=== PATIENT | male | born 1945 | race Caucasian/White ===

== ENCOUNTER → 2017-11-14 12:45 | Outpatient (CLI) | payer MEDICARE, OTHER, SELFPAY ==
--- NOTE | 2017-11-14 13:00 | ECHOCS_ITS ---
Reason For Study: ABNL EKG Procedure This was a 2D Doppler, Color Flow transthoracic echocardiogram. Contrast injection was performed. Exam performed in department. Left Ventricle Normal LV size. Left ventricular systolic function is normal. The estimated ejection fraction is 55 %. Transmitral and pulmonary venous doppler flow suggestive of impaired relaxation of left ventricle. No regional wall motion abnormalities noted. Right Ventricle Normal RV size. Normal systolic function. Atria The left atrium is mildly enlarged. Normal right atrium. Mitral Valve Normal mitral valve. Tricuspid Valve Normal tricuspid valve. Mild (1+) tricuspid valve insufficiency. Pulmonary artery systolic pressure is 27 mmHg. Aortic Valve Trisinus/trileaflet aortic valve. Normal aortic valve. Pulmonic Valve Normal pulmonic valve. Great Vessels Normal aortic root. The pulmonary artery is normal size. Normal inferior vena cava. Pericardium/Pleural No pericardial effusion. Medication 22 gauge I.V. with prn adaptor inserted into right arm. Definity0.2ml given slow IV push to enhance endocardial definition. MMode/2D Measurements & Calculations LVIDd: 4.1 cm IVSd: 1.2 cm Ao root diam: 3.1 cm LVIDs: 2.6 cm LVPWd: 1.2 cm LA dimension: 4.0 cm RVDd: 3.2 cm FS: 35.3 % LAV(MOD-bp): 77.3 ml LAV(MOD-bp) Indexed: 37.0 ml/m2 LA A4 area: 23.2 cm2 RA A4 area: 19.6 cm2 LAV(MOD-sp2): 65.7 ml LAV(MOD-sp4): 68.7 ml Doppler Measurements & Calculations MV E max ramin: 63.2 cm/sec Lat Peak E' Ramin: 9.8 cm/sec Med Peak E' Ramin: 7.1 cm/sec MV A max ramin: 75.9 cm/sec E/E' lat: 6.5 E/E' med: 8.9 MV E/A: 0.83 Ao V2 max: 137.6 cm/sec LV V1 max: 125.2 cm/sec PA V2 max: 175.5 cm/sec Ao max P.6 mmHg LV V1 max P.3 mmHg PA V2 mean: 105.9 cm/sec PA V2 VTI: 33.1 cm TR max ramin: 237.7 cm/sec TR max P.7 mmHg Interpretation Summary Normal LV size. Left ventricular systolic function is normal. The estimated ejection fraction is 55 %. Mild (1+) tricuspid valve insufficiency. Contrast injection was performed. Ordering Physician: Tacho Moreira Referring Physician: Jose Guillaume Performed By: Naomy Peter, MARTÍN, RVT
== END ==
PROVIDERS: Family Provider Family Medicine; PCP Family Medicine; Visit Provider Internal Medicine Cardiovascular Disease
DX: R94.31 Abnormal electrocardiogram [ECG] [EKG] (principal); I07.1 Rheumatic tricuspid insufficiency
CPT/HCPCS: 93306; Q9957; A4216; C8929

== ENCOUNTER → 2017-12-29 14:17 | Outpatient (CLI) | payer MEDICARE, OTHER, SELFPAY ==
[2017-12-29 17:19] LABS: Absolute Neutrophil Count 5.4 X10^3/uL (2.0-7.7); Basophil# 0.01 X10^3/uL; Basophil% 0.1 % (0-1); Eosinophil# 0.05 X10^3/uL; Eosinophils% 0.7 % (0-5); Hematocrit 44.5 % (40-54); Hemoglobin 15.5 g/dl (13.0-16.5); Lymphocyte % 12.9 % (19-41); Mean Corp Hgb Conc 34.8 g/gl (32-36); Mean Corpuscular Hgb 29.5 pg (27.0-32.0); Mean Corpuscular Volume 84.6 fL (80-94); Mean Platelet Vol. 11.4 fl (6.2-12.0); Monocyte% 8.6 % (0-10); Neutrophil # 5.37 X10^3/uL (2.7-7.7); Neutrophil % 77.4 % (47-70); Platelet Count 286 K/mm3 (150-450); RBC Distribution Width CV 12.4 % (11.6-14.6); RBC Distribution Width SD 38.3 fl (35.1-43.9); Red Blood Count 5.26 M/mm3 (4.6-6.2)
[2017-12-29 17:34] LABS: POSITIVE COUNT NO; POSITIVE DIFFERENTIAL NO; POSITIVE MORPHOLOGY NO
[2017-12-29 18:01] LABS: CRP < 2.90 mg/L (0.0-3.0)
[2017-12-29 18:38] LABS: Erythrocyte Sedimentation Rate 3 mm/hr (0-20)
== END ==
PROVIDERS: Family Provider Family Medicine; PCP Family Medicine; Visit Provider Physician Assistant
DX: Z96.652 Presence of left artificial knee joint (principal)
CPT/HCPCS: 36415; 85025; 85652; 86140

== ENCOUNTER → 2018-01-13 10:32 | Outpatient (CLI) | payer MEDICARE, OTHER, SELFPAY ==
--- NOTE | 2018-01-13 10:51 | EKG12_ITS ---
Test Reason : PREOP Blood Pressure : / mmHG Vent. Rate : 059 BPM Atrial Rate : 059 BPM P-R Int : 166 ms QRS Dur : 106 ms QT Int : 416 ms P-R-T Axes : 031 043 044 degrees QTc Int : 411 ms Sinus bradycardia Incomplete right bundle branch block Borderline ECG Confirmed by PARRISH THAKKAR, PRETTY ([id number]), editorial writer PORSHA RAMOS ([id number]) on 01/16/2018 1:49:14 PM Referred By: [place] Confirmed By:PRETTY SENIOR MD
[2018-01-13 11:16] LABS: Hematocrit 42.4 % (40-54); Hemoglobin 14.5 g/dl (13.0-16.5); Mean Corp Hgb Conc 34.2 g/gl (32-36); Mean Corpuscular Hgb 29.7 pg (27.0-32.0); Mean Corpuscular Volume 86.9 fL (80-94); Mean Platelet Vol. 10.8 fl (6.2-12.0); Platelet Count 231 K/mm3 (150-450); RBC Distribution Width CV 12.9 % (11.6-14.6); RBC Distribution Width SD 40.3 fl (35.1-43.9); Red Blood Count 4.88 M/mm3 (4.6-6.2); Scan Indicated on CBC? Y/N NO; White Blood Count 4.6 K/mm3 (4.4-11.0)
[2018-01-13 11:42] LABS: Anion Gap 5 (5-15); BUN 17 mg/dL (7-18); BUN/Creat Ratio 23.3 RATIO (10-20); Calcium,Total 8.3 mg/dL (8.5-10.1); Chloride 100 mmol/L (98-107); Creatinine, Serum 0.73 mg/dL (0.70-1.30); EST Glomerular Filtration Rate 112 mL/min (>60); Est Glom Filt Rate - Afr Amer 135 mL/min (>60); Glucose 90 mg/dL (74-106); Potassium 4.3 mmol/L (3.5-5.1); Sodium Level 135 mmol/L (136-145)
== END ==
PROVIDERS: Family Provider Family Medicine; PCP Family Medicine; Visit Provider Orthopaedic Surgery
DX: Z01.810 Encounter for preprocedural cardiovascular examination (principal); Z01.818 Encounter for other preprocedural examination; I10 Essential (primary) hypertension
CPT/HCPCS: 36415; 80048; 85027; 93005

== ENCOUNTER → 2018-10-23 07:36 | Outpatient (CLI) | payer MEDICARE, OTHER, SELFPAY ==
[2018-10-23 10:54] LABS: Cholesterol 215 mg/dL (200); High Density Lipoprotein 69 mg/dL; PSA,Total - Annual Screen 0.61 ng/mL (0.00-4.00); Triglycerides 119 mg/dL; Very Low Density Lipoprotein 24 mg/dL (5-40)
== END ==
PROVIDERS: Family Provider Family Medicine; PCP Family Medicine; Referring Provider Family Medicine; Visit Provider Family Medicine
DX: E78.00 Pure hypercholesterolemia, unspecified (principal); Z12.5 Encounter for screening for malignant neoplasm of prostate
CPT/HCPCS: 36415; 80061; 84153; G0103

== ENCOUNTER 2019-01-13 09:16 | Emergency (ER) | payer MEDICARE, OTHER, SELFPAY ==
[2018-10-24 10:25] VITALS: BMI 29.7
[2019-01-13 09:17] VITALS: BP 162/100; PULSE 80; RESP 16; TEMP 36.7; O2SAT 96; BMI 29.2
[2019-01-13 10:08] LABS: Absolute Lymphocyte Count 0.59 X10^3/ul (0.83-4.51); Absolute Neutrophil Count 4.6 X10^3/uL (2.0-7.7); Basophil# 0.02 X10^3/uL; Basophil% 0.3 % (0-1); Eosinophil# 0.21 X10^3/uL; Eosinophils% 3.6 % (0-5); Hematocrit 46.4 % (40-54); Hemoglobin 13.1 g/dl (13.0-16.5); Lymphocyte # 0.59 X10^3/ul (4.0); Mean Corp Hgb Conc 28.2 g/gl (32-36); Mean Corpuscular Hgb 23.7 pg (27.0-32.0); Mean Corpuscular Volume 84.1 fL (80-94); Mean Platelet Vol. 10.5 fl (6.2-12.0); Monocyte# 0.48 X10^3/uL; Monocyte% 8.2 % (0-10); Neutrophil # 4.57 X10^3/uL (2.7-7.7); Neutrophil % 77.7 % (47-70); Platelet Count 229 K/mm3 (150-450); RBC Distribution Width CV 12.8 % (11.6-14.6); RBC Distribution Width SD 39.3 fl (35.1-43.9); Red Blood Count 5.52 M/mm3 (4.6-6.2); White Blood Count 5.9 K/mm3 (4.4-11.0)
[2019-01-13 10:09] LABS: Differential Indicated SCAN CRITERIA MET; POSITIVE COUNT NO; POSITIVE DIFFERENTIAL YES; POSITIVE MORPHOLOGY NO
--- NOTE | 2019-01-13 10:18 | RAD_ITS ---
STUDY: X-RAY - LEFT KNEE REASON FOR EXAM: Male, 73 years old. Left knee replacement, pain and swelling since yesterday TECHNIQUE: 4 view(s) of the knee. COMPARISON: None. FINDINGS: Normal visualized distal femur. Normal visualized proximal tibia and fibula. Normal proximal tibiofibular articulation. Knee replacement is in radiographic alignment. No periimplant lucency demonstrated. No destructive bony process. No joint effusion. The soft tissue structures are unremarkable. RAD/Knee 4 or More Views IMPRESSION: Left knee replacement in radiographic alignment. No bony destructive process. Electronically Signed: Jagdish Alfaro MD at 10:39 EDT , Service support ,
[2019-01-13 10:23] LABS: Erythrocyte Sedimentation Rate 4 mm/hr (0-20)
[2019-01-13 10:37] LABS: Anion Gap 3 (5-15); BUN 11 mg/dL (7-18); BUN/Creat Ratio 14.7 RATIO (10-20); CRP < 2.90 mg/L (0.0-3.0); Calcium,Total 8.5 mg/dL (8.5-10.1); Chloride 99 mmol/L (98-107); Creatinine, Serum 0.75 mg/dL (0.70-1.30); EST Glomerular Filtration Rate 108 mL/min (>60); Est Glom Filt Rate - Afr Amer 131 mL/min (>60); Estimated Creatinine Clearance 64.81 ml/min; Glucose 103 mg/dL (74-106); Potassium 4.6 mmol/L (3.5-5.1); Sodium Level 132 mmol/L (136-145)
[2019-01-13 11:31] VITALS: BP 140/85; PULSE 67; RESP 16; O2SAT 97
[2019-01-13] MEDS: Ondansetron 4 MG/2 ML Vial IV (11:59)
[2019-01-13] MEDS: Morphine 4 MG/ML Syringe IV ×2 (11:59→14:00)
[2019-01-13] MEDS: Ketorolac 30 MG/ML Syringe IV (11:59)
[2019-01-13 15:08] VITALS: BP 158/102; PULSE 83; RESP 18; O2SAT 100
--- NOTE | 2019-01-13 15:19 | ED.DCSUM_ITS ---
History of Present Illness Chief Complaint: Lower Extremity Injury Informant: Patient Occurred: Days - Onset Mechanism/Context: - - No history of trauma Onset: - - Onset Context: Sudden Onset Timing: Continuous Quality of Pain: Dull, Aching Location: Left knee Current Severity: Mild Maximum Severity: Severe Worsened by: Flexion, extension weightbearing Relieved by: Nothing Associated Symptoms: Loss of Funtion. Negative for: Parasthesia, Weakness Narrative: Patient is an elderly male with history of left total knee arthroplasty by Dr. Ed Vernon 4 years ago. He presents with abrupt atraumatic left knee pain and swelling started . He was concerned because it was warm. States he presented to the emergency department yesterday but left because of crowding. He denies fever, chills night sweats. He denies cardiac respiratory symptoms. He denies swelling of his leg or thigh. 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 He denies any other symptoms. There is no history of gout or pseudogout. He is not on a thiazide diuretic. - Past Medical History (1) Benign prostate hyperplasia Status: Chronic (2) Carotid artery disease Status: Chronic (3) Hyperlipidemia Status: Chronic (4) Hypertension Status: Chronic (5) Peripheral neuropathy Status: Chronic (6) Ventricular tachycardia Status: Chronic Past Medical History - Allergies and Home Meds Allergies/Adverse Reactions: Allergies No Known Allergies Allergy (Verified 01/13/19 09:17) Primary Care Physician: Jose Guillaume MD [Primary Care Provider] - Prior records reviewed: Yes Surgical History: total knee arthroplasty, TURP, - - elbow and shoulder surgery, cystoscopy Lives: Spouse/ Significant Other Smoking Status: Former smoker Alcohol: Rare - Family History Maternal Family History: Reports: No pertinent history Paternal Family History: Reports: Cancer - colon in his father Sibling Family History: Reports: - - he has a brother with lung cancer, another with bladder cancer and a third with Leukemia Review of Systems General: Denies: Chills, Fever, Malaise, Subjective, Sweats, Weight loss, - Cardiovascular: Denies: Chest pain, Palpitations, Heart racing, -, - Respiratory: Denies: Dyspnea, Cough, Dyspnea on exertion Gastrointestinal: Denies: Abdominal pain, Nausea, Vomiting, Diarrhea Genitourinary: Denies: Dysuria, Hematuria, Frequency, -, - Musculoskeletal: Reports: Extremity Pain - Pain, swelling and warmth left knee. Denies: Myalgias, Arthralgias, Neck pain, Back pain Skin: Denies: Rash, Wounds Neurological: Denies: Weakness, Parasthesia, Numbness Hematologic: Denies: Easy bruising, Easy bleeding Physical Exam Vital Signs/Narrative: Vital Signs Pulse Resp BP Pulse Ox 01/13/19 15:08 83 18 158/102 H 100 01/13/19 11:31 67 16 140/85 H 97 - Extremity Exam Left Pelvis: Negative for: Abrasion, Contusion, Deformity, Edema, Hematoma, Limited ROM, - Left Hip: Negative for: Abrasion, Contusion, Deformity, Edema, Hematoma, Limited ROM, - Left Femur: Negative for: Abrasion, Contusion, Deformity, Edema, Hematoma, Limited ROM, - Left Knee: Limited ROM, - - There is swelling with effusion and warmth of left knee. Flexion extension causes him discomfort. Is able to extend 170 degrees and flex to 100 degrees before experiencing discomfort. There is no laxity with varus valgus stress testing. Left Tib Fib: Negative for: Abrasion, Contusion, Deformity, Edema, Hematoma, Limited ROM, - Left Ankle: Negative for: Abrasion, Contusion, Deformity, Edema, Hematoma, Limited ROM, - Left Foot: Negative for: Abrasion, Contusion, Deformity, Edema, Hematoma, Limited ROM, - General: Well nourished, Well developed Head: Normocephalic, Atraumatic Eyes: Perrl, EOMI. Negative for: Pale conjunctiva Cardiovascular: Regular rate, Regular rhythm Respiratory: No distress Skin: Normal color, No rash Neurological: Alert, Oriented x3, Cranial nerves II-XII grossly intact, Normal Strength, Normal Sensation Psychological: Normal affect Diagnostic/Tx/Re-eval 4 view x-ray of the right knee was interpreted me as negative. There is no evidence of problem with hardware, effusion, foreign body, fracture or dislocation. Impressions Knee X-Ray 01/13/19 10:18 IMPRESSION: Left knee replacement in radiographic alignment. No bony destructive process. Electronically Signed: Jagdish Alfaro MD at 10:39 EDT , Service support , 01/13/19 10:18 Knee 4 or More Views [RAD] Stat 01/13/19 14:30 Fluid - Synovial (joint) Gram Stain - Preliminary Laboratory Results 01/13/19 01/13/19 10:00 10:00 WBC 5.9 RBC 5.52 Hgb 13.1 Hct 46.4 MCV 84.1 MCH 23.7 L MCHC 28.2 L RDW 12.8 RDW Differential 39.3 Plt Count 229 MPV 10.5 Immature Gran % (Auto) 0.200 Neut % (Auto) 77.7 H Lymph % (Auto) 10.0 L [place] % (Auto) 8.2 Eos % (Auto) 3.6 Baso % (Auto) 0.3 Absolute Neuts (auto) 4.6 Absolute Lymphs (auto) 0.59 L Total Counted Not Reportable ESR 4 Sodium 132 L Potassium 4.6 Chloride 99 Carbon Dioxide 30.0 Anion Gap 3 L BUN 11 Creatinine 0.75 Estim Creat Clear Calc 64.81 Est GFR (MDRD) Af Amer 131 Est GFR (MDRD) Non-Af 108 BUN/Creatinine Ratio 14.7 Glucose 103 Calcium 8.5 C-React Prot Ext Range < 2.90 - Medical Decision Making With atraumatic left knee pain associated with effusion, warmth and pain with range of motion need to rule out crystal induced monoarticular arthritis versus septic/pyogenic arthritis. Appropriate blood work was obtained. X-ray was obtained to evaluate for fracture, or any other mL he would explain his knee pain and swelling. He gave verbal consent for arthrocentesis. Explained risk benefits. Given up to ask questions and none were asked. Procedures Procedure(s): Arthrocentesis left knee. 1. Verbal consent. 2. The knee was prepped draped sterile manner. Medial approach. Half cc of bloody fluid was obtained. Fluid was sent for culture. 3. Dr. Nichols was made aware of patient's history, physical and need for follow-up. ED Disposition - Plan for ED Patient: Disposition: Home or Assisted Living Diagnosis: Effusion of left knee joint, Pain, joint, knee, left Instructions: ED Acute Pain [facility] Prescriptions: Hydrocodone Bitart/Apap 5-325 [[place] 5MG-325MG] 1 tablet PO Q6H PRN PRN 3 Days #10 tablet PRN Reason: Pain Referrals: Jose Guillaume MD [Primary Care Provider] - Ed Vernon DO [STAFF PHYSICIAN] - 3-5 Days
[2019-01-13 15:47] VITALS: BP 162/98; PULSE 69; RESP 12; O2SAT 98
== END 2019-01-13 15:52 | disposition home or self-care (01) ==
PROVIDERS: Emergency Provider Emergency Medicine; Family Provider Family Medicine; PCP Family Medicine
DX: M25.462 Effusion, left knee (principal); M25.562 Pain in left knee; G62.9 Polyneuropathy, unspecified; I10 Essential (primary) hypertension; E78.5 Hyperlipidemia, unspecified; I47.2 Ventricular tachycardia; N40.0 Benign prostatic hyperplasia without lower urinary tract symptoms; Z79.82 Long term (current) use of aspirin; Z79.899 Other long term (current) drug therapy; Z86.718 Personal history of other venous thrombosis and embolism; Z96.652 Presence of left artificial knee joint; Z87.891 Personal history of nicotine dependence
CPT/HCPCS: 20610; 73564; 80048; 85025; 85652; 86140; 87070; 87075; 87205; 96374; 96375; 96376; 99283; A4216; J2405

== ENCOUNTER 2019-05-29 10:30 | Outpatient (RCR) | payer MEDICARE, OTHER, SELFPAY ==
--- NOTE | 2019-04-17 16:34 | HP.PTEVAL_ITS ---
Patient's Visit Information MILY BOLANOS is a 73 year old M referred to Physical Therapy by DEEPIKA Arndt with a diagnosis of PD. Date of Evaluation: 04/17/19 Physical Therapist: RAO Thrasher - Visit Plan Frequency: 2x /Week Duration: 4 Weeks Plan: L knee and hip strengtheing. Gear towards health and wellness membership. 2X/ week for 4 weeks for increasing HR, high level balance, dual task exercises, L LE strength, gait training with HEP - Subjective Findings: Pt reports that he was diagnosed 2 mo ago with PD. He has had R handed tremors for about a year. He met a bunch of the criteria. He is on meds (carpa-Levo). He was told by his Dr that the only thing to slow it down would be exercise. He wants to join here as a member as long as physical therapy. He feels that he has trouble with veering with gait. He reports that with turning he feels dizzy. He has almost fallen 2-3 times. It is not like he used to be. He lives in one floor home but he goes to basement to watch sports and uses a handrailing. He is not sleeping great. He wakes up and 3:00 and 4:00 etc. - Objective Gait: walks with increase stiffness and decreased stance time on the L LE. no veering. FGA: . Stairs: up and down recip with 2 handrails with decrease L knee flexion. Tightness in R gastroc and R HS. LE MMT: B hip flex 4+/5, L knee ext 4//5 and R 4+/5, L knee flex 4-/5 and R knee flex 4+/5, B hip abd 4+/5. Sit to stand: able without using UE's - Balance Scores Functional Gait Assessment Score: 16 % Disability: 46.6700 - Goals Goal 1:: I HEP Goal Time Frame: 4-6 Weeks Goal 2:: Be able to go up and down stairs recip with no signs of weakness in the L LE Goal Time Frame: 4-6 Weeks Goal 3:: Increase FGA score by 5 points to decrease fall risk. Goal Time Frame: 4-6 Weeks Goal 4:: be able to complet dual task ladder drills with out LOB or difficulty Goal Time Frame: 4-6 Weeks - Rehabilitation Potential Rehabilitation Potential: Good - Anticipated Interventions Thank you for the opportunity to evaluate your patient. For Medicare and Medicare HMO plans, please review the plan of care and approve it. It will need to be FAXED BACK to us at [phone] for Medicare purposes. For Medicare only, by signing this I certify the plan of care. Please let me know if there are questions or concerns regarding this plan of care. Physician Signature: Date:
--- NOTE | 2019-05-29 12:10 | HP.PTDCSUM_ITS ---
HP - PT D/C Summary It has been my pleasure to treat MILY BOLANOS under orders from Elizabeth Pelaez NP-C, for the diagnosis of PD for a total of 8 visit(s). Discharge Date: 05/29/19 Please see the following information for a summary of their discharge status. - Subjective Subjective: Pt had appointment with Elizabeth APARICIO yesterday and she said ok to backing off meds and to come back in 3 months and ordered a sleep study. - Overall Improvement % Improvement: 50 - Objective Objective/Function: FGA 23 (improved from 16). Gait: slight decreased coordination on L LE ( decrease calf girth on the L). Stairs: up and down reci p with no rail ( at times decreased eccentri c control on the L but much improved). - Goals Goal 1:: I HEP Goal Progress: Goal Met Goal 2:: Be able to go up and down stairs recip with no signs of weakness in the L LE Goal Progress: Progressing Goal 3:: Increase FGA score by 5 points to decrease fall risk. Goal Progress: Goal Met Goal 4:: be able to complet dual task ladder drills with out LOB or difficulty Goal Progress: Goal Met - Plan Plan: DC PT to I exercises - D/C Information Discharge Comments: DC PT to HEP If there are questions or concerns regarding this patient's physical therapy, please feel free to call me at [phone]. Thank you for the referral of this patient. Sincerely, Deb Osborn, RAO
== END 2019-05-29 19:00 | disposition home or self-care (01) ==
LOC: PT 10:30
PROVIDERS: Family Provider Family Medicine; PCP Family Medicine; Visit Provider Nurse Practitioner Family
DX: G20 Parkinson's disease (principal)
CPT/HCPCS: 97110; 97161; 97530

== ENCOUNTER → 2019-07-10 20:00 | Outpatient (CLI) | payer MEDICARE, OTHER, SELFPAY | PROVIDERS: Family Provider Family Medicine; PCP Family Medicine; Visit Provider Nurse Practitioner Family | DX: G47.33 Obstructive sleep apnea (adult) (pediatric) (principal) | CPT/HCPCS: 95810 ==

== ENCOUNTER → 2019-08-14 | Outpatient (CLI) | payer MEDICARE, OTHER, SELFPAY | END | disposition home or self-care (01) | LOC: SL 20:13 | PROVIDERS: Family Provider Family Medicine; PCP Family Medicine; Referring Provider Nurse Practitioner Family; Visit Provider Nurse Practitioner Family | DX: G47.33 Obstructive sleep apnea (adult) (pediatric) (principal) | CPT/HCPCS: 95811 ==

== ENCOUNTER → 2019-10-23 09:57 | Outpatient (CLI) | payer MEDICARE, SELFPAY ==
[2019-10-23 07:33] VITALS: BMI 29.0
[2019-10-23 11:23] LABS: AST(SGOT) 30 U/L (15-37); Alanine Aminotransfer ALT/SGPT 16 U/L (16-61); Albumin, Serum 3.5 g/dL (3.2-5.0); Alkaline Phosphatase 130 U/L (45-117); Anion Gap 4 (5-15); BUN 17 mg/dL (7-18); BUN/Creat Ratio 20.7 RATIO (10-20); Bilirubin, Direct 0.15 mg/dL (0.00-0.30); Calcium,Total 8.7 mg/dL (8.5-10.1); Chloride 106 mmol/L (98-107); Creatinine, Serum 0.82 mg/dL (0.70-1.30); EST Glomerular Filtration Rate 97 mL/min (>60); Est Glom Filt Rate - Afr Amer 117 mL/min (>60); Glucose 109 mg/dL (74-106); PSA,Total - Annual Screen 0.38 ng/mL (0.00-4.00); Potassium 4.2 mmol/L (3.5-5.1); Protein, Total 6.5 g/dL (6.4-8.2); Sodium Level 136 mmol/L (136-145); Thyroid Stim Hormone (TSH) 0.95 uIU/mL (0.358-3.74)
== END ==
PROVIDERS: Family Medicine; Family Provider Family Medicine; PCP Family Medicine; Referring Provider Internal Medicine Cardiovascular Disease; Visit Provider Internal Medicine Cardiovascular Disease
DX: E78.00 Pure hypercholesterolemia, unspecified (principal); I10 Essential (primary) hypertension; Z12.5 Encounter for screening for malignant neoplasm of prostate
CPT/HCPCS: 36415; 80048; 80076; 84153; 84443; G0103

== ENCOUNTER → 2019-10-24 08:06 | Outpatient (CLI) | payer MEDICARE, SELFPAY ==
[2019-10-23 07:33] VITALS: BMI 29.0
[2019-10-24 10:54] LABS: Cholesterol 211 mg/dL (200); High Density Lipoprotein 89 mg/dL; Triglycerides 86 mg/dL; Very Low Density Lipoprotein 17 mg/dL (5-40)
== END ==
PROVIDERS: Family Provider Family Medicine; PCP Family Medicine; Referring Provider Internal Medicine Cardiovascular Disease; Visit Provider Internal Medicine Cardiovascular Disease
DX: E78.00 Pure hypercholesterolemia, unspecified (principal)
CPT/HCPCS: 80061

== ENCOUNTER → 2019-11-07 12:44 | Outpatient (CLI) | payer MEDICARE, SELFPAY ==
[2019-10-23 07:33] VITALS: BMI 29.0
--- NOTE | 2019-11-07 12:47 | RAD_ITS ---
STUDY: SWALLOWING STUDY REASON FOR EXAM: Male, 74 years old. DYSPHAGIA. 1537 IMAGES TECHNIQUE: The examination was performed with Speech Pathology in attendance. Under fluoroscopic observation, the patient ingested thin barium, thick barium, barium pudding, and barium coated cracker. FLUOROSCOPY TIME: 1:43 minutes/seconds. 1537 fluoroscopic images were obtained. RADIOLOGIST INVOLVEMENT: Radiologist was present and providing direct supervision. COMPARISON: None. FINDINGS: The following was observed during swallowing of the various mixtures of barium: Thin Barium: Transient penetration and ejection with ingestion of thin liquids. Barium Pudding: There was no evidence of aspiration or laryngeal penetration. Barium Coated Cracker: There was no evidence of aspiration or laryngeal penetration. RAD/Swallowing Function w/Video IMPRESSION: Transient penetration with ejection with ingestion of thin liquids. The swallow study findings were discussed with the patient by the speech pathologist at the conclusion of the examination. Please see speech pathology report for more information and recommendations. Electronically Signed: Camden Felix, at 14:07 EST , Service support ,
--- NOTE | 2019-11-07 13:00 | SP.MBSS_ITS ---
PRIMARY / SECONDARY DIAGNOSIS: dysphagia (R13.10) REFERRING PHYSICIAN: Dr. Vitaly Belcher MD CURRENT DIET: regular textures, thin liquids DENTITION: WFL MENTAL STATUS: WNL RESPIRATORY STATUS: O2 via room air REASON FOR REFERRAL: The Patient is a 74 year old male referred for a modified barium swallow (MBS) study to objectively assess the Patients oropharyngeal swallow function under fluoroscopy secondary to concerns for diet texture tolerance (particularly mixed textures), with a recent diagnosis of Parkinson?s disease. MEDICAL HISTORY: Parkinson disease, carotid artery disease, ventricular tachycardia, ventricular tachyarrhythmia, history of left heart catheterization, essential primary hypertension, hyperlipidemia, benign prostatic hyperplasia, glaucoma, osteoarthritis, peripheral neuropathy, history of total knee replacement. PREVIOUS MODIFIED BARIUM SWALLOW STUDY: None ASSESSMENT PARAMETERS: The Patient participated in a Modified Barium Swallow (MBS) study on 11/07/2019. Dr. Felix was the radiologist present for this evaluation. This study was recorded in the lateral view and images were sent to PACs for storage. Scoring was completed through each trial using the 8-point Penetration-Aspiration Scale (PAS) and summarized via the Modified Barium Swallow Impairment Profile (MBSImP) and the Bolus Residue Scale (BRS), with severity scoring through the Dysphagia Severity Rating Scale (DSRS) and the Swallowing Performance Scale (SPS), and recommended diet textures through the International Dysphagia Diet Standardisation Initiative (IDDSI). RESULTS OF THE EVALUATION: The Patient presents with mild oropharyngeal dysphagia (DSRS: 1; SPS: 3) with transient penetration during sequential ingestion of thin liquids secondary to the diagnosis of Parkinson?s disease. OBJECTIVE ASSESSMENT OF SWALLOW FUNCTION (QUANTITATIVE ? PER TRIAL): PENETRATION / ASPIRATION SCALE (ALCARAZ): 1 = does not enter airway 2 = enters airway/above vocal folds/ejected 3 = enters airway/above vocal folds/not ejected 4 = enters airway/contacts vocal folds/ejected 5 = enters airway/contacts vocal folds/not ejected 6 = enters airway/below vocal folds/ejected 7 = enters airway/below vocal folds/not ejected despite effort 8 = enters airway/below vocal folds/no effort PENETRATION / ASPIRATION SCALE (SCORE): Thin liquid - 5 mL tsp.: 2 Thin liquids via cup (single sip): 1 Thin liquids via cup (single sip): 1 Thin liquids via cup (single sip): 1 Thin liquids via cup (sequential swallows): 2 Thin liquids via straw (single sip): 1 Thin liquids via straw (sequential swallows): 2 Pudding via spoon: AAA Regular textured cookie: 1 Mixed textures: 1 Mixed textures: 1 Thin liquids via straw (chin tuck): 1 Thin liquids via straw (chin tuck): 1 Thin liquids via straw (chin tuck): 1 OBJECTIVE ASSESSMENT OF SWALLOW FUNCTION (QUANTITATIVE ? AGGREGATE): MODIFIED BARIUM SWALLOW IMPAIRMENT PROFILE (MBSImP) LABIAL SEAL: 0 (of 4) no labial escape TONGUE CONTROL: 2 (of 3) posterior escape < 50% BOLUS PREPARATION / MASTICATION: 0 (of 3) timely and efficient BOLUS TRANSPORT / LINGUAL MOTION: 0 (of 4) brisk tongue motion ORAL RESIDUE: 1 (of 4) trace residue lining oral structures INITIATION OF PHARYNGEAL SWALLOW: 1 (of 4) valleculae SOFT PALATE ELEVATION: 0 (of 4) no bolus between soft palate & pharyngeal wall LARYNGEAL ELEVATION: 1 (of 3) partial superior movement / approximation ANTERIOR HYOID EXCURSION: 1 (of 2) partial movement EPIGLOTTIC MOVEMENT: 0 (of 2) complete inversion LARYNGEAL VESTIBULE CLOSURE: 0 (of 2) complete closure PHARYNGEAL STRIPPING WAVE: 0 (of 2) present / complete PE SEGMENT OPENIN (of 3) complete distension / duration; no obstruction TONGUE BASE RETRACTION: 1 (of 4) trace column of contrast PHARYNGEAL RESIDUE: 1 (of 4) trace residue ESOPHAGEAL BOLUS CLEARANCE: could not view BOLUS RESIDUE SCALE (BRS): 1 (of 6) no residue OBJECTIVE ASSESSMENT OF SWALLOW FUNCTION (SEVERITY GRADING): DYSPHAGIA SEVERITY RATING SCALE (DSRS): 1 (within functional limits SWALLOWING PERFORMANCE SCALE (SPS): 3 (mild) OBJECTIVE ASSESSMENT OF SWALLOW FUNCTION (QUALITATIVE): ORAL PREPARATORY PHASE: sufficient mastication rate and quality; sufficient anterior oral containment during oral manipulation; preserved management of breathing / bolus formation ORAL TRANSITIONAL PHASE: no presence of transitional incompetence; no bolus consolidation impairments; no presence of premature posterior bolus loss with the exception of mixed textures, which correlates with his reported intermittent coughing with mixed viscosities. PHARYNGEAL PHASE: no clinically significant signs of pharyngeal dyssynchrony; appropriate hyolaryngeal excursion with sufficient / consistent laryngeal vestibule pressure generated to expel penetrated material; no signs of pharyngeal dysmotility; no signs of velopharyngeal impairments. ESOPHAGEAL PHASE: no obvious esophageal phase abnormalities observed. DYSPHAGIA ASSOCIATED MEDICAL CONSIDERATIONS / INTERVENTION CONSIDERATIONS: I would consider annual repeat objective assessment of the oropharyngeal swallow function to identify changes in the oropharyngeal swallow function associated with Parkinson?s disease due to the progressive nature of the disease and higher proclivity for silent aspiration. INTERVENTION RECOMMENDATIONS AND CONSIDERATIONS: The Patient would benefit from follow up skilled speech-language intervention targeting diet texture management and training / implementation of recommended compensatory strategies; and Patient / caregiver education regarding dysphagia associated with Parkinson?s disease. I would consider prophylactic training and implementation of oropharyngeal strengthening exercises to facilitate maintained oropharyngeal strength and coordination. The Patient would benefit from early implementation of intervention targeting hypokinetic dysarthria via training and implementation of the Keron Celena Voice Therapy (LSVT) method, as research indicates improved functional outcomes during disease progression with early intervention. POST ASSESSMENT EDUCATION: Results and recommendations were discussed with the Patient and Patients family immediately following MBS completion, with the Patient and Patients family verbalizing understanding and agreement with all recommendations and education provided. DIET TEXTURE RECOMMENDATIONS: Will recommend a regular textured (IDDSI: 7), thin liquid diet (IDDSI: 0) diet RECOMMENDED COMPENSATORY STRATEGIES: Consider cutting tougher textures into bite sized pieces, considerations for the chin tuck posture, reduced bolus volume / rate of ingestion, seated upright at 90 degrees during PO intake, remain upright for 30-60 minutes post meal (GERD precaution), medications one at a time with a liquid chaser. IMAGE COUNT: [id number] Benton Andrews M.A., CCC-WRESTLING COACH, CBIS MBSImP Certified, LSVT Certified [facility] Speech-Language Pathology Department [email or web address]
== END ==
PROVIDERS: Family Provider Family Medicine; PCP Family Medicine; Referring Provider Otolaryngology; Visit Provider Otolaryngology
DX: R13.12 Dysphagia, oropharyngeal phase (principal)
CPT/HCPCS: 74230; 92611

== ENCOUNTER → 2019-11-15 09:22 | Outpatient (CLI) | payer MEDICARE, SELFPAY ==
[2019-10-23 07:33] VITALS: BMI 29.0
[2019-11-15 09:28] LABS: Bacteria 0 SEEN /hpf (None Seen); Mucous, Urine 0 SEEN /hpf (<or=2+); Red Blood Cells-Urine 0 SEEN /hpf (0-5); White Blood Cells 0 SEEN /hpf (0-5)
[2019-11-15 12:20] LABS: Absolute Lymphocyte Count 0.75 X10^3/uL (0.83-4.51); Absolute Neutrophil Count 3.6 X10^3/uL (2.0-7.7); Basophil# 0.03 X10^3/uL; Basophil% 0.6 % (0-1); Hematocrit 47.1 % (40-54); Hemoglobin 15.8 g/dL (13.0-16.5); Lymphocyte # 0.75 X10^3/ul (4.0); Lymphocyte % 15.4 % (19-41); Mean Corp Hgb Conc 33.5 g/dL (32-36); Mean Corpuscular Hgb 29.2 pg (27.0-32.0); Mean Corpuscular Volume 87.1 fL (80-94); Mean Platelet Vol. 11.3 fl (6.2-12.0); Monocyte# 0.36 X10^3/uL; Monocyte% 7.4 % (0-10); NRBC Flagged by Analyzer 0 % (0-5); Neutrophil # 3.61 X10^3/uL (2.7-7.7); Platelet Count 219 K/mm3 (150-450); RBC Distribution Width CV 12.8 % (11.6-14.6); RBC Distribution Width SD 40.4 fl (35.1-43.9); Red Blood Count 5.41 M/mm3 (4.6-6.2); White Blood Count 4.9 K/mm3 (4.4-11.0)
[2019-11-15 12:27] LABS: Color, Urine Yellow (Yellow); Glucose, Dipstick Normal (Normal); Ketone-Dipstick Negative (Negative); Leukocyte Esterase-Dipstick Negative /ul (Negative); Nitrite-Dipstick Negative (Negative); Occult Blood-Urine Negative /ul (Negative); Protein-Dipstick Negative (Negative); Urine Bilirubin Dipstick Negative (Negative); Urine Clarity Sl. Cloudy (Clear); Urine Urobilinogen Normal (Normal)
[2019-11-15 12:48] LABS: Vitamin B12 1156 pg/mL (211-911); Vitamin D,25 Hydroxy 26.3 ng/mL (29.95-100.01)
[2019-11-15 12:52] LABS: Squamous Epithelial Cells - UA 0-5 SEEN /hpf (0-5)
[2019-11-15 13:09] LABS: Hemoglobin A1c 5.7 % (4.2-6.3)
[2019-11-21 14:01] LABS: Vitamin B1, Thiamine 73.8 nmol/L (66.5-200.0)
== END ==
PROVIDERS: PCP Family Medicine; Referring Provider Family Medicine; Visit Provider Family Medicine
DX: I10 Essential (primary) hypertension (principal); E55.9 Vitamin D deficiency, unspecified; G62.9 Polyneuropathy, unspecified; R73.09 Other abnormal glucose
CPT/HCPCS: 36415; 81001; 82306; 82607; 83036; 84425; 85025

== ENCOUNTER 2019-11-30 08:00 | Outpatient (RCR) | payer MEDICARE, SELFPAY ==
[2019-10-23 07:33] VITALS: BMI 29.0
--- NOTE | 2019-11-15 10:00 | SOAP_ITS ---
REASON FOR REFERRAL: The Patient is a 74 year old male referred for a clinical assessment of the swallow function and cognitive communication abilities at [facility] on 11/15/2019 secondary to the diagnosis of Parkinson?s disease, reporting he was diagnosed approximately 1 year prior (under the care of Dr. Cruz). The Patient reports intermittent coughing / throat clearing during ingestion of mixed textures particularly with rapid ingestion (he reports this has been a long standing tendency) that has occurred over the past year in particular; he denies sensations of bolus stasis or nasopharyngeal reflux. He denies any significant / unintentional weight loss, changes in appetite, or issues with early satiety. he denies issue with diurnal sialorrhea (drooling during the daytime), though does report intermittent nocturnal sialorrhea; he reports mild xerostomia (dry mouth); he denies dysgeusia / hypogeusia / ageusia / cacogeusia or hyposmia. he denies any issues with reflux / heartburn, globus sensation, substernal discomfort, or feelings of bolus stasis. he denies any current or previous issues with aspiration related pulmonary complications, to include pneumonia, bronchitis, or unexplained asthma symptoms. He appears cognitively intact; affect appears appropriate. The Patient denies any current vocal changes, though is concerned for vocal deterioration and changes in his cognitive communication patterns given his diagnosis of Parkinson?s and would like to undergo at minimum introductory level interventions and obtain baseline measurements. The Patient is fully ambulatory, no difficulties with posture maintenance, and appears well nourished. 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 MEDICAL HISTORY: Parkinson disease, carotid artery disease, ventricular tachycardia, ventricular tachyarrhythmia, history of left heart catheterization, essential primary hypertension, hyperlipidemia, benign prostatic hyperplasia, glaucoma, osteoarthritis, peripheral neuropathy, history of total knee replacement. PREVIOUS MODIFIED BARIUM SWALLOW STUDY: 11/07/2019 MBS revealed mild oropharyngeal dysphagia (DSRS: 1; SPS: 3) with transient penetration during sequential ingestion of thin liquids. FUNCTIONAL STATUS ASSESSMENT RESULTS: Brown Index of [place] in Activities of Daily Livin/6 Bathin Dressin Toiletin Transferrin Continence: 1 Feedin [place] ? [place] Instrumental Activities of Daily Living Scale (IADL): 8/8 Ability to Use Telephone: 1 Shoppin Food Preparation: 1 Housekeepin Laundry: 1 Mode of Transportation: 1 Responsibility for Own Medications: 1 Ability to Handle Finances: 1 Functional Ambulation Category (FAC): 5 (ambulator- independent) ORAL MOTOR / MODIFIED CRANIAL NERVE ASSESSMENT: CNV, VII, IX, X, and XII appear grossly intact; natural upper / lower dentition in good repair; moist pinkish appearance to the oral mucosa without xerostomia; no presence of diurnal sialorrhea (drooling during daytime); appropriate volitional cough intensity; no reported or identified signs or symptoms of trismus. SUPPLEMENTARY DYSPHAGIA ASSESSMENT RESULTS: Reflux Symptom Index (RSI): 14 (>13 may indicate significant reflux) [facility] Xerostomia Questionnaire: Sialorrhea Scoring Scale (SSS): 1/9 (dry, never drools) Eating Assessment Tool ? 10 (EAT-10): 7 (3+ may represent dysphagia) CLINICAL ASSESSMENT OF SWALLOW FUNCTION (QUANTITATIVE): Repetitive Saliva Swallowing Test (RSST): Pass; > 2 dry swallows within 30 seconds. 1oz Water Swallowing Test (1oz WST): Normal ? 1 (of 5); single swallow without coughing 3oz Water Swallow Test (3oz WST): Abnormal; stopping and starting Culp 6 Factors: 0 (normal to mild) Dysphonia: negative Dysarthria: negative Abnormal gag response: negative Abnormal volitional cough: negative Cough after swallowing: negative Post prandial coughing: negative Voice changes after swallow: negative Post prandial voice changes: negative Clinical Assessment of Dysphagia in Neurodegeneration (CADN): Part 1 Anamnesis: 2 (moderate) Part 2 Intake: 0 (none) TOTAL SCORE: 2 (moderate signs of dysphagia / aspiration risk) Muñoz Assessment of Swallowing Ability (MASA): 197 (unremarkable) MASA Aspiration Severity Score: 197 (unremarkable) MASA Dysphagia Risk Rating: Possible; lowered probability of disorder Swallowing Performance Scale (SPS): 3 (mild) CLINICAL ASSESSMENT OF SWALLOW FUNCTION (QUALITATIVE): ORAL PREPARATORY PHASE: competent bolus manipulation without fragmented swallowing (piecemeal deglutition); sufficient anterior oral containment during manipulation; preserved management of breathing / bolus formation without disrupted E ? S ? E pattern ORAL TRANSITIONAL PHASE: no signs of transitional incompetence; no signs of bolus consolidation impairments; no signs or symptoms of premature posterior bolus loss; PHARYNGEAL PHASE: appropriate hyolaryngeal excursion upon digital palpation; no obvious findings suggestive of pharyngeal phase delay / dyssynchrony; no subjective signs of pharyngeal dysmotility; no subjective signs of velopharyngeal impairments; no signs or symptoms of penetration / aspiration throughout trials. ESOPHAGEAL PHASE: esophageal phase appears unremarkable COGNITIVE COMMUNICATION ASSESSMENT RESULTS (QUANTITATIVE): Parkinson's Disease - Cognitive Rating Scale (PD-CRS): Immediate Free Recall: Confrontation Namin/20 Sustained Attention: 05/26 Working Memory: 05/26 Unprompted Drawing of a Clock: 07/26 Copy Drawing of a Clock: 07/26 Delayed Free Recall: 07/28 Alternating Verbal Fluency: Action Verbal Fluency: FRONTAL-SUBCORTICAL SCORE: 75/104 POSTERIOR-CORTICAL SCORE: TOTAL SCORE: 105/134 Voice Handicap Index ? 10 (VHI-10): 1 (slight alteration) [facility] Voice Treatment (LSVT): Maximum Duration of Sustained Production: 82.3 dBSPL at 15.34 seconds Reading of a Passage: 73.9 dBSPL Conversation Monologue: 70.9 dBSPL Generate Words: 70.2 dBSPL Describe a Motor Task with Dual Motor Activity: 67.8 dBSPL RESULTS OF THE EVALUATION: The Patient presents with mild oropharyngeal dysphagia (DSRS: 1; SPS: 3) secondary to the diagnosis of Parkinson?s disease INTERVENTION CONSIDERATIONS AND RECOMMENDATIONS: The Patient would benefit from continued skilled speech-language intervention targeting continued diet texture management and training / implementation of recommended compensatory strategies; Patient education regarding Parkinson?s disease and associated dysphagia, dysarthria, and cognitive based effects; and initial Patient education regarding expressive communication strategies to promote improved speech intelligibility. POST ASSESSMENT EDUCATION: The results and recommendations were discussed with the Patient immediately following assessment completion, with the Patient verbalizing understanding and agreement with all recommendations and education provided. DIET TEXTURE RECOMMENDATIONS: Will recommend a regular textured (IDDSI: 7), thin liquid diet (IDDSI: 0) diet RECOMMENDED COMPENSATORY STRATEGIES: Consider cutting tougher textures into bite sized pieces, considerations for the chin tuck posture, reduced bolus volume / rate of ingestion, seated upright at 90 degrees during PO intake, remain upright for 30-60 minutes post meal (GERD precaution), medications one at a time with a liquid chaser. FUNCTIONAL OUTCOMES: OUTCOME 1: the Patient will tolerate the least restrictive means of nutrition to facilitate adequate hydration / nutrition with optimum safety and efficiency of swallowing function during P.O. intake without overt signs and symptoms of aspiration across 2 out of 3 sessions. OUTCOME 2: the Patient will independently demonstrate and utilize recommended compensatory articulation techniques (increased vocal intensity, reduced rate of speech) to facilitate increased expressive communication abilities in the home and social environments. OUTCOME 3: the Patient will participate in continual Patient / Patient caregiver education regarding dysphagia secondary to Parkinson?s disease to facilitate improved awareness and insight into the Patients current dysphagia related complications and potential impact on the Patients overall medical stability. OUTCOME 4: Goal adjustment as needed. Benton Andrews M.A., CCC-WATER TRUCK DRIVER, CBIS MBSImP Certified, LSVT Certified [facility] Speech-Language Pathology Department [email or web address]
--- NOTE | 2019-11-30 19:08 | HP.SP.DC_ITS ---
ST Discharge Summary - Discharged: Discharge: The Patient is an 74 year old male who attended 3 skilled speech- language intervention sessions spanning from 11/15/2019 to 11/30/2019 targeting cognitive communication and swallowing abilities secondary to the diagnosis of Parkinson?s disease. The Patient participated in intervention sessions consisting of diet texture management and training / implementation of recommended compensatory strategies; Patient education regarding Parkinson?s disease and associated dysphagia, dysarthria, and cognitive based effects; and initial Patient education regarding expressive communication strategies to promote improved speech intelligibility. The Patient underwent a modified barium swallow study on 11/07/2019 with the results revealing mild oropharyngeal dysphagia (DSRS: 1; SPS: 3) with transient penetration during sequential ingestion of thin liquids. At this time all intervention goals have been achieved; we will discharge from the skilled speech-language pathology caseload, though would gladly re-initiate intervention as needed moving forward.
== END 2019-11-30 19:00 | disposition home or self-care (01) ==
LOC: SP 08:00
PROVIDERS: Family Provider Family Medicine; PCP Family Medicine; Referring Provider Otolaryngology; Visit Provider Otolaryngology
DX: R13.12 Dysphagia, oropharyngeal phase (principal)
CPT/HCPCS: 92507; 92610

== ENCOUNTER → 2020-03-26 13:47 | Outpatient (CLI) | payer MEDICARE, SELFPAY ==
[2019-10-23 07:33] VITALS: BMI 29.0
[2020-03-26 14:54] LABS: Absolute Lymphocyte Count 0.81 X10^3/uL (0.83-4.51); Absolute Neutrophil Count 3.8 X10^3/uL (2.0-7.7); Basophil# 0.03 X10^3/uL; Basophil% 0.6 % (0-1); Eosinophil# 0.28 X10^3/uL; Eosinophils% 5.3 % (0-5); Hematocrit 47.7 % (40-54); Hemoglobin 15.6 g/dL (13.0-16.5); Lymphocyte # 0.81 X10^3/ul (4.0); Lymphocyte % 15.4 % (19-41); Mean Corp Hgb Conc 32.7 g/dL (32-36); Mean Corpuscular Hgb 29.4 pg (27.0-32.0); Mean Platelet Vol. 11.2 fl (6.2-12.0); Monocyte# 0.36 X10^3/uL; Monocyte% 6.8 % (0-10); NRBC Flagged by Analyzer 0 % (0-5); Neutrophil # 3.76 X10^3/uL (2.7-7.7); Neutrophil % 71.5 % (47-70); Platelet Count 251 K/mm3 (150-450); RBC Distribution Width CV 12.7 % (11.6-14.6); RBC Distribution Width SD 41.4 fl (35.1-43.9); White Blood Count 5.3 K/mm3 (4.4-11.0)
[2020-03-26 15:06] LABS: Hemoglobin A1c 5.5 % (3.8-5.6)
[2020-03-26 15:43] LABS: Vitamin D,25 Hydroxy 32.5 ng/mL
[2020-03-26 15:47] LABS: ALB/GLOB Ratio 1.1 RATIO (0.9-2.4); AST(SGOT) 27 U/L (15-37); Alanine Aminotransfer ALT/SGPT 16 U/L (16-61); Albumin, Serum 3.5 g/dL (3.2-5.0); Alkaline Phosphatase 137 U/L (45-117); Anion Gap 7 (5-15); BUN 17 mg/dL (7-18); BUN/Creat Ratio 19.7 RATIO (10-20); Calcium,Total 8.6 mg/dL (8.5-10.1); Chloride 104 mmol/L (98-107); Creatinine, Serum 0.86 mg/dL (0.70-1.30); EST Glomerular Filtration Rate 92 mL/min (>60); Est Glom Filt Rate - Afr Amer 111 mL/min (>60); Globulin 3.1 g/dL (2.2-4.2); Glucose 110 mg/dL (74-106); Protein, Total 6.6 g/dL (6.4-8.2); Sodium Level 141 mmol/L (136-145)
[2020-03-27 07:24] LABS: SARS-COV-2 TOTAL ABS Nonreactive (Nonreactive)
== END ==
PROVIDERS: PCP Family Medicine; Referring Provider Internal Medicine Pulmonary Disease; Visit Provider Internal Medicine Pulmonary Disease
DX: R05 Cough (principal); I10 Essential (primary) hypertension; E55.9 Vitamin D deficiency, unspecified; R73.02 Impaired glucose tolerance (oral)
CPT/HCPCS: 36415; 80053; 82306; 83036; 85025; 86769; G2023

== ENCOUNTER → 2020-04-07 08:40 | Outpatient (CLI) | payer MEDICARE, SELFPAY ==
[2019-10-23 07:33] VITALS: BMI 29.0
[2020-04-07 10:13] LABS: Cholesterol 201 mg/dL (200); High Density Lipoprotein 74 mg/dL; Triglycerides 89 mg/dL; Very Low Density Lipoprotein 18 mg/dL (5-40)
== END ==
PROVIDERS: PCP Family Medicine; Visit Provider Family Medicine
DX: E78.00 Pure hypercholesterolemia, unspecified (principal)
CPT/HCPCS: 36415; 80061

== ENCOUNTER → 2020-07-04 11:36 | Outpatient (CLI) | payer MEDICARE, SELFPAY ==
[2019-10-23 07:33] VITALS: BMI 29.0
--- NOTE | 2020-07-04 11:42 | RAD_ITS ---
STUDY: X-RAY - PELVIS AND BILATERAL HIPS REASON FOR EXAM: Male, 75 years old. Hx of Parkinson''s disease -- pt fell yesterday onto left side, left hip pain now TECHNIQUE: AP view of the pelvis.? 2 views of the right hip, and 2 views of the left hip were obtained. COMPARISON: None. FINDINGS: There is a non-specific bowel gas pattern. There are multiple calcified phleboliths. Normal bilateral iliac wings, sacroiliac joints and visualized sacrum. Normal bilateral superior and inferior pubic rami. Normal pubic symphysis. Normal bilateral ischial tuberosities. Normal visualized right femoral head. Normal right acetabulum. There is moderate articular joint space narrowing of the right hip. Normal visualized left femoral head. Normal left acetabulum. There is moderate articular joint space narrowing of the left hip. Disc space narrowing and spondylosis in the visualized lumbar spine. RAD/Hips B/L min 2 views w/ Pelvis IMPRESSION: Osteoarthritis of both hip joints. Disc space narrowing and spondylosis of the lower lumbar spine. Electronically Signed: Camden Felix, at 12:15 EDT , Service support ,
--- NOTE | 2020-07-04 11:42 | RAD_ITS ---
STUDY: X-RAY - LUMBAR SPINE REASON FOR EXAM: Male, 75 years old. Hx of Parkinson''s disease -- pt fell yesterday onto left side, left hip pain now TECHNIQUE: 3 view(s) of the lumbar spine were obtained. COMPARISON: None FINDINGS: There is straightening of the normal lumbar lordosis. There is no substantial scoliosis. There is a normal alignment of the vertebrae. There is multilevel endplate spondylosis of the lumbar vertebrae. There is multi-level degenerative disc disease with multi-level disc space narrowing. Facet joint osteoarthritis. There is atherosclerotic calcification of the abdominal aorta without a demonstrated aneurysm. RAD/Lumbar Spine 2 or 3 Views IMPRESSION: Degenerative changes of the spine, as detailed above. Loss of the normal lumbar lordosis. Electronically Signed: Camden Felix, at 12:15 EDT , Service support ,
== END ==
PROVIDERS: PCP Family Medicine; Referring Provider Family Medicine; Visit Provider Family Medicine
DX: M16.0 Bilateral primary osteoarthritis of hip (principal); M47.816 Spondylosis without myelopathy or radiculopathy, lumbar region; M51.36 Other intervertebral disc degeneration, lumbar region; M48.061 Spinal stenosis, lumbar region without neurogenic claudication
CPT/HCPCS: 72100; 73521

== ENCOUNTER 2020-09-23 08:30 | Outpatient (RCR) | payer MEDICARE, SELFPAY ==
[2019-10-23 07:33] VITALS: BMI 29.0
--- NOTE | 2020-06-30 18:22 | HP.PTEVAL_ITS ---
Patient's Visit Information MILY BOLANOS is a 75 year old M referred to Physical Therapy by DEEPIKA Arndt with a diagnosis of gait instability, PD. Date of Evaluation: 06/30/20 Physical Therapist: RAO Thrasher - Visit Plan Frequency: 2x /Week Duration: 4 Weeks Plan: 2X/ week for 4 weeks for vestibular inputs, walking with head turns, normal gait mechanics, stretching of B gastrocs, stregthening DF of B feet, dual tasking, increasing endurance with HEP - Subjective Pt had his PD Dr kendall a few weeks ago and he told them that he feels that he has regressed. He tries to do somethings at home and gets some exercise in the yard and does do somethings in the basement. He was working out here and was going to 2 DTD classes. He feels that his balance is off, he used to enjoy walking in his neighborhood but now walking around the block he feels that his legs are tired and stiff... feels like he just ran 5 miles. He feels that his L leg is getting more weak and feels that he is getting more clumsy. Today he was out in the yard and almost fell over. 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 They increased his PD med because his tremors were getting a little worse. He has a treadmill and he does not walk on it very much. He fell once working in the garden and he was trying to walk over a few obstacles and tripped and was not hurt. He is not sleeping well. He saw Dr Coleen leon for mild sleep apnea and was put on a mild anti-depressant.... he has a retina issue on the L side with injections and loss of vision in the L eye. - Objective Gait: walks with decreased heel to toe pattern and increased veering with audible foot slap. FGA: 18. CAtsib 105. LE MMT: B hip flex 4/5, B knee flex 4+/5, B knee ext 4+/5, B hip abd 4+/5, B hip ext 4-/5. Pt struggles with toe raises and he can heel raise about 1/2 normal ROM with some LOB. Sit to stand: able without UE support. Tight B HS and gastrocs - Balance Scores Functional Gait Assessment Score: 18 % Disability: 40.0000 CATSIB Score (Max score 120 seconds): 105 - Goals Goal 1:: I HEP Goal Time Frame: 4-6 Weeks Goal 2:: Increase FGA by 5 points to decrease fall risk (at time of eval score was 18) Goal Time Frame: 4-6 Weeks Goal 3:: Increase CATSIB by 10 points to decrease fall risk (at time of eval 105). Goal Time Frame: 4-6 Weeks Goal 4:: Pt to feel 50% improved balance and walking ability Goal Time Frame: 4-6 Weeks - Rehabilitation Potential Rehabilitation Potential: Good - Anticipated Interventions Patient/Client Instruction: Educate patient on: Condition, Plan of Care For the Purpose of:: To increase ROM, To improve nutrient delivery to tissue, To improve muscle performance and motor function, To improve ability to perform ADL's, To increase tolerance to activity/condition/position, To improve ability of physical actions for home/community/work/leisure, To improve gait and locomotor functions, To improve health of tissue, To increase flexibility/ROM, To improve endurance, To improve balance, To improve safety with gait Therapeutic Exercise to Include: Strength training, Endurance training, Balance training, Flexibilty training, Gait and locomotor training, Active ROM For the Purpose of:: To increase ROM, To improve muscle performance and motor function, To improve ability to perform ADL's, To increase tolerance to activity/condition/position, To improve ability of physical actions for home/community/work/leisure, To improve gait and locomotor functions, To improve health of tissue, To increase flexibility/ROM, To improve balance, To improve safety with gait Functional Training to Include: Gait training For the Purpose of:: To improve gait and locomotor functions, To improve safety with gait Manual Therapy Techniques to Include: Passive ROM, Soft tissue mobilization For the Purpose of:: To increase ROM, To increase flexibility/ROM, To improve balance, To improve safety with gait Thank you for the opportunity to evaluate your patient. For Medicare and Medicare HMO plans, please review the plan of care and approve it. It will need to be FAXED BACK to us at [phone] for Medicare purposes. For Medicare only, by signing this I certify the plan of care. Please let me know if there are questions or concerns regarding this plan of care. Physician Signature: Date:
--- NOTE | 2020-08-04 11:17 | HP.PTREVAL_ITS ---
Elizabeth Pelaez NP-C, It has been my pleasure to treat MILY BOLANOS over the last 8 visits for gait instability, PD. Please see the progress note below for an update on the physical therapy plan of care! Subjective: Pt tried his friends walking sticks and he felt he could walk a little better. He wants to come down here and walk regularly. Pt still s truggling with balance and where he has to use his brain. Objective/Function: FGA 18. Gait: no push off with toes... increase slapping of feet. CATSIB 115/120 Plan Plan: Continue 2X/ week for 3 weeks for vestibular inputs, walking with head turns, normal gait mechanics, stretching of B gastrocs, stregthening DF of B feet, dual tasking, increasing endurance with HEP Pt will start H&W up again Goals Goal 1:: I HEP Goal Time Frame: 4-6 Weeks Goal Progress: Progressing Goal 2:: Increase FGA by 5 points to decrease fall risk (at time of eval score was 18) Goal Time Frame: 4-6 Weeks Goal 3:: Increase CATSIB by 10 points to decrease fall risk (at time of eval 105). Goal Time Frame: 4-6 Weeks Goal 4:: Pt to feel 50% improved balance and walking ability Goal Time Frame: 4-6 Weeks Goal Progress: Progressing Anticipated Interventions Patient/Client Instruction: Educate patient on: Condition, Plan of Care For the Purpose of:: To increase ROM, To improve nutrient delivery to tissue, To improve muscle performance and motor function, To improve ability to perform ADL's, To increase tolerance to activity/condition/position, To improve ability of physical actions for home/community/work/leisure, To improve gait and locomotor functions, To improve health of tissue, To increase flexibility/ROM, To improve endurance, To improve balance, To improve safety with gait Therapeutic Exercise to Include: Strength training, Endurance training, Balance training, Flexibilty training, Gait and locomotor training, Active ROM For the Purpose of:: To increase ROM, To improve muscle performance and motor function, To improve ability to perform ADL's, To increase tolerance to activity/condition/position, To improve ability of physical actions for home/community/work/leisure, To improve gait and locomotor functions, To improve health of tissue, To increase flexibility/ROM, To improve balance, To improve safety with gait Functional Training to Include: Gait training For the Purpose of:: To improve gait and locomotor functions, To improve safety with gait Manual Therapy Techniques to Include: Passive ROM, Soft tissue mobilization For the Purpose of:: To increase ROM, To increase flexibility/ROM, To improve balance, To improve safety with gait Please do not hesitate to contact me at [phone] by phone or if you have questions or concerns regarding this new plan of care! Sincerely, Deb Osborn MPT
--- NOTE | 2020-09-01 11:23 | HP.PTREVAL ---
Elizabeth Pelaez NP-C, It has been my pleasure to treat MILY BOLANOS over the last 15 visits for gait instability, PD. Please see the progress note below for an update on the physical therapy plan of care! Subjective: Pt feels 20% improvement in balance. He still struggles with turning quickly and looking up and he will lose his balance. He feels that some of the things that he was struggling with are getting a little easier. He was hoping to start coming here on a regular basis. Objective/Function: CATSIB 114. FGA 21. pt struggled with staggered stance and looking up to the ceiling... increase LOB. Pt likes to lean more to the L when standing on foam with eyes closed but maintains upright Plan Plan: Continue 1X/ week for 3 weeks for looking up balance activities, turning activities, higher level balance activities with HEP Goals Goal 1:: I HEP Goal Time Frame: 4-6 Weeks Goal Progress: Goal Met Goal 2:: Increase FGA by 5 points to decrease fall risk (at time of eval score was 18) Goal Time Frame: 4-6 Weeks Goal Progress: Progressing Goal 3:: Increase CATSIB by 10 points to decrease fall risk (at time of eval 105). Goal Time Frame: 4-6 Weeks Goal Progress: Progressing Goal 4:: Pt to feel 50% improved balance and walking ability Goal Time Frame: 4-6 Weeks Goal Progress: Progressing Anticipated Interventions Patient/Client Instruction: Educate patient on: Condition, Plan of Care For the Purpose of:: To increase ROM, To improve nutrient delivery to tissue, To improve muscle performance and motor function, To improve ability to perform ADL's, To increase tolerance to activity/condition/position, To improve ability of physical actions for home/community/work/leisure, To improve gait and locomotor functions, To improve health of tissue, To increase flexibility/ROM, To improve endurance, To improve balance, To improve safety with gait Therapeutic Exercise to Include: Strength training, Endurance training, Balance training, Flexibilty training, Gait and locomotor training, Active ROM For the Purpose of:: To increase ROM, To improve muscle performance and motor function, To improve ability to perform ADL's, To increase tolerance to activity/condition/position, To improve ability of physical actions for home/community/work/leisure, To improve gait and locomotor functions, To improve health of tissue, To increase flexibility/ROM, To improve balance, To improve safety with gait Functional Training to Include: Gait training For the Purpose of:: To improve gait and locomotor functions, To improve safety with gait Manual Therapy Techniques to Include: Passive ROM, Soft tissue mobilization For the Purpose of:: To increase ROM, To increase flexibility/ROM, To improve balance, To improve safety with gait Please do not hesitate to contact me at [phone] by phone or if you have questions or concerns regarding this new plan of care! Sincerely, Deb Osborn, MPT
--- NOTE | 2020-09-23 09:20 | HP.PTDCSUM ---
It has been my pleasure to treat MILY BOLANOS referred by CHRISTOPHER ArndtC, with the diagnosis of gait instability, PD for a total of 18 visit(s). Discharge Date: 09/23/20 Please see the following information for a summary of their discharge status. Subjective: Pt report that his back started acting up couple days ago and not sure what he did. It is on the L side above his belt line. He took some Advil last night. It hurts worse with movement. He has had bouts of back pain before and it usually goes away in a week or so. Pt feels that he has noticed a difference with his balance and he can do things better with his balance. He knows what to do and will have to just do it. He will do things in is basement and will come her twice a week and workout too. No falls. Pt saw Elizabeth Franks a week ago and she said she would approve more PT if he felt that he was regressing. L hip Pain Intensity (Out of 10): 1 feet Pain Intensity (Out of 10): 1 back Pain Intensity (Out of 10): 6 % Improvement: 40 Objective/Function: CATSIB 119/120. FGA: 20. Gait: occ veering.. decreased arm swing. Recip arm and leg... /20 in a row he got correct and LOB X 2. Stepping back and lateral with hip ER with arm overhead LOB 1/5 times. Goal 1:: I HEP Goal Progress: Goal Met Goal 2:: Increase FGA by 5 points to decrease fall risk (at time of eval score was 18) Goal Progress: Progressing Goal 3:: Increase CATSIB by 10 points to decrease fall risk (at time of eval 105). Goal Progress: Goal Met Goal 4:: Pt to feel 50% improved balance and walking ability Goal Progress: Progressing Plan: DC PT to HEP and H&W program Discharge Comments: DC PT to HEP/H&W If there are questions or concerns regarding this patient's physical therapy, please feel free to call me at [phone]. Thank you for the referral of this patient. Sincerely, Deb Osborn, MPT
== END 2020-09-23 19:00 | disposition home or self-care (01) ==
LOC: PT 08:30
PROVIDERS: PCP Family Medicine; Referring Provider Nurse Practitioner Family; Visit Provider Nurse Practitioner Family
DX: G20 Parkinson's disease (principal)
CPT/HCPCS: 97110; 97161; 97530

== ENCOUNTER → 2020-10-06 13:43 | Outpatient (CLI) | payer MEDICARE, SELFPAY ==
[2019-10-23 07:33] VITALS: BMI 29.0
[2020-10-06 15:56] LABS: Absolute Lymphocyte Count 1.13 X10^3/uL (0.83-4.51); Absolute Neutrophil Count 4.4 X10^3/uL (2.0-7.7); Basophil# 0.04 X10^3/uL; Basophil% 0.6 % (0-1); Eosinophil# 0.16 X10^3/uL; Eosinophils% 2.6 % (0-5); Hematocrit 41.7 % (40-54); Hemoglobin 15.4 g/dL (13.0-16.5); Lymphocyte # 1.13 X10^3/ul (4.0); Lymphocyte % 18.2 % (19-41); Mean Corp Hgb Conc 36.9 g/dL (32-36); Mean Corpuscular Hgb 32.5 pg (27.0-32.0); Mean Platelet Vol. 11.1 fl (6.2-12.0); Monocyte# 0.51 X10^3/uL; Monocyte% 8.2 % (0-10); NRBC Flagged by Analyzer 0 % (0-5); Neutrophil # 4.35 X10^3/uL (2.7-7.7); Neutrophil % 70.1 % (47-70); Platelet Count 216 K/mm3 (150-450); RBC Distribution Width SD 39.6 fl (35.1-43.9); Red Blood Count 4.74 M/mm3 (4.6-6.2); White Blood Count 6.2 K/mm3 (4.4-11.0)
[2020-10-06 16:27] LABS: Vitamin D,25 Hydroxy 33.6 ng/mL
[2020-10-06 16:29] LABS: Hemoglobin A1c 5.7 % (3.8-5.6)
[2020-10-06 16:35] LABS: ALB/GLOB Ratio 1.1 RATIO (0.9-2.4); AST(SGOT) 27 U/L (15-37); Alanine Aminotransfer ALT/SGPT 13 U/L (16-61); Albumin, Serum 3.3 g/dL (3.2-5.0); Alkaline Phosphatase 153 U/L (45-117); Anion Gap 4 (5-15); BUN 13 mg/dL (7-18); BUN/Creat Ratio 21.7 RATIO (10-20); Calcium,Total 8.1 mg/dL (8.5-10.1); Chloride 98 mmol/L (98-107); Cholesterol 163 mg/dL (200); EST Glomerular Filtration Rate 139 mL/min (>60); Est Glom Filt Rate - Afr Amer 168 mL/min (>60); Globulin 3.1 g/dL (2.2-4.2); Glucose 81 mg/dL (74-106); High Density Lipoprotein 66 mg/dL; Potassium 4.1 mmol/L (3.5-5.1); Protein, Total 6.4 g/dL (6.4-8.2); Sodium Level 130 mmol/L (136-145); Triglycerides 144 mg/dL; Very Low Density Lipoprotein 29 mg/dL (5-40)
== END ==
PROVIDERS: PCP Family Medicine; Referring Provider Family Medicine; Visit Provider Family Medicine
DX: I10 Essential (primary) hypertension (principal); E78.00 Pure hypercholesterolemia, unspecified; E55.9 Vitamin D deficiency, unspecified; R73.02 Impaired glucose tolerance (oral)
CPT/HCPCS: 36415; 80053; 80061; 82306; 83036; 85025

== ENCOUNTER → 2020-12-30 10:35 | Outpatient (CLI) | payer MEDICARE, SELFPAY ==
[2020-10-21 08:44] VITALS: BMI 29.0
[2020-12-30 11:23] LABS: PSA,Total - Annual Screen 0.58 ng/mL (0.00-4.00)
== END ==
PROVIDERS: PCP Family Medicine; Referring Provider Urology; Visit Provider Urology
DX: Z12.5 Encounter for screening for malignant neoplasm of prostate (principal)
CPT/HCPCS: 36415; 84153; G0103

== ENCOUNTER → 2021-01-12 09:26 | Outpatient (CLI) | payer MEDICARE, SELFPAY ==
[2020-10-21 08:44] VITALS: BMI 29.0
[2021-01-12 12:06] LABS: Absolute Lymphocyte Count 0.83 X10^3/uL (0.83-4.51); Absolute Neutrophil Count 2.6 X10^3/uL (2.0-7.7); Basophil# 0.04 X10^3/uL; Eosinophil# 0.22 X10^3/uL; Eosinophils% 5.3 % (0-5); Hematocrit 48.7 % (40-54); Hemoglobin 16.5 g/dL (13.0-16.5); Lymphocyte # 0.83 X10^3/ul (4.0); Mean Corp Hgb Conc 33.9 g/dL (32-36); Mean Corpuscular Hgb 29.8 pg (27.0-32.0); Mean Corpuscular Volume 87.9 fL (80-94); Mean Platelet Vol. 11.7 fl (6.2-12.0); Monocyte# 0.42 X10^3/uL; Monocyte% 10.1 % (0-10); NRBC Flagged by Analyzer 0 % (0-5); Neutrophil # 2.62 X10^3/uL (2.7-7.7); Neutrophil % 62.9 % (47-70); Platelet Count 225 K/mm3 (150-450); RBC Distribution Width CV 12.2 % (11.6-14.6); RBC Distribution Width SD 39.4 fl (35.1-43.9); Red Blood Count 5.54 M/mm3 (4.6-6.2); White Blood Count 4.2 K/mm3 (4.4-11.0)
[2021-01-12 12:32] LABS: Hemoglobin A1c 5.4 % (3.8-5.6)
[2021-01-12 12:53] LABS: ALB/GLOB Ratio 1.2 RATIO (0.9-2.4); AST(SGOT) 29 U/L (15-37); Alanine Aminotransfer ALT/SGPT 45 U/L (16-61); Albumin, Serum 3.7 g/dL (3.2-5.0); Alkaline Phosphatase 126 U/L (45-117); Anion Gap 7 (5-15); BUN 14 mg/dL (7-18); Calcium,Total 8.5 mg/dL (8.5-10.1); Chloride 98 mmol/L (98-107); Cholesterol 199 mg/dL (200); Creatinine, Serum 0.74 mg/dL (0.70-1.30); EST Glomerular Filtration Rate 109 mL/min (>60); Est Glom Filt Rate - Afr Amer 132 mL/min (>60); Glucose 102 mg/dL (74-106); High Density Lipoprotein 81 mg/dL; Protein, Total 6.7 g/dL (6.4-8.2); Sodium Level 133 mmol/L (136-145); Triglycerides 97 mg/dL; Very Low Density Lipoprotein 19 mg/dL (5-40)
[2021-01-12 12:56] LABS: Vitamin D,25 Hydroxy 45.7 ng/mL
== END ==
PROVIDERS: PCP Family Medicine; Referring Provider Family Medicine; Visit Provider Family Medicine
DX: I10 Essential (primary) hypertension (principal); E55.9 Vitamin D deficiency, unspecified; R73.02 Impaired glucose tolerance (oral)
CPT/HCPCS: 36415; 80053; 80061; 82306; 83036; 85025

== ENCOUNTER → 2021-01-26 10:48 | Outpatient (CLI) | payer MEDICARE, SELFPAY ==
[2020-10-21 08:44] VITALS: BMI 29.0
--- NOTE | 2021-01-26 10:53 | CDU_ITS ---
Reason For Study: STENOSIS Rt. Velocities/BP Lt. Velocities/BP Prox CCA 132/26 cm/sec. Prox CCA 114/30 cm/sec. Mid CCA 101/24 cm/sec. Mid CCA 89/25 cm/sec. Dist CCA 79/21 cm/sec. Dist CCA 96/29 cm/sec. Prox ICA 47/15 cm/sec. Prox ICA 82/23 cm/sec. Mid ICA 76/28 cm/sec. Mid ICA 71/24 cm/sec. Dist ICA 80/28 cm/sec. Dist ICA 72/28 cm/sec. Rt. ICA/CCA = .8. Lt. ICA/CCA = .9. Prox ECA 79/13 cm/sec. Prox ECA 105/25 cm/sec. Rt. Vert. 30/10 cm/sec. Lt. Vert. 48/17 cm/sec. Right Extracranial There is homogeneous, smooth atherosclerotic plaque noted in the right common carotid artery. There is intimal thickening but no significant atherosclerotic plaque noted in the right internal carotid artery. There is homogeneous, smooth atherosclerotic plaque noted in the right external carotid artery. Antegrade flow is noted in the right vertebral artery. There is heterogeneous, irregular atherosclerotic plaque noted in the right bulb. Left Extracranial There is homogeneous, smooth atherosclerotic plaque noted in the left common carotid artery. There is intimal thickening but no significant atherosclerotic plaque noted in the left internal carotid artery. There is no significant atherosclerotic plaque noted in the left external carotid artery. Antegrade flow is noted in the left vertebral artery. There is heterogeneous, irregular atherosclerotic plaque noted in the left bulb. Procedure Carotid Duplex [id number]. Exam performed in department. VL/Carotid Duplex Ultrasound Interpretation Summary Intimal thickening at the proximal right internal carotid artery with less than 50% stenosis. Small area of calcific plaque noted. Less than 50% stenosis right external carotid artery Similar small area of calcific plaque at the proximal left internal carotid art joon with less than 50% stenosis Less than 50% stenosis left external carotid artery Patent and antegrade vertebrals bilaterally The bilateral proximal internal carotid artery areas of calcific plaque are sma ll and not hemodynamically significant Ordering Physician: Jose Nogueira Referring Physician: Jose Nogueira Performed By: Sinai Garrett, MARTÍN, RVT
== END ==
PROVIDERS: PCP Family Medicine; Referring Provider Family Medicine; Visit Provider Family Medicine
DX: I65.23 Occlusion and stenosis of bilateral carotid arteries (principal)
CPT/HCPCS: 93880

== ENCOUNTER → 2021-04-02 09:19 | Outpatient (CLI) | payer MEDICARE, SELFPAY ==
[2020-10-21 08:44] VITALS: BMI 29.0
[2021-04-02 10:24] LABS: Absolute Lymphocyte Count 0.81 X10^3/uL (0.83-4.51); Absolute Neutrophil Count 3.6 X10^3/uL (2.0-7.7); Basophil# 0.03 X10^3/uL; Basophil% 0.6 % (0-1); Eosinophil# 0.14 X10^3/uL; Eosinophils% 2.8 % (0-5); Hematocrit 45.8 % (40-54); Hemoglobin 15.3 g/dL (13.0-16.5); Lymphocyte # 0.81 X10^3/ul (0.83-4.51); Lymphocyte % 16.5 % (19-41); Mean Corp Hgb Conc 33.4 g/dL (32-36); Mean Corpuscular Hgb 29.4 pg (27.0-32.0); Mean Corpuscular Volume 87.9 fL (80-94); Mean Platelet Vol. 11.2 fl (6.2-12.0); Monocyte# 0.34 X10^3/uL; Monocyte% 6.9 % (0-10); NRBC Flagged by Analyzer 0 % (0-5); Neutrophil # 3.57 X10^3/uL (2.7-7.7); Neutrophil % 72.6 % (47-70); Platelet Count 235 K/mm3 (150-450); RBC Distribution Width CV 12.4 % (11.6-14.6); RBC Distribution Width SD 40.1 fl (35.1-43.9); Red Blood Count 5.21 M/mm3 (4.6-6.2); White Blood Count 4.9 K/mm3 (4.4-11.0)
[2021-04-02 10:52] LABS: Vitamin D,25 Hydroxy 43.9 ng/mL
[2021-04-02 11:07] LABS: Hemoglobin A1c 5.5 % (3.8-5.6)
[2021-04-02 11:15] LABS: ALB/GLOB Ratio 1.1 RATIO (0.9-2.4); AST(SGOT) 26 U/L (15-37); Alanine Aminotransfer ALT/SGPT 12 U/L (16-61); Albumin, Serum 3.3 g/dL (3.2-5.0); Alkaline Phosphatase 142 U/L (45-117); Anion Gap 6 (5-15); BUN 14 mg/dL (7-18); BUN/Creat Ratio 21.4 RATIO (10-20); Calcium,Total 8.2 mg/dL (8.5-10.1); Chloride 100 mmol/L (98-107); Cholesterol 164 mg/dL (200); Creatinine, Serum 0.65 mg/dL (0.70-1.30); EST Glomerular Filtration Rate 126 mL/min (>60); Est Glom Filt Rate - Afr Amer 152 mL/min (>60); Globulin 2.9 g/dL (2.2-4.2); Glucose 96 mg/dL (74-106); High Density Lipoprotein 73 mg/dL; Potassium 4.1 mmol/L (3.5-5.1); Protein, Total 6.2 g/dL (6.4-8.2); Sodium Level 134 mmol/L (136-145); Triglycerides 68 mg/dL; Very Low Density Lipoprotein 14 mg/dL (5-40)
== END ==
PROVIDERS: PCP Family Medicine; Referring Provider Family Medicine; Visit Provider Family Medicine
DX: E55.9 Vitamin D deficiency, unspecified (principal); I10 Essential (primary) hypertension; R73.02 Impaired glucose tolerance (oral); E78.00 Pure hypercholesterolemia, unspecified
CPT/HCPCS: 36415; 80053; 80061; 82306; 83036; 85025

== ENCOUNTER 2021-08-24 12:12 | Observation (INO) | payer MEDICARE, SELFPAY ==
[2021-08-24] VITALS (10 sets, daily range): BP systolic 164–198; BP diastolic 88–110; PULSE 60–76; RESP 16–18; TEMP 36.4–36.9; O2SAT 95–99; BMI 28.5
--- NOTE | 2021-08-24 13:53 | CT_ITS ---
STUDY: CT HEAD STROKE PROTOCOL W/O CONTRAST INJECTION REASON FOR EXAM: Male, 76 years old. Neuro deficit, acute, stroke suspected RADIATION DOSAGE (If Supplied By Facility): CTDIvol = ( 44.99 ) mGy, DLP = ( a 46.73 ) mGycm TECHNIQUE: Transaxial CT imaging of the brain was performed without administration of intravenous contrast material. Individualized dose optimization techniques were used for this CT. COMPARISON: Comparison is made with prior study dated 11/28/2014. FINDINGS: Normal soft tissue structures. Normal calvarium. There is mild cerebral atrophy with widening of the extra-axial spaces and ventricular dilatation. There are areas of decreased attenuation within the white matter tracts of the supratentorial brain, consistent with microvascular disease changes. Normal basal ganglia and thalami. Normal brainstem. Normal cerebellum. There is no intracranial hemorrhage. There are no findings of an acute ischemic infarction. Atherosclerotic plaque formation of the cavernous portions of the internal carotid arteries bilaterally. Normal visualized paranasal sinuses. CT/STROKE Brain/Head without Cont IMPRESSION: Chronic involutional changes of the brain. N.B. : The above Results were Read Back by Camden Felix MD to Esteban Oliva and understanding confirmed on 08/24/2021 14:49:47 (ET). Electronically Signed: Camden Felix MD at 14:50 EST , Service support ,
--- NOTE | 2021-08-24 13:53 | EKG12_ITS ---
Test Reason : Blood Pressure : / mmHG Vent. Rate : 062 BPM Atrial Rate : 062 BPM P-R Int : 190 ms QRS Dur : 106 ms QT Int : 424 ms P-R-T Axes : 068 022 035 degrees QTc Int : 430 ms Normal sinus rhythm Normal ECG Confirmed by MAVIS THAKKAR, MADAN ([id number]), manuscript editor MARY ELLEN GO ([id number]) on 08/26/2021 9:16:01 AM Referred By: ELIZABETH Confirmed By:MADAN GAMBLE MD
--- NOTE | 2021-08-24 13:53 | RAD_ITS ---
STUDY: X-RAY CHEST REASON FOR EXAM: Male, 76 years old. Neuro deficit, acute, stroke suspected TECHNIQUE: Single AP portable view of the chest. COMPARISON: Comparison is made with prior study dated 10/27/2017. FINDINGS: EKG electrodes are seen. There is hyperinflation of the lungs consistent with chronic obstructive lung disease (COPD). There is no demonstrated pleural abnormality. Normal size heart. Normal mediastinum and jayme. Normal visualized pulmonary arteries. There is atherosclerotic calcification of the aortic arch with tortuosity. There are diffuse degenerative changes of the visualized thoracic spine. Normal visualized ribs, clavicles, and shoulders. There is no demonstrated abnormality of the visualized soft tissue structures of the upper abdomen. RAD/Chest 1 View IMPRESSION: Hyperinflation. Electronically Signed: Camden Felix MD at 14:51 EST , Service support ,
[2021-08-24 14:11] LABS: Absolute Lymphocyte Count 1.02 X10^3/uL (0.83-4.51); Absolute Neutrophil Count 3.5 X10^3/uL (2.0-7.7); Basophil# 0.03 X10^3/uL; Basophil% 0.6 % (0-1); Eosinophils% 3.8 % (0-5); Hematocrit 45.2 % (40-54); Hemoglobin 15.2 g/dL (13.0-16.5); Lymphocyte # 1.02 X10^3/ul (0.83-4.51); Lymphocyte % 19.6 % (19-41); Mean Corp Hgb Conc 33.6 g/dL (32-36); Mean Corpuscular Hgb 28.8 pg (27.0-32.0); Mean Corpuscular Volume 85.6 fL (80-94); Mean Platelet Vol. 10.8 fl (6.2-12.0); Monocyte# 0.43 X10^3/uL; Monocyte% 8.3 % (0-10); NRBC Flagged by Analyzer 0 % (0-5); Neutrophil % 67.3 % (47-70); Platelet Count 205 K/mm3 (150-450); RBC Distribution Width CV 12.5 % (11.6-14.6); RBC Distribution Width SD 38.6 fl (35.1-43.9); Red Blood Count 5.28 M/mm3 (4.6-6.2); White Blood Count 5.2 K/mm3 (4.4-11.0)
[2021-08-24 14:21] LABS: Partial Thromboplast Time 27.4 Seconds (24.1-36.2); Prothrombin Time (Protime)PT. 12.8 SECONDS (11.7-14.9)
[2021-08-24 14:30] LABS: Anion Gap 2 (5-15); BUN 13 mg/dL (7-18); BUN/Creat Ratio 17.6 RATIO (10-20); Calcium,Total 8.5 mg/dL (8.5-10.1); Chloride 102 mmol/L (98-107); Creatinine, Serum 0.74 mg/dL (0.70-1.30); EST Glomerular Filtration Rate 109 mL/min (>60); Est Glom Filt Rate - Afr Amer 132 mL/min (>60); Estimated Creatinine Clearance 61.86 ml/min; Glucose 91 mg/dL (74-106); Potassium 3.9 mmol/L (3.5-5.1); Sodium Level 134 mmol/L (136-145); Troponin-I HS 7 pg/mL (3.0-78.0)
--- NOTE | 2021-08-24 14:58 | EDS_ITS ---
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 He states he has past medical history of Parkinson's disease, and left eye central venous retinal occlusion. 1.5 years ago, he had problems with his vision because of this, and he states he gets injections to help alleviate this. On Tuesday, 2 days ago, he had 4 hours of visual problems. He states the lower half of his left eye was as if he were looking through frosted glass, and the upper portion was more blurry. After 4 hours, the symptoms resolved. He was seen by his gluer machine setup operator today who did an e xamination on him, and stated that there was no swelling of his retina. He states he had pictures taken at the office. He states that he presents to the emergency department with a prescription for stroke work-up for amaurosis, although his symptoms have completely resolved. He denies any headache. No paresthesias. No speech deficit. [facility] Medical History Benign prostate hyperplasia BPH (benign prostatic hyperplasia) Carotid artery disease Essential (primary) hypertension Glaucoma Hyperlipidemia Obstructive sleep apnea Osteoarthritis Parkinson disease Peripheral neuropathy Ventricular tachyarrhythmia Ventricular tachycardia Home Medications atorvastatin 10 mg PO QHS 11/27/14 [History Last Taken 12/11/14] aspirin 81 mg tablet,delayed release 81 mg PO QDAY 10/20/17 [History Last Taken Unknown] carbidopa 25 mg-levodopa 100 mg tablet 3 tab PO LUNCH tab 10/23/19 [History Last Taken Unknown] cholecalciferol (vitamin D3) 50 mcg (2,000 unit) capsule 2,000 unit PO DAILY cap 10/21/20 [History Last Taken Unknown] dorzolamide 22.3 mg-timolol 6.8 mg/mL eye drops 1 drp OPHTHALMIC BID ml 10/21/20 [History Last Taken Unknown] oxcarbazepine 300 mg tablet 300 mg PO TID tab 10/21/20 [History Last Taken Unknown] lisinopril 40 mg tablet 40 mg PO QDAY #90 tab 03/02/21 [Rx Last Taken Unknown] metoprolol succinate 50 mg tablet,extended release 24 hr 50 mg PO QDAY #90 tab 03/21/21 [Rx Last Taken Unknown] carbidopa-levodopa 1 tab PO DAILY 11/08/21 [History Last Taken Unknown] carbidopa-levodopa 2 tab PO BID 08/24/21 [History Last Taken Unknown] hydrochlorothiazide 25 mg PO DAILY 08/24/21 [History Last Taken Unknown] mirtazapine 7.5 mg PO QHS 08/24/21 [History Last Taken Unknown] Allergy/AdvReac Type Severity Reaction Status Date / Time No Known Allergies Allergy Verified 08/24/21 12:15 Surgical History History of left heart catheterization (02/15/13) History of total knee replacement Social History Smoking Status: Former smoker alcohol intake: current ROS ROS ED ROS Narrative Constitutional: No fever, no chills. HEENT: No sore throat. No neck pain. Visual change of left eyelid bilateral lower quadrant-resolved. No rhinorrhea. Cardiovascular: No chest pain. No palpitations. No pedal edema. Respiratory: No cough, no shortness of breath. Abdominal: No abdominal pain. No nausea. No vomiting. Genitourinary: No dysuria. No hematuria. Musculoskeletal: No myalgias. No arthralgias. Neurologic: No headaches. No dizziness. No lightheadedness. Skin: No rash. No change in color. Psychiatric: No depression. No anxiety. EXAM Physical Exam Narrative Exam Narrative: Afebrile. Vital signs noted. HEENT: Normocephalic. Atraumatic. PERRL, EOMI. Neck soft and supple. No point tenderness or step off. Left pupil dilated and mildly reactive, but patient is coming directly from gluer machine setup operator office where he had his left pupil dilated. Cardiovascular: Regular rate and rhythm. No murmurs, rubs, or gallops appreciated. Respiratory: No tachypnea. Lungs clear to auscultation bilaterally. Gastrointestinal: Abdomen soft, nontender, with normoactive bowel sounds. No rebound or guarding. Neurological: Awake. Alert. Nonfocal, nonlateralizing. NIH stroke scale equals 0. Stroke VAN scale negative. Skin: No rash. Normal color. No pallor. Musculoskeletal: No pedal edema. Full range of motion extremities. Const Vital Signs: 08/24/21 12:13 08/24/21 13:53 Temperature 98 F Temperature Source Temporal Pulse Rate 72 62 Respiratory Rate 16 18 Blood Pressure 183/103 H 164/88 H Blood Pressure Mean 129 113 Pulse Ox 97 99 Oxygen Delivery Method Room Air Room Air STROKE Vital Signs/Narrative: Vital Signs Temp Pulse Resp BP Pulse Ox 08/24/21 13:53 62 18 164/88 H 99 08/24/21 12:13 98 F 72 16 183/103 H 97 MDM MDM MDM Narrative Medical decision making narrative: Stroke work-up was pursued. His initial laboratory work is grossly unremarkable, coags are negative. Sodium slightly low 134. His blood pressure was elevated at 183/103, and is currently 164/88. CT of the brain shows chronic involutional changes, but no acute stroke. I will discussed patient with neurology, but I do not feel that he has any stroke symptoms, as his stroke scale is negative and his visual changes have completely resolved. His EKG demonstrates normal sinus rhythm at 62 bpm without ectopy or acute ST changes. I will discuss the patient with the hospitalist for least observation for his reported amaurosis fugax concern by the gluer machine setup operator. I discussed patient with Dr. Pressley. He will be placed on the PCU for observation in stable condition. Lab Data Attestation: I reviewed the patient's lab results. Labs: Laboratory Results - last 24 hr 08/24/21 08/24/21 08/24/21 14:05 14:05 14:05 WBC 5.2 RBC 5.28 Hgb 15.2 Hct 45.2 MCV 85.6 MCH 28.8 MCHC 33.6 RDW Std Deviation 38.6 RDW Coeff of Christiano 12.5 Plt Count 205 MPV 10.8 Immature Gran % (Auto) 0.400 Neut % (Auto) 67.3 Lymph % (Auto) 19.6 [place] % (Auto) 8.3 Eos % (Auto) 3.8 Baso % (Auto) 0.6 Absolute Neuts (auto) 3.5 Absolute Lymphs (auto) 1.02 Nucleated RBC % 0 PT 12.8 INR 1.0 APTT 27.4 Sodium 134 L Potassium 3.9 Chloride 102 Carbon Dioxide 30.0 Anion Gap 2 L BUN 13 Creatinine 0.74 Estim Creat Clear Calc 61.86 Est GFR (MDRD) Af Amer 132 Est GFR (MDRD) Non-Af 109 BUN/Creatinine Ratio 17.6 Glucose 91 Calcium 8.5 Troponin I High Sens 7 Radiography Diagnostic Testing: Clinical Impression(s) from Imaging Studies Brain CT 08/24/21 13:53 IMPRESSION: Chronic involutional changes of the brain. N.B. : The above Results were Read Back by Camden Felix MD to Esteban Oliva and understanding confirmed on 08/24/2021 14:49:47 (ET). Electronically Signed: Camden Felix MD at 14:50 EST , Service support , ADDENDUM: 08/24/21 1457 IMPRESSION: Chronic involutional changes of the brain. N.B. : The above Results were Read Back by Camden Felix MD to Esteban Oliva and understanding confirmed on 08/24/2021 14:49:47 (ET). Electronically Signed: Camden Felix MD at 14:50 EST , Service support , Chest X-Ray 08/24/21 13:53 IMPRESSION: Hyperinflation. Electronically Signed: Camden Felix MD at 14:51 EST , Service support , Discharge Plan Triage Chief Complaint: Vision Prob ED Provider: Esteban Oliva Dx/Rx/DC Orders Prescriptions: No Action aspirin [Adult Low Dose Aspirin] 81 mg tablet,delayed release (DR/EC) 81 mg PO QDAY RF: 0 cholecalciferol (vitamin D3) 50 mcg (2,000 unit) capsule 2,000 unit PO DAILY RF: 0 carbidopa-levodopa 25-100 mg tablet 3 tab PO LUNCH RF: 0 oxcarbazepine 300 mg tablet 300 mg PO TID RF: 0 dorzolamide-timolol 22.3-6.8 mg/mL drops 1 drp OPHTHALMIC BID RF: 0 atorvastatin 10 MG tablet 10 mg PO QHS RF: 0 carbidopa-levodopa 50-200 mg tablet extended release 1 tab PO DAILY RF: 0 carbidopa-levodopa 25-100 mg tablet 2 tab PO BID RF: 0 mirtazapine 7.5 mg tablet 7.5 mg PO QHS RF: 0 hydrochlorothiazide 25 mg tablet 25 mg PO DAILY RF: 0 lisinopril 40 mg tablet 40 mg PO QDAY Qty: 90 RF: 5 metoprolol succinate [Toprol XL] 50 mg tablet extended release 24 hr 50 mg PO QDAY Qty: 90 RF: 4 Primary Care Provider: Jose Nogueira
--- NOTE | 2021-08-24 15:46 | NURSING ---
111 DR PIERCE TIA
--- NOTE | 2021-08-24 15:51 | MRI_ITS ---
EXAM: MR ANGIOGRAPHY NECK WITHOUT AND WITH INTRAVENOUS CONTRAST CLINICAL INDICATION: vision changes TECHNIQUE: Routine carotid MR angiogram protocol was performed without and with intravenous contrast. 3D reconstructions were reviewed. Nascet criteria using the distal ICAs for comparison were used for evaluation of stenoses. This report was created using [employer] report [employer] technology. CONTRAST: DOTAREM 17ML IV COMPARISON: None. FINDINGS: RIGHT COMMON CAROTID ARTERY: Unremarkable. No occlusion or significant stenosis. No dissection. RIGHT INTERNAL CAROTID ARTERY: Unremarkable. Extracranial segment is patent with no occlusion or significant stenosis. No dissection. RIGHT EXTERNAL CAROTID ARTERY: Unremarkable. No occlusion. RIGHT VERTEBRAL ARTERY: Unremarkable. No occlusion or significant stenosis. No dissection. LEFT COMMON CAROTID ARTERY: Unremarkable. No occlusion or significant stenosis. No dissection. LEFT INTERNAL CAROTID ARTERY: There is mild atherosclerotic plaque formation of the origin of the right and left internal carotid artery with less than 50% cross sectional diameter stenosis. ALL ABOVE CRITERIA BY NASCET. No dissection. LEFT EXTERNAL CAROTID ARTERY: Unremarkable. No occlusion. LEFT VERTEBRAL ARTERY: Unremarkable. No occlusion or significant stenosis. No dissection. GREAT VESSELS OF AORTIC ARCH: Unremarkable. No significant stenosis. CAROTID STENOSIS REFERENCE USING NASCET CRITERIA: % ICA stenosis = (1 - narrowest ICA diameter/diameter of distal cervical ICA) x 100. Mild - <50% stenosis. Moderate - 50-69% stenosis. Severe - 70-94% stenosis. Near occlusion - 95-99% stenosis. Occluded - 100% stenosis. MRI/MRA Neck WITH and W/O Contrast IMPRESSION: There is mild atherosclerotic plaque formation of the origin of the right and left internal carotid artery with less than 50% cross sectional diameter stenosis. ALL ABOVE CRITERIA BY NASCET. Electronically Signed: Rui North MD at 20:42 EST , Service support ,
--- NOTE | 2021-08-24 15:51 | MRI_ITS ---
EXAM: MR ANGIOGRAPHY HEAD WITHOUT INTRAVENOUS CONTRAST CLINICAL INDICATION: vision change TECHNIQUE: Routine [place]/brain 3D time of flight MR angiogram protocol was performed without intravenous contrast. This report was created using [employer] report [employer] technology. COMPARISON: None. FINDINGS: RIGHT INTERNAL CAROTID ARTERY: No acute findings. No significant stenosis at the intracranial/visualized segments. No aneurysm. RIGHT ANTERIOR CEREBRAL ARTERY: Unremarkable. No significant stenosis at the visualized segments. Anterior communicating artery is present. No aneurysm. RIGHT MIDDLE CEREBRAL ARTERY: Unremarkable. No significant stenosis at the visualized segments. No aneurysm. RIGHT POSTERIOR CEREBRAL ARTERY: Unremarkable. No significant stenosis at the visualized segments. No aneurysm. RIGHT VERTEBRAL ARTERY: Unremarkable as visualized. No significant stenosis at the intradural/visualized segments. No aneurysm. LEFT INTERNAL CAROTID ARTERY: No acute findings. No significant stenosis at the intracranial/visualized segments. No aneurysm. LEFT ANTERIOR CEREBRAL ARTERY: Unremarkable. No significant stenosis at the visualized segments. Anterior communicating artery is present. No aneurysm. LEFT MIDDLE CEREBRAL ARTERY: Unremarkable. No significant stenosis at the visualized segments. No aneurysm. LEFT POSTERIOR CEREBRAL ARTERY: Unremarkable. No significant stenosis at the visualized segments. No aneurysm. LEFT VERTEBRAL ARTERY: Unremarkable as visualized. No significant stenosis at the intradural/visualized segments. No aneurysm. BASILAR ARTERY: Unremarkable. No significant stenosis. No aneurysm. OTHER VASCULATURE: No vascular malformation. MRI/MRA Head ONLY without Contrast IMPRESSION: Unremarkable MRA head. ALL ABOVE CRITERIA BY NASCET. Electronically Signed: Rui North MD at 20:41 EST , Service support ,
--- NOTE | 2021-08-24 15:51 | MRI_ITS ---
EXAM: MR HEAD WITHOUT INTRAVENOUS CONTRAST CLINICAL INDICATION: vision changes TECHNIQUE: Multiplanar and multisequence MR images of the brain were obtained without intravenous contrast. This report was created using [employer] report generation technology. COMPARISON: ct head of the same day. FINDINGS: BRAIN AND EXTRA-AXIAL SPACES: Unremarkable. No intra- or extra-axial hemorrhage. No evidence of acute infarct. No intracranial mass or mass effect. There is preservation of the dennis/white matter interface. Posterior fossa structures are unremarkable. Ventricles are appropriate for age. No hydrocephalus. Basal cisterns are patent. SELLA: Unremarkable. Normal sella turcica, pituitary gland, infundibular stalk, optic chiasm and hypothalamus. AUDITORY SYSTEM: Unremarkable. The internal auditory canals are patent. BONES/JOINTS: Unremarkable. No discrete lytic or blastic abnormalities. SINUSES: Unremarkable as visualized. Clear. MASTOID AIR CELLS: Unremarkable as visualized. Clear. ORBITS: Unremarkable as visualized. Both globes, extraocular muscles, optic nerves and retrobulbar fat appear unremarkable. VASCULATURE: Unremarkable as visualized. Normal flow voids in the major intracranial circulation. MRI/Brain without Contrast IMPRESSION: Negative MRI brain without intravenous contrast. Electronically Signed: Rui North MD at 20:40 EST , Service support ,
--- NOTE | 2021-08-24 15:55 | HP.PCM_ITS ---
Documented by User: [email or web address] Hein 08/24/21 16:05 HPI - General General Date of Admission: 08/24/21 Date of Service: 08/24/21 Chief Complaint: Vision changes HPI Narrative MILY BOLANOS, is a 76 M who presents from cloth cutting machine operator office for work-up for amaurosis fugax. Patient has a past medical history of Parkinson's disease and left eye central venous retinal occlusion. Approximately 1/2 years ago patient had vision changes and was diagnosed with a central venous retinal occlusion and has gotten injections to help alleviate this sense. On Tuesday patient had approximately 4 hours where he states that he had frosted glass vision in the lower half of his visual field in his left eye for approximately 4 hours. Patient has had no subsequent episodes. Patient went to his cloth cutting machine operator [place] for further work-up and there was no swelling of his retina upon examination. [facility] Medical History Benign prostate hyperplasia BPH (benign prostatic hyperplasia) Carotid artery disease Essential (primary) hypertension Glaucoma Hyperlipidemia Obstructive sleep apnea Osteoarthritis Parkinson disease Peripheral neuropathy Ventricular tachyarrhythmia Ventricular tachycardia Home Medications aspirin 81 mg tablet,delayed release 81 mg PO DAILY 10/20/17 [History Last Taken 08/23/21] carbidopa 25 mg-levodopa 100 mg tablet 3 tab PO LUNCH tab 10/23/19 [History Last Taken 08/23/21] cholecalciferol (vitamin D3) 50 mcg (2,000 unit) capsule 2,000 unit PO DAILY cap 10/21/20 [History Last Taken 08/24/21] dorzolamide 22.3 mg-timolol 6.8 mg/mL eye drops 1 drp OPHTHALMIC BID ml 10/21/20 [History Last Taken 08/24/21] oxcarbazepine 300 mg tablet 450 mg PO BID tab 10/21/20 [History Last Taken 08/24/21] atorvastatin 20 mg PO DAILY 08/24/21 [History Last Taken 08/23/21] carbidopa-levodopa 1 tab PO DAILY 08/24/21 [History Last Taken 08/24/21] carbidopa-levodopa 2 tab PO BID 08/24/21 [History Last Taken 08/24/21] hydrochlorothiazide 25 mg PO DAILY 08/24/21 [History Last Taken 08/24/21] lisinopril 40 mg PO DAILY 08/24/21 [History Last Taken 08/23/21] metoprolol succinate [Toprol XL] 50 mg PO DAILY 08/24/21 [History Last Taken 08/24/21] mirtazapine 7.5 mg PO QHS 08/24/21 [History Last Taken 08/23/21] Allergy/AdvReac Type Severity Reaction Status Date / Time No Known Allergies Allergy Verified 08/24/21 12:15 Surgical History History of left heart catheterization (02/15/13) History of total knee replacement Social History Smoking Status: Former smoker alcohol intake: current ROS Constitutional Constitutional: Denies anorexia, chills, fatigue, malaise or weakness Eyes Eyes: Reports blurry vision left Cardiovascular Cardiovascular: Denies chest pain, edema, palpitations or syncope Respiratory/Chest Respiratory/Chest: Denies cough, shortness of breath at rest, shortness of breath with exertion or wheezing Gastrointestinal Gastrointestinal: Denies abdominal pain, constipation, diarrhea, nausea or vomiting Genitourinary Genitourinary: Denies dysuria Musculoskeletal Musculoskeletal: Denies back pain, extremity pain, joint pain or joint stiffness Integumentary Integumentary: Denies dry skin Neurologic Neurologic: Denies abnormal gait, abnormal speech, confusion, dizziness, focal weakness or headache(s) Psychiatric Psychiatric: Denies anxiety or depression Endocrine Endocrinology: Denies change in body appearance Hematologic/Lymphatic Hematologic/Lymphatic: Denies anemia Vital Signs Vital Signs Vital Signs: 08/24/21 12:13 08/24/21 13:53 Temperature 98 F Temperature Source Temporal Pulse Rate 72 62 Respiratory Rate 16 18 Blood Pressure 183/103 H 164/88 H Blood Pressure Mean 129 113 Pulse Ox 97 99 Oxygen Delivery Method Room Air Room Air Weight Weight: 193 lb Body Mass Index (BMI) 28.5 Physical Exam Const alert, oriented x3 and no apparent distress General Appearance: cooperative HEENT normocephalic and head/scalp atraumatic Eyes conjunctivae normal and no scleral icterus General Eye: normal appearance of both eyes Neck full ROM and supple General: trachea midline Lymph Lymphatic: no lymphadenopathy noted Resp normal respiratory effort, normal air movement and clear to auscultation bilaterally Cardio regular rate, regular rhythm, S1 normal heart sound, S2 normal heart sound and peripheral pulses 2+ throughout GI normal to inspection, nondistended, normoactive bowel sounds, soft to palpation and non-tender Extremity normal capillary refill and no clubbing, cyanosis or edema General Extremity: no tenderness to palpation of joints or extremities Skin General Skin Exam: no breakdown and turgor normal Lesions: no lesions Rashes: no rashes Neuro oriented x3, moves all extremities, no focal motor deficits, no sensory deficits noted and gait normal Psych thought process normal, cooperative and affect normal Appearance: appropriate Results Lab / Micro Data Result Diagrams: 08/24/21 14:05 08/24/21 14:05 Labs: Laboratory Results - last 24 hr 08/24/21 14:05: WBC 5.2, RBC 5.28, Hgb 15.2, Hct 45.2, MCV 85.6, MCH 28.8, MCHC 33.6, RDW Std Deviation 38.6, RDW Coeff of Christiano 12.5, Plt Count 205, MPV 10.8, Immature Gran % (Auto) 0.400, Neut % (Auto) 67.3, Lymph % (Auto) 19.6, [place] % (Auto) 8.3, Eos % (Auto) 3.8, Baso % (Auto) 0.6, Absolute Neuts (auto) 3.5, Absolute Lymphs (auto) 1.02, Nucleated RBC % 0 08/24/21 14:05: PT 12.8, INR 1.0, APTT 27.4 08/24/21 14:05: Sodium 134 L, Potassium 3.9, Chloride 102, Carbon Dioxide 30.0, Anion Gap 2 L, BUN 13, Creatinine 0.74, Estim Creat Clear Calc 61.86, Est GFR (MDRD) Af Amer 132, Est GFR (MDRD) Non-Af 109, BUN/Creatinine Ratio 17.6, Glucose 91, Calcium 8.5, Troponin I High Sens [address] 08/24/21 13:53 IMPRESSION: Chronic involutional changes of the brain. N.B. : The above Results were Read Back by Camden Felix MD to Esteban Oliva and understanding confirmed on 08/24/2021 14:49:47 (ET). Electronically Signed: Camden Felix MD at 14:50 EST , Service support , ADDENDUM: 08/24/21 1457 IMPRESSION: Chronic involutional changes of the brain. N.B. : The above Results were Read Back by Camden Felix MD to Esteban Oliva and understanding confirmed on 08/24/2021 14:49:47 (ET). Electronically Signed: Camden Felix MD at 14:50 EST , Service support , Chest X-Ray 08/24/21 13:53 IMPRESSION: Hyperinflation. Electronically Signed: Camden Felix MD at 14:51 EST , Service support , Assessment & Plan Assessment/Plan (1) Amaurosis fugax of left eye: PLAN: 1. Amaurosis fugax of the left eye -Admit to PCU -MRI brain, MRA head and neck ordered for a.m. -Monitor patient for vision changes -Discussed case with patient's cloth cutting machine operator he was seen by earlier today, per recommendations will start patient on Plavix 75 mg daily -Recommend for follow-up upon discharge with cloth cutting machine operator -Continue aspirin 2. Hypertension -Patient currently on lisinopril 40 mg and hydrochlorothiazide 25 mg p.o. daily, however patient currently hypertensive -Due to presenting symptoms we will not start patient on any additional hypertensives at this time but will consider after 24 hours of presentation -Vital signs per protocol, trend BP 3. Hyperlipidemia -Continue atorvastatin 4. Parkinson's disease -Continue current regiment that includes carbidopa levodopa, mirtazapine, oxcarbazepine -Patient states that he is currently stable and well managed on this regimen DVT prophylaxis-not indicated due to observation status This patient was seen by Lisette Kowalski NP-Cammie under the supervision of Dr. Pressley. Documented by User: Dr. Shay Pressley DO 08/24/21 16:16 HPI - General General Date of Admission: 08/24/21 [facility] Medical History Benign prostate hyperplasia BPH (benign prostatic hyperplasia) Carotid artery disease Essential (primary) hypertension Glaucoma Hyperlipidemia Obstructive sleep apnea Osteoarthritis Parkinson disease Peripheral neuropathy Ventricular tachyarrhythmia Ventricular tachycardia Home Medications aspirin 81 mg tablet,delayed release 81 mg PO DAILY 10/20/17 [History Last Taken 08/23/21] carbidopa 25 mg-levodopa 100 mg tablet 3 tab PO LUNCH tab 10/23/19 [History Last Taken 08/23/21] cholecalciferol (vitamin D3) 50 mcg (2,000 unit) capsule 2,000 unit PO DAILY cap 10/21/20 [History Last Taken 08/24/21] dorzolamide 22.3 mg-timolol 6.8 mg/mL eye drops 1 drp OPHTHALMIC BID ml 10/21/20 [History Last Taken 08/24/21] oxcarbazepine 300 mg tablet 450 mg PO BID tab 10/21/20 [History Last Taken 08/24/21] atorvastatin 20 mg PO DAILY 08/24/21 [History Last Taken 08/23/21] carbidopa-levodopa 1 tab PO DAILY 08/24/21 [History Last Taken 08/24/21] carbidopa-levodopa 2 tab PO BID 08/24/21 [History Last Taken 08/24/21] hydrochlorothiazide 25 mg PO DAILY 08/24/21 [History Last Taken 08/24/21] lisinopril 40 mg PO DAILY 08/24/21 [History Last Taken 08/23/21] metoprolol succinate [Toprol XL] 50 mg PO DAILY 08/24/21 [History Last Taken 08/24/21] mirtazapine 7.5 mg PO QHS 08/24/21 [History Last Taken 08/23/21] Allergy/AdvReac Type Severity Reaction Status Date / Time No Known Allergies Allergy Verified 08/24/21 12:15 Surgical History History of left heart catheterization (02/15/13) History of total knee replacement Social History Smoking Status: Former smoker alcohol intake: current Results Lab / Micro Data Result Diagrams: 08/24/21 14:05 08/24/21 14:05 Charges/Coding Addendum Addendum: Patient was seen and examined today independently of Michelle Kowalski, he was sent into the emergency room today at [facility] by a retinal cloth cutting machine operator (Tito Lagunas M.D.) who was in practice in [place]. He went there for evaluation of a transient vision loss on Tuesday which lasted several hours, he states it was not an entire visual field loss but more like looking through a frosted glass aspect of his left eye. Patient has had a previous history year and a half ago of a retinal artery occlusion and was maida salvador for this and had good vision after recovery. Patient was seen today and examined in this cloth cutting machine operator office, no abnormalities were seen on examination of the eye. On examination he appeared in good health and spirits. Vital signs as documented. Skin warm and dry and without overt rashes. Neck without JVD, neck was supple, trachea midline, thyroid was normal. Lungs clear bilaterally, normal air movement was noted. Heart exam notable for regular rhythm, normal sounds and absence of murmurs, rubs or gallops. Abdomen unremarkable and without evidence of organomegaly, masses, or abdominal aortic enlargement. Bowel sounds are present, abdomen is not distended. Extremities nonedematous, no cyanosis was noted, no clubbing was noted. Neuro: Cranial nerves II through XII are grossly intact, no focal motor deficits were noted, sensation to light touch and pinprick intact, motor exam 5/5 throughout. Psych: Patient is alert and oriented x3, he does not appear anxious or depressed, he does not appear agitated. I talked briefly with the retinal cloth cutting machine operator today on the phone, I asked his opinion on how to treat the patient if we did not find anything on work-up in the hospital- he stated that he would recommend dual antiplatelet therapy for 21 days and he would recommend the patient would follow-up with his cloth cutting machine operator here in [place] for follow-up. Patient's blood pressure has been elevated in the emergency room, I will see if the patient's blood pressure decreases once he is admitted to the hospital here, he will be placed in observation status on PCU and will have an MRI of the brain as well as an MRA of the head and neck. Patient will be placed on Plavix, he is already on a baby aspirin daily at home. His home medications will be continued. I do not marisol tamika the patient needs NIH scores. I have reviewed Michelle Kowalski's history and physical including her medical assessment and plan of care and endorse it. Visit Charges OBSV E&M: [id number] Initial observation care L3
--- NOTE | 2021-08-24 17:54 | PCS.PANDOC ---
PANDEMIC DOCUMENTATION INITIATED: Date: 06/01/2021 Time: 189908/24/21 170
[2021-08-24] MEDS: Carbidopa/Levodopa 25/100 Tablet PO (21:14)
[2021-08-24] MEDS: Mirtazapine 15 MG Tablet 7.5 MG PO (21:14)
[2021-08-24] MEDS: Dorzolamide HCL/Timolol 10 ml Bottle 1 DRP OPHTHALMIC (21:25)
[2021-08-24] MEDS: amLODIPine 5 MG Tablet PO (21:25)
[2021-08-24] MEDS: OXcarbazepine 150 MG Tablet 450 MG PO (21:26)
[2021-08-24] MEDS: Clopidogrel Bisulfate 75 MG Tablet PO (21:41)
[2021-08-24] MEDS: Aspirin E.C. 81 MG Tablet PO (21:41)
[2021-08-25] VITALS (7 sets, daily range): BP systolic 134–160; BP diastolic 74–98; PULSE 57–75; RESP 16; TEMP 36–36.4; O2SAT 96–99
[2021-08-25 07:10] LABS: Absolute Lymphocyte Count 0.83 X10^3/uL (0.83-4.51); Absolute Neutrophil Count 2.5 X10^3/uL (2.0-7.7); Basophil# 0.04 X10^3/uL; Eosinophil# 0.29 X10^3/uL; Hematocrit 44.6 % (40-54); Lymphocyte # 0.83 X10^3/ul (0.83-4.51); Mean Corp Hgb Conc 33.6 g/dL (32-36); Mean Corpuscular Hgb 29.1 pg (27.0-32.0); Mean Corpuscular Volume 86.4 fL (80-94); Mean Platelet Vol. 11.3 fl (6.2-12.0); Monocyte# 0.42 X10^3/uL; Monocyte% 10.1 % (0-10); NRBC Flagged by Analyzer 0 % (0-5); Neutrophil # 2.54 X10^3/uL (2.7-7.7); Neutrophil % 61.2 % (47-70); Platelet Count 190 K/mm3 (150-450); RBC Distribution Width CV 12.7 % (11.6-14.6); RBC Distribution Width SD 39.8 fl (35.1-43.9); Red Blood Count 5.16 M/mm3 (4.6-6.2); White Blood Count 4.2 K/mm3 (4.4-11.0)
[2021-08-25 07:55] LABS: Anion Gap 6 (5-15); BUN 13 mg/dL (7-18); BUN/Creat Ratio 19.6 RATIO (10-20); Calcium,Total 8.6 mg/dL (8.5-10.1); Chloride 102 mmol/L (98-107); Creatinine, Serum 0.66 mg/dL (0.70-1.30); EST Glomerular Filtration Rate 124 mL/min (>60); Est Glom Filt Rate - Afr Amer 150 mL/min (>60); Estimated Creatinine Clearance 61.86 ml/min; Glucose 94 mg/dL (74-106); Potassium 3.7 mmol/L (3.5-5.1); Sodium Level 136 mmol/L (136-145)
[2021-08-25] MEDS: Aspirin E.C. 81 MG Tablet PO (08:40)
[2021-08-25] MEDS: Dorzolamide HCL/Timolol 10 ml Bottle 1 DRP OPHTHALMIC (08:40)
[2021-08-25] MEDS: Atorvastatin Calcium 20 MG Tablet PO (08:41)
[2021-08-25] MEDS: hydroCHLOROthiazide 25 MG Tablet PO (08:41)
[2021-08-25] MEDS: Lisinopril 40 MG Tablet PO (08:41)
[2021-08-25] MEDS: Cholecalciferol (VIT D3) 25 MCG TABLET (1,000 UNITS) 50 MCG PO (08:41)
[2021-08-25] MEDS: Metoprolol(XL)Succ 50 MG Tablet PO (08:41)
[2021-08-25] MEDS: Carbidopa/Levodopa 25/100 Tablet PO (08:42)
[2021-08-25] MEDS: CARBIDOPA/LEVODOPA CR 50/200 Tablet PO (08:42)
[2021-08-25] MEDS: OXcarbazepine 150 MG Tablet 450 MG PO (08:44)
[2021-08-25] MEDS: Clopidogrel Bisulfate 75 MG Tablet PO (08:46)
[2021-08-25] MEDS: amLODIPine 5 MG Tablet PO (08:46)
--- NOTE | 2021-08-25 11:14 | PCM.DC ---
Discharge Instructions Diet Discharge Diet: Low fat / Low cholesterol Activity Discharge Activity: Return to Normal Activity Follow Up Care Please Follow Up With: Darwin Landrum MD When: 1 week Test Results: Test results from this visit will be discussed in further detail at your follow-up appointment, if applicable. Discharge Plan Admission Admit Date/Time: 08/24/21 16:04 Primary Reason for Your Visit: Amaruosis fugax Attending Provider: Elizabeth Cabrales Primary Care Provider: Jose Nogueira Discharge Orders/Prescriptions Prescriptions: New clopidogrel 75 mg Tablet 75 mg PO DAILY 21 Days Qty: 21 RF: 0 amlodipine 5 mg Tablet 5 mg PO DAILY 30 Days Qty: 30 RF: 0 Continued aspirin [Adult Low Dose Aspirin] 81 mg tablet,delayed release (DR/EC) 81 mg PO DAILY RF: 0 cholecalciferol (vitamin D3) 50 mcg (2,000 unit) capsule 2,000 unit PO DAILY RF: 0 carbidopa-levodopa 25-100 mg tablet 3 tab PO LUNCH RF: 0 oxcarbazepine 300 mg tablet 450 mg PO BID RF: 0 dorzolamide-timolol 22.3-6.8 mg/mL drops 1 drp OPHTHALMIC BID RF: 0 carbidopa-levodopa 50-200 mg tablet extended release 1 tab PO DAILY RF: 0 carbidopa-levodopa 25-100 mg tablet 2 tab PO BID RF: 0 mirtazapine 7.5 mg tablet 7.5 mg PO QHS RF: 0 hydrochlorothiazide 25 mg tablet 25 mg PO DAILY RF: 0 atorvastatin 20 mg tablet 20 mg PO DAILY RF: 0 metoprolol succinate [Toprol XL] 50 mg tablet extended release 24 hr 50 mg PO DAILY RF: 0 lisinopril 40 mg tablet 40 mg PO DAILY RF: 0 Referrals / Follow Up: Jose Nogueira MD [Primary Care Provider] -
--- NOTE | 2021-08-25 11:17 | DS.PCM_ITS ---
Documented by User: [email or web address] Hein 08/25/21 11:20 Providers Date of Admission: 08/24/21 Primary Care Physician: Dr. Jose Nogueira MD Reason For Visit: AMARUOSIS FUGAX Diagnosis Discharge Diagnosis (1) Amaurosis fugax of left eye: Status: Acute Code(s): G45.3 - Amaurosis fugax Medications at Discharge Home Medications aspirin 81 mg tablet,delayed release 81 mg PO DAILY 10/20/17 carbidopa 25 mg-levodopa 100 mg tablet 3 tab PO LUNCH tab 10/23/19 cholecalciferol (vitamin D3) 50 mcg (2,000 unit) capsule 2,000 unit PO DAILY cap 10/21/20 dorzolamide 22.3 mg-timolol 6.8 mg/mL eye drops 1 drp OPHTHALMIC BID ml 10/21/20 oxcarbazepine 300 mg tablet 450 mg PO BID tab 10/21/20 atorvastatin 20 mg PO DAILY 08/24/21 carbidopa-levodopa 1 tab PO DAILY 08/24/21 carbidopa-levodopa 2 tab PO BID 08/24/21 hydrochlorothiazide 25 mg PO DAILY 08/24/21 lisinopril 40 mg PO DAILY 08/24/21 metoprolol succinate [Toprol XL] 50 mg PO DAILY 08/24/21 mirtazapine 7.5 mg PO QHS 08/24/21 amlodipine 5 mg PO DAILY 30 Days #30 tab 08/25/21 clopidogrel 75 mg PO DAILY 30 Days #30 tab 08/25/21 Hospital Course Operations None Procedures None Summary of Care Provided Minutes Spent on Discharge: 20 Hospital Course: Patient is a 76-year-old male who presented with visual changes. 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 Patient underwent MRI and MRA which were unremarkable. Patient will be discharged home with instructions to follow-up with Dr. Landrum his regular truck driver supervisor as well as Dr. Cruz his neurologist. Physical Exam Const alert, oriented x3 and no apparent distress General Appearance: cooperative HEENT normocephalic and head/scalp atraumatic Eyes conjunctivae normal and no scleral icterus General Eye: normal appearance of both eyes Neck full ROM and supple General: trachea midline Lymph Lymphatic: no lymphadenopathy noted Resp normal respiratory effort, normal air movement and clear to auscultation bilaterally Cardio regular rate, regular rhythm, S1 normal heart sound, S2 normal heart sound and peripheral pulses 2+ throughout GI normal to inspection, nondistended, normoactive bowel sounds, soft to palpation and non-tender Extremity normal capillary refill and no clubbing, cyanosis or edema General Extremity: no tenderness to palpation of joints or extremities Skin General Skin Exam: no breakdown and turgor normal Lesions: no lesions Rashes: no rashes Neuro oriented x3, moves all extremities, no focal motor deficits, no sensory deficits noted and gait normal Psych thought process normal, cooperative and affect normal Appearance: appropriate Weight / BMI Weight Weight: 193 lb 5.526 oz Body Mass Index (BMI) 28.5 ABG / Lab / Microbiology Data Result Diagrams: 08/25/21 06:15 08/25/21 06:15 Laboratory: Laboratory Results - last 24 hr 08/24/21 14:05: WBC 5.2, RBC 5.28, Hgb 15.2, Hct 45.2, MCV 85.6, MCH 28.8, MCHC 33.6, RDW Std Deviation 38.6, RDW Coeff of Christiano 12.5, Plt Count 205, MPV 10.8, Immature Gran % (Auto) 0.400, Neut % (Auto) 67.3, Lymph % (Auto) 19.6, Baldwin % (Auto) 8.3, Eos % (Auto) 3.8, Baso % (Auto) 0.6, Absolute Neuts (auto) 3.5, Absolute Lymphs (auto) 1.02, Nucleated RBC % 0 08/24/21 14:05: PT 12.8, INR 1.0, APTT 27.4 08/24/21 14:05: Sodium 134 L, Potassium 3.9, Chloride 102, Carbon Dioxide 30.0, Anion Gap 2 L, BUN 13, Creatinine 0.74, Estim Creat Clear Calc 61.86, Est GFR (MDRD) Af Amer 132, Est GFR (MDRD) Non-Af 109, BUN/Creatinine Ratio 17.6, Glucose 91, Calcium 8.5, Troponin I High Sens 7 08/25/21 06:15: WBC 4.2 L, RBC 5.16, Hgb 15.0, Hct 44.6, MCV 86.4, MCH 29.1, MCHC 33.6, RDW Std Deviation 39.8, RDW Coeff of Christiano 12.7, Plt Count 190, MPV 11.3, Immature Gran % (Auto) 0.700, Neut % (Auto) 61.2, Lymph % (Auto) 20.0, Baldwin % (Auto) 10.1 H, Eos % (Auto) 7.0 H, Baso % (Auto) 1.0, Absolute Neuts (auto) 2.5, Absolute Lymphs (auto) 0.83, Nucleated RBC % 0 08/25/21 06:15: Sodium 136, Potassium 3.7, Chloride 102, Carbon Dioxide 28.0, Anion Gap 6, BUN 13, Creatinine 0.66 L, Estim Creat Clear Calc 61.86, Est GFR (MDRD) Af Amer 150, Est GFR (MDRD) Non-Af 124, BUN/Creatinine Ratio 19.6, Glucose 94, Calcium 8.6 Microbiology: Microbiology 08/24/21 18:10 Nasal Secretion SARS-CoV-2 Antigen (Rapid) - Final Radiography Diagnostic Testing: Radiology Impression Brain CT 08/24/21 13:53 IMPRESSION: Chronic involutional changes of the brain. N.B. : The above Results were Read Back by Camden Felix MD to Esteban Oliva and understanding confirmed on 08/24/2021 14:49:47 (ET). Electronically Signed: Camden Felix MD at 14:50 EST , Service support , ADDENDUM: 08/24/21 1457 IMPRESSION: Chronic involutional changes of the brain. N.B. : The above Results were Read Back by Camden Felix MD to Esteban Oliva and understanding confirmed on 08/24/2021 14:49:47 (ET). Electronically Signed: Camden Felix MD at 14:50 EST , Service support , Chest X-Ray 08/24/21 13:53 IMPRESSION: Hyperinflation. Electronically Signed: Camden Felix MD at 14:51 EST , Service support , Brain MRI 08/24/21 15:51 IMPRESSION: Negative MRI brain without intravenous contrast. Electronically Signed: Rui North MD at 20:40 EST , Service support , Head MRA 08/24/21 15:51 IMPRESSION: Unremarkable MRA head. ALL ABOVE CRITERIA BY NASCET. Electronically Signed: Rui North MD at 20:41 EST , Service support , Neck MRA 08/24/21 15:51 IMPRESSION: There is mild atherosclerotic plaque formation of the origin of the right and left internal carotid artery with less than 50% cross sectional diameter stenosis. ALL ABOVE CRITERIA BY NASCET. Electronically Signed: Rui North MD at 20:42 EST , Service support , D/C Instructions Discharge Diet: Low fat / Low cholesterol Please Follow Up With: Darwin Landrum MD When: 1 week Meaningful Use Info Meaningful Use Diagnoses (Choose all that apply): None applicable Discharge Plan Admission Admit Date/Time: 08/24/21 16:04 Primary Reason for Your Visit: Amaruosis fugax Attending Provider: Elizabeth Cabrales Primary Care Provider: Jose Nogueira Discharge Orders/Prescriptions Prescriptions: New clopidogrel 75 mg Tablet 75 mg PO DAILY 30 Days Qty: 30 RF: 0 amlodipine 5 mg Tablet 5 mg PO DAILY 30 Days Qty: 30 RF: 0 Continued aspirin [Adult Low Dose Aspirin] 81 mg tablet,delayed release (DR/EC) 81 mg PO DAILY RF: 0 cholecalciferol (vitamin D3) 50 mcg (2,000 unit) capsule 2,000 unit PO DAILY RF: 0 carbidopa-levodopa 25-100 mg tablet 3 tab PO LUNCH RF: 0 oxcarbazepine 300 mg tablet 450 mg PO BID RF: 0 dorzolamide-timolol 22.3-6.8 mg/mL drops 1 drp OPHTHALMIC BID RF: 0 carbidopa-levodopa 50-200 mg tablet extended release 1 tab PO DAILY RF: 0 carbidopa-levodopa 25-100 mg tablet 2 tab PO BID RF: 0 mirtazapine 7.5 mg tablet 7.5 mg PO QHS RF: 0 hydrochlorothiazide 25 mg tablet 25 mg PO DAILY RF: 0 atorvastatin 20 mg tablet 20 mg PO DAILY RF: 0 metoprolol succinate [Toprol XL] 50 mg tablet extended release 24 hr 50 mg PO DAILY RF: 0 lisinopril 40 mg tablet 40 mg PO DAILY RF: 0 Referrals / Follow Up: Jose Nogueira MD [Primary Care Provider] - Within 2 Weeks Leighton Cruz MD [NON-STAFF] - Within 2 Weeks Darwin Landrum MD [STAFF PHYSICIAN] - In 1 Week Disposition Disposition (needs filled in before D/C Order can be placed): Home, Self Care Documented by User: Dr. Elizabeth Cabrales DO 08/25/21 16:43 Providers Date of Admission: 08/24/21 Reason For Visit: AMARUOSIS FUGAX Medications at Discharge Home Medications aspirin 81 mg tablet,delayed release 81 mg PO DAILY 10/20/17 carbidopa 25 mg-levodopa 100 mg tablet 3 tab PO LUNCH tab 10/23/19 cholecalciferol (vitamin D3) 50 mcg (2,000 unit) capsule 2,000 unit PO DAILY cap 10/21/20 dorzolamide 22.3 mg-timolol 6.8 mg/mL eye drops 1 drp OPHTHALMIC BID ml 10/21/20 oxcarbazepine 300 mg tablet 450 mg PO BID tab 10/21/20 atorvastatin 20 mg PO DAILY 08/24/21 carbidopa-levodopa 1 tab PO DAILY 08/24/21 carbidopa-levodopa 2 tab PO BID 08/24/21 hydrochlorothiazide 25 mg PO DAILY 08/24/21 lisinopril 40 mg PO DAILY 08/24/21 metoprolol succinate [Toprol XL] 50 mg PO DAILY 08/24/21 mirtazapine 7.5 mg PO QHS 08/24/21 amlodipine 5 mg PO DAILY 30 Days #30 tab 08/25/21 clopidogrel 75 mg PO DAILY 30 Days #30 tab 08/25/21 Hospital Course Operations None Procedures None Summary of Care Provided Minutes Spent on Discharge: 35 Hospital Course: This patient was seen in conjunction with Lisette Kowalski NP. The following is a representation my independent history and physical examination. Please see below for addendum the above. Mr. Vickers is a 76-year-old white male who presented to the emergency department at [facility] on 08/24/2021 at the instruction of his retinal ophthalmologists for concern of amaurosis fugax. 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 Approximately 6 months ago he had vision changes and was diagnosed with the CRV O and was getting injections to help alleviate this issue. On Tuesday prior to the presentation he approximately had 4 hours where he reported that he had frosted glass vision in the lower half of his visual field of the left eye. He followed up with his truck driver supervisor in [place] who referred him to a retinal specialist in [place] who then referred him to the emergency department for further work-up. The case was discussed with the referring truck driver supervisor upon admission and they requested an MRI of his brain and MRA of his head and neck be performed to rule out further stroke. The MRI was performed and was negative for any acute str max. The MRI of his head was negative for any acute blockages. The MRA of his neck showed less than 50% stenosis in the internal carotid artery at the origin. His blood pressure was noted to be elevated despite being on lisinopril 40 mg daily metoprolol 50 mg daily and HCTZ 25 mg daily and he was therefore initiated on Norvasc 5 mg daily which improved his blood pressure control. Per the read documentation of the ophthalmologists he was continued on aspirin and Plavix was initiated and was recommended for 21 days after discharge with then discontinuation of his Plavix and continuation of his aspirin. He is to follow- up with his local truck driver supervisor and he has neurology follow-up already for his Parkinson's disease. He was discharged on 08/25/2021 in stable condition. Discharge diagnoses: Amaurosis fugax of the left eye Hypertension Hyperlipidemia Parkinson's disease Depression/anxiety Physical Exam Const alert, oriented x3, no apparent distress and well nourished Constitutional Narrative: Very pleasant older white male sitting up in bed, appears younger than stated age, nontoxic, at bedside General Appearance: cooperative and well developed HEENT normocephalic, head/scalp atraumatic and moist oral mucous membranes Eyes PERRL and EOMs intact bilaterally Neck supple, no JVD and thyroid normal General: trachea midline Resp normal respiratory effort, normal air movement and clear to auscultation bilaterally Auscultation: Negative for rales, rhonchi or wheezes Cardio regular rate, regular rhythm, S1 normal heart sound, S2 normal heart sound, no murmurs, no rub, no gallops and peripheral pulses 2+ throughout GI normal to inspection, nondistended, normoactive bowel sounds, soft to palpation, non-tender and non-distended Extremity normal capillary refill and no clubbing, cyanosis or edema General Extremity: no tenderness to palpation of joints or extremities Skin skin turgor normal General Skin Exam: no breakdown Lesions: no lesions Neuro CN's II-XII intact bilaterally, no focal motor deficits and no sensory deficits noted Speech: speech normal Motor Exam: strength 5/5 throughout Psych affect normal Psych Narrative: Very pleasant ABG / Lab / Microbiology Data Result Diagrams: 08/25/21 06:15 08/25/21 06:15 Discharge Plan Admission Admit Date/Time: 08/24/21 16:04 Primary Reason for Your Visit: Amaruosis fugax Attending Provider: Elizabeth Cabrales Primary Care Provider: Jose Nogueira Discharge Orders/Prescriptions Prescriptions: New clopidogrel 75 mg Tablet 75 mg PO DAILY 30 Days Qty: 30 RF: 0 amlodipine 5 mg Tablet 5 mg PO DAILY 30 Days Qty: 30 RF: 0 Continued aspirin [Adult Low Dose Aspirin] 81 mg tablet,delayed release (DR/EC) 81 mg PO DAILY RF: 0 cholecalciferol (vitamin D3) 50 mcg (2,000 unit) capsule 2,000 unit PO DAILY RF: 0 carbidopa-levodopa 25-100 mg tablet 3 tab PO LUNCH RF: 0 oxcarbazepine 300 mg tablet 450 mg PO BID RF: 0 dorzolamide-timolol 22.3-6.8 mg/mL drops 1 drp OPHTHALMIC BID RF: 0 carbidopa-levodopa 50-200 mg tablet extended release 1 tab PO DAILY RF: 0 carbidopa-levodopa 25-100 mg tablet 2 tab PO BID RF: 0 mirtazapine 7.5 mg tablet 7.5 mg PO QHS RF: 0 hydrochlorothiazide 25 mg tablet 25 mg PO DAILY RF: 0 atorvastatin 20 mg tablet 20 mg PO DAILY RF: 0 metoprolol succinate [Toprol XL] 50 mg tablet extended release 24 hr 50 mg PO DAILY RF: 0 lisinopril 40 mg tablet 40 mg PO DAILY RF: 0 Referrals / Follow Up: Jose Nogueira MD [Primary Care Provider] - Within 2 Weeks Leighton Cruz MD [NON-STAFF] - Within 2 Weeks Darwin Landrum MD [STAFF PHYSICIAN] - In 1 Week Disposition Disposition (needs filled in before D/C Order can be placed): Home, Self Care Charges/Coding Visit Charges Inpatient E&M: 62023 Disch Hosp
--- NOTE | 2021-08-25 15:12 | PHA.DC.MR ---
Pharmacy Service has performed discharge medication reconciliation for this patient. The patient's discharge medication list was reviewed for discrepancies and discrepancies were resolved. Medication education papers prepared. Unable to psychologist counseling before patient discharged. Home Medications aspirin 81 mg tablet,delayed release 81 mg PO DAILY 10/20/17 carbidopa 25 mg-levodopa 100 mg tablet 3 tab PO LUNCH tab 10/23/19 cholecalciferol (vitamin D3) 50 mcg (2,000 unit) capsule 2,000 unit PO DAILY cap 10/21/20 dorzolamide 22.3 mg-timolol 6.8 mg/mL eye drops 1 drp OPHTHALMIC BID ml 10/21/20 oxcarbazepine 300 mg tablet 450 mg PO BID tab 10/21/20 atorvastatin 20 mg PO DAILY 08/24/21 carbidopa-levodopa 1 tab PO DAILY 08/24/21 carbidopa-levodopa 2 tab PO BID 08/24/21 hydrochlorothiazide 25 mg PO DAILY 08/24/21 lisinopril 40 mg PO DAILY 08/24/21 metoprolol succinate [Toprol XL] 50 mg PO DAILY 08/24/21 mirtazapine 7.5 mg PO QHS 08/24/21 amlodipine 5 mg PO DAILY 30 Days #30 tab 08/25/21 clopidogrel 75 mg PO DAILY 30 Days #30 tab 08/25/21
== END 2021-08-25 11:20 | disposition home or self-care (01) ==
LOC: ED 15:37 → PCU 15:46
PROVIDERS: Nurse Practitioner Family; Admitting Provider Internal Medicine; Emergency Provider Emergency Medicine; PCP Family Medicine; Visit Provider Internal Medicine
DX: G45.3 Amaurosis fugax (principal); G20 Parkinson's disease; I10 Essential (primary) hypertension; N40.0 Benign prostatic hyperplasia without lower urinary tract symptoms; E78.5 Hyperlipidemia, unspecified; G47.33 Obstructive sleep apnea (adult) (pediatric); M19.90 Unspecified osteoarthritis, unspecified site; G62.9 Polyneuropathy, unspecified; R29.700 NIHSS score 0; Z79.899 Other long term (current) drug therapy; Z79.82 Long term (current) use of aspirin; Z87.891 Personal history of nicotine dependence
CPT/HCPCS: 36415; 70450; 70544; 70549; 70551; 71045; 80048; 84484; 85025; 85610; 85730; 87426; 93005; 99218; 99285; A9575; G0378

== ENCOUNTER → 2021-08-31 14:44 | Outpatient (CLI) | payer MEDICARE, SELFPAY ==
[2021-09-09 14:10] LABS: Dilute Russell Viper Venom 42.8 sec (0.0-47.0); Homocyst(e)ine 12.9 umol/L (0.0-19.2); Protein C, Functional 119 % (73-180); Protein S, Free 126 % (61-136)
[2021-09-09 20:49] LABS: Activated Protein C Resistance 2.8 ratio (2.2-3.5); Anti-Cardiolipin Ab, IgG, Qn < 9 GPL U/mL (0-14); Anti-Cardiolipin Ab, IgM, Qn 21 MPL U/mL (0-12); Antithrombin 3 Function 95 % (75-135); Beta-2-Glycoprotein I IgG <9 (0-20); Beta-2-Glycoprotein I IgM <9 (0-32); Interpretation Comment: (.)
== END ==
PROVIDERS: PCP Family Medicine; Referring Provider Psychiatry & Neurology Neurology; Visit Provider Psychiatry & Neurology Neurology
DX: G20 Parkinson's disease (principal)
CPT/HCPCS: 36415; 81240; 81241; 83090; 85300; 85303; 85307; 85420; 85613; 85705; 85732

== ENCOUNTER → 2021-09-02 08:14 | Outpatient (CLI) | payer MEDICARE, SELFPAY ==
[2021-09-02 08:20] LABS: Bacteria 0 SEEN /hpf (None Seen); Mucous, Urine 0 SEEN /hpf (<or=2+); Red Blood Cells-Urine 0 SEEN /hpf (0-5); White Blood Cells 0 SEEN /hpf (0-5)
[2021-09-02 09:55] LABS: Absolute Lymphocyte Count 1.04 X10^3/uL (0.83-4.51); Absolute Neutrophil Count 2.2 X10^3/uL (2.0-7.7); Basophil# 0.05 X10^3/uL; Basophil% 1.2 % (0-1); Eosinophil# 0.22 X10^3/uL; Eosinophils% 5.4 % (0-5); Hemoglobin 15.1 g/dL (13.0-16.5); Lymphocyte # 1.04 X10^3/ul (0.83-4.51); Lymphocyte % 25.7 % (19-41); Mean Corp Hgb Conc 32.8 g/dL (32-36); Mean Corpuscular Hgb 28.3 pg (27.0-32.0); Mean Corpuscular Volume 86.3 fL (80-94); Mean Platelet Vol. 11.5 fl (6.2-12.0); Monocyte# 0.48 X10^3/uL; Monocyte% 11.9 % (0-10); NRBC Flagged by Analyzer 0 % (0-5); Neutrophil # 2.23 X10^3/uL (2.7-7.7); Neutrophil % 55.1 % (47-70); Platelet Count 249 K/mm3 (150-450); RBC Distribution Width CV 12.4 % (11.6-14.6); RBC Distribution Width SD 38.6 fl (35.1-43.9); Red Blood Count 5.33 M/mm3 (4.6-6.2); White Blood Count 4.1 K/mm3 (4.4-11.0)
[2021-09-02 10:00] LABS: Color, Urine Yellow (Yellow); Glucose, Dipstick Normal (Normal); Ketone-Dipstick 5 mg/dl (Negative); Leukocyte Esterase-Dipstick Negative /ul (Negative); Nitrite-Dipstick Negative (Negative); Occult Blood-Urine Negative /ul (Negative); Protein-Dipstick Negative (Negative); Specific Gravity, Urine 1.015 (1.002-1.030); Urine Bilirubin Dipstick Negative (Negative); Urine Clarity Clear (Clear); Urine Urobilinogen Normal (Normal); Urine pH 6.5 (5.0 - 8.0)
[2021-09-02 10:17] LABS: Hemoglobin A1c 5.3 % (3.8-5.6)
[2021-09-02 10:37] LABS: Vitamin D,25 Hydroxy 50.4 ng/mL
[2021-09-02 10:39] LABS: Squamous Epithelial Cells - UA 0-5 SEEN /hpf (0-5)
[2021-09-02 10:40] LABS: ALB/GLOB Ratio 1.1 RATIO (0.9-2.4); AST(SGOT) 32 U/L (15-37); Alanine Aminotransfer ALT/SGPT 15 U/L (16-61); Albumin, Serum 3.5 g/dL (3.2-5.0); Alkaline Phosphatase 129 U/L (45-117); Anion Gap 4 (5-15); BUN 20 mg/dL (7-18); Calcium,Total 9.1 mg/dL (8.5-10.1); Chloride 98 mmol/L (98-107); Cholesterol 175 mg/dL (200); Creatinine, Serum 0.77 mg/dL (0.70-1.30); EST Glomerular Filtration Rate 104 mL/min (>60); Est Glom Filt Rate - Afr Amer 126 mL/min (>60); Globulin 3.3 g/dL (2.2-4.2); Glucose 101 mg/dL (74-106); High Density Lipoprotein 71 mg/dL; Potassium 4.1 mmol/L (3.5-5.1); Protein, Total 6.8 g/dL (6.4-8.2); Sodium Level 134 mmol/L (136-145); Triglycerides 77 mg/dL; Very Low Density Lipoprotein 15 mg/dL (5-40)
== END ==
PROVIDERS: PCP Family Medicine; Referring Provider Family Medicine; Visit Provider Family Medicine
DX: I10 Essential (primary) hypertension (principal); E78.00 Pure hypercholesterolemia, unspecified; E55.9 Vitamin D deficiency, unspecified; R73.02 Impaired glucose tolerance (oral)
CPT/HCPCS: 36415; 80053; 80061; 81001; 82306; 83036; 85025

== ENCOUNTER → 2021-09-14 10:47 | Outpatient (CLI) | payer MEDICARE, SELFPAY ==
--- NOTE | 2021-09-14 10:50 | ECHOD_ITS ---
Reason For Study: TIA/CVA Procedure This was a 2D Doppler, Color Flow transthoracic echocardiogram. Bubble study performed. Exam performed in department. Left Ventricle Normal LV size. Left ventricular systolic function is normal. The estimated ejection fraction is 65 %. Stage 1 diastolic dysfunction. No regional wall motion abnormalities noted. Right Ventricle Normal RV size. Normal systolic function. Atria Normal left atrium. Normal right atrium. Bubble contrast study negative for right to left interatrial shunt. Mitral Valve Normal mitral valve. Tricuspid Valve Normal tricuspid valve. Mild tricuspid valve insufficiency. Pulmonary artery systolic pressure is 35 mmHg. Aortic Valve Normal aortic valve. Trisinus/trileaflet aortic valve. Pulmonic Valve Normal pulmonic valve. Great Vessels Normal aortic root. The pulmonary artery is normal size. Normal inferior vena cava. Pericardium/Pleural No pericardial effusion. Medication 22 gauge I.V. with prn adaptor inserted into right arm. Performed a rapid injection of agitated mix of 9 cc saline and 1cc air to assess for atrial septal defect. MMode/2D Measurements & Calculations LVIDd: 4.4 cm IVSd: 0.96 cm LA dimension: 3.3 cm LVIDs: 2.3 cm LVPWd: 0.93 cm FS: 48.0 % LAV(MOD-bp): 46.5 ml LA A4 area: 19.2 cm2 RA A4 area: 17.7 cm2 LAV(MOD-bp) Indexed: 22.9 ml/m2 LAV(MOD-sp2): 38.0 ml LAV(MOD-sp4): 52.4 ml Time Measurements MV dec time: 0.20 sec Doppler Measurements & Calculations MV E max ramin: 94.9 cm/sec Lat Peak E' Ramin: 7.9 cm/sec Med Peak E' Ramin: 7.7 cm/sec MV A max ramin: 107.3 cm/sec E/E' lat: 12.1 E/E' med: 12.4 MV E/A: 0.88 MV V2 max: 105.5 cm/sec MV P1/2t max ramin: 99.7 cm/sec Ao V2 max: 127.5 cm/sec MV max P.4 mmHg MV P1/2t: 76.2 msec Ao max P.5 mmHg MV V2 mean: 65.8 cm/sec MV dec slope: 382.8 cm/sec2 MV mean P.0 mmHg MV V2 VTI: 29.7 cm MVA(P1/2t): 2.9 cm2 LV V1 max: 110.8 cm/sec PA V2 max: 167.6 cm/sec TR max ramin: 274.0 cm/sec LV V1 max P.9 mmHg TR max P.0 mmHg ECHO/Echo Complete Interpretation Summary Normal LV size. Left ventricular systolic function is normal. The estimated ejection fraction is 65 %. Stage 1 diastolic dysfunction. Bubble contrast study negative for right to left interatrial shunt. Ordering Physician: Imelda Presley Referring Physician: Jose Nogueira Performed By: Adelfo Washington RCS
== END ==
PROVIDERS: PCP Family Medicine; Referring Provider Physician Assistant Medical; Visit Provider Physician Assistant Medical
DX: G45.3 Amaurosis fugax (principal)
CPT/HCPCS: 93306; A4216

== ENCOUNTER 2021-09-16 06:34 | Day surgery (SDC) | payer MEDICARE, SELFPAY ==
[2021-09-15 09:47] VITALS: BMI 28.5
--- NOTE | 2021-09-21 09:45 | CL.IE_ITS ---
Patient: MILY BOLANOS Study Date: 09/16/2021 Performing: Tacho Moreira MD : 1945 Age: 76 Gender: male PROCEDURES PERFORMED [id number] OF LOOP RECORDER INDICATIONS Cryptogenic stroke PROCEDURE DETAILS The patient was brought to the Catheterization Lab in the postabsorptive nonsedated state. Infor med consent was obtained prior to the procedure. Local anesthetic was given subcutaneously to the le ft upper chest area with Lidocaine 2%. Incision was made to the left upper chest. ICM Loop Recorder w as inserted. Steri-strips applied to Lt chest area. The patient tolerated the procedure well. Estimated Blood Loss: 3 ml's IMPLANTED / EX-PLANTED DEVICES IMPLANTED DEVICE(S): ICM Loop Recorder - [employer]: [facility] [employer], Model # LUX-Dx M301 , Serial # [id number] DEVICE PARAMETERS CONCLUSIONS / RECOMMENDATIONS Device Conclusions: Successful implantation of a patient activated loop recorder. Device Recommendations: Follow up with Primary Care Physician PROCEDURE MEDICATIONS Versed 1 mg IV Oxygen: 2 L/min via nasal cannula Antibiotic given in appropriate timeframe. Ancef 2 Gm IV @ 09/16/2021 07:11:16 Signed By Tacho Moreira MD On 09/21/2021 09:44:19 Signed By Tacho Moreira MD On 09/16/2021 07:38:07 Tacho Moreira MD
== END 2021-09-16 08:45 | disposition home or self-care (01) ==
PROVIDERS: PCP Family Medicine; Referring Provider Internal Medicine Cardiovascular Disease; Visit Provider Internal Medicine Cardiovascular Disease
DX: I63.9 Cerebral infarction, unspecified (principal); I49.9 Cardiac arrhythmia, unspecified; G45.3 Amaurosis fugax; I10 Essential (primary) hypertension; G20 Parkinson's disease; N40.0 Benign prostatic hyperplasia without lower urinary tract symptoms; E78.5 Hyperlipidemia, unspecified; G47.33 Obstructive sleep apnea (adult) (pediatric); G62.9 Polyneuropathy, unspecified; Z79.899 Other long term (current) drug therapy; Z79.82 Long term (current) use of aspirin; Z79.02 Long term (current) use of antithrombotics/antiplatelets; Z87.891 Personal history of nicotine dependence
CPT/HCPCS: 33285; 99152; 99153; J7040

== ENCOUNTER → 2021-09-25 11:51 | Outpatient (CLI) | payer MEDICARE, SELFPAY | PROVIDERS: PCP Family Medicine; Referring Provider Family Medicine; Visit Provider Family Medicine | DX: B34.9 Viral infection, unspecified (principal) | CPT/HCPCS: 87635; U0005; U0003 ==

== ENCOUNTER 2022-01-05 09:36 | Outpatient (CLI) | payer MEDICARE, SELFPAY ==
[2022-01-05 11:16] LABS: PSA,Total - Annual Screen 0.41 ng/mL (0.00-4.00)
== END 2022-01-05 23:59 | disposition home or self-care (01) ==
LOC: LAB 09:38
PROVIDERS: PCP Family Medicine; Referring Provider Registered Nurse; Visit Provider Registered Nurse
DX: Z12.5 Encounter for screening for malignant neoplasm of prostate (principal)
CPT/HCPCS: 36415; 84153; G0103

== ENCOUNTER → 2022-03-23 | Outpatient (CLI) | payer MEDICARE, SELFPAY ==
[2022-03-23 10:08] LABS: Absolute Lymphocyte Count 0.82 X10^3/uL (0.83-4.51); Absolute Neutrophil Count 3.3 X10^3/uL (2.0-7.7); Basophil# 0.04 X10^3/uL; Basophil% 0.8 % (0-1); Eosinophil# 0.16 X10^3/uL; Eosinophils% 3.3 % (0-5); Hematocrit 44.5 % (40-54); Hemoglobin 14.9 g/dL (13.0-16.5); Lymphocyte # 0.82 X10^3/ul (0.83-4.51); Mean Corp Hgb Conc 33.5 g/dL (32-36); Mean Corpuscular Hgb 28.8 pg (27.0-32.0); Mean Corpuscular Volume 86.1 fL (80-94); Mean Platelet Vol. 11.6 fl (6.2-12.0); Monocyte# 0.45 X10^3/uL; Monocyte% 9.3 % (0-10); NRBC Flagged by Analyzer 0 % (0-5); Neutrophil # 3.32 X10^3/uL (2.7-7.7); Platelet Count 236 K/mm3 (150-450); RBC Distribution Width CV 12.5 % (11.6-14.6); RBC Distribution Width SD 39.3 fl (35.1-43.9); Red Blood Count 5.17 M/mm3 (4.6-6.2); White Blood Count 4.8 K/mm3 (4.4-11.0)
[2022-03-23 10:58] LABS: Hemoglobin A1c 5.6 % (3.8-5.6); Vitamin D,25 Hydroxy 52.6 ng/mL
[2022-03-23 11:09] LABS: ALB/GLOB Ratio 1.2 RATIO (0.9-2.4); AST(SGOT) 26 U/L (15-37); Alanine Aminotransfer ALT/SGPT 14 U/L (16-61); Albumin, Serum 3.5 g/dL (3.2-5.0); Alkaline Phosphatase 150 U/L (45-117); Anion Gap 9 (5-15); BUN 15 mg/dL (7-18); BUN/Creat Ratio 26.3 RATIO (10-20); Calcium,Total 8.7 mg/dL (8.5-10.1); Chloride 101 mmol/L (98-107); Cholesterol 175 mg/dL (200); Creatinine, Serum 0.57 mg/dL (0.70-1.30); EST Glomerular Filtration Rate 147 mL/min (>60); Est Glom Filt Rate - Afr Amer 178 mL/min (>60); Globulin 2.8 g/dL (2.2-4.2); Glucose 107 mg/dL (74-106); High Density Lipoprotein 86 mg/dL; Protein, Total 6.3 g/dL (6.4-8.2); Sodium Level 133 mmol/L (136-145); Triglycerides 60 mg/dL; Very Low Density Lipoprotein 12 mg/dL (5-40)
== END | disposition home or self-care (01) ==
LOC: MTLAB 09:01
PROVIDERS: PCP Family Medicine; Referring Provider Family Medicine; Visit Provider Family Medicine
DX: I10 Essential (primary) hypertension (principal); E55.9 Vitamin D deficiency, unspecified; E78.00 Pure hypercholesterolemia, unspecified; R73.02 Impaired glucose tolerance (oral)
CPT/HCPCS: 36415; 80053; 80061; 82306; 83036; 85025

== ENCOUNTER → 2022-04-13 | Outpatient (CLI) | payer MEDICARE, SELFPAY ==
--- NOTE | 2022-04-13 11:30 | MRI_ITS ---
STUDY: MRI LUMBAR SPINE WITHOUT CONTRAST REASON FOR EXAM: Male, 76 years old. IDD TECHNIQUE: Standardized fat and water weighted pulse sequences were obtained in the sagittal and axial planes. COMPARISON: 05/08/2013 FINDINGS: T12-L1: Interval development of a small right paracentral disc protrusion producing minimal spinal stenosis and no neural foraminal stenosis. There is straightening of the normal lumbar lordosis. There is no substantial scoliosis. Normal conus medullaris that terminates at the T12/L1. L1-2: Interval development of a moderate bilobed disc protrusion produces moderate spinal stenosis with moderate bilateral recess stenosis with abutment of the L2 nerve roots bilaterally, mild right neural foraminal stenosis and moderate left neural foraminal stenosis with abutment of the left L1 nerve root laterally. L2-3: Worsening bilobed disc protrusion which is now moderate in size produces moderate spinal stenosis with moderate bilateral lateral recess stenosis with abutment of the L3 nerve roots bilaterally and moderate bilateral neural foraminal stenosis. L3-4: Mild bilateral facet hypertrophy and ligament flavum hypertrophy. Worsening bilobed disc protrusion which is now moderate in size produces moderate spinal stenosis with moderate lateral recess stenosis with abutment of the L4 nerve roots bilaterally and moderate bilateral neural foraminal stenosis with abutment of the exiting L3 nerve roots bilaterally. L4-5: Moderate bilateral facet hypertrophy and ligament flavum hypertrophy. Worsening broad disc protrusion which is now large in size produces a severe spinal stenosis with severe bilateral lateral recess stenosis with effacement of the L5 nerve roots, moderate right neural foraminal stenosis and severe left neural foraminal stenosis with effacement of the left L4 nerve root laterally. L5-S1: Normal endplates. Normal disc height, hydration and morphology. Normal bilateral facet joints. Normal central canal and bilateral lateral recesses. Normal bilateral intervertebral neural foramina. Normal visualized sacral ala. Normal visualized paraspinous soft tissue structures. MRI/Spine Lumbar (Routine) IMPRESSION: Worsening degenerative disc disease as described above. Electronically Signed: Tito Ahumada MD at 16:43 EDT ,
== END | disposition home or self-care (01) ==
PROVIDERS: PCP Family Medicine; Visit Provider Anesthesiology Pain Medicine
DX: M51.37 Other intervertebral disc degeneration, lumbosacral region (principal)
CPT/HCPCS: 72148

== ENCOUNTER → 2022-06-16 | Outpatient (CLI) | payer MEDICARE, SELFPAY ==
--- NOTE | 2022-06-16 13:00 | CDU_ITS ---
Reason For Study: Stenosis Rt. Velocities/BP Lt. Velocities/BP Prox CCA 89/16 cm/sec. Prox CCA 100/24 cm/sec. Mid CCA 74/15 cm/sec. Mid CCA 69/13 cm/sec. Dist CCA 74/16 cm/sec. Dist CCA 66/19 cm/sec. Prox ICA 56/13 cm/sec. Prox ICA 87/18 cm/sec. Mid ICA 64/22 cm/sec. Mid ICA 65/19 cm/sec. Dist ICA 52/19 cm/sec. Dist ICA 64/25 cm/sec. Rt. ICA/CCA = 0.9. Lt. ICA/CCA = 1.3. Prox ECA 91/12 cm/sec. Prox ECA 114/25 cm/sec. Rt. Vert. 40/12 cm/sec. Lt. Vert. 35/10 cm/sec. Right Extracranial There is intimal thickening but no significant atherosclerotic plaque noted in the right common carotid artery. There is heterogeneous, smooth atherosclerotic plaque noted in the right internal carotid artery. There is no significant atherosclerotic plaque noted in the right external carotid artery. Antegrade flow is noted in the right vertebral artery. Left Extracranial There is heterogeneous, smooth atherosclerotic plaque noted in the left common carotid artery. There is heterogeneous, smooth atherosclerotic plaque noted in the left internal carotid artery. There is intimal thickening but no significant atherosclerotic plaque noted in the left external carotid artery. Antegrade flow is noted in the left vertebral artery. Procedure Carotid Duplex [id number]. This is a Carotid Duplex examination using B-mode, color flow and specral Doppler. Exam performed in department. VL/Carotid Duplex Ultrasound Interpretation Summary Smooth calcific plaque in the proximal right internal carotid artery with less than 50% stenosis Less than 50% stenosis right external carotid artery Smooth plaque at the proximal left internal carotid with less than 50% stenosis Less than 50% stenosis left external carotid artery Patent and antegrade vertebral arteries bilaterally No change from January 26, 2021 Ordering Physician: Jose Nogueira Referring Physician: Jose Nogueira Performed By: Katie Navarrete RDCS, RVT
== END | disposition home or self-care (01) ==
PROVIDERS: PCP Family Medicine; Referring Provider Family Medicine; Visit Provider Family Medicine
DX: I65.23 Occlusion and stenosis of bilateral carotid arteries (principal)
CPT/HCPCS: 93880

== ENCOUNTER → 2022-08-17 | Outpatient (CLI) | payer MEDICARE, SELFPAY ==
[2022-08-17 15:33] LABS: Urine Chloride 87 mmol/L (Not Establ.); Urine Sodium 74 mmol/L (Not Establ.)
[2022-08-17 15:39] LABS: Vitamin D,25 Hydroxy 64.5 ng/mL
[2022-08-17 16:52] LABS: Hemoglobin A1c 5.6 % (3.8-5.6)
[2022-08-17 17:06] LABS: Osmolality, Urine 490 mOsm/KG
[2022-08-17 18:09] LABS: ALB/GLOB Ratio 1.1 RATIO (0.9-2.4); AST(SGOT) 27 U/L (15-37); Alanine Aminotransfer ALT/SGPT 22 U/L (16-61); Albumin, Serum 3.4 g/dL (3.2-5.0); Alkaline Phosphatase 126 U/L (45-117); Anion Gap 10 (5-15); BUN 12 mg/dL (7-18); BUN/Creat Ratio 19.4 RATIO (10-20); Calcium,Total 8.5 mg/dL (8.5-10.1); Chloride 92 mmol/L (98-107); Creatinine, Serum 0.62 mg/dL (0.70-1.30); EST Glomerular Filtration Rate 134 mL/min (>60); Est Glom Filt Rate - Afr Amer 162 mL/min (>60); Glucose 99 mg/dL (74-106); Potassium 3.8 mmol/L (3.5-5.1); Protein, Total 6.4 g/dL (6.4-8.2); Sodium Level 126 mmol/L (136-145); Urine Sodium 74 mmol/L (Not Establ.)
== END | disposition home or self-care (01) ==
LOC: MFPLAB 12:20
PROVIDERS: PCP Family Medicine; Referring Provider Family Medicine; Visit Provider Family Medicine
DX: I10 Essential (primary) hypertension (principal); E55.9 Vitamin D deficiency, unspecified; E87.1 Hypo-osmolality and hyponatremia; R73.02 Impaired glucose tolerance (oral)
CPT/HCPCS: 80053; 82306; 82436; 82565; 82570; 83036; 83935; 84133; 84295; 84300

== ENCOUNTER → 2022-08-25 | Outpatient (CLI) | payer MEDICARE, SELFPAY ==
[2022-08-25 10:58] LABS: Anion Gap 6 (5-15); BUN 11 mg/dL (7-18); BUN/Creat Ratio 15.6 RATIO (10-20); Calcium,Total 8.6 mg/dL (8.5-10.1); Chloride 100 mmol/L (98-107); EST Glomerular Filtration Rate 115 mL/min (>60); Est Glom Filt Rate - Afr Amer 139 mL/min (>60); Glucose 114 mg/dL (74-106); Potassium 4.1 mmol/L (3.5-5.1); Sodium Level 133 mmol/L (136-145)
== END | disposition home or self-care (01) ==
LOC: MFPLAB 08:32
PROVIDERS: PCP Family Medicine; Referring Provider Family Medicine; Visit Provider Family Medicine
DX: R73.02 Impaired glucose tolerance (oral) (principal)
CPT/HCPCS: 36415; 80048

== ENCOUNTER 2022-09-25 09:14 | Emergency (ER) | payer MEDICARE, SELFPAY ==
[2022-09-25 09:15] VITALS: BP 144/84; PULSE 75; RESP 16; TEMP 36.3; O2SAT 97; BMI 27.7
--- NOTE | 2022-09-25 09:46 | EDS_ITS ---
HPI History of Present Illness Chief Complaint: Lower Extremity Injury Informant: patient and spouse/S.O. Narrative Narrative: Patient comes in with concern for blood clot in the left leg. He had a DVT many years ago when he had a total knee done on the left. He is not on blood thinners now. He just had surgery on his back on Tuesday for spinal stenosis. He was discharged yesterday. He has been doing a lot of physical therapy. He has been walking with a walker which is the first time he has done that in 8 years. He notices today that when he moves his legs up it feels tight around his knee and a little bit of the back of the proximal calf. He does not have swelling. He has not had fevers or chills. If his leg is straight is not painful. No recent feelings of infection. Wound in the back is doing well and no drainage. He never had leg pain with his back. He had surgery for spinal stenosis but it sounds like he did not have radicular symptoms. No bowel or bladder dysfunction. No other areas of pain. [facility] Medical History Benign prostate hyperplasia BPH (benign prostatic hyperplasia) Carotid artery disease Essential (primary) hypertension Glaucoma Hyperlipidemia Obstructive sleep apnea Osteoarthritis Parkinson disease Peripheral neuropathy Ventricular tachyarrhythmia Ventricular tachycardia Home Medications aspirin 81 mg tablet,delayed release (Adult Low Dose Aspirin) 81 mg PO DAILY 10/20/17 [History Last Taken 08/23/21] cholecalciferol (vitamin D3) 50 mcg (2,000 unit) capsule 2,000 unit PO DAILY 10/21/20 [History Last Taken 08/24/21] dorzolamide 22.3 mg-timolol 6.8 mg/mL eye drops 1 drp ophthalmic (eye) BID 10/21/20 [History Last Taken 08/24/21] oxcarbazepine 300 mg tablet 450 mg PO BID 10/21/20 [History Last Taken 08/24/21] atorvastatin 20 mg tablet 10 mg PO DAILY cholesterol 09/07/21 [History Last Taken Unknown] carbidopa 25 mg-levodopa 100 mg tablet See Rx Instructions PO .COMPLEX 02/25/22 [History Last Taken Unknown] carbidopa ER 50 mg-levodopa 200 mg tablet,extended release 1 tab PO QAM 02/25/22 [History Last Taken Unknown] hydrochlorothiazide 25 mg tablet 25 mg PO DAILY #90 tabs 02/25/22 [Rx Last Taken Unknown] mirtazapine 15 mg tablet 15 mg PO QHS 02/25/22 [History Last Taken Unknown] lisinopril 40 mg tablet See Rx Instructions .Route .COMPLEX #90 TABLETS 05/26/22 [Rx Last Taken Unknown] metoprolol succinate 50 mg tablet,extended release 24 hr (Toprol XL) 50 mg PO DAILY #90 tabs 06/14/22 [Rx Last Taken Unknown] amlodipine 5 mg tablet 5 mg PO DAILY #90 tabs 07/07/22 [Rx Last Taken Unknown] Allergy/AdvReac Type Severity Reaction Status Date / Time No Known Allergies Allergy Verified 09/25/22 09:17 Surgical History History of left heart catheterization (02/15/13) History of loop recorder (09/16/21) History of total knee replacement Social History Smoking Status: Former smoker how long ago did patient quit smokin years ago alcohol intake: current alcohol intake frequency: 0-2 drinks per day Alcohol type: beer substance use type: does not use caffeine: Yes Type: coffee Number of servings: 1 ROS ROS ED Constitutional Constitutional ED: Denies chills or fever(s) ENT ENT ED: Denies sore throat Cardiovascular Cardiovascular: Denies chest pain, palpitations or racing heartbeat Respiratory/Chest Respiratory/Chest: Denies cough or dyspnea Gastrointestinal Gastrointestinal: Denies nausea or vomiting Genitourinary Genitourinary ED: Denies hematuria Musculoskeletal Musculoskeletal: Reports arthralgias; Denies back pain Integumentary Denies rash Neurologic Neurologic: Denies paresthesias or weakness Hematologic/Lymphatic Hematologic/Lymphatic: Denies easy bleeding or easy bruising Allergic/Immunologic Allergic/Immunologic ED: Denies urticaria EXAM Physical Exam Const Vital Signs: 09/25/22 09:15 Temperature 97.3 F L Temperature Source Temporal Pulse Rate 75 Respiratory Rate 16 Blood Pressure 144/84 H Blood Pressure Mean 104 Pulse Ox 97 Oxygen Delivery Method Room Air Positive well nourished and well developed General Appearance ED: well developed HEENT Reports moist mucous membranes Resp normal respiratory effort Cardio regular rate and regular rhythm GI non-tender Back/Spine no CVA tenderness Back/Spine Narrative: Dressing is clean dry and intact. Extremity Extremity Narrative: Leg does not look swollen. The knee might have a trace of an effusion but is not red or warm. He has pretty good range of motion. No notable pain with range of motion. There is a little bit of tenderness in the posterior aspect of the proximal calf but I do not feel a cord. There is no tenderness more proximally. There is no distended veins. Pulses are normal. There is no indication on exam of infection in the knee. Neuro Sensorium / Orientation: alert Psych mental status grossly normal Skin Lesions: no lesions Rashes: no rashes [facility] Narrative Medical decision making narrative: Patient's ultrasound does show an acute DVT noted in the left mid posterior tibial vein. No more proximal vein is noted. There is no clinical swelling. I discussed the case with physician on-call for Dr. Darwin Guillaume. He agreed that with a below the knee only DVT in 1 area and being very soon postoperative, they would prefer to repeat the study in 72 hours. At that point, if this is growing he may need treatment. But at this point it would be high risk to give him anticoagulation and that clot does not fully justify that. There are risks and benefits potential either way. I explained these to the patient and his . I will attempt to write for the outpatient ultrasound. Patient will follow up with his primary physician. I also recommended he contact Dr. Darwin Guillaume to discuss timing of anticoagulation in case that will be needed. Physician on-call stated that that timing can be very specific based on what was seen and done at surgery. Radiography Diagnostic Testing: See [facility] Discharge Plan Triage Chief Complaint: Lower Extremity Injury ED Provider: Moises Bird Dx/Rx/DC Orders Clinical Impression: Left leg DVT Instructions: ED Deep Vein Thrombosis (DVT) Prescriptions: No Action aspirin [Adult Low Dose Aspirin] 81 mg tablet,delayed release (DR/EC) 81 mg PO DAILY cholecalciferol (vitamin D3) 50 mcg (2,000 unit) capsule 2,000 unit PO DAILY carbidopa-levodopa 25-100 mg tablet See Rx Instructions PO .COMPLEX Rx Instructions: Take 2 tabs at breakfast and dinner, 3 tabs at lunch. oxcarbazepine 300 mg tablet 450 mg PO BID dorzolamide-timolol 22.3-6.8 mg/mL drops 1 drp OPHTHALMIC BID Label Comments: instill 1 drop into both eyes twice a day mirtazapine 15 mg tablet 15 mg PO QHS Label Comments: take 1 tablet by mouth at bedtime atorvastatin 20 mg tablet 10 mg PO DAILY carbidopa-levodopa 50-200 mg tablet extended release 1 tab PO QAM Label Comments: take 1 tablet by mouth every morning upon rising. hydrochlorothiazide 25 mg tablet 25 mg PO DAILY Qty: 90 3RF Rx Instructions: TAKE 1 TABLET DAILY lisinopril 40 mg tablet See Rx Instructions .ROUTE .COMPLEX Qty: 90 3RF Dose Instruction: TAKE 1 TABLET DAILY Rx Instructions: TAKE 1 TABLET DAILY metoprolol succinate [Toprol XL] 50 mg tablet extended release 24 hr 50 mg PO DAILY Qty: 90 3RF amlodipine 5 mg tablet 5 mg PO DAILY Qty: 90 3RF Other Ambulatory Orders: Venous Duplex US, Unilateral (Stat) Timeframe: 3 Days Facility: [facility] - Location: [facility] Ordered By: Dr. Moises Bird Primary Care Provider: Jose Nogueira Referrals: Jose Nogueira MD [Primary Care Provider] - 2 Days Disposition Disposition: Home, Self Care
--- NOTE | 2022-09-25 09:46 | VDLE_ITS ---
Reason For Study: Pain RIGHT LEFT CFV is compressible, spontaneous, phasic, GSV is normal. competent and demonstrates normal CFV is compressible, spontaneous, phasic, augmentation. competent, and demonstrates normal Procedure augmentation. This is a venous duplex using B-mode, color FV is compressible, spontaneous, phasic, flow and spectral Doppler. competent and demonstrates normal Exam performed portable in ED. augmentation. A preliminary report was called and/or faxed POP V is compressible, spontaneous, phasic, to Alyssa CANO. competent and demonstrates normal augmentation. T/P Trunk is compressible. LT PerV is compressible. Acute deep vein thrombosis is noted in the left mid PTV. VL/Venous Duplex US, Unilateral Interpretation Summary Acute deep venous thrombosis left posterior tibial vein Patent, compressible left great saphenous harry Normal flow patterns right common femoral vein Ordering Physician: Moises Bird Referring Physician: Jose Nogueira Performed By: Sumi Hoffman RVT
[2022-09-25 13:08] VITALS: BP 142/89; PULSE 71; RESP 15; O2SAT 98
== END 2022-09-25 13:12 | disposition home or self-care (01) ==
PROVIDERS: Emergency Provider Emergency Medicine; PCP Family Medicine; Visit Provider Emergency Medicine
DX: I82.442 Acute embolism and thrombosis of left tibial vein (principal); G20 Parkinson's disease; I10 Essential (primary) hypertension; E78.5 Hyperlipidemia, unspecified; N40.0 Benign prostatic hyperplasia without lower urinary tract symptoms; G47.33 Obstructive sleep apnea (adult) (pediatric); Z79.82 Long term (current) use of aspirin; Z79.899 Other long term (current) drug therapy; Z87.891 Personal history of nicotine dependence; Z86.718 Personal history of other venous thrombosis and embolism
CPT/HCPCS: 93971; 99282

== ENCOUNTER → 2022-09-28 | Outpatient (CLI) | payer MEDICARE, SELFPAY ==
--- NOTE | 2022-09-28 11:05 | VDLE_ITS ---
Reason For Study: FOLLOW UP DVT Procedure LEFT This is a venous duplex using B-mode, color GSV is normal. flow and spectral Doppler. CFV is compressible, spontaneous, phasic, Exam performed in department. competent, and demonstrates normal PT states his leg feels better and he was augmentation. doing leg exercises to get rid of it. FV is compressible, spontaneous, phasic, competent and demonstrates normal augmentation. POP V is compressible, spontaneous, phasic, competent and demonstrates normal augmentation. T/P Trunk is compressible. LT PerV is compressible. PTV appears compressible and flow was noted in augmentation and passively with repirations. VL/Venous Duplex US, Unilateral Interpretation Summary Improvement is noted within the left posterior tibial vein. It appears that the vein is currently compressible. There is no evidence for proximal progression. Patent and compressible left great saphenous vein. Ordering Physician: Moises Bird Referring Physician: MILY LARA Performed By: Naomy Peter, MARTÍN, RVT
== END | disposition home or self-care (01) ==
LOC: CVS 11:00
PROVIDERS: PCP Family Medicine; Referring Provider Emergency Medicine; Visit Provider Emergency Medicine
DX: I82.442 Acute embolism and thrombosis of left tibial vein (principal)
CPT/HCPCS: 93971

== ENCOUNTER 2022-10-01 05:09 | Emergency (ER) | payer MEDICARE, SELFPAY ==
[2022-10-01 05:10] VITALS: BP 163/99; PULSE 75; RESP 17; TEMP 36.5; O2SAT 99; BMI 27.8
--- NOTE | 2022-10-01 05:39 | VDLE_ITS ---
Reason For Study: LEG PAIN RIGHT LEFT GSV is normal. GSV is normal. CFV is compressible, spontaneous, phasic, CFV is compressible, spontaneous, continuous, competent and demonstrates normal competent, and demonstrates normal augmentation. augmentation. FV is compressible, spontaneous, phasic, FV is compressible, spontaneous, continuous, competent and demonstrates normal competent and demonstrates normal augmentation. augmentation. POP V is compressible, spontaneous, phasic, POP V is compressible, spontaneous, phasic, competent and demonstrates normal competent and demonstrates normal augmentation. augmentation. T/P Trunk is compressible. T/P Trunk is compressible. PTV is compressible. PTV is compressible. RT PerV is compressible. LT PerV is compressible. RT SSV - partially compressible with bright intraluminal echoes noted. Procedure This is a venous duplex using B-mode, color flow and spectral Doppler. Exam performed portable in ED. The exam was diagnostic. A preliminary report was called and/or faxed to ED Charge Nurse. VL/Venous Duplex US - Wade Extrem Interpretation Summary No evidence for acute deep venous thrombosis bilateral lower extremities with p atent and compressible bilateral great saphenous veins. 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
[2022-10-01] MEDS: Ondansetron 4 MG/2 ML Vial IV (05:53)
[2022-10-01] MEDS: Morphine 4 MG/ML Syringe IV ×2 (05:53→08:37)
[2022-10-01 07:16] VITALS: RESP 18
--- NOTE | 2022-10-01 07:24 | EDS_ITS ---
HPI History of Present Illness Chief Complaint: Lower Extremity Injury Narrative Narrative: Patient is a 77-year-old male with past medical history of Parkinson's disease and hypertension who underwent spinal surgery recently. He was then seen in the ER secondary to left leg pain and found to have a DVT. Based on the location of the DVT and the fact he had recent surgery was elected not to start him on anticoagulation. He had a repeat venous duplex 2 days later which showed the cl ot to be spontaneously resolving. Patient states that last night into this morning he has noticed pain in bilateral legs extending mainly from the mid thigh down into the calf/ankle region. He states that there was no recent trauma and he denies any fevers or chills but states he is concerned that with his recent history of DVT and now this pain it could be a repeat blood clot and therefore comes in for evaluation. [facility] Medical History Benign prostate hyperplasia BPH (benign prostatic hyperplasia) Carotid artery disease Essential (primary) hypertension Glaucoma Hyperlipidemia Obstructive sleep apnea Osteoarthritis Parkinson disease Peripheral neuropathy Ventricular tachyarrhythmia Ventricular tachycardia Home Medications aspirin 81 mg tablet,delayed release (Adult Low Dose Aspirin) 81 mg PO DAILY 0 10/20/17 [History Last Taken 08/23/21] cholecalciferol (vitamin D3) 50 mcg (2,000 unit) capsule 2,000 unit PO DAILY 10/21/20 [History Last Taken 08/24/21] dorzolamide 22.3 mg-timolol 6.8 mg/mL eye drops 1 drp ophthalmic (eye) BID 10/21/20 [History Last Taken 08/24/21] oxcarbazepine 300 mg tablet 450 mg PO BID 10/21/20 [History Last Taken 08/24/21] atorvastatin 20 mg tablet 10 mg PO DAILY cholesterol 09/07/21 [History Last Taken Unknown] carbidopa 25 mg-levodopa 100 mg tablet See Rx Instructions PO .COMPLEX 02/25/22 [History Last Taken Unknown] carbidopa ER 50 mg-levodopa 200 mg tablet,extended release 1 tab PO QAM 02/25/22 [History Last Taken Unknown] mirtazapine 15 mg tablet 15 mg PO QHS 02/25/22 [History Last Taken Unknown] lisinopril 40 mg tablet See Rx Instructions .Route .COMPLEX #90 TABLETS 05/26/22 [Rx Last Taken Unknown] metoprolol succinate 50 mg tablet,extended release 24 hr (Toprol XL) 50 mg PO DAILY #90 tabs 06/14/22 [Rx Last Taken Unknown] Allergy/AdvReac Type Severity Reaction Status Date / Time No Known Allergies Allergy Verified 09/25/22 09:17 Surgical History History of left heart catheterization (02/15/13) History of loop recorder (09/16/21) History of total knee replacement Social History Smoking Status: Former smoker how long ago did patient quit smokin years ago alcohol intake: current alcohol intake frequency: 0-2 drinks per day Alcohol type: beer substance use type: does not use caffeine: Yes Type: coffee Number of servings: 1 ROS ROS ED Constitutional Constitutional ED: Denies chills or fever(s) ENT ENT ED: Denies sore throat Cardiovascular Cardiovascular: Denies chest pain Respiratory/Chest Respiratory/Chest: Denies cough or dyspnea Gastrointestinal Gastrointestinal: Reports nausea; Denies abdominal pain, diarrhea or vomiting Genitourinary Genitourinary ED: Denies dysuria or hematuria Musculoskeletal Musculoskeletal: Reports back pain Integumentary Denies rash Neurologic Neurologic: Denies headache(s) Hematologic/Lymphatic Hematologic/Lymphatic: Denies easy bleeding or easy bruising EXAM Physical Exam Const Vital Signs: 10/01/22 05:10 10/01/22 07:16 Temperature 97.7 F L Temperature Source Oral Pulse Rate 75 Respiratory Rate 17 18 Blood Pressure 163/99 H Blood Pressure Mean 120 Pulse Ox 99 Oxygen Delivery Method Room Air Positive well nourished and well developed General Appearance ED: well developed Eyes PERRL and EOMs intact bilaterally Neck supple Resp normal respiratory effort and clear to auscultation bilaterally Cardio regular rate and regular rhythm Rate: other Other Details: Radial pulses are plus 2 out of 4 bilaterally are equal and symmetric GI normal to inspection, nondistended, normoactive bowel sounds, non-tender, non- distended and no masses GI Narrative: No voluntary guarding or rigidity no pulsatile mass Auscultation: normoactive bowel sounds Palpation: soft Back/Spine Back/Spine Narrative: Patient has postoperative incision present consistent with the recent back surgery. The wound is clean dry and intact. There is mild soft tissue swelling around the wound consistent with developing seroma but no warmth redness lymphangitic streaking or discharge present. No clonus no Babinski no saddle anesthesia. Straight leg raise does seem to be positive bilaterally around 45 degrees Extremity Extremity Narrative: Patient has mild asymmetry in leg size to the right calf compared to the left but negative Homans' sign bilaterally and no overlying erythema or warmth. Neuro oriented x3 and CN's II-XII intact bilaterally Sensorium / Orientation: alert Psych mental status grossly normal Skin no rashes or lesions noted Skin Narrative: Soft tissue changes to the back as documented above otherwise no secondary changes to suggest infection or trauma MDM MDM MDM Narrative Medical decision making narrative: Presented to the ER hypertensive but has a history of this and also is in pain so this is to be expected. His physical exam did not suggest DVT but this was also the case on his recent physical exam when the left leg was positive. Therefore this time he will stay in the hospital to have bilateral venous duplex obtained. As his wound shows changes most consistent with seroma but no obvious infectious process do not feel there is need for blood work or CT of the spine. I feel that as long as ultrasound shows that there is no new clot on the right and that the clot in the left is continuing to dissolve there will be no need to start anticoagulation and patient should be safe for discharge Will be signed out to Dr. Valverde pending the venous duplex. As he is afebrile and the wound is clean dry and intact on his back and his pain is in his legs I do not feel there is need to work-up the patient from an infectious standpoint but mainly rule out DVT Discharge Plan Triage Chief Complaint: Lower Extremity Injury ED Provider: Joseph Barker Dx/Rx/DC Orders Clinical Impression: Essential (primary) hypertension, Parkinson disease, Postoperative back pain Prescriptions: No Action aspirin [Adult Low Dose Aspirin] 81 mg tablet,delayed release (DR/EC) 81 mg PO DAILY cholecalciferol (vitamin D3) 50 mcg (2,000 unit) capsule 2,000 unit PO DAILY carbidopa-levodopa 25-100 mg tablet See Rx Instructions PO .COMPLEX Rx Instructions: Take 2 tabs at breakfast and dinner, 3 tabs at lunch. oxcarbazepine 300 mg tablet 450 mg PO BID dorzolamide-timolol 22.3-6.8 mg/mL drops 1 drp OPHTHALMIC BID Label Comments: instill 1 drop into both eyes twice a day mirtazapine 15 mg tablet 15 mg PO QHS Label Comments: take 1 tablet by mouth at bedtime atorvastatin 20 mg tablet 10 mg PO DAILY carbidopa-levodopa 50-200 mg tablet extended release 1 tab PO QAM Label Comments: take 1 tablet by mouth every morning upon rising. lisinopril 40 mg tablet See Rx Instructions .ROUTE .COMPLEX Qty: 90 3RF Dose Instruction: TAKE 1 TABLET DAILY Rx Instructions: TAKE 1 TABLET DAILY metoprolol succinate [Toprol XL] 50 mg tablet extended release 24 hr 50 mg PO DAILY Qty: 90 3RF Primary Care Provider: Jose Nogueira Referrals: Jose Nogueira MD [Primary Care Provider] -
[2022-10-01 09:19] VITALS: BP 134/90; RESP 18; O2SAT 97
--- NOTE | 2022-10-01 10:45 | EDS_ITS ---
HPI History of Present Illness Chief Complaint: Lower Extremity Injury [facility] Medical History Benign prostate hyperplasia BPH (benign prostatic hyperplasia) Carotid artery disease Essential (primary) hypertension Glaucoma Hyperlipidemia Obstructive sleep apnea Osteoarthritis Parkinson disease Peripheral neuropathy Ventricular tachyarrhythmia Ventricular tachycardia Home Medications aspirin 81 mg tablet,delayed release (Adult Low Dose Aspirin) 81 mg PO DAILY 10/20/17 [History Last Taken 08/23/21] cholecalciferol (vitamin D3) 50 mcg (2,000 unit) capsule 2,000 unit PO DAILY 10/21/20 [History Last Taken 08/24/21] dorzolamide 22.3 mg-timolol 6.8 mg/mL eye drops 1 drp ophthalmic (eye) BID 10/21/20 [History Last Taken 08/24/21] oxcarbazepine 300 mg tablet 450 mg PO BID 10/21/20 [History Last Taken 08/24/21] atorvastatin 20 mg tablet 10 mg PO DAILY cholesterol 09/07/21 [History Last Taken Unknown] carbidopa 25 mg-levodopa 100 mg tablet See Rx Instructions PO .COMPLEX 02/25/22 [History Last Taken Unknown] carbidopa ER 50 mg-levodopa 200 mg tablet,extended release 1 tab PO QAM 02/25/22 [History Last Taken Unknown] mirtazapine 15 mg tablet 15 mg PO QHS 02/25/22 [History Last Taken Unknown] lisinopril 40 mg tablet See Rx Instructions .Route .COMPLEX #90 TABLETS 05/26/22 [Rx Last Taken Unknown] metoprolol succinate 50 mg tablet,extended release 24 hr (Toprol XL) 50 mg PO DAILY #90 tabs 06/14/22 [Rx Last Taken Unknown] Allergy/AdvReac Type Severity Reaction Status Date / Time No Known Allergies Allergy Verified 09/25/22 09:17 Surgical History History of left heart catheterization (02/15/13) History of loop recorder (09/16/21) History of total knee replacement Social History Smoking Status: Former smoker how long ago did patient quit smokin years ago alcohol intake: current alcohol intake frequency: 0-2 drinks per day Alcohol type: beer substance use type: does not use caffeine: Yes Type: coffee Number of servings: 1 EXAM Physical Exam Const Vital Signs: 10/01/22 05:10 10/01/22 07:16 10/01/22 09:19 Temperature 97.7 F L Temperature Source Oral Pulse Rate 75 Respiratory Rate 17 18 18 Blood Pressure 163/99 H 134/90 H Blood Pressure Mean 120 104 Pulse Ox 99 97 Oxygen Delivery Method Room Air Room Air Discharge Plan Triage Chief Complaint: Lower Extremity Injury ED Provider: Joseph Barker Dx/Rx/DC Orders Clinical Impression: Essential (primary) hypertension, Parkinson disease, Postoperative back pain Prescriptions: No Action aspirin [Adult Low Dose Aspirin] 81 mg tablet,delayed release (DR/EC) 81 mg PO DAILY cholecalciferol (vitamin D3) 50 mcg (2,000 unit) capsule 2,000 unit PO DAILY carbidopa-levodopa 25-100 mg tablet See Rx Instructions PO .COMPLEX Rx Instructions: Take 2 tabs at breakfast and dinner, 3 tabs at lunch. oxcarbazepine 300 mg tablet 450 mg PO BID dorzolamide-timolol 22.3-6.8 mg/mL drops 1 drp OPHTHALMIC BID Label Comments: instill 1 drop into both eyes twice a day mirtazapine 15 mg tablet 15 mg PO QHS Label Comments: take 1 tablet by mouth at bedtime atorvastatin 20 mg tablet 10 mg PO DAILY carbidopa-levodopa 50-200 mg tablet extended release 1 tab PO QAM Label Comments: take 1 tablet by mouth every morning upon rising. lisinopril 40 mg tablet See Rx Instructions .ROUTE .COMPLEX Qty: 90 3RF Dose Instruction: TAKE 1 TABLET DAILY Rx Instructions: TAKE 1 TABLET DAILY metoprolol succinate [Toprol XL] 50 mg tablet extended release 24 hr 50 mg PO DAILY Qty: 90 3RF Primary Care Provider: Jose Nogueira Referrals: Jose Nogueira MD [Primary Care Provider] - Activity Restrictions/Additional Instructions: Keep your scheduled appointment with your surgeon. Disposition Disposition: Home, Self Care
[2022-10-01 11:05] VITALS: BP 158/78; PULSE 72; RESP 18; O2SAT 98
== END 2022-10-01 11:06 | disposition home or self-care (01) ==
PROVIDERS: Emergency Provider Emergency Medicine; PCP Family Medicine; Visit Provider Emergency Medicine
DX: M79.661 Pain in right lower leg (principal); G20 Parkinson's disease; M79.662 Pain in left lower leg; M54.9 Dorsalgia, unspecified; E78.5 Hyperlipidemia, unspecified; I10 Essential (primary) hypertension; M19.90 Unspecified osteoarthritis, unspecified site; G47.33 Obstructive sleep apnea (adult) (pediatric); N40.0 Benign prostatic hyperplasia without lower urinary tract symptoms; Z79.82 Long term (current) use of aspirin; Z79.899 Other long term (current) drug therapy; Z87.891 Personal history of nicotine dependence
CPT/HCPCS: 93970; 96374; 96375; 96376; 99283; A4216; J2405

== ENCOUNTER → 2022-10-28 | Outpatient (CLI) | payer MEDICARE, SELFPAY ==
[2022-10-28 10:02] LABS: Absolute Neutrophil Count 2.9 X10^3/uL (2.0-7.7); Basophil# 0.04 X10^3/uL; Basophil% 0.9 % (0-1); Eosinophil# 0.22 X10^3/uL; Eosinophils% 4.7 % (0-5); Hematocrit 46.1 % (40-54); Hemoglobin 15.5 g/dL (13.0-16.5); Lymphocyte % 21.5 % (19-41); Mean Corp Hgb Conc 33.6 g/dL (32-36); Mean Corpuscular Hgb 29.5 pg (27.0-32.0); Mean Corpuscular Volume 87.6 fL (80-94); Mean Platelet Vol. 11.2 fl (6.2-12.0); Monocyte# 0.44 X10^3/uL; Monocyte% 9.4 % (0-10); NRBC Flagged by Analyzer 0 % (0-5); Neutrophil # 2.94 X10^3/uL (2.7-7.7); Neutrophil % 63.1 % (47-70); Platelet Count 233 K/mm3 (150-450); RBC Distribution Width CV 12.7 % (11.6-14.6); RBC Distribution Width SD 40.9 fl (35.1-43.9); Red Blood Count 5.26 M/mm3 (4.6-6.2); White Blood Count 4.7 K/mm3 (4.4-11.0)
[2022-10-28 10:39] LABS: Cholesterol 184 mg/dL (200); High Density Lipoprotein 90 mg/dL; Triglycerides 80 mg/dL; Very Low Density Lipoprotein 16 mg/dL (5-40)
[2022-10-28 10:40] LABS: Vitamin D,25 Hydroxy 36.7 ng/mL
== END | disposition home or self-care (01) ==
LOC: MFPLAB 08:16
PROVIDERS: PCP Family Medicine; Visit Provider Family Medicine
DX: E78.5 Hyperlipidemia, unspecified (principal); E55.9 Vitamin D deficiency, unspecified
CPT/HCPCS: 36415; 80061; 82306; 85025

== ENCOUNTER → 2022-11-02 | Outpatient (CLI) | payer MEDICARE, SELFPAY ==
[2022-11-02 18:53] LABS: ALB/GLOB Ratio 1.3 RATIO (0.9-2.4); AST(SGOT) 25 U/L (15-37); Alanine Aminotransfer ALT/SGPT 13 U/L (16-61); Albumin, Serum 3.5 g/dL (3.2-5.0); Alkaline Phosphatase 144 U/L (45-117); Anion Gap 9 (5-15); BUN 15 mg/dL (7-18); BUN/Creat Ratio 15.1 RATIO (10-20); Calcium,Total 8.4 mg/dL (8.5-10.1); Chloride 99 mmol/L (98-107); Creatinine, Serum 0.99 mg/dL (0.70-1.30); EST Glomerular Filtration Rate 77 mL/min (>60); Est Glom Filt Rate - Afr Amer 94 mL/min (>60); Globulin 2.7 g/dL (2.2-4.2); Glucose 93 mg/dL (74-106); Protein, Total 6.2 g/dL (6.4-8.2); Sodium Level 135 mmol/L (136-145)
== END | disposition home or self-care (01) ==
LOC: MFPLAB 14:27
PROVIDERS: PCP Family Medicine; Visit Provider Family Medicine
DX: I10 Essential (primary) hypertension (principal)
CPT/HCPCS: 36415; 80053

== ENCOUNTER → 2022-11-10 | Outpatient (CLI) | payer MEDICARE, SELFPAY ==
--- NOTE | 2022-11-10 09:02 | VDLE_ITS ---
Reason For Study: Acute Emboli RIGHT LEFT CFV is compressible, spontaneous, phasic, GSV is normal. competent and demonstrates normal CFV is compressible, spontaneous, phasic, augmentation. competent, and demonstrates normal Procedure augmentation. This is a venous duplex using B-mode, color FV is compressible, spontaneous, phasic, flow and spectral Doppler. competent and demonstrates normal Exam performed in department. augmentation. The exam was diagnostic. POP V is compressible, spontaneous, phasic, A preliminary report was called and/or faxed competent and demonstrates normal to Dr. Nogueira. augmentation. T/P Trunk is compressible. PTV is compressible. LT PerV is compressible. Noted dilation within LT PTV in mid/distal portion of vessel but compressibility and flow in color doppler seen. VL/Venous Duplex US, Unilateral Interpretation Summary There is no evidence of left lower extremity deep vein thrombosis. Left great s aphenous vein appears patent and compressible segmentally. The patient had a previous deep vein throm bosis documented within the left posterior tibial vein on September 25, 2022. The current examina tion demonstrates dilatation of the left posterior tibial vein but it appears to be compressible and color flow was noted. Improvement suggested. Normal flow patterns right common femoral vein Ordering Physician: Jose Nogueira Referring Physician: Jose Nogueira Performed By: William Cali RVT
== END | disposition home or self-care (01) ==
LOC: CVS 08:58
PROVIDERS: PCP Family Medicine; Referring Provider Family Medicine; Visit Provider Family Medicine
DX: I82.442 Acute embolism and thrombosis of left tibial vein (principal)
CPT/HCPCS: 93971

== ENCOUNTER → 2022-11-12 | Outpatient (CLI) | payer MEDICARE, SELFPAY ==
--- NOTE | 2022-11-12 12:54 | US_ITS ---
STUDY: ULTRASOUND - URINARY BLADDER REASON FOR EXAM: Male, 77 years old. URINARY RETENTION TECHNIQUE: Ultrasound evaluation of the urinary bladder was performed with real-time and static dennis-scale imaging. COMPARISON: None. FINDINGS: There is no right UVJ calculus. There is a visualized right ureteral jet. There is no left UVJ calculus. There is a visualized left ureteral jet. The distended volume of the urinary bladder is 1053 ml. The empty volume of the urinary bladder is 753 ml. The bladder wall is within normal limits. The bladder wall measures 4 mm. There is no demonstrated bladder wall mass lesion. There are no demonstrated bladder calculi. US/Post Void Residual Bladder IMPRESSION: Moderate postvoid residual. Electronically Signed: Camden Felix MD at 15:33 EST ,
== END | disposition home or self-care (01) ==
PROVIDERS: PCP Family Medicine; Referring Provider Family Medicine; Visit Provider Family Medicine
DX: R33.9 Retention of urine, unspecified (principal)
CPT/HCPCS: 51798

== ENCOUNTER → 2022-11-19 | Outpatient (CLI) | payer MEDICARE, SELFPAY | END | disposition home or self-care (01) | LOC: LABSPEC 10:05 | PROVIDERS: PCP Family Medicine; Visit Provider Family Medicine | DX: R31.9 Hematuria, unspecified (principal) | CPT/HCPCS: 87077; 87086; 87088; 87186 ==

== ENCOUNTER → 2022-12-30 | Outpatient (CLI) | payer MEDICARE, SELFPAY | END | disposition home or self-care (01) | PROVIDERS: PCP Family Medicine; Visit Provider Urology | DX: N40.1 Benign prostatic hyperplasia with lower urinary tract symptoms (principal) | CPT/HCPCS: 87077; 87086; 87088; 87186 ==

== ENCOUNTER 2023-01-25 11:00 | Outpatient (RCR) | payer MEDICARE, SELFPAY ==
--- NOTE | 2022-10-15 08:29 | HP.PTEVAL_ITS ---
Patient's Visit Information MILY BOLANOS is a 77 year old M referred to Physical Therapy by Dr. Azael Guillaume DO with a diagnosis of S/P spinal stenosis surgery 09-22-22. Date of Evaluation: 10/15/22 Physical Therapist: RAO Thrasher - Visit Plan Frequency: 2x /Week Duration: 6 Weeks Plan: 2X/ week for 6 weeks for neutral spine core stability, LE strengthening, gait training, balance activities, stairs, with HEP - Subjective Pt had back surgery on 09-22-22 and he stayed 2 days in the hospital and then he was home for 2 days and got a blood clot in L leg and it seems to be gone now on US. 8 days after Surgery he got horrible nerve pain from knees down and put on gabapetin and nerve pain is 95% better cause he could not sleep. He has been trying to do a few things at home (walking circles around the house and marching in place). He still has pain in his back. What triggers his pain is leaning over the computer or over the sink to do the dishes. They cleaned hip out between L3/4 and L4/L5. The Dr told him that he could not do any bending, lifting, or twisting and no more than 10#. [facility] in 2 months. He feels that his PD has regressed since surgery. His balance has been off since surgery as well. Pt will call and see when his BLT restrictions will be eliminated. - Pain back pain Pain Intensity (Out of 10): 2 Pain Intensity Range: 7 Comment: with bending over - Objective Gait: walks with no heel to toe gait pattern, flexed trunk, bent knees, arms outstretched, steppage gait. Had the pt start using a cane in the R hand and he had less veering and more stability. LE MMT: R hip flex 12.6# and L 16.7#. R knee ext 12.7# and L 11.4#. R knee flex 8.7# and L knee flex 8.7#. R hip abd R 11.2# and L 12.7#. Trunk AROM: flex 50%, ext neutral, SB B 50%, Rot B 25% B. Patella DTR: 0/3. Standing heel and toe raises.. unable to toe raise B and very limited ROM with heel raises. FGA: 9. Stairs: up and down recip with 1 hand rail but uses the hand rail to pull self up - Balance/Special Test Scores Functional Gait Assessment Score: 9 % Disability: 70.0000 Oswestry Low Back Score: 22 - Goals Goal 1:: I HEP Goal Time Frame: 6-8 Weeks Goal 2:: Be able to go up and down steps recip with a hand rail but not having to pull himself up the step Goal Time Frame: 6-8 Weeks Goal 3:: Increase LE strength by 1/2 muscle grade (at time of the eval: R hip flex 12.6# and L 16.7#. R knee ext 12.7# and L 11.4#. R knee flex 8.7# and L knee flex 8.7#. R hip abd R 11.2# and L 12.7#) Goal Time Frame: 6-8 Weeks Goal 4:: Be able to sit at the computer or lean to do dishes without having pain in his spine Goal Time Frame: 6-8 Weeks Goal 5:: Increase his balance by 5 points to decrease fall risk (FGA 9 at time of eval) Goal Time Frame: 6-8 Weeks - Rehabilitation Potential Rehabilitation Potential: Good - Anticipated Interventions Patient/Client Instruction: Educate patient on: Condition, Plan of Care For the Purpose of:: To decrease pain, To decrease swelling/inflammation, To increase ROM, To improve nutrient delivery to tissue, To improve muscle performance and motor function, To improve ability to perform ADL's, To increase tolerance to activity/condition/position, To improve performance and independence with ADL's, To decrease level of supervision to perform tasks, To improve ability of physical actions for home/community/work/leisure, To improve gait and locomotor functions, To improve health of tissue, To decrease soft tissue restriction, To increase flexibility/ROM, To improve balance, To improve safety with gait Therapeutic Exercise to Include: Strength training, Endurance training, Balance training, Body mechanics, Postural training, Neuromotor development, Active ROM, Dynamic Lumbar Stabilization For the Purpose of:: To decrease pain, To decrease swelling/inflammation, To increase ROM, To improve nutrient delivery to tissue, To increase oxygenation perfusion, To improve muscle performance and motor function, To improve ability to perform ADL's, To increase tolerance to activity/condition/position, To improve performance and independence with ADL's, To decrease level of supervision to perform tasks, To improve ability of physical actions for home/community/work/leisure, To improve gait and locomotor functions, To improve health of tissue, To decrease soft tissue restriction, To increase flexibility/ROM, To improve balance Functional Training to Include: Gait training For the Purpose of:: To improve gait and locomotor functions, To improve safety with gait Thank you for the opportunity to evaluate your patient. For Medicare and Medicare HMO plans, please review the plan of care and approve it. It will need to be FAXED BACK to us at [phone] for Medicare purposes. For Medicare only, by signing this I certify the plan of care. Please let me know if there are questions or concerns regarding this plan of care. Physician Signature: Date:
--- NOTE | 2022-11-16 11:00 | HP.PTREVAL ---
Dr. Azael Guillaume, DO, It has been my pleasure to treat MILY BOLANOS over the last 10 visits for S/P spinal stenosis surgery 09-22-22. Please see the progress note below for an update on the physical therapy plan of care! Subjective: Pt reports that he had his MRI and they said that his back was fine. He did fall last week on the ice and he felt straight on his back. He did get an x-ray and nothing was broken. He reports that he is discouraged that everything he does cause back pain. He is concerned that he will not be able to do yard work this summer. He does feel that his legs are getting stronger. Objective/Function: LE MMT: R hip flex 12.6# and L 16.7#. R knee ext 12.7# and L 11.4#. R knee flex 8.7# and L knee flex 8.7#. R hip abd R 11.2# and L 12.7#). Stairs: up and down recip with 1 hand rail with verbal cues to drive through his ascending leg... visable weak descending the stairs and uses 2 hand rails. FGA: 11. Pt struggles with weakness with standing heel and toe raises... he is unable to do so unless he has B UE support and even then he stuggles to get any ROM. Pt is still very weak in B LE and core. Gait: walks with no push off, flexed trunk. Plan Plan: Pt to call and request additional visits. Start standing mid rows, Prone opp arm and leg, ball work. 2X/ week for 6 weeks for neutral spine core stability, LE strengthening, gait training, balance activities, stairs, with HEP Balance/Gait/Functional tests - Balance/Special Test Scores Functional Gait Assessment Score: 11 % Disability: 63.3400 Oswestry Low Back Score: 16 Goals Goal 1:: I HEP Goal Time Frame: 6-8 Weeks Goal Progress: Progressing Goal 2:: Be able to go up and down steps recip with a hand rail but not having to pull himself up the step Goal Time Frame: 6-8 Weeks Goal 3:: Increase LE strength by 1/2 muscle grade (at time of the eval: R hip flex 12.6# and L 16.7#. R knee ext 12.7# and L 11.4#. R knee flex 8.7# and L knee flex 8.7#. R hip abd R 11.2# and L 12.7#) Goal Time Frame: 6-8 Weeks Goal Progress: Progressing Goal 4:: Be able to sit at the computer or lean to do dishes without having pain in his spine Goal Time Frame: 6-8 Weeks Goal 5:: Increase his balance by 5 points to decrease fall risk (FGA 9 at time of eval) Goal Time Frame: 6-8 Weeks Goal Progress: Progressing Anticipated Interventions Patient/Client Instruction: Educate patient on: Condition, Plan of Care For the Purpose of:: To decrease pain, To decrease swelling/inflammation, To increase ROM, To improve nutrient delivery to tissue, To improve muscle performance and motor function, To improve ability to perform ADL's, To increase tolerance to activity/condition/position, To improve performance and independence with ADL's, To decrease level of supervision to perform tasks, To improve ability of physical actions for home/community/work/leisure, To improve gait and locomotor functions, To improve health of tissue, To decrease soft tissue restriction, To increase flexibility/ROM, To improve balance, To improve safety with gait Therapeutic Exercise to Include: Strength training, Endurance training, Balance training, Body mechanics, Postural training, Neuromotor development, Active ROM, Dynamic Lumbar Stabilization For the Purpose of:: To decrease pain, To decrease swelling/inflammation, To increase ROM, To improve nutrient delivery to tissue, To increase oxygenation perfusion, To improve muscle performance and motor function, To improve ability to perform ADL's, To increase tolerance to activity/condition/position, To improve performance and independence with ADL's, To decrease level of supervision to perform tasks, To improve ability of physical actions for home/community/work/leisure, To improve gait and locomotor functions, To improve health of tissue, To decrease soft tissue restriction, To increase flexibility/ROM, To improve balance Functional Training to Include: Gait training For the Purpose of:: To improve gait and locomotor functions, To improve safety with gait Please do not hesitate to contact me at [phone] by phone or if you have questions or concerns regarding this new plan of care! Sincerely, Deb Osborn, MPT
--- NOTE | 2023-01-03 10:29 | HP.PTREVAL_ITS ---
Dr. Azael Guillaume, DO, It has been my pleasure to treat MILY BOLANOS over the last 20 visits for S/P spinal stenosis surgery 09-22-22. Please see the progress note below for an update on the physical therapy plan of care! Subjective: Pt still frustrated with his balance. Objective/Function: Pt frustrated with his lack of balance. Improved walking balance. Improved balance with sit to stand. Pt struggles with standing balance the most and worse with arm movement but improved from initial eval. Plan Plan: 1. gym routine. 2. HEP for balance. Concentrate on the balance and strength goals per the Balance/Gait/Functional tests - Balance/Special Test Scores Functional Gait Assessment Score: 11 % Disability: 63.3400 Oswestry Low Back Score: 13 Goals Goal 1:: I HEP Goal Time Frame: 6-8 Weeks Goal Progress: Progressing Goal 2:: Be able to go up and down steps recip with a hand rail but not having to pull himself up the step Goal Time Frame: 6-8 Weeks Goal 3:: Increase LE strength by 1/2 muscle grade (at time of the eval: R hip flex 12.6# and L 16.7#. R knee ext 12.7# and L 11.4#. R knee flex 8.7# and L knee flex 8.7#. R hip abd R 11.2# and L 12.7#) Goal Time Frame: 6-8 Weeks Goal Progress: Progressing Goal 4:: Be able to sit at the computer or lean to do dishes without having pain in his spine Goal Time Frame: 6-8 Weeks Goal 5:: Increase his balance by 5 points to decrease fall risk (FGA 9 at time of eval) Goal Time Frame: 6-8 Weeks Goal Progress: Progressing Anticipated Interventions Patient/Client Instruction: Educate patient on: Condition, Plan of Care For the Purpose of:: To decrease pain, To decrease swelling/inflammation, To increase ROM, To improve nutrient delivery to tissue, To improve muscle performance and motor function, To improve ability to perform ADL's, To increase tolerance to activity/condition/position, To improve performance and independence with ADL's, To decrease level of supervision to perform tasks, To improve ability of physical actions for home/community/work/leisure, To improve gait and locomotor functions, To improve health of tissue, To decrease soft tissue restriction, To increase flexibility/ROM, To improve balance, To improve safety with gait Therapeutic Exercise to Include: Strength training, Endurance training, Balance training, Body mechanics, Postural training, Neuromotor development, Active ROM, Dynamic Lumbar Stabilization For the Purpose of:: To decrease pain, To decrease swelling/inflammation, To increase ROM, To improve nutrient delivery to tissue, To increase oxygenation perfusion, To improve muscle performance and motor function, To improve ability to perform ADL's, To increase tolerance to activity/condition/position, To i mprove performance and independence with ADL's, To decrease level of supervision to perform tasks, To improve ability of physical actions for home/community/work/leisure, To improve gait and locomotor functions, To improve health of tissue, To decrease soft tissue restriction, To increase flexibility/ROM, To improve balance Functional Training to Include: Gait training For the Purpose of:: To improve gait and locomotor functions, To improve safety with gait Please do not hesitate to contact me at [phone] by phone or if you have questions or concerns regarding this new plan of care! Sincerely, Deb Osborn, MPT
--- NOTE | 2023-01-25 11:43 | HP.PTDCSUM ---
It has been my pleasure to treat MILY BOLANOS referred by Dr. Azael Guillaume DO, with the diagnosis of S/P spinal stenosis surgery 09-22-22 for a total of 26 visit(s). Discharge Date: 01/25/23 Please see the following information for a summary of their discharge status. Subjective: Pt loaded dirt into his truck yesterday and now his back is sore today 11/26. He has a neurologist appt tomm and will find out the results of his c-spine MRI. He feels that he can do the machines on his own and will continue with the classes. He was able back pain Pain Intensity (Out of 10): 2 % Improvement: 80 Objective/Function: LE MMT: R hip flex 15.4# and L 18.6#. R knee ext 22# and L 24.2#. R knee flex 18# and L knee flex 16#. R hip abd R 16# and L 14#). Stairs: up and down stairs recip with 1 hand rail (slower and more cautious descending stairs). FGA: 15 Goal 1:: I HEP Goal Progress: Goal Met Goal 2:: Be able to go up and down steps recip with a hand rail but not having to pull himself up the step Goal 3:: Increase LE strength by 1/2 muscle grade (at time of the eval: R hip flex 12.6# and L 16.7#. R knee ext 12.7# and L 11.4#. R knee flex 8.7# and L knee flex 8.7#. R hip abd R 11.2# and L 12.7#) Goal Progress: Goal Met Goal 4:: Be able to sit at the computer or lean to do dishes without having pain in his spine Goal Progress: Progressing Goal 5:: Increase his balance by 5 points to decrease fall risk (FGA 9 at time of eval) Goal Progress: Goal Met Plan: DC PT to I gym routine and PD classes and home exercises Pt feels comfortable and knowledgeable about I gym set up Discharge Comments: DC PT to H&W routine If there are questions or concerns regarding this patient's physical therapy, please feel free to call me at [phone]. Thank you for the referral of this patient. Sincerely, Deb Stoner, MPT Balance/Gait/Functional tests - Balance/Special Test Scores Functional Gait Assessment Score: 15 % Disability: 50.0000 Oswestry Low Back Score: 12
== END 2023-01-25 15:14 | disposition home or self-care (01) ==
LOC: PT 11:00
PROVIDERS: PCP Family Medicine; Referring Provider Orthopaedic Surgery; Visit Provider Orthopaedic Surgery
DX: M48.061 Spinal stenosis, lumbar region without neurogenic claudication (principal)
CPT/HCPCS: 97110; 97112; 97161; 97530

== ENCOUNTER → 2023-02-16 | Outpatient (CLI) | payer MEDICARE, SELFPAY ==
--- NOTE | 2023-02-16 09:15 | MRI_ITS ---
INDICATION: LT ACHILLES TENDINITIS EXAMINATION: MRI - LEFT MR Ankle W/O Contrast TECHNIQUE: Multiplanar and multisequence MR images of the left ankle. IV Contrast Dosage and Agent: None. COMPARISON: None. FINDINGS: BONE: Talar dome intact. No fracture or marrow edema. No osteochondral lesion. JOINT: Articular cartilage intact. Small ankle mortise effusion. LIGAMENTS: The syndesmotic ligaments, lateral collateral ligaments, and medial collateral ligaments are intact. TENDONS: The peroneal tendons, flexor tendons, and extensor tendons are intact. Achilles tendon intact. Approximately 5 mm AP diameter of the Achilles tendon. Mild STIR hyperintensity in the midportion and insertional Achilles tendon. No significant abnormal Achilles tendon vascularization or insertional calcification. MUSCLES: Normal bulk and signal. MISCELLANEOUS: Plantar fascia intact. Normal fat in the sinus tarsi. OTHER SOFT TISSUES: Edema in the pre-Achilles fat pad. MRI/Lower Ext Joint Only (Routine) IMPRESSION: Edema in the pre-Achilles fat pad and a small ankle mortise effusion. Mild Achilles tendinitis. Electronically Signed: Tavon Reed MD at 21:18 EDT ,
== END | disposition home or self-care (01) ==
PROVIDERS: PCP Family Medicine; Referring Provider Podiatrist; Visit Provider Podiatrist
DX: M76.62 Achilles tendinitis, left leg (principal); M77.32 Calcaneal spur, left foot
CPT/HCPCS: 73721

== ENCOUNTER 2023-04-11 09:00 | Outpatient (RCR) | payer MEDICARE, SELFPAY ==
--- NOTE | 2023-03-04 08:42 | HP.PTEVAL ---
Patient's Visit Information MILY BOLANOS is a 77 year old M referred to Physical Therapy by Dr. Pacheco Meneses DPM with a diagnosis of L Achillies tendinitis. Date of Evaluation: 03/03/23 Physical Therapist: Jony Berumen DPT - Visit Plan Frequency: 2x /Week Duration: 6 Weeks Plan: Start with graston, manual techniques to L achillies. Add in DN. Progress calf stretching/rolling. Add in eccentrics once able. - Subjective Pt. is here today for his initial evaluation with diagnosis of L achillies tendinitis. Pt. reports having pain for ~8-10 months. He had tried EPAT and changing of his shoes. He reports no mech of injury. He has increased pain with initial walking and pressure to posterior calcaneus. Pt. reports pain in AMs, does loosen up as the morning goes on. He did have an injection which has helped. He is hopeful get back to walking wihtout pain. He has not tried any formal PT at this point in time. Pt. does have PD and did recently fall on his R shoulder which is being evaluated tomorrow. Pt. is hopeful to get back to all outside work without limitations or pain. - Pain L calcaneus Pain Intensity (Out of 10): 2 Pain Intensity Range: 5 - Objective POSTURE: pt. has normal foot position, slightly widen SOFI. PALPATION: Pt. tender throughout L achilles and L heel. NEURO: normal DTR, decreased sensation in B feet (idiopathic neuropathy). Pt. has difficulty rising on heels and toes. ROM: Pt is lacking good portion of L DF, 0deg. PF 32deg, INV 18deg, EVR 2deg. Pt. has normal knee ROM, but has tightness in B HS. MMT: Pt. has decent strength throughout, except marked weakness with both PF, limited active DF due to tightness. GAIT: Pt. has flexed posture with gait, very flat footed movement, associated with his PD. - Balance/Special Test Scores Lower Extremity Functional Score: 29 - Goals Goal 1:: LTG: Pt. to be I with HEP. Goal Time Frame: 4-6 Weeks Goal 2:: STG: Pt. to have increased DF to 10deg. Goal Time Frame: 2 Weeks Goal 3:: LTG: PT. to have improved L ankle DF to 15deg of motion. Goal Time Frame: 4-6 Weeks Goal 4:: LTG: Pt. to have full strength throughout R ankle. Goal Time Frame: 4-6 Weeks Goal 5:: LTG: Pt. to have no pain with all walking and outside work activities. Goal Time Frame: 4-6 Weeks - Rehabilitation Potential Physical Therapy Diagnosis: Pt. has signs and symptoms consistent with L achillies tendinitis. Pt. has marked limited DF and increased pain at the tendon incision. Pt. would benefit from stretching, pain control and then progressive loading of tendon to improve remodeling of tissue. Rehabilitation Potential: Excellent - Anticipated Interventions Patient/Client Instruction: Educate patient on: Condition, Plan of Care, Risk Factors, Benefits of Fitness Program For the Purpose of:: To improve health and function, To foster healthy habits, To improve decision making, To facilitate caregiver knowledge, To improve self management, To prevent re-injury, To improve ability to perform tasks related to life management Therapeutic Exercise to Include: Strength training, Power training, Flexibilty training, Gait and locomotor training, Passive ROM, Active ROM For the Purpose of:: To decrease pain, To decrease swelling/inflammation, To increase ROM, To improve nutrient delivery to tissue, To increase oxygenation perfusion, To improve muscle performance and motor function, To improve ability to perform ADL's Manual Therapy Techniques to Include: Mobilization, Functional dry needling, Soft tissue mobilization For the Purpose of:: To decrease pain, To increase ROM, To improve nutrient delivery to tissue, To increase oxygenation perfusion, To improve muscle performance and motor function Thank you for the opportunity to evaluate your patient. For Medicare and Medicare HMO plans, please review the plan of care and approve it. It will need to be FAXED BACK to us at [phone] for Medicare purposes. For Medicare only, by signing this I certify the plan of care. Please let me know if there are questions or concerns regarding this plan of care. Physician Signature: Date:
--- NOTE | 2023-03-04 09:22 | HP.PTEVAL2 ---
Patient's Visit Information MILY BOLANOS is a 77 year old M referred to Physical Therapy by Dr. Pacheco Meneses DPM with a diagnosis of . Date of Evaluation: Physical Therapist: Deb Osborn, RAO - Anticipated Interventions Thank you for the opportunity to evaluate your patient. For Medicare and Medicare HMO plans, please review the plan of care and approve it. It will need to be FAXED BACK to us at [phone] for Medicare purposes. For Medicare only, by signing this I certify the plan of care. Please let me know if there are questions or concerns regarding this plan of care. Physician Signature: Date:
--- NOTE | 2023-04-11 10:57 | HP.PTEVAL ---
Patient's Visit Information MILY BOLANOS is a 77 year old M referred to Physical Therapy by Dr. Pacheco Meneses DPM with a diagnosis of L Diego francoinitis. Date of Evaluation: 03/04/23 Physical Therapist: Jony Berumen DPT - Visit Plan Frequency: 2x /Week Duration: 6 Weeks Plan: pt. to be DC from PT at this point in time. - Subjective He fell a week ago Tuesday (about 10 days ago). He was walking and thinks that he was dragging his L foot and instinctivly put his L arm out and now it hurt. He has had 2 RC repairs and at first he felt like the pain was like those but it seems to be getting a little bit better but he can still bring on the pain with certain movements. He went to [facility] and say Day BOSS over there. He had an x-ray and things were not broken. He will go back in 6 weeks and if no better than he will get an MRI. He is R handed. He has no N&T and he has no neck pain. He can not lay on his L shoulder. - Pain L calcaneus Pain Intensity (Out of 10): 1 Pain Intensity Range: 5 L shoulder pain Pain Intensity (Out of 10): 2 Pain Intensity Range: 8 - Objective Pt is R handed: R 85 and l 60. R shoulder AROM flexion 150, ABD 140, ER 60, IR L1. L shoulder AROM: flex 75 ABD 105, ER 60, IR L1. UE MMT: R shoulder flexion 11.3, abd 12, ER 14.8, IR 9.9. L shoulder flexion 4.9, abd 5.9, ER 8.5, IR 11.7. PROM L shoulder: painful at all end ranges.. painful arch with elevation. +Empty can for pain and weakness. + HK for pain - Balance/Special Test Scores Lower Extremity Functional Score: 47 Quick DASH Score: 27.2725 - Goals Goal 1:: I HEP Goal Time Frame: 4-6 Weeks Goal 2:: Increase L shoulder AROM (at the time of the eval R shoulder AROM flexion 150, ABD 140, ER 60, IR L1. L shoulder AROM: flex 75 ABD 105, ER 60, IR L1) Goal Time Frame: 4-6 Weeks Goal 3:: Increase L shoulder strength (at the time of the eval: R shoulder flexion 11.3, abd 12, ER 14.8, IR 9.9. L shoulder flexion 4.9, abd 5.9, ER 8.5, IR 11.7). Goal Time Frame: 4-6 Weeks Goal 4:: LTG: Pt. to have full strength throughout R ankle. Goal Time Frame: 4-6 Weeks Goal 5:: LTG: Pt. to have no pain with all walking and outside work activities. Goal Time Frame: 4-6 Weeks - Rehabilitation Potential Physical Therapy Diagnosis: Pt. has signs and symptoms consistent with L achillies tendinitis. Pt. has marked limited DF and increased pain at the tendon incision. Pt. would benefit from stretching, pain control and then progressive loading of tendon to improve remodeling of tissue. Rehabilitation Potential: Good - Anticipated Interventions Patient/Client Instruction: Educate patient on: Condition, Plan of Care For the Purpose of:: To decrease pain, To decrease swelling/inflammation, To increase ROM, To improve nutrient delivery to tissue, To improve muscle performance and motor function, To improve ability to perform ADL's, To increase tolerance to activity/condition/position, To improve performance and independence with ADL's, To decrease level of supervision to perform tasks, To improve ability of physical actions for home/community/work/leisure, To improve health of tissue, To decrease soft tissue restriction, To increase flexibility/ROM Therapeutic Exercise to Include: Strength training For the Purpose of:: To decrease pain, To decrease swelling/inflammation, To increase ROM, To improve nutrient delivery to tissue, To increase oxygenation perfusion, To improve muscle performance and motor function, To improve ability to perform ADL's Manual Therapy Techniques to Include: Mobilization, Passive ROM For the Purpose of:: To decrease pain, To decrease swelling/inflammation, To increase ROM, To improve nutrient delivery to tissue Thank you for the opportunity to evaluate your patient. For Medicare and Medicare HMO plans, please review the plan of care and approve it. It will need to be FAXED BACK to us at [phone] for Medicare purposes. For Medicare only, by signing this I certify the plan of care. Please let me know if there are questions or concerns regarding this plan of care. Physician Signature: Date:
--- NOTE | 2023-04-12 08:57 | HP.PTDCSUM ---
It has been my pleasure to treat MILY BOLANOS referred by Dr. Pacheco Meneses, EOLISA, with the diagnosis of Jory dudley for a total of 9 visit(s). Discharge Date: 04/11/23 Please see the following information for a summary of their discharge status. Subjective: Pt. reports having some mild changes with his symptoms. He is walking with minimal pain and doing his exercises with minimal pain. He experiences most of his issues at night, with pressure on his heel. L calcaneus Pain Intensity (Out of 10): 1 L shoulder pain Pain Intensity (Out of 10): 2 % Improvement: 25 Objective/Function: Pt. still has limited L ankle DF and PF, DF 4-/5, PF 3/5 (unable to complete in standing). He has tenderness at distal aspect of Achilles and most posterior aspect of calcaneus. Pt. does have an increased callus in this area. Pt. ambulates with a shuffling pattern consistent with his parkinsons but does have adequate foor clearance. Difficulty with controlled DF during initial loading on each side. At this point in time I would like him to continue with his stretching and strengthening on his own. We trialed DN/US and stretching. He has some improved ROM. PROM DF to 4 deg, active to neutral. Pt. agrees to continue his exercises at home. I talked to him about persistent stretching at home. Pt. consents. He is also to work on banded eccentrics, hopefully pressing to standing versions. His left shoulder is also not progressing as much as expected. He is to have an MRI on this next week. Goal 1:: I HEP Goal Progress: Goal Met Goal 2:: Increase L shoulder AROM (at the time of the eval R shoulder AROM flexion 150, ABD 140, ER 60, IR L1. L shoulder AROM: flex 75 ABD 105, ER 60, IR L1) Goal Progress: Goal Met Goal 3:: Increase L shoulder strength (at the time of the eval: R shoulder flexion 11.3, abd 12, ER 14.8, IR 9.9. L shoulder flexion 4.9, abd 5.9, ER 8.5, IR 11.7). Goal Progress: Not Progressing Goal 4:: LTG: Pt. to have full strength throughout R ankle. Goal Progress: Not Progressing Goal 5:: LTG: Pt. to have no pain with all walking and outside work activities. Goal Progress: Progressing Plan: pt. to be DC from PT at this point in time. Discharge Comments: Pt. was treated with DN, stretching and eccentrics. He has has some mild relief, but not a ton. He plans to continue with his exercises at home at this point in time. If there are questions or concerns regarding this patient's physical therapy, please feel free to call me at [phone]. Thank you for the referral of this patient. Sincerely, Jony Berumen, JOSIANE Balance/Gait/Functional tests - Balance/Special Test Scores Lower Extremity Functional Score: 47 Quick DASH Score: 27.2724
== END 2023-04-11 19:00 | disposition home or self-care (01) ==
LOC: PT 09:00
PROVIDERS: PCP Family Medicine; Referring Provider Podiatrist; Visit Provider Podiatrist
DX: M76.62 Achilles tendinitis, left leg (principal); S46.912D Strain of unspecified muscle, fascia and tendon at shoulder and upper arm level, left arm, subsequent encounter; S40.012D Contusion of left shoulder, subsequent encounter
CPT/HCPCS: 97110; 97140; 97161; 97164

== ENCOUNTER → 2023-04-14 | Outpatient (CLI) | payer MEDICARE, SELFPAY ==
--- NOTE | 2023-04-14 12:31 | MRI_ITS ---
STUDY: MRI LEFT SHOULDER REASON FOR EXAM: Male, 77 years old. Rotator cuff strain. TECHNIQUE: Standardized fat and water weighted pulse sequences were obtained in all 3 orthogonal planes. COMPARISON: None. FINDINGS: Supraspinatus tendinosis with thickening and articular surface fraying. Partial articular surface tear of the mid fibers measuring 8 mm in diameter and occupying approximately 60% of the tendon thickness (coronal series 4 images 8-11). Marked infraspinatus tendinosis with articular surface fraying without a partial or full-thickness tear (coronal series 4 images 12-15). Subscapularis tendinosis with thickening and increased signal intensity. Longitudinal partial tear of the distal tendon near its insertion with medial subluxation of the long head of the biceps into the longitudinal partial tear (hidden lesion) (axial series 2 images 6-12). Normal teres minor tendon. Normal supraspinatus muscle. Normal infraspinatus muscle. Normal subscapularis muscle. Normal teres minor muscle. Moderate loss of articular cartilage of the glenohumeral joint with a small glenohumeral joint effusion (axial series 2 images 7-13). Normal humeral head and visualized proximal humerus. Medial subluxation of the long head of biceps as described above. Normal intracapsular long biceps tendon. Nondisplaced posterior labral tear at approximately the 9:00 position (axial series 2 images 8-11). Normal capsulo- ligamentous complex. Normal rotator interval. Mild hypertrophy of the AC joint without significant narrowing of the subacromial space (sagittal series 5 images 5-9, coronal series 6 images 9-12). There is a Type II morphology (curved), with a neutral orientation. Fluid in the subacromial-subdeltoid bursa (coronal series 4 image 11). Normal visualized coracohumeral and coracoacromial ligaments. Normal quadrilateral space. Normal axillary space. Normal deltoid muscle. Normal trapezius muscle. MRI/Upper Ext Joint Only(Routine) IMPRESSION: Supraspinatus tendinosis with a high-grade partial articular surface tear as described. Infraspinatus tendinosis without a full or partial thickness tear. Subscapularis tendinosis with an intrasubstance longitudinal partial tear of the distal fibers with medial subluxation of the long head of the biceps into the longitudinal partial tear (a hidden lesion). Moderate arthrosis of the glenohumeral joint. Nondisplaced posterior labral tear. Mild hypertrophy of the AC joint without significant narrowing of the subacromial space. Small glenohumeral joint effusion with fluid in the subacromial-subdeltoid bursa. Electronically Signed: Rosales Hector MD at 15:37 EDT ,
== END | disposition home or self-care (01) ==
LOC: MRI 12:24
PROVIDERS: PCP Family Medicine; Referring Provider Physician Assistant Surgical; Visit Provider Physician Assistant Surgical
DX: S45.012 Laceration of axillary artery, left side (principal); X58.XXXA Exposure to other specified factors, initial encounter
CPT/HCPCS: 73221

== ENCOUNTER → 2023-04-28 | Outpatient (CLI) | payer MEDICARE, SELFPAY ==
[2023-04-28 10:22] LABS: Absolute Lymphocyte Count 0.94 X10^3/uL (0.83-4.51); Absolute Neutrophil Count 2.7 X10^3/uL (2.0-7.7); Basophil# 0.05 X10^3/uL; Basophil% 1.2 % (0-1); Eosinophil# 0.24 X10^3/uL; Eosinophils% 5.6 % (0-5); Hemoglobin 15.4 g/dL (13.0-16.5); Lymphocyte # 0.94 X10^3/ul (0.83-4.51); Lymphocyte % 21.9 % (19-41); Mean Corp Hgb Conc 33.5 g/dL (32-36); Mean Corpuscular Hgb 29.3 pg (27.0-32.0); Mean Corpuscular Volume 87.5 fL (80-94); Mean Platelet Vol. 10.9 fl (6.2-12.0); Monocyte# 0.36 X10^3/uL; Monocyte% 8.4 % (0-10); NRBC Flagged by Analyzer 0 % (0-5); Neutrophil # 2.66 X10^3/uL (2.7-7.7); Platelet Count 234 K/mm3 (150-450); RBC Distribution Width CV 12.9 % (11.6-14.6); RBC Distribution Width SD 41.1 fl (35.1-43.9); Red Blood Count 5.26 M/mm3 (4.6-6.2); White Blood Count 4.3 K/mm3 (4.4-11.0)
[2023-04-28 10:40] LABS: Vitamin D,25 Hydroxy 60.7 ng/mL
[2023-04-28 11:55] LABS: AST(SGOT) 37 U/L (15-37); Alanine Aminotransfer ALT/SGPT 16 U/L (16-61); Albumin, Serum 3.2 g/dL (3.2-5.0); Alkaline Phosphatase 177 U/L (45-117); Anion Gap 8 (5-15); BUN 9 mg/dL (7-18); BUN/Creat Ratio 14.4 RATIO (10-20); Calcium,Total 8.5 mg/dL (8.5-10.1); Chloride 101 mmol/L (98-107); Cholesterol 165 mg/dL (200); Creatinine, Serum 0.62 mg/dL (0.70-1.30); EST Glomerular Filtration Rate 132 mL/min (>60); Est Glom Filt Rate - Afr Amer 160 mL/min (>60); Globulin 3.2 g/dL (2.2-4.2); Glucose 105 mg/dL (74-106); High Density Lipoprotein 88 mg/dL; Potassium 4.1 mmol/L (3.5-5.1); Protein, Total 6.4 g/dL (6.4-8.2); Sodium Level 134 mmol/L (136-145); Thyroid Stim Hormone (TSH) 1.27 uIU/mL (0.358-3.74); Triglycerides 47 mg/dL; Very Low Density Lipoprotein 9 mg/dL (5-40)
[2023-04-28 13:41] LABS: Hemoglobin A1c 5.5 % (3.8-5.6)
== END | disposition home or self-care (01) ==
LOC: MFPLAB 08:51
PROVIDERS: PCP Family Medicine; Visit Provider Family Medicine
DX: I10 Essential (primary) hypertension (principal); R73.02 Impaired glucose tolerance (oral); E55.9 Vitamin D deficiency, unspecified
CPT/HCPCS: 36415; 80053; 80061; 82306; 83036; 84443; 85025

== ENCOUNTER → 2023-05-05 | Outpatient (CLI) | payer MEDICARE, SELFPAY ==
--- NOTE | 2023-05-05 12:58 | CDU_ITS ---
Reason For Study: Stenosis Rt. Velocities/BP Lt. Velocities/BP Prox CCA 113.3/16.3 cm/sec. Prox CCA 113.3/20 cm/sec. Mid CCA 92.5/17.6 cm/sec. Mid CCA 107.2/20 cm/sec. Dist CCA 91.2/18.8 cm/sec. Dist CCA 86.3/17.6 cm/sec. Prox ICA 46.6/11.6 cm/sec. Prox ICA 72.8/18.8 cm/sec. Mid ICA 62.6/21.1 cm/sec. Mid ICA 65.4/21.2 cm/sec. Dist ICA 74/23 cm/sec. Dist ICA 66.7/20 cm/sec. Rt. ICA/CCA = 0.80. Lt. ICA/CCA = 0.68. Prox ECA 102.3/9 cm/sec. Prox ECA 106/10.2 cm/sec. Rt. Vert. 38.1/9.7 cm/sec. Lt. Vert. 72.1/13.9 cm/sec. Right Extracranial There is intimal thickening but no significant atherosclerotic plaque noted in the right common carotid artery. There is heterogeneous, smooth atherosclerotic plaque noted in the right internal carotid artery. There is intimal thickening but no significant atherosclerotic plaque noted in the right external carotid artery. Antegrade flow is noted in the right vertebral artery. Left Extracranial There is homogeneous, smooth atherosclerotic plaque noted in the left common carotid artery. There is heterogeneous, smooth atherosclerotic plaque noted in the left internal carotid artery. There is intimal thickening but no significant atherosclerotic plaque noted in the left external carotid artery. Antegrade flow is noted in the left vertebral artery. Procedure Carotid Duplex 23130. This is a Carotid Duplex examination using B-mode, color flow and specral Doppler. Exam performed in department. VL/Carotid Duplex Ultrasound Interpretation Summary Minimal smooth plaque at the proximal right internal carotid artery with less t camarena 50% stenosis Less than 50% stenosis right external carotid artery Heterogenous smooth plaque in the proximal left internal carotid artery with le ss than 50% stenosis Less than 50% stenosis left external carotid artery Patent and antegrade vertebral arteries bilaterally No change from the previous examination of June 16, 2022 Ordering Physician: Jose Nogueira Referring Physician: Jose Nogueira Performed By: Sumi Hoffman RVT
--- NOTE | 2023-05-05 12:58 | VDLE_ITS ---
Reason For Study: Acute embolism and thrombosis of left tibial vein RIGHT LEFT CFV is compressible, spontaneous, phasic, GSV is normal. competent and demonstrates normal CFV is compressible, spontaneous, phasic, augmentation. competent, and demonstrates normal Procedure augmentation. This is a venous duplex using B-mode, color FV is compressible, spontaneous, phasic, flow and spectral Doppler. competent and demonstrates normal Exam performed in department. augmentation. Compared to 11/10/22. POP V is compressible, spontaneous, phasic, A preliminary report was called and/or faxed competent and demonstrates normal to Dr. Nogueira. augmentation. T/P Trunk is compressible. PTV is compressible. LT PerV is compressible. VL/Venous Duplex US, Unilateral Interpretation Summary There is no evidence of left lower extremity deep vein thrombosis. Left great s aphenous vein appears patent and compressible segmentally. Normal flow patterns right common femoral vein Improvement in the left posterior tibial vein since the previous examination of November 10, 2022 Ordering Physician: Jose Nogueira Referring Physician: Jose Nogueira Performed By: Sumi Hoffman RVBogdan
== END | disposition home or self-care (01) ==
LOC: CVS 12:51
PROVIDERS: PCP Family Medicine; Referring Provider Family Medicine; Visit Provider Family Medicine
DX: I82.442 Acute embolism and thrombosis of left tibial vein (principal); I65.23 Occlusion and stenosis of bilateral carotid arteries
CPT/HCPCS: 93880; 93971

== ENCOUNTER → 2023-05-31 | Outpatient (CLI) | payer MEDICARE, SELFPAY ==
[2023-05-31 09:28] LABS: Vitamin B12 599 pg/mL (211-911)
[2023-06-02 17:07] LABS: Albumin 3.6 g/dL (2.9-4.4); Alpha-1-Globulins 0.2 g/dL (0.0-0.4); Alpha-2-Globulins 0.7 g/dL (0.4-1.0); Arsenic 7245 < 1 ug/L (0-9); Gamma Globulin 0.8 g/dL (0.4-1.8); Immunoglobulin A 66 mg/dL (61-437); Immunoglobulin G 764 mg/dL (603-1613); Immunoglobulin M 60 mg/dL (15-143); Lead, Blood 2.6 ug/dL (0.0-3.4); Mercury, Blood 85324 < 1.0 ug/L (0.0-14.9); PROEL- TOTAL PROTEIN 6.2 g/dL (6.0-8.5)
== END | disposition home or self-care (01) ==
LOC: LAB 08:14
PROVIDERS: PCP Family Medicine; Referring Provider Psychiatry & Neurology Neurology; Visit Provider Psychiatry & Neurology Neurology
DX: G62.9 Polyneuropathy, unspecified (principal)
CPT/HCPCS: 36415; 82175; 82607; 82784; 83655; 83825; 84165; 86334

== ENCOUNTER → 2023-08-31 | Outpatient (CLI) | payer MEDICARE, SELFPAY ==
[2023-08-31 10:19] LABS: Hematocrit 46.1 % (40-54); Hemoglobin 15.4 g/dL (13.0-16.5); Mean Corp Hgb Conc 33.4 g/dL (32-36); Mean Corpuscular Hgb 29.4 pg (27.0-32.0); Mean Corpuscular Volume 88.1 fL (80-94); Mean Platelet Vol. 10.9 fl (6.2-12.0); Platelet Count 256 K/mm3 (150-450); RBC Distribution Width CV 12.6 % (11.6-14.6); RBC Distribution Width SD 40.6 fl (35.1-43.9); Red Blood Count 5.23 M/mm3 (4.6-6.2); White Blood Count 7.7 K/mm3 (4.4-11.0)
[2023-08-31 11:01] LABS: ALB/GLOB Ratio 1.1 RATIO (0.9-2.4); AST(SGOT) 29 U/L (15-37); Alanine Aminotransfer ALT/SGPT 17 U/L (16-61); Albumin, Serum 3.5 g/dL (3.2-5.0); Alkaline Phosphatase 146 U/L (45-117); Anion Gap 5 (5-15); BUN 17 mg/dL (7-18); BUN/Creat Ratio 24.2 RATIO (10-20); Calcium,Total 8.8 mg/dL (8.5-10.1); Chloride 99 mmol/L (98-107); EST Glomerular Filtration Rate 115 mL/min (>60); Est Glom Filt Rate - Afr Amer 139 mL/min (>60); Globulin 3.1 g/dL (2.2-4.2); Glucose 119 mg/dL (74-106); Potassium 4.1 mmol/L (3.5-5.1); Protein, Total 6.6 g/dL (6.4-8.2); Sodium Level 132 mmol/L (136-145)
[2023-09-04 13:07] LABS: Vitamin B1, Thiamine 134.4 nmol/L (66.5-200.0)
== END | disposition home or self-care (01) ==
PROVIDERS: PCP Family Medicine; Referring Provider Psychiatry & Neurology Neurology; Visit Provider Psychiatry & Neurology Neurology
DX: E78.00 Pure hypercholesterolemia, unspecified (principal); G62.9 Polyneuropathy, unspecified; R26.9 Unspecified abnormalities of gait and mobility
CPT/HCPCS: 36415; 80053; 82746; 84425; 84443; 85027

== ENCOUNTER → 2023-09-07 | Outpatient (CLI) | payer MEDICARE, SELFPAY ==
[2023-09-07 11:07] LABS: Hemoglobin A1c 5.2 % (3.8-5.6)
[2023-09-07 11:09] LABS: Vitamin D,25 Hydroxy 43.3 ng/mL
[2023-09-07 11:18] LABS: ALB/GLOB Ratio 1.2 RATIO (0.9-2.4); AST(SGOT) 26 U/L (15-37); Alanine Aminotransfer ALT/SGPT 16 U/L (16-61); Albumin, Serum 3.5 g/dL (3.2-5.0); Alkaline Phosphatase 132 U/L (45-117); Anion Gap 6 (5-15); BUN 10 mg/dL (7-18); BUN/Creat Ratio 14.8 RATIO (10-20); Calcium,Total 8.5 mg/dL (8.5-10.1); Chloride 101 mmol/L (98-107); Cholesterol 170 mg/dL (200); Creatinine, Serum 0.67 mg/dL (0.70-1.30); EST Glomerular Filtration Rate 121 mL/min (>60); Est Glom Filt Rate - Afr Amer 146 mL/min (>60); Globulin 2.9 g/dL (2.2-4.2); Glucose 108 mg/dL (74-106); High Density Lipoprotein 94 mg/dL; PSA,Total - Annual Screen 0.41 ng/mL (0.00-4.00); Potassium 4.1 mmol/L (3.5-5.1); Protein, Total 6.4 g/dL (6.4-8.2); Sodium Level 133 mmol/L (136-145); Triglycerides 54 mg/dL; Very Low Density Lipoprotein 11 mg/dL (5-40)
== END | disposition home or self-care (01) ==
LOC: MFPLAB 08:52
PROVIDERS: PCP Family Medicine; Visit Provider Family Medicine
DX: E55.9 Vitamin D deficiency, unspecified (principal); E78.5 Hyperlipidemia, unspecified; R73.02 Impaired glucose tolerance (oral); Z12.5 Encounter for screening for malignant neoplasm of prostate
CPT/HCPCS: 36415; 80053; 80061; 82306; 83036; 84153; G0103

== ENCOUNTER 2023-09-19 09:30 | Outpatient (RCR) | payer MEDICARE, SELFPAY ==
--- NOTE | 2023-05-31 10:00 | HP.PTEVAL ---
Patient's Visit Information Visit Information Visit Information: MILY BOLANOS is a 78 year old M referred to Physical Therapy by Dr. Mily Nogueira MD with a diagnosis of neuropathy, loss of proprioception, loss of balance, PD. Date of Evaluation: 05/30/23 Physical Therapist: RAO Thrasher Visit Plan Frequency: 2x /Week Duration: 6 Weeks Plan: 2X/ week for 8 weeks to learn I H&W and HEP for strengthening of B knee and hips and core. To work on improvement in balance as pt has fallen twice recently. Subjective Subjective: Pt said he did see his PCP and he said he needed PT for his neuropathy. He said it is worse on the L than the R. He feels that his L side is weaker. He still has achilles tendonitis on his L. He is doing a few PD classes (dance class and He is working on balance on Tuesdays with a friend and classes 5 days a week). He fell in class last week. He does trip on his L foot often. Had to go up hands and knees without a hand rail on the stairs. He does sit to stands at home. Objective Objective: Gait: Walks with decrease DF on the R and decrease push off B, more wider SOFI and flexed trunk MMT: DF R 11.9 and L 6.1 PF 9.6 and L 6.6 R hip flex 11.7 and L 9.2 R knee ext 15.8 and L 11 R knee flex 9.3 and L 9.5 Pt struggles with stepping FW with one leg and back to stance with both legs and unable to do without holding onto the mat table FGA: 7 Balance/Special Test Scores Functional Gait Assessment Score: 7 % Disability: 76.6700 Lower Extremity Functional Score: 36 Goals Goal 1:: I HEP for hip and knee strength and gym routine Goal Time Frame: 6-8 Weeks Goal 2:: Increase LE strength (at time of the eval: DF R 11.9 and L 6.1 PF 9.6 and L 6.6 R hip flex 11.7 and L 9.2 R knee ext 15.8 and L 11 R knee flex 9.3 and L 9.5) Goal Time Frame: 6-8 Weeks Goal 3:: Increase balance (score of 7 on FGA at time of eval) Goal Time Frame: 6-8 Weeks Rehabilitation Potential Rehabilitation Potential: Good Anticipated Interventions Patient/Client Instruction: Educate patient on: Condition and Plan of Care For the Purpose of:: To increase ROM, To improve nutrient delivery to tissue, To improve muscle performance and motor function, To improve ability to perform ADL's, To increase tolerance to activity/condition/position, To improve performance and independence with ADL's, To improve ability of physical actions for home/community/work/leisure, To improve gait and locomotor functions, To improve health of tissue, To decrease soft tissue restriction, To increase flexibility/ROM, To improve endurance, To improve balance and To improve safety with gait Therapeutic Exercise to Include: Strength training, Endurance training, Balance training, Coordination, Postural training, Flexibilty training, Gait and locomotor training, Neuromotor development, Active ROM, Dynamic Lumbar Stabilization and Scapular Strength/Stabilization For the Purpose of:: To decrease pain, To increase ROM, To improve nutrient delivery to tissue, To improve muscle performance and motor function, To improve ability to perform ADL's, To increase tolerance to activity/condition/position, To improve performance and independence with ADL's, To decrease level of supervision to perform tasks, To improve ability of physical actions for home/community/work/leisure, To improve gait and locomotor functions, To improve health of tissue, To decrease soft tissue restriction, To increase flexibility/ROM, To improve balance and To improve safety with gait Functional Training to Include: Gait training For the Purpose of:: To improve gait and locomotor functions and To improve safety with gait Text: Thank you for the opportunity to evaluate your patient. For Medicare and Medicare HMO plans, please review the plan of care and approve it. It will need to be FAXED BACK to us at [phone] for Medicare purposes. For Medicare only, by signing this I certify the plan of care. Please let me know if there are questions or concerns regarding this plan of care. Physician Signature: Date:
--- NOTE | 2023-08-15 11:28 | HP.PTREVAL ---
Re-Evaluation Intro: Dr. Mily Nogueira MD, It has been my pleasure to treat MILY BOLANOS over the last 20 visits for neuropathy, loss of proprioception, loss of balance, PD. Please see the progress note below for an update on the physical therapy plan of care! Subjective Subjective: Pt feels that his balance is better. He feels that his strength is 65% better. He has been doing squats. He feels that he does not have to catch himself quite as much. Objective Objective/Function: Pt struggles with walking BW longer distances but he is able to walk BW with bigger steps and only lost his balance once walking BW today Pt is moving a lot better with changing directions lateral (although he tends to turn his body) and FW. BW still is an issue with BW and stop or BW and touch a pod. FGA 10 Plan Plan Plan: Continue [employer] Challenges/changing direction ex blazed pods/ 4 square 2X/ week for 8 weeks to learn I H&W and HEP for strengthening of B knee and hips and core. To work on improvement in balance as pt has fallen twice recently. Balance/Gait/Functional tests Balance/Special Test Scores Functional Gait Assessment Score: 10 % Disability: 66.6700 Lower Extremity Functional Score: 36 Goals Goals Goal 1:: I HEP for hip and knee strength and gym routine Goal Time Frame: 6-8 Weeks Goal Progress: Progressing Goal 2:: Increase LE strength (at time of the eval: DF R 11.9 and L 6.1 PF 9.6 and L 6.6 R hip flex 11.7 and L 9.2 R knee ext 15.8 and L 11 R knee flex 9.3 and L 9.5) Goal Time Frame: 6-8 Weeks Goal 3:: Increase balance (score of 7 on FGA at time of eval) Goal Time Frame: 6-8 Weeks Goal Progress: Progressing Goal 4:: Be able to walk BW (length of blue strip in gym) with no LOB and larger steps Goal Time Frame: 8-12 Weeks Goal 5:: Be able to change direction on command without having to over step and correct balance Goal Time Frame: 8-12 Weeks Anticipated Interventions Anticipated Interventions Patient/Client Instruction: Educate patient on: Condition and Plan of Care For the Purpose of:: To increase ROM, To improve nutrient delivery to tissue, To improve muscle performance and motor function, To improve ability to perform ADL's, To increase tolerance to activity/condition/position, To improve performance and independence with ADL's, To improve ability of physical actions for home/community/work/leisure, To improve gait and locomotor functions, To improve health of tissue, To decrease soft tissue restriction, To increase flexibility/ROM, To improve endurance, To improve balance and To improve safety with gait Therapeutic Exercise to Include: Strength training, Endurance training, Balance training, Coordination, Postural training, Flexibilty training, Gait and locomotor training, Neuromotor development, Active ROM, Dynamic Lumbar Stabilization and Scapular Strength/Stabilization For the Purpose of:: To decrease pain, To increase ROM, To improve nutrient delivery to tissue, To improve muscle performance and motor function, To improve ability to perform ADL's, To increase tolerance to activity/condition/position, To improve performance and independence with ADL's, To decrease level of supervision to perform tasks, To improve ability of physical actions for home/community/work/leisure, To improve gait and locomotor functions, To improve health of tissue, To decrease soft tissue restriction, To increase flexibility/ROM, To improve balance and To improve safety with gait Functional Training to Include: Gait training For the Purpose of:: To improve gait and locomotor functions and To improve safety with gait Re-Evaluation Ending Re-evaluation ending: Please do not hesitate to contact me at [phone] by phone or if you have questions or concerns regarding this new plan of care! Sincerely, RAO Thrasher
--- NOTE | 2023-09-19 12:01 | HP.PTDCSUM ---
Discharge Summary D/C summary: It has been my pleasure to treat MILY BOLANOS referred by Dr. Mily Nogueira MD, with the diagnosis of neuropathy, loss of proprioception, loss of balance, PD for a total of 25 visit(s). Discharge Date: 09/19/23 Please see the following information for a summary of their discharge status. Subjective Subjective: Pt is noticing improvements in his walking, his balance and ADL's. He still has a hard time standing in one spot for a long time without holding onto something. Pain back pain: Pain Intensity (Out of 10): 3 L knee pain: Pain Intensity (Out of 10): 2 Overall Improvement % Improvement: 70 Objective Objective/Function: DF R 14.6 and L 12.1 PF 14.6 and L 16.2 R hip flex 15.5 and L 14.1 R knee ext 23.5 and L 26.6 R knee flex 16.6 and L 11.4 FGA 17 TUG 10:28 Goals Goal 1:: I HEP for hip and knee strength and gym routine Goal Progress: Goal Met Goal 2:: Increase LE strength (at time of the eval: DF R 11.9 and L 6.1 PF 9.6 and L 6.6 R hip flex 11.7 and L 9.2 R knee ext 15.8 and L 11 R knee flex 9.3 and L 9.5) TUG 10:28 Goal Progress: Goal Met Goal 3:: Increase balance (score of 7 on FGA at time of eval) Goal Progress: Goal Met Goal 4:: Be able to walk BW (length of blue strip in gym) with no LOB and larger steps Goal Progress: Goal Met Goal 5:: Be able to change direction on command without having to over step and correct balance Goal Progress: Progressing Plan Plan: DC PT to I exercises program D/C Information Discharge Comments: DC PT to idep exercise d/c sentence: If there are questions or concerns regarding this patient's physical therapy, please feel free to call me at [phone]. Thank you for the referral of this patient. Sincerely, Deb Osborn, MPT Balance/Gait/Functional tests Balance/Special Test Scores Functional Gait Assessment Score: 17 % Disability: 43.3400 Lower Extremity Functional Score: 35 Improvement % Improvement: 70
== END 2023-09-19 19:00 | disposition home or self-care (01) ==
LOC: PT 09:30
PROVIDERS: PCP Family Medicine; Referring Provider Family Medicine; Visit Provider Family Medicine
DX: G62.9 Polyneuropathy, unspecified (principal); R44.8 Other symptoms and signs involving general sensations and perceptions; R26.81 Unsteadiness on feet
CPT/HCPCS: 97110; 97162; 97530

== ENCOUNTER → 2023-09-20 | Outpatient (CLI) | payer MEDICARE, SELFPAY ==
--- NOTE | 2023-09-20 10:13 | NEURO ---
NCS and/or EMG Patient Report Ordering Doctor: Christian Payton DATE OF SERVICE: 09/20/23 Clinical Summary: This is a 78 year old male presenting with complaints of numbness, tingling, and weakness in the distal lower extremities. He had back surgery one year. No current sciatic symptoms. This EMG/NCS was performed to evaluate for peripheral polyneuropathy. Nerve Conduction Studies Summary: All SNAP's and CMAP's were absent bilaterally. Needle Examination Summary: Needle examination demonstrated increased insertional activity and spontaneous activity (positive sharp waves) in the bilateral peroneus longus muscles. There was a higher proportion of motor unit action potentials with reduced recruitment, increased amplitude, increased duration, and polyphasia in the left tensor fascia radha, left vastus lateralis, bilateral tibialis anterior, and bilateral peroneus longus muscles. There was no motor units observed in the bilateral medial gastrocnemius muscles. 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
== END | disposition home or self-care (01) ==
LOC: PSN 08:32
PROVIDERS: PCP Family Medicine; Referring Provider Psychiatry & Neurology Neurology; Visit Provider Psychiatry & Neurology Neurology
DX: M54.16 Radiculopathy, lumbar region (principal); G62.9 Polyneuropathy, unspecified; R26.9 Unspecified abnormalities of gait and mobility; M54.50 Low back pain, unspecified
CPT/HCPCS: 95886; 95910

== ENCOUNTER → 2023-09-27 | Outpatient (CLI) | payer MEDICARE, SELFPAY ==
--- NOTE | 2023-09-27 15:32 | MRI_ITS ---
STUDY: MRI BRAIN WITHOUT CONTRAST REASON FOR EXAM: Male, 78 years old. Gait D/O; Parkinson''s Dz; Hx L amaurosis fugax TECHNIQUE: Standardized multiplanar fat and water weighted pulse sequences were obtained. COMPARISON: August 24, 2021 MR brain FINDINGS: There is mild cerebral atrophy with widening of the extra-axial spaces and ventricular dilatation. There are a limited number of small white matter hyperintensities, distributed throughout the deep white matter tracts of the cerebral hemispheres, consistent with mild chronic white matter ischemic changes. There is no evidence for recent intracranial ischemia or other cause of cytotoxic edema on diffusion weighted imaging (DWI). Normal bilateral basal ganglia. Normal thalami. There is no extra-axial fluid accumulation. Normal flow voids within the major intracranial circulation suggesting patency by spin echo criteria. Normal sella turcica, pituitary gland, infundibular stalk, optic chiasm and hypothalamus. Normal tectal plate and pineal gland. Normal midbrain, andrea and medulla. Normal cerebellum. Normal basal cisterns. Normal bilateral temporal bones. Normal bilateral internal auditory canals. Lens implant on the right. Normal visualized paranasal sinuses. 8 mm lesion within the frontal bone. Normal visualized soft tissue structures. Normal visualized upper cervical spine. MRI/Brain without Contrast IMPRESSION: No acute disease. Incidental 8 mm nonspecific lesion within the frontal bone. Electronically Signed: Antonino Perdomo MD at 23:58 EST ,
== END | disposition home or self-care (01) ==
LOC: MRI 15:29
PROVIDERS: PCP Family Medicine; Referring Provider Psychiatry & Neurology Neurology; Visit Provider Psychiatry & Neurology Neurology
DX: G20.A1 Parkinson's disease without dyskinesia, without mention of fluctuations (principal); R26.9 Unspecified abnormalities of gait and mobility; Z86.69 Personal history of other diseases of the nervous system and sense organs
CPT/HCPCS: 70551

== ENCOUNTER → 2023-12-29 | Outpatient (CLI) | payer MEDICARE, SELFPAY ==
--- NOTE | 2023-12-29 13:27 | CT_ITS ---
STUDY: CT BRAIN WITH AND WITHOUT CONTRAST REASON FOR EXAM: Male, 78 years old. Frontal bone lesion. History of Parkinson. RADIATION DOSAGE (If Supplied By Facility): CTDIvol = ( 44.99 ) mGy, DLP = ( 1648.46 ) mGycm TECHNIQUE: Transaxial CT imaging of the brain was performed pre and post contrast administration. The examination was performed with intravenous administration of IV 50mL Isovue-370. Individualized dose optimization techniques were used for this CT. COMPARISON: Comparison is made with prior examination dated August 24, 2021. Comparison is also made with prior MRI of the brain dated September 27, 2023. FINDINGS: Normal soft tissue structures. There is a 8.5 mm x 7.2 mm well-defined lytic lesion in the middle table of the right frontal bone in the midline. This may represent an epidermoid cyst. There is mild cerebral atrophy with widening of the extra-axial spaces and ventricular dilatation. There are areas of decreased attenuation within the white matter tracts of the supratentorial brain, consistent with microvascular disease changes. Normal basal ganglia and thalami. Normal brainstem. Normal cerebellum. There is no intracranial hemorrhage. There are no findings of an acute ischemic infarction. Normal visualized paranasal sinuses. CT/Brain/Head W/WO Contrast IMPRESSION: Chronic involutional changes of the brain. 8.5 mm x 7.2 mm well-defined lytic lesion in the middle table of the right frontal bone in the midline. This may represent an epidermoid cyst. Electronically Signed: Camden Felix MD at 14:47 EDT ,
[2023-12-29 13:55] LABS: CREATININE FINGERSTICK < 1.0 mg/dL (0.70-1.30); EGFR FINGERSTICK > 60.0000 mL/min (>60)
== END | disposition home or self-care (01) ==
LOC: CT 13:27
PROVIDERS: PCP Family Medicine; Referring Provider Psychiatry & Neurology Neurology; Visit Provider Psychiatry & Neurology Neurology
DX: M89.8X8 Other specified disorders of bone, other site (principal)
CPT/HCPCS: 70470; Q9967

== ENCOUNTER 2024-01-14 19:15 | Emergency (ER) | payer MEDICARE, SELFPAY ==
[2024-01-14 19:16] VITALS: BP 172/89; PULSE 69; RESP 15; TEMP 36.3; O2SAT 100
--- NOTE | 2024-01-14 19:30 | CT_ITS ---
INDICATION: R rib pain, fall EXAMINATION: CT CHEST WITHOUT CONTRAST - CT Chest W/O Contrast Injection TECHNIQUE: Helically acquired images were obtained of the chest. A radiation dose optimization technique was used for this scan. IV Contrast dosage and agent: None. COMPARISON: None. FINDINGS: LUNGS, PLEURA AND LARGE AIRWAYS: Several, 5-10, subcentimeter, air-filled cysts are seen in the right and left lung. One of these measures more than 1 cm; 13 x 8 mm. 2-3, 2 mm or smaller, pulmonary nodules are seen in the right and left upper lobes. These do not meet criteria for follow-up imaging. No suspicious nodules. No consolidation, pleural effusion or pneumothorax. Mild lingular scarring and/or atelectasis. THYROID: No thyroid lesions. HEART AND PERICARDIUM: Heart size is normal. No pericardial effusion. VESSELS: Thoracic aorta is not dilated. MEDIASTINUM AND GIANNA: No mediastinal or hilar adenopathy. Esophagus is unremarkable. No hiatal hernia. UPPER ABDOMEN: No acute pathology. BONES: No suspicious lytic or blastic abnormality. Distal right ninth and 10th rib fractures without significant malalignment. Bridging anterior osteophytes thoracic spine. Moderate degenerative endplate changes T12-L1 and L1-L2 levels. CT/Chest without Contrast IMPRESSION: 1. Right ninth and 10th nondisplaced rib fractures. 2. Several pulmonary cysts as detailed above. Atypical appearance for emphysema. Electronically Signed: Ed Harrison DO at 21:44 EDT ,
[2024-01-14 19:36] VITALS: BMI 28.2
--- NOTE | 2024-01-14 19:59 | EX.ED.GENINJ ---
HPI <GERA Krishna - Last Filed: 01/14/24 21:56> History of Present Illness Chief Complaint: Fall Narrative Narrative: Patient presenting today with pain to his right lateral rib cage after mechanical fall that occurred this evening. He reports that he has a history of Parkinson's disease and already is slightly unsteady on his feet. He has to perform self catheterizations and was doing this in a bathroom but he does not usually do them in, his foot caught the rug and he lost his footing causing him to trip and hit his right side against the toilet. He did not hit his head, there was no LOC. He denies other injury. [facility] <GERA Krishna - Last Filed: 01/14/24 21:56> [facility] Medical History Amaurosis fugax of left eye Arrhythmia Benign prostate hyperplasia Bladder retention BPH (benign prostatic hyperplasia) Carotid artery disease Cryptogenic stroke DVT (deep venous thrombosis) (~09/2022) Essential (primary) hypertension Glaucoma Hyperlipidemia Obstructive sleep apnea Osteoarthritis Parkinson disease Peripheral neuropathy Spinal stenosis (09/2022) Ventricular tachyarrhythmia Ventricular tachycardia Home Medications aspirin 81 mg tablet,delayed release (Adult Low Dose Aspirin) 81 mg PO DAILY 10/20/17 [History Last Taken 08/23/21] cholecalciferol (vitamin D3) 50 mcg (2,000 unit) capsule 2,000 unit PO DAILY 10/21/20 [History Last Taken 08/24/21] atorvastatin 20 mg tablet 10 mg PO DAILY cholesterol 09/07/21 [History Last Taken Unknown] mirtazapine 15 mg tablet 15 mg PO QHS 02/25/22 [History Last Taken Unknown] metoprolol succinate 50 mg tablet,extended release 24 hr (Toprol XL) 50 mg PO DAILY #90 tabs 06/21/23 [Rx Last Taken Unknown] dorzolamide 22.3 mg-timolol 6.8 mg/mL eye drops 1 drp ophthalmic (eye) DAILY 08/29/23 [History Last Taken Unknown] amlodipine 5 mg tablet 5 mg PO DAILY #30 tabs 10/28/23 [Rx Last Taken Unknown] lisinopril 40 mg tablet 40 mg PO DAILY 11/24/23 [History Last Taken Unknown] carbidopa 25 mg-levodopa 100 mg tablet See Rx Instructions PO .COMPLEX #630 tabs 12/27/23 [Rx Last Taken Unknown] carbidopa ER 50 mg-levodopa 200 mg tablet,extended release 1 tab PO BID #180 tabs 12/27/23 [Rx Last Taken Unknown] gabapentin 100 mg capsule 100 mg PO TID #90 caps 12/27/23 [Rx Last Taken Unknown] oxcarbazepine 300 mg tablet 450 mg (1.5 x 300 mg) PO BID #270 tabs 12/27/23 [Rx Last Taken Unknown] hydrocodone-acetaminophen 5-325mg 5mg-325mg 1 tab PO Q4H PRN pain 3 days #10 tabs 01/14/24 [Rx Last Taken Unknown] Allergy/AdvReac Type Severity Reaction Status Date / Time No Known Allergies Allergy Verified 01/14/24 19:21 Surgical History History of left heart catheterization (02/15/13) History of loop recorder (09/16/21) History of spinal surgery (~09/2022) History of total knee replacement Social History Smoking Status: Former smoker how long ago did patient quit smokin years ago alcohol intake: current alcohol intake frequency: 0-2 drinks per day Alcohol type: beer substance use type: does not use caffeine: Yes Type: coffee Number of servings: 1 ROS <GERA Krishna - Last Filed: 01/14/24 21:56> ROS ED Constitutional Constitutional ED: Denies chills or fever(s) Cardiovascular Cardiovascular: Denies chest pain or palpitations Respiratory/Chest Respiratory/Chest: Denies cough or dyspnea Gastrointestinal Gastrointestinal: Denies abdominal pain, nausea or vomiting Musculoskeletal Musculoskeletal: Reports other Details: Right side pain ; Denies myalgias or neck pain Integumentary Denies Abrasions Neurologic Neurologic: Denies weakness EXAM <GERA Krishna - Last Filed: 01/14/24 21:56> Physical Exam Const Vital Signs: 01/14/24 19:16 01/14/24 19:36 01/14/24 21:15 Temperature 97.3 F L Temperature Source Temporal Pulse Rate 69 68 Respiratory Rate 15 18 Respiratory Effort Short of Breath Blood Pressure 172/89 H 147/94 H Blood Pressure Mean 116 111 Pulse Ox 100 98 Oxygen Delivery Method Room Air Room Air 01/14/24 22:22 Temperature 98.2 F Temperature Source Pulse Rate 68 Respiratory Rate 18 Respiratory Effort Blood Pressure 147/94 H Blood Pressure Mean 111 Pulse Ox 98 Oxygen Delivery Method Positive well nourished, well developed and no apparent distress General Appearance ED: well developed HEENT Reports normocephalic and head/scalp atraumatic Mouth ED: Yes moist mucous membranes normal Eyes PERRL and EOMs intact bilaterally Neck full ROM and supple Chest Wall inspection of chest normal Resp normal respiratory effort and clear to auscultation bilaterally Cardio regular rate and regular rhythm GI soft to palpation, non-tender, non-distended and no masses Back/Spine normal ROM, normal to inspection and no thoracic nor lumbar tenderness Back/Spine Narrative: Pain to palpation to the right lateral rib cage, no crepitus Extremity normal to inspection and full ROM Neuro oriented x3, CN's II-XII intact bilaterally, moves all extremities, no focal motor deficits and no sensory deficits noted Sensorium / Orientation: awake and alert Psych mental status grossly normal and thought process normal Skin no rashes or lesions noted and no wounds <Dr. Abhay Dunlap DO - Last Filed: 01/15/24 01:27> Physical Exam Const Vital Signs: 01/14/24 19:16 01/14/24 19:36 01/14/24 21:15 Temperature 97.3 F L Temperature Source Temporal Pulse Rate 69 68 Respiratory Rate 15 18 Respiratory Effort Short of Breath Blood Pressure 172/89 H 147/94 H Blood Pressure Mean 116 111 Pulse Ox 100 98 Oxygen Delivery Method Room Air Room Air 01/14/24 22:22 Temperature 98.2 F Temperature Source Pulse Rate 68 Respiratory Rate 18 Respiratory Effort Blood Pressure 147/94 H Blood Pressure Mean 111 Pulse Ox 98 Oxygen Delivery Method MDM <GERA Krishna - Last Filed: 01/14/24 21:56> [facility] Narrative Medical decision making narrative: Patient presenting today with pain to his right lateral rib cage after mechanical fall that occurred this evening. He does have tenderness to this area, CT scan will be obtained to rule out rib fracture. CT scan does show a right ninth and 10th nondisplaced rib fracture. He was given Haviland here for pain and will be given a prescription for this to use as needed. He is to follow-up with his PCP and will be discharged home in stable condition. He will be given an incentive spirometer. He is comfortable with plan. Radiography Diagnostic Testing: Clinical Impression(s) from Imaging Studies Chest CT 01/14/24 19:30 IMPRESSION: 1. Right ninth and 10th nondisplaced rib fractures. 2. Several pulmonary cysts as detailed above. Atypical appearance for emphysema. Electronically Signed: Ed Harrison DO at 21:44 EDT , <Dr. Abhay Dunlap DO - Last Filed: 01/15/24 01:27> [facility] MDM Narrative Medical decision making narrative: Patient presenting today with pain to his right lateral rib cage after mechanical fall that occurred this evening. He does have tenderness to this area, CT scan will be obtained to rule out rib fracture. CT scan does show a right ninth and 10th nondisplaced rib fracture. He was given Haviland here for pain and will be given a prescription for this to use as needed. He is to follow-up with his PCP and will be discharged home in stable condition. He will be given an incentive spirometer. He is comfortable with plan. I have personally performed a face to face assessment of the patient and have reviewed the JANUSZ Note. I performed a substantive portion of the visit including all aspects of the following. My barros findings include: History is 78-year-old male with history of Parkinson's sustained a fall tonight in his bathroom striking his right lower mid axillary ribs on the commode. Notes pain over the lower ribs. He denies any significant abdominal pain or shortness of breath. He is not on blood thinners. He does take a baby aspirin. Exam is very focal rib tenderness over the lower mid axillary ribs. There is no crepitance. No subcutaneous air. Equal lung sounds. No ecchymosis seen Medical Decison Making CT of the chest demonstrates nondisplaced rib fractures of 10 and 11. No pleural effusion and pulmonary contusion pneumothorax noted. No obvious intra-abdominal trauma seen on limited images. Wound care/pain control discussed with patient. He notes understanding. He notes return instructions. Follow-up with primary care 1 week History & Record Review Discussion w/independent historian: Patient and Significant other Radiography Diagnostic Testing: Clinical Impression(s) from Imaging Studies Chest CT 01/14/24 19:30 IMPRESSION: 1. Right ninth and 10th nondisplaced rib fractures. 2. Several pulmonary cysts as detailed above. Atypical appearance for emphysema. Electronically Signed: Ed Harrison DO at 21:44 EDT , Discharge Plan Triage Chief Complaint: Fall ED Midlevel Provider: Do Winkler ED Provider: Abhay uDnlap Dx/Rx/DC Orders Clinical Impression: Fracture, ribs, Fall Instructions: ED Rib Fracture Prescriptions: New hydrocodone-acetaminophen 5-325 mg tablet 1 tab PO Q4H PRN (Reason: pain) 3 Days Qty: 10 0RF No Action aspirin [Adult Low Dose Aspirin] 81 mg tablet,delayed release (DR/EC) 81 mg PO DAILY cholecalciferol (vitamin D3) 50 mcg (2,000 unit) capsule 2,000 unit PO DAILY dorzolamide-timolol 22.3-6.8 mg/mL drops 1 drp OPHTHALMIC DAILY Patient Comments: instill 1 drop into both eyes twice a day mirtazapine 15 mg tablet 15 mg PO QHS Patient Comments: take 1 tablet by mouth at bedtime lisinopril 40 mg tablet 40 mg PO DAILY carbidopa-levodopa 25-100 mg tablet See Rx Instructions PO .COMPLEX Qty: 630 1RF Rx Instructions: Take 2 tabs at breakfast and dinner, 3 tabs at lunch. carbidopa-levodopa 50-200 mg tablet extended release 1 tab PO BID Qty: 180 1RF oxcarbazepine 300 mg tablet 450 mg PO BID Qty: 270 1RF gabapentin 100 mg capsule 100 mg PO TID Qty: 90 5RF atorvastatin 20 mg tablet 10 mg PO DAILY metoprolol succinate [Toprol XL] 50 mg tablet extended release 24 hr 50 mg PO DAILY Qty: 90 3RF amlodipine 5 mg tablet 5 mg PO DAILY Qty: 30 11RF Primary Care Provider: Jose Nogueira Referrals: Jose Nogueira MD [Primary Care Provider] - 5-7 Days Activity Restrictions/Additional Instructions: Follow-up with your PCP and return for any worsening of your symptoms Disposition Disposition: Home, Self Care Discharge Date/Time: 01/14/24 22:23
[2024-01-14] MEDS: HYDROcodone Bitartrate/Apap 5/325 Tablet PO (20:00)
[2024-01-14 21:15] VITALS: BP 147/94; PULSE 68; RESP 18; O2SAT 98
[2024-01-14 22:22] VITALS: BP 147/94; PULSE 68; RESP 18; TEMP 36.8; O2SAT 98
== END 2024-01-14 22:23 | disposition home or self-care (01) ==
PROVIDERS: Emergency Provider Emergency Medicine; PCP Family Medicine; Visit Provider Emergency Medicine
DX: S22.41XA Multiple fractures of ribs, right side, initial encounter for closed fracture (principal); G20.A1 Parkinson's disease without dyskinesia, without mention of fluctuations; W01.198A Fall on same level from slipping, tripping and stumbling with subsequent striking against other object, initial encounter; Y93.89 Activity, other specified; Y92.002 Bathroom of unspecified non-institutional (private) residence as the place of occurrence of the external cause; I10 Essential (primary) hypertension; N40.1 Benign prostatic hyperplasia with lower urinary tract symptoms; R33.8 Other retention of urine; Z79.82 Long term (current) use of aspirin; Z79.899 Other long term (current) drug therapy; Z87.891 Personal history of nicotine dependence
CPT/HCPCS: 71250; 99282

== ENCOUNTER → 2024-01-19 | Outpatient (CLI) | payer MEDICARE, SELFPAY ==
--- NOTE | 2024-01-19 15:50 | VDLE_ITS ---
Reason For Study: LLE Pain RIGHT LEFT CFV is compressible, spontaneous, phasic, GSV is normal. competent and demonstrates normal CFV is compressible, spontaneous, phasic, augmentation. competent, and demonstrates normal Procedure augmentation. This is a venous duplex using B-mode, color FV is compressible, spontaneous, phasic, flow and spectral Doppler. competent and demonstrates normal Exam performed in department. augmentation. The exam was diagnostic. POP V is compressible, spontaneous, phasic, competent and demonstrates normal augmentation. T/P Trunk is compressible. PTV is compressible. LT PerV is compressible. VL/Venous Duplex US, Unilateral Interpretation Summary Deep veins of the left lower extremity are patent and compressible segmentally. There is no evidence of left lower extremity deep vein thrombosis. The left great saphenous vein yang ears patent and compressible segmentally. Ordering Physician: Jose Nogueira Referring Physician: Jose Nogueira Performed By: William Cali RVT
== END | disposition home or self-care (01) ==
LOC: CVS 15:47
PROVIDERS: PCP Family Medicine; Referring Provider Family Medicine; Visit Provider Family Medicine
DX: M79.605 Pain in left leg (principal)
CPT/HCPCS: 93971

== ENCOUNTER → 2024-01-20 | Outpatient (CLI) | payer MEDICARE, SELFPAY ==
--- NOTE | 2024-01-20 11:18 | RAD_ITS ---
STUDY: X-RAY - LEFT KNEE REASON FOR EXAM: Male, 78 years old. Left knee pain. TECHNIQUE: 2 views of the left knee. COMPARISON: Left knee radiographs dated 01/13/2019. FINDINGS: Again seen is a left total knee arthroplasty with patellar resurfacing. The orthopedic hardware components are intact. There is no periprosthetic fracture. There is a tiny joint effusion. Normal proximal tibiofibular articulation. RAD/Knee 1 or 2 Views IMPRESSION: Left total knee arthroplasty, with no periprosthetic fracture. Tiny joint effusion. Electronically Signed: Robin Cabrales MD at 15:52 EDT ,
== END | disposition home or self-care (01) ==
LOC: MTRAD 11:16
PROVIDERS: PCP Family Medicine; Referring Provider Family Medicine; Visit Provider Family Medicine
DX: M25.562 Pain in left knee (principal)
CPT/HCPCS: 73560

== ENCOUNTER → 2024-02-07 | Outpatient (CLI) | payer MEDICARE, SELFPAY ==
[2024-02-07 16:44] LABS: Bacteria 0 SEEN /hpf (None Seen); Mucous, Urine 0 SEEN /hpf (<or=2+); Red Blood Cells-Urine 0 SEEN /hpf (0-5); Squamous Epithelial Cells - UA 0 SEEN /hpf (0-5); White Blood Cells 0 SEEN /hpf (0-5)
[2024-02-07 17:33] LABS: Color, Urine Yellow (Yellow); Glucose, Dipstick Normal (Normal); Ketone-Dipstick Negative (Negative); Leukocyte Esterase-Dipstick Negative /ul (Negative); Nitrite-Dipstick Negative (Negative); Occult Blood-Urine Negative /ul (Negative); Protein-Dipstick 15 mg/dl (Negative); Urine Bilirubin Dipstick Negative (Negative); Urine Clarity Clear (Clear); Urine Urobilinogen Normal (Normal)
[2024-02-07 17:37] LABS: Absolute Lymphocyte Count 1.02 X10^3/uL (0.83-4.51); Basophil# 0.04 X10^3/uL; Basophil% 0.7 % (0-1); Eosinophil# 0.16 X10^3/uL; Eosinophils% 2.8 % (0-5); Hematocrit 44.3 % (40-54); Hemoglobin 14.9 g/dL (13.0-16.5); Lymphocyte # 1.02 X10^3/ul (0.83-4.51); Lymphocyte % 17.9 % (19-41); Mean Corp Hgb Conc 33.6 g/dL (32-36); Mean Corpuscular Volume 86.4 fL (80-94); Mean Platelet Vol. 10.6 fl (6.2-12.0); Monocyte# 0.44 X10^3/uL; Monocyte% 7.7 % (0-10); NRBC Flagged by Analyzer 0 % (0-5); Neutrophil % 70.2 % (47-70); Platelet Count 282 K/mm3 (150-450); RBC Distribution Width CV 12.6 % (11.6-14.6); RBC Distribution Width SD 39.8 fl (35.1-43.9); Red Blood Count 5.13 M/mm3 (4.6-6.2); White Blood Count 5.7 K/mm3 (4.4-11.0)
[2024-02-07 18:07] LABS: Vitamin D,25 Hydroxy 44.7 ng/mL
[2024-02-07 19:35] LABS: ALB/GLOB Ratio 1.2 RATIO (0.9-2.4); AST(SGOT) 23 U/L (15-37); Alanine Aminotransfer ALT/SGPT 16 U/L (16-61); Albumin, Serum 3.6 g/dL (3.2-5.0); Alkaline Phosphatase 149 U/L (45-117); Anion Gap 7 (5-15); BUN 11 mg/dL (7-18); BUN/Creat Ratio 17.5 RATIO (10-20); Calcium,Total 8.9 mg/dL (8.5-10.1); Chloride 97 mmol/L (98-107); Cholesterol 182 mg/dL (200); Creatinine, Serum 0.63 mg/dL (0.70-1.30); EST Glomerular Filtration Rate 131 mL/min (>60); Est Glom Filt Rate - Afr Amer 158 mL/min (>60); Glucose 96 mg/dL (74-106); High Density Lipoprotein 94 mg/dL; Potassium 3.9 mmol/L (3.5-5.1); Protein, Total 6.6 g/dL (6.4-8.2); Sodium Level 130 mmol/L (136-145); Thyroid Stim Hormone (TSH) 0.88 uIU/mL (0.358-3.74); Triglycerides 83 mg/dL; Very Low Density Lipoprotein 17 mg/dL (5-40)
[2024-02-07 20:02] LABS: Hemoglobin A1c 5.2 % (3.8-5.6)
== END | disposition home or self-care (01) ==
LOC: MFPLAB 15:33
PROVIDERS: PCP Family Medicine; Visit Provider Family Medicine
DX: I10 Essential (primary) hypertension (principal); E55.9 Vitamin D deficiency, unspecified; R73.02 Impaired glucose tolerance (oral)
CPT/HCPCS: 36415; 80053; 80061; 81001; 82306; 83036; 83735; 84443; 85025

== ENCOUNTER → 2024-02-15 | Outpatient (CLI) | payer MEDICARE, SELFPAY ==
--- NOTE | 2024-02-15 13:38 | RAD_ITS ---
STUDY: X-RAY CHEST REASON FOR EXAM: Male, 78 years old. Cough. TECHNIQUE: Frontal and lateral views of the chest on 3 images. COMPARISON: August 24, 2021 FINDINGS: Stable hyperinflation. There is no demonstrated pleural abnormality. Mild cardiac enlargement. New loop recorder. Normal mediastinum and jayme. Normal visualized pulmonary arteries. Aortic tortuosity with calcification. Diffuse moderate thoracic spondylosis. Normal visualized ribs, clavicles, and shoulders. No abnormality of the visualized soft tissue structures of the upper abdomen. RAD/Chest PA and Lateral IMPRESSION: Cardiomegaly with new loop recorder. Stable hyperinflation. No active or acute cardiopulmonary disease. Electronically Signed: Rosales Hector MD at 14:59 EDT ,
== END | disposition home or self-care (01) ==
PROVIDERS: PCP Family Medicine; Referring Provider Internal Medicine Pulmonary Disease; Visit Provider Internal Medicine Pulmonary Disease
DX: U07.1 COVID-19 (principal); R05.9 Cough, unspecified
CPT/HCPCS: 71046

== ENCOUNTER → 2024-02-24 | Outpatient (CLI) | payer MEDICARE, SELFPAY ==
--- NOTE | 2024-02-24 13:13 | RAD_ITS ---
STUDY: X-RAY CHEST REASON FOR EXAM: Male, 78 years old. COUGH TECHNIQUE: PA and lateral views of the chest. COMPARISON: Comparison is made with prior study February 15, 2024. FINDINGS: There is hyperinflation of the lungs consistent with chronic obstructive lung disease (COPD). There is no demonstrated pleural abnormality. Normal size heart. Loop recorder device is seen overlying the left cardiac border. Normal mediastinum and jayme. There is prominence of the pulmonary hilar arteries without peripheral pulmonary vascular congestion, suggesting pulmonary hypertension. There is atherosclerotic calcification of the aortic arch with tortuosity. There are diffuse degenerative changes of the visualized thoracic spine. Normal visualized ribs, clavicles, and shoulders. There is no demonstrated abnormality of the visualized soft tissue structures of the upper abdomen. RAD/Chest PA and Lateral IMPRESSION: Hyperinflation. Stable examination. No acute abnormality is seen. Prominence of the central pulmonary arteries. Electronically Signed: Camden Felix MD at 13:35 EDT ,
== END | disposition home or self-care (01) ==
LOC: MTRAD 13:11
PROVIDERS: PCP Family Medicine; Referring Provider Internal Medicine Pulmonary Disease; Visit Provider Internal Medicine Pulmonary Disease
DX: R05.9 Cough, unspecified (principal)
CPT/HCPCS: 71046

== ENCOUNTER → 2024-05-09 | Outpatient (CLI) | payer MEDICARE, SELFPAY ==
[2024-05-09 10:40] LABS: Anion Gap 7 (5-15); BUN 16 mg/dL (7-18); BUN/Creat Ratio 25.2 RATIO (10-20); Calcium,Total 8.9 mg/dL (8.5-10.1); Chloride 102 mmol/L (98-107); Creatinine, Serum 0.64 mg/dL (0.70-1.30); EST Glomerular Filtration Rate 129 mL/min (>60); Est Glom Filt Rate - Afr Amer 156 mL/min (>60); Glucose 107 mg/dL (74-106); Potassium 4.1 mmol/L (3.5-5.1); Sodium Level 135 mmol/L (136-145)
[2024-05-14 10:07] LABS: Trileptal-Oxcarbazepine 13 ug/mL (10-35)
== END | disposition home or self-care (01) ==
LOC: MTLAB 08:11
PROVIDERS: PCP Family Medicine; Referring Provider Psychiatry & Neurology Neurology; Visit Provider Psychiatry & Neurology Neurology
DX: G62.9 Polyneuropathy, unspecified (principal)
CPT/HCPCS: 36415; 80048; 82542

== ENCOUNTER → 2024-06-05 | Outpatient (CLI) | payer MEDICARE, SELFPAY ==
[2024-06-05 12:34] LABS: Absolute Lymphocyte Count 0.85 X10^3/uL (0.83-4.51); Absolute Neutrophil Count 4.8 X10^3/uL (2.0-7.7); Basophil# 0.05 X10^3/uL; Basophil% 0.8 % (0-1); Eosinophil# 0.19 X10^3/uL; Hematocrit 45.8 % (40-54); Hemoglobin 14.8 g/dL (13.0-16.5); Lymphocyte # 0.85 X10^3/ul (0.83-4.51); Lymphocyte % 13.2 % (19-41); Mean Corp Hgb Conc 32.3 g/dL (32-36); Mean Corpuscular Hgb 28.7 pg (27.0-32.0); Mean Corpuscular Volume 88.9 fL (80-94); Mean Platelet Vol. 11.5 fl (6.2-12.0); Monocyte# 0.51 X10^3/uL; Monocyte% 7.9 % (0-10); NRBC Flagged by Analyzer 0 % (0-5); Neutrophil # 4.77 X10^3/uL (2.7-7.7); Neutrophil % 74.2 % (47-70); Platelet Count 222 K/mm3 (150-450); RBC Distribution Width CV 13.1 % (11.6-14.6); RBC Distribution Width SD 42.4 fl (35.1-43.9); Red Blood Count 5.15 M/mm3 (4.6-6.2); Vitamin D,25 Hydroxy 52.4 ng/mL; White Blood Count 6.4 K/mm3 (4.4-11.0)
[2024-06-05 13:17] LABS: ALB/GLOB Ratio 1.1 RATIO (0.9-2.4); AST(SGOT) 64 U/L (15-37); Alanine Aminotransfer ALT/SGPT 19 U/L (16-61); Albumin, Serum 3.4 g/dL (3.2-5.0); Alkaline Phosphatase 162 U/L (45-117); Anion Gap 8 (5-15); BUN 13 mg/dL (7-18); BUN/Creat Ratio 20.1 RATIO (10-20); Calcium,Total 9.2 mg/dL (8.5-10.1); Chloride 100 mmol/L (98-107); Cholesterol 182 mg/dL (200); Creatinine, Serum 0.65 mg/dL (0.70-1.30); EST Glomerular Filtration Rate 127 mL/min (>60); Est Glom Filt Rate - Afr Amer 153 mL/min (>60); Glucose 106 mg/dL (74-106); High Density Lipoprotein 91 mg/dL; Magnesium 2.2 mg/dL (1.6-2.6); Potassium 4.1 mmol/L (3.5-5.1); Protein, Total 6.4 g/dL (6.4-8.2); Sodium Level 134 mmol/L (136-145); Thyroid Stim Hormone (TSH) 0.866 uIU/mL (0.358-3.740); Triglycerides 59 mg/dL; Very Low Density Lipoprotein 12 mg/dL (5-40)
[2024-06-05 14:01] LABS: Hemoglobin A1c 5.3 % (3.8-5.6)
== END | disposition home or self-care (01) ==
LOC: MFPLAB 10:09
PROVIDERS: PCP Family Medicine; Visit Provider Family Medicine
DX: I10 Essential (primary) hypertension (principal); E55.9 Vitamin D deficiency, unspecified; E78.5 Hyperlipidemia, unspecified; R73.02 Impaired glucose tolerance (oral)
CPT/HCPCS: 36415; 80053; 80061; 82306; 83036; 83735; 84443; 85025

== ENCOUNTER → 2024-06-25 | Outpatient (CLI) | payer MEDICARE, SELFPAY ==
--- NOTE | 2024-06-25 12:57 | CDU_ITS ---
Reason For Study: Carotid stenosis Rt. Velocities/BP Lt. Velocities/BP Prox CCA 93.8/21.1 cm/sec. Prox CCA 91/23.9 cm/sec. Mid CCA 70.2/17.3 cm/sec. Mid CCA 83.4/23 cm/sec. Dist CCA 78.7/19.2 cm/sec. Dist CCA 77.8/21.1 cm/sec. Prox ICA 55.1/13.5 cm/sec. Prox ICA 66.4/15.4 cm/sec. Mid ICA 57.9/19.2 cm/sec. Mid ICA 65.5/24.8 cm/sec. Dist ICA 57/18.2 cm/sec. Dist ICA 64.5/25.8 cm/sec. Rt. ICA/CCA = 0.82. Lt. ICA/CCA = 0.80. Prox ECA 91/10.7 cm/sec. Prox ECA 101.4/16.8 cm/sec. Rt. Vert. 34.3/12.6 cm/sec. Lt. Vert. 39/15.4 cm/sec. Right Extracranial There is intimal thickening but no significant atherosclerotic plaque noted in the right common carotid artery. There is heterogeneous, irregular atherosclerotic plaque noted in the right internal carotid artery. There is intimal thickening but no significant atherosclerotic plaque noted in the right external carotid artery. Antegrade flow is noted in the right vertebral artery. Left Extracranial There is intimal thickening but no significant atherosclerotic plaque noted in the left common carotid artery. There is heterogeneous, irregular atherosclerotic plaque noted in the left internal carotid artery. There is intimal thickening but no significant atherosclerotic plaque noted in the left external carotid artery. Antegrade flow is noted in the left vertebral artery. Procedure This is a Carotid Duplex examination using B-mode, color flow and specral Doppler. Carotid Duplex 41511. Exam performed in department. VL/Carotid Duplex Ultrasound Interpretation Summary Mild (<50%) stenosis right extracranial internal carotid. Mild (<50%) stenosis left extracranial internal carotid. Patent and antegrade vertebrals bilaterally. Ordering Physician: Jose Nogueira Referring Physician: Jose Nogueira Performed By: Sumi Hoffman RVT
== END | disposition home or self-care (01) ==
PROVIDERS: PCP Family Medicine; Referring Provider Family Medicine; Visit Provider Family Medicine
DX: I65.23 Occlusion and stenosis of bilateral carotid arteries (principal)
CPT/HCPCS: 93880

== ENCOUNTER → 2024-07-26 | Outpatient (CLI) | payer MEDICARE, SELFPAY ==
[2024-07-27 08:12] LABS: GGTP 29 IU/L (0-65)
== END | disposition home or self-care (01) ==
LOC: MFPLAB 08:03
PROVIDERS: PCP Family Medicine; Visit Provider Family Medicine
DX: R74.8 Abnormal levels of other serum enzymes (principal)
CPT/HCPCS: 36415; 82977

== ENCOUNTER → 2024-07-27 | Outpatient (CLI) | payer MEDICARE, SELFPAY ==
[2024-07-27 18:04] LABS: Anion Gap 8 (5-15); BUN 14 mg/dL (7-18); BUN/Creat Ratio 22.3 RATIO (10-20); Calcium,Total 8.9 mg/dL (8.5-10.1); Chloride 99 mmol/L (98-107); Creatinine, Serum 0.63 mg/dL (0.70-1.30); EST Glomerular Filtration Rate 131 mL/min (>60); Est Glom Filt Rate - Afr Amer 158 mL/min (>60); Glucose 135 mg/dL (74-106); Potassium 3.7 mmol/L (3.5-5.1); Sodium Level 133 mmol/L (136-145)
== END | disposition home or self-care (01) ==
LOC: MTLAB 14:35
PROVIDERS: PCP Family Medicine; Referring Provider Internal Medicine Cardiovascular Disease; Visit Provider Internal Medicine Cardiovascular Disease
DX: Z01.818 Encounter for other preprocedural examination (principal)
CPT/HCPCS: 36415; 80048

== ENCOUNTER 2024-08-07 09:00 | Outpatient (RCR) | payer MEDICARE, SELFPAY ==
--- NOTE | 2024-06-05 12:00 | HP.PTEVAL_ITS ---
Patient's Visit Information Visit Information Visit Information: MILY BOLANOS is a 79 year old M referred to Physical Therapy by Dr. Christian Payton MD with a diagnosis of Parkinson's. Date of Evaluation: 06/05/24 Physical Therapist: RAO Thrasher Visit Plan Frequency: 2x /Week Duration: 3 Months Plan: ++Pt needs a gait belt at all times++++ 2X/ week for 8-12 weeks for LE strength (hip. knee and core) to help with balance, balance activities working on static to dynamic with stepping in all directions to help with balance to make up for lack of ankle strength, HEP: pt to do LTR and SKC to each side twice a day and see if helps with trunk pain Subjective Subjective: Pt is looking for another AFO brace that goes on outside of the [facility] [place]. He is not catching his toes that much but he is having a tripping hazard. He has fallen a few times (one with broken ribs) and he is always falling FW. He is getting clumsy in the kitchen etc. He does not know where his feet are in space. Dr Cody is very thorough and he agreed with PT that his neuropathy is causing all of his problems. He occ has burning and tingling in his feet. His R foot is better than the L and ok with driving. Everything seems worse in his L but he feels that his tremors are always in the right. He had some terrible back pain and he had to sit to make the pain go away lately. If he bends over the sink to wash dishes his back hurts to bad. He is getting a trial wire put in his back to see if he likes it. He is going to try and cancel that appt as he has too many appt. Objective Objective: Gait: walks with no toe push off and steppage gait. He tends to hold onto the wall at times to help catch his balance. Pt is unable to heel raise and able to toe raise in a smaller ROM LE MMT: R hip flex 8.6 and L 8 R knee ext 24.2 and L 19.2 R knee flex 9.1 and L 7 R supine hip abd 12.5 and L 12.8 R hip ext 7.8 and L 6.2 LTR: very stiff at first but loosed up the more he did....same with SKC FGA: 5 Pt tends to step up slightly FW/BW to correct LOB with side stepping Pt is very unsteady with smaller steps walking BW with CGA..... Pt is unable to stand with EC greater than 5 seconds and has to hold onto the wall to stop from losing his balance Balance/Special Test Scores Functional Gait Assessment Score: 5 % Disability: 83.3400 Lower Extremity Functional Score: 32 Goals Goal 1:: I HEP Goal Time Frame: 8-12 Weeks Goal 2:: Be able to stand with EC X 30 seconds with CGA without losing his balance Goal Time Frame: 8-12 Weeks Goal 3:: Increase B LE strength to help with lack of ankle strength due to neuropathy (at the time of the eval: LE MMT: R hip flex 8.6 and L 8 R knee ext 24.2 and L 19.2 R knee flex 9.1 and L 7 R supine hip abd 12.5 and L 12.8 R hip ext 7.8 and L 6.2). Goal Time Frame: 8-12 Weeks Goal 4:: Be able to side step with CGA 30 feet each direction without LOB/Stepping out to correct balance Goal Time Frame: 8-12 Weeks Goal 5:: Increase balance (FGA 5 at eval) Goal Time Frame: 8-12 Weeks Rehabilitation Potential Rehabilitation Potential: Good Anticipated Interventions Text: Thank you for the opportunity to evaluate your patient. For Medicare and Medicare HMO plans, please review the plan of care and approve it. It will need to be FAXED BACK to us at [phone] for Medicare purposes. For Medicare only, by signing this I certify the plan of care. Please let me know if there are questions or concerns regarding this plan of care. Physician Signature: Date:
--- NOTE | 2024-08-07 12:17 | HP.PTDCSUM_ITS ---
Discharge Summary D/C summary: It has been my pleasure to treat MILY BOLANOS referred by Dr. Christian Payton MD, with the diagnosis of Parkinson's for a total of 12 visit(s). Discharge Date: 08/07/24 Please see the following information for a summary of their discharge status. Subjective Subjective: Pt understands his HEP and ready to work out on his own. Overall Improvement % Improvement: 70 Objective Objective/Function: R hip flex 25.9 and L 28.1 R knee ext 24.2 and L 20.6 R knee flex 18.8 and L 14.8 R supine hip abd 12.5 and L 12.8 R hip ext 7.8 and L 6.2). Goals Goal 1:: I HEP Goal Progress: Goal Met Goal 2:: Be able to stand with EC X 30 seconds with CGA without losing his balance Goal Progress: Goal Met Goal 3:: Increase B LE strength to help with lack of ankle strength due to neuropathy (at the time of the eval: LE MMT: R hip flex 8.6 and L 8 R knee ext 24.2 and L 19.2 R knee flex 9.1 and L 7 R supine hip abd 12.5 and L 12.8 R hip ext 7.8 and L 6.2). Goal Progress: Goal Met Goal 4:: Be able to side step with CGA 30 feet each direction without LOB/Stepping out to correct balance Goal Progress: Goal Met Goal 5:: Increase balance (FGA 5 at eval) Plan Plan: DC PT to [facility] H&W routine D/C Information Discharge Comments: DC PT to [facility] gym routine d/c sentence: If there are questions or concerns regarding this patient's physical therapy, please feel free to call me at [phone]. Thank you for the referral of this patient. Sincerely, Deb Osborn, MPT Balance/Gait/Functional tests Balance/Special Test Scores Functional Gait Assessment Score: 9 % Disability: 70.0000 Lower Extremity Functional Score: 41 Improvement % Improvement: 70
== END 2024-08-07 19:00 | disposition home or self-care (01) ==
LOC: PT 09:00
PROVIDERS: PCP Family Medicine; Referring Provider Psychiatry & Neurology Neurology; Visit Provider Psychiatry & Neurology Neurology
DX: G20.A1 Parkinson's disease without dyskinesia, without mention of fluctuations (principal)
CPT/HCPCS: 97110; 97162

== ENCOUNTER 2024-08-13 10:58 | Day surgery (SDC) | payer MEDICARE, SELFPAY ==
--- NOTE | 2024-07-27 14:45 | PCM.HP.BLA ---
History and Physical Date of Admission: 08/13/24 This is a 79 year-old gentleman who presents here today for the removal of his loop recorder. This has been causing him pain lately. Patient was admitted to [facility] on 08/24/2021 for amaurosis fugax. MRI and MRA were negative. He underwent a loop recorder placement on 09/16/21 for amaurosis fugax. He has a history of cryptogenic stroke, hypertension and hyperlipidemia. He had a retinal artery occlusion in 2019. From a cardiac standpoint, the patient is doing well. He denies any palpitations, chest pain, pressure or heaviness. He denies SOB, Orthopnea, and PND. He does not have bleeding issues; no blood in urine, stool or nosebleeds. He denies any decrease in energy level, myalgias, or claudication. He does not have edema, or sudden weight gain. He denies dizziness, lightheadedness, syncopal or near syncopal episodes, and headaches. He continues to stay very active at [facility]. Intake Vital Signs See EMR Allergies See EMR Medications See EMR [facility] Medical History Amaurosis fugax of left eye Arrhythmia Benign prostate hyperplasia Bladder retention BPH (benign prostatic hyperplasia) Carotid artery disease Cryptogenic stroke DVT (deep venous thrombosis) (~09/2022) Essential (primary) hypertension Glaucoma Hyperlipidemia Obstructive sleep apnea Osteoarthritis Parkinson disease Peripheral neuropathy Spinal stenosis (09/2022) Ventricular tachyarrhythmia Ventricular tachycardia Surgical History History of left heart catheterization (02/15/13) History of loop recorder (09/16/21) History of spinal surgery (~09/2022) History of total knee replacement Social History Smoking Status: Former smoker how long ago did patient quit smokin years ago alcohol intake: current alcohol intake frequency: 0-2 drinks per day Alcohol type: beer substance use type: does not use caffeine: Yes Type: coffee Number of servings: 1 ROS Const Const: Negative for fatigue, weakness, fever(s), headache(s), chills, frequent falls, weight gain or weight loss Eyes Eyes: Negative for blind spots, loss of peripheral vision, transient loss of vision, blurry vision, change in vision, double vision, floaters or tunnel vision ENT ENT: Negative for headache(s), dizziness, Nosebleed/epistaxis, balance problems or neck pain Cardio Chest Pain: No Palpitations: No Edema: None Muscle aches with walking: None Resp Respiratory: Negative for SOB with activity, SOB at rest or SOB orthopnea\SOB lying down GI GI: Negative nausea, vomiting, heartburn, bloating, vomiting blood/hematemesis, bright, red blood in stools or black,tarry stools Musc Musc: Negative for muscle aches/ myalgia, muscle weakness, joint pain or balance problems Neuro Neuro: Negative for dizziness, lightheadedness, near syncope, syncope, orthostatic symptoms, frequent falls, headache(s), weakness, blurry vision or double vision Ron Hematologic/Lymphatic: Negative for easy bleeding or easy bruising Endo Endo: Negative for fatigue Cardiology Exam Const Appearance: cooperative and no acute distress Nutritional Appearance: average body habitus and overweight Orientation: alert and oriented x3 Head Head: normal to inspection Ears: hearing grossly normal bilaterally Nose: external nose normal Face and Sinus: face symmetric Eyes General: appearance normal, both eyes and all related structures Eyelids: eyelids normal Conjunctivae: conjunctivae normal Pupils: PERRL and pupil size EOM: EOM intact bilaterally Neck Neck: normal visual inspection Carotids: Negative bruit Chest Chest inspection: normal inspection of the chest and normal respiratory effort Auscultation: Bilateral: Clear to Auscultation Cardio Palpation: normal PMI Rate: regular rate Rhythm: regular rhythm Heart sounds: S1 normal and S2 normal; Negative rub, gallop or murmur GI GI: normal to inspection and soft Neuro General: patient alert, patient oriented x3 and CN's II-XI intact bilaterally Skin Skin: no rashes or lesions noted Extremities Pulses: Normal: Right Posterior Tibial Pulse, Left Posterior Tibial Pulse, Right Radial Pulse and Left Radial Pulse Lower Extremity Edema: None: Bilateral Psych Psychological: normal affect Supplemental Info Supplemental Information Echocardiogram 09/14/2021: Interpretation Summary Normal LV size. Left ventricular systolic function is normal. The estimated ejection fraction is 65 %. Stage 1 diastolic dysfunction. Bubble contrast study negative for right to left interatrial shunt. Assessment and Plan Assessment and Plan (1) History of loop recorder: Status: Chronic Plan: Patient states his loop recorder is causing him pain. Will proceed with explant.
[2024-08-10 14:26] VITALS: BMI 28.1
--- NOTE | 2024-08-13 12:06 | CL.IE_ITS ---
Patient: MILY BOLANOS Study Date: 08/13/2024 Performing: Tacho Moreira MD : 1945 Age: 79 Gender: male PROCEDURES PERFORMED [id number])REMOVAL OF LOOP RECORDER INDICATIONS End-of-life replacement indicator Amaurosis fugax PROCEDURE DETAILS The patient was brought to the Catheterization Lab in the postabsorptive nonsedated state. Informed consent was obtained prior to the procedure. Local anesthetic was given subcutaneously to the left upper chest area with Lidocaine 2%. ICM Reveal LINQ was removed. Steri-strips applied to Lt chest area. The patient tolerated the procedure well. Estimated Blood Loss: 10 ml's IMPLANTED / EX-PLANTED DEVICES DEVICE PARAMETERS CONCLUSIONS / RECOMMENDATIONS Device Conclusions: Successful explant of a patient activated loop recorder. Device Recommendations: Follow up with Primary Care Physician PROCEDURE MEDICATIONS Versed 1 mg IV Oxygen: 2 L/min via nasal cannula Antibiotic given in appropriate timeframe. Ancef 2 Gm IV @ 08/13/2024 11:48:29 Signed By Tacho Moreira MD On 08/13/2024 12:05:20 Tacho Moreira MD
--- OUTSIDE RECORDS SUMMARY | 2024-08-13 12:49 | XMS RPT_ITS | CCD ---
Author Organization [facility] Inform ion Partnership [facility] Care Team Providers Care Finish Filer Name Role Phone RACHAEL Wilkerson, More Erwin Unavailtamela velez Medications Completed/Discontinued Medications Medication Drug Class(es) Dates Sig (Normalized) Sig (Original) aspirin 81 mg oral tablet (1 source) Nonsteroidal Anti-inflammator y Drug Start: 3 take 1 tablet by mouth once daily ASPIRIN 81 MG TABS One tablet by mouth daily ASPIRIN [id number] Patricia Nguyen RN atorvastatin 10 mg oral tablet (1 source) HMG-CoA Reductase Inhibitor Start: 5 take 1 tablet by mouth once daily at bedtime ATORVASTATIN CALCIUM 10 MG TABS One tablet by mouth daily at bedtime ATORVASTATIN CALCIUM [id number] Tacho Moreira MD bethanechol chloride 50 mg oral tablet (2 sources) Cholinergic Muscarinic Agonist Start: 3 End: 6 take 1 tablet by mouth three times daily URECHOLINE 50 MG TABS One tablet by mouth three times daily BETHANECHOL CHLORIDE [id number] Tacho Moreira MD cholecalciferol 2000 unt oral tablet (1 source) Vitamin D Start: 6 take 1 tablet by mouth once daily VITAMIN D 2000 UNIT TABS One tablet by mouth daily CHOLECALCIFEROL [id number] Tacho Moreira MD gabapentin 100 mg oral capsule (2 sources) Anti-epileptic Agent Start: 3 End: 6 take 1 tablet by mouth three times daily GABAPENTIN 100 MG CAPS One tablet by mouth three times daily GABAPENTIN [id number] Tacho Moreira MD hydroCHLOROthiazide 12.5 mg oral tablet (1 source) Thiazide Diuretic Start: 7 take 1 tablet by mouth once daily HYDROCHLOROTHIAZIDE 12.5 MG TABS One tablet by mouth daily HYDROCHLOROTHIAZIDE [id number] Mily Curtis Rosalba [employer] lisinopril 20 mg oral tablet (3 sources) Angiotensin Converting Enzyme Inhibitor Start: 6 take 1 tablet by mouth once daily LISINOPRIL 20 MG TABS One tablet by mouth daily LISINOPRIL [id number] Tacho Moreira MD Start: 11-05-2014 End: 11-09-2016 take 1 tablet by mouth once daily LISINOPRIL 10 MG TABS One tablet by mouth daily LISINOPRIL [id number] Tacho Moreira MD loratadine 10 mg oral tablet (1 source) Start: 03-25-2013 take 1 tablet by mouth once daily CLARITIN 10 MG CAPS One tablet by mouth daily LORATADINE [id number] Patricia Nguyen RN meloxicam 15 mg oral tablet (1 source) Nonsteroidal Anti-inflammatory Drug Start: 11-05-2014 take 1 tablet by mouth once daily MELOXICAM 15 MG TABS One tablet by mouth daily MELOXICAM [id number] Tacho Moreira MD METOPROLOL SUCCINATE (2 sources) beta-Adrenergic Mike Start: 03-25-2013 TOPROL XL 50 MG [id number] 1 and 1/2 tablet by mouth daily METOPROLOL SUCCINATE [id number] Tacho Moreira MD Start: 03-25-2013 take 1 tablet by dora th once daily TOPROL XL 50 MG [id number] (ER) One tablet by mouth daily METOPROLOL SUCCINATE [id number] Tacho Moreira MD OXcarbazepine 300 mg oral tablet (2 sources) Anti-epileptic Agent Start: 11-05-2014 take 1 tablet by mouth three times daily TRILEPTAL 300 MG TABS One tablet by mouth three times daily for neuropathy OXCARBAZEPINE [id number] Tacho Moreira MD Start: 03-25-2013 take 1 tablet by dora th once daily TRILEPTAL 150 MG TABS One tablet by mouth daily OXCARBAZEPINE [id number] Patricia Nguyen RN sildenafil 20 mg oral tablet (1 source) Phosphodiesterase 5 Inhibitor Start: 11-11-2015 take 1 tablet by mouth once SILDENAFIL CITRATE 20 MG TABS One tablet by mouth daily per Dr. Beckman SILDENAFIL CITRATE [id number] Tacho Moreira MD Problems Active Problems Problem Classification Problem Date Documented Date Episodic/Chronic Cardiac dysrhythmias (1 source) Ventricular tachycardia; Translations: [Ventricular tachycardia] Onset: 03-25-2013 03-25-2013 Chronic Disorders of lipid metabolism (1 source) Hyperlipidemia; Translations: [Hyperlipidemia, unspecified] Onset: 11-11-2015 11-11-2015 Chronic Essential hypertension (1 source) Hypertensive disorder; Translations: [Essential (primary) hypertension] Onset: 11-11-2015 11-11-2015 Chronic Other circulatory disease (1 source) Disorder of carotid artery; Translations: [Occlusion and stenosis of unspecified carotid artery] Onset: 03-28-2013 03-28-2013 Chronic Unclassified (1 source) Preoperative cardiovascular examination ; Translations: [Encounter for preprocedural cardiovascular examination] Onset: 11-05-2014 11-05-2014 Past or Other Problems Problem Classification Problem Date Documented Da te Episodic/Chronic Nonspecific chest pain (1 source) Precordial pain; Translations: [Precordial pain] Onset: 03-25-2013 03-25-2013 Episodic Other nutritional; endocrine; and metabolic disorders (1 source) Body mass index (BMI) 29.0-29.9, adult; Translations: [Body mass index (BMI) 29.0-29.9, adult] Onset: 11-05-2014 11-05-2014 Episodic Results Test Name Value Interpretation Reference Range Facility NM BRAIN DATSCANon 9 NM BRAIN DATSCAN ORIGINAL Dopamine transporter (Nai) SPECT imaging of the brain Clinical statement: Tremor, possible Parkinson's disease TECHNIQUE: Thyroid blocking agent of 130 mg iOSAT was orally administered 1 hour before the intravenous administration of 5.5 mCi of IV-123 labeled DaTscan. 3 hours later, a 30 minutes SPECT scan of the brain was acquired. Data was reconstructed using iterative reconstruction and displayed in axial planes. FINDINGS: Bilateral, symmetrical tracer uptake is noted in the striate. Nuclei uptake is distinct and above the background activity. IMPRESSION: Normal and symmetric uptake of DaTscan in the striata without imaging evidence of dopaminergic neurodegeneration. I have personally reviewed the images of this examination and agree with the resident's findings and interpretation. Interpreted By: Wojciech Martin MD Preliminary Report By: Gino Caba DO Electronically Signed By: Wojciech Martin MD Dictated Date: 07/17/2019 1:53:14 PM Prelim Date: 07/17/2019 1:54:30 PM Sign Date: 07/17/2019 4:35:41 PM Normal [facility] ([place]) HISTORY PHYSICALon 9 HISTORY PHYSICAL HNO ID: [id number] Author: Gino Wakefield Service: Gastroenterology Author Type: Physician Type: HANDP Filed: 06/11/2019 11:06 AM Note Text: PROCEDURAL SEDATION HISTORY AND PHYSICAL EXAM SERVICE DATE: 06/11/2019 SERVICE TIME: 11:06 AM Subjective HPI: This is a 74 year old male who presents with a family history of colon cancer PAST ANESTHESIA HISTORY: No history of adverse event PAST MEDICAL HISTORY Diagnosis Date - Diarrhea - DVT (deep venous thrombosis) (HCC) - Other psoriasis - Parkinson disease (HCC) - Polyneuropathy in other diseases classified elsewhere (HCC) PAST SURGICAL HISTORY Procedure Laterality Date - COLONOSCOP W/ OR W/O [facility] SPEC 2000 Colonoscopy - COLONOSCOP W/ OR W/O [facility] SPEC 05/11/2005 Colonoscopy - COLONOSCOP W/ OR W/O [facility] SPEC 05/15/2009 Colonoscopy - COLONOSCOP W/ OR W/O [facility] SPEC 06/06/14 Colonoscopy - PAST SURGICAL HISTORY OF elbow and shoulder - TOTAL KNEE REPLACEMENT Left 11/2014 Knee replacement, total Prior to Admission medications as of 06/11/19 1042 Medication Sig Last Dose Taking carbidopa-levodopa (SINEMET 25-100) 25-100 mg per tablet Take 1 tablet by mouth three times daily. 06/10/2019 at Unknown time Yes pramipexole (MIRAPEX) 0.5 mg tablet Take 0.5 mg by mouth three times daily. 06/11/2019 at Unknown time Yes lisinopril (ZESTRIL, PRINIVIL) 10 mg tablet once daily. 06/10/2019 at Unknown time Yes atorvastatin (LIPITOR) 10 mg tablet once daily. 06/10/2019 at Unknown time Yes metoprolol succinate XL, long acting, 50 mg 24 hr tablet Take 75 mg by mouth once daily. 06/11/2019 at Unknown time Yes meloxicam 15 mg tablet Take 7.5 mg by mouth once daily. Past Week at Unknown time Yes ASPIRIN 81 MG TAB Take one(1) tablet daily. Past Week at Unknown time Yes Cholecalciferol, Vitamin D3, 2,000 unit cap Take by mouth. Unknown at Unknown time ALLERGIES No Known Allergies Objective PHYSICAL EXAM: The remainder of the physical exam is noncontributory. AIRWAY: Airway Visualization of Uvula: Yes Mouth opening greater than 2 fingerbreadths: Yes Neck Full Range of Motion: Yes LUNGS: Lungs clear to auscultation, Good diaphragmatic excursion CARDIAC: Normal S1 and S2; no rubs, murmurs, or gallops Assessment/Plan ASA Class: ASA Class:: Patient with mild systemic disease Active Problems: * No active hospital problems. * Resolved Problems: * No resolved hospital problems. * Provisional Diagnosis/Treatment Plan: Family history of colon cancer/colonoscopy SEDATION GOAL: Moderate SIGNATURE: Gino Wakefield MD PATIENT NAME: Mily Wright DATE: June 11, 2019 TIME: 11:06 AM PAGER: Normal [facility] NURSING PROGon 06-11-2019 NURSING PROG HNO ID: [id number] Author: Mojgan Alejandre) RACHAEL Soto Service: Nursing Author Type: Registered Nurse Type: Nursing Progress Note Filed: 06/11/2019 12:17 PM Note Text: Patient did not experience a fall prior to discharge. Patient did not experience a burn prior to discharge. Mojgan Soto RN [facility] NURSING PROG HNO ID: [id number] Author: Mojgan Soto RN Service: Nursing Author Type: Registered Nurse Type: Nursing Progress Note Filed: 06/11/2019 12:06 PM Note Text: POST OP LEARNING RESPONSE INSTRUCTION PROVIDED TO: Patient and family member METHOD OF INSTRUCTION: Individual instruction Written instruction - handouts Verbal instruction PATIENT / FAMILY RESPONSE: Information received as demonstrated by interest and questions FOLLOW-UP PLAN: Patient instructed to call with any further issues SUPPLEMENTAL MATERIAL: None REFERRAL (RECOMMENDATION): None Electronically Signed By: Mojgan Soto RN In Department: AMBULATORY SURGERY Normal [facility] NURSING PROG HNO ID: [id number] Author: Vickie Smith RN Service: ? Author Type: Registered Nurse Type: Nursing Progress Note Filed: 06/11/2019 11:23 AM Note Text: Patient did not experience a fall within the Intraoperative area. Patient did not experience a burn within the Intraoperative area. Vickie Smith RN [facility] NURSING PROG HNO ID: [id number] Author: Tati Spring RN Service: ? Author Type: Registered Nurse Type: Nursing Progress Note Filed: 06/11/2019 11:10 AM Note Text: [facility] PRE-OP NURSING HAND OFF NOTE SBAR Hand off given to Vickie Smtih RN. Hand off was communicated verbally and at the patient's bedside and all questions were answered. FALLS/AGUILLON Patient did not experience a fall within the Preoperative area. Patient did not experience a burn within the Preoperative area. Tati Spring RN [facility] PT EDon 06-11-2019 PT ED HNO ID: [id number] Author: Mojgan Soto RN Service: Nursing Author Type: Registered Nurse Type: Patient Education Filed: 06/11/2019 10:39 AM Note Text: Discharge Instructions were reviewed pre-operatively with the patient. All questions and concerns were addressed. Mojgan Soto RN PRE OP LEARNING ASSESSMENT PROCEDURE/SURGERY: GI PROCEDURES: Colonoscopy READINESS TO LEARN COGNITIVE ABILITY: Alert and oriented MOTIVATION TO LEARN: Eager Interested FAMILY SUPPORT: High - Very involved in pt care PATIENT LEARNS BEST BY: Multiple Methods FACTORS AFFECTING LEARNING: None PHYSICAL LIMITATIONS AFFECTING LEARNING: None Electronically Signed By: Mojgan Soto RN In Department: AMBULATORY SURGERY Electronically Signed By: Mojgan Soot RN In Department: AMBULATORY SURGERY [facility] HOSPon 02-09-2019 HOSP Patient:Mily Wright MRN: Height:5' 10 (1.778 m) Weight:No patient weight recorded within the last 30 days. 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] Family history of malignant neoplasm of gastrointestinal tract [Z80.0] Diarrhea [R19.7] Allergies: No Known Allergies Date Verified:06/11/19 Lab Values No results within the last 30 days for the following basenames: K,HCT No progress notes entered within the past 30 days Normal [facility] Lab Report: Basic Metabolic Profile (BMP)on 10-31-2017 Anion gap 6 mmol/L Invalid Interpretation Code 5-15 [employer] Work Phone: [phone] BUN/Creatinine Ratio 22.8 RATIO High 10-20 [facility] [employer] Work Phone: [phone] Calcium 8.3 mg/dL Low 8.5-10.1 [employer] Work Phone: [phone] Chloride 98 mmol/L Invalid Interpretation Code 98-107 [employer] Work Phone: [phone] CO2 28.0 mmol/L Invalid Interpretation Code 21.0-32.0 [employer] Work Phone: [phone] Creatinine 0.66 mg/dL Low 0.70-1.30 [employer] Work Phone: [phone] eGFR (non-black) 153 mL/min/{1.73_m2} Invalid Interpretation Code >60 [employer] Work Phone: [phone] eGFR (non-black) 126 mL/min/{1.73_m2} Invalid Interpretation Code >60 [employer] Work Phone: [phone] Glucose 94 mg/dL Invalid Interpretation Code 70-110 [employer] Work Phone: [phone] Potassium 4.0 mmol/L Invalid Interpretation Code 3.5-5.1 [employer] Work Phone: [phone] Sodium 132 mmol/L Low 136-145 [employer] Work Phone: [phone] Urea nitrogen 15 mg/dL Invalid Interpretation Code 7-18 [employer] Work Phone: [phone] Office Visiton 11-09-2016 Documentation of current medications (procedure) Done Invalid Interpretation Code [employer] Phone: [phone] Office Visiton 11-11-2015 General cardiovascular disease 10Y risk [#] [place] 22 % Invalid Interpretation Code [employer] Work Phone: [phone] Tobacco smoking status NHIS Tobacco smoking status MIIS Invalid Interpretation Code [employer] Work Phone: [phone] Clinical Lists 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: 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 Alanine aminotransferase (ALT) 37 U/L Invalid Interpretation Code [employer] Work Phone: [phone] Cholesterol 187 mg/dL Invalid Interpretation Code [facility] Phone: [phone] HDL Cholesterol 65 mg/dL Invalid Interpretation Code [facility] Phone: [phone] LDL Cholesterol 103 mg/dL Invalid Interpretation Code [employer] Work Phone: [phone] Triglyceride 95 mg/dL Invalid Interpretation Code [employer] Work Phone: [phone] very low density lipoproteins 19 mg/dL Invalid Interpretation Code [employer] Work Phone: [phone] Office Visiton 11-05-2014 cardiac risk group B Invalid Interpretation Code [facility] Phone: [phone] Dietary management education, guidance, and counseling (procedure) yes Invalid Interpretation Code [facility] Phone: [phone] Replaced Document: Sophia E CG Observationson 11-05-2014 electrocardiogram interpretation Sinus Rhythm -RSR(V1) -nondiagnostic. PROBABLY NORMAL Invalid Interpretation Code [facility] Phone: [phone] GE use only - for [employer] import when terms are not otherwise specified 398 ms Invalid Interpretation Code [facility] Phone: [phone] P wave axis, electrocardiogram 53 deg Invalid Interpretation Code [employer] Work Phone: [phone] OK interval, electrocardiogram 164 ms Invalid Interpretation Code [employer] Work Phone: [phone] Pulse (Heart Rate) 76 /min Invalid Interpretation Code [employer] Work Phone: [phone] QRS axis, electrocardiogram 9 deg Invalid Interpretation Code [employer] Work Phone: [phone] QRS duration, electrocardiogram 106 ms Invalid Interpretation Code [employer] Work Phone: [phone] QT interval, electrocardiogram new path ms Invalid Interpretation Code [employer] Work Phone: [phone] T wave axis, electrocardiogram 23 deg Invalid Interpretation Code [employer] Work Phone: [phone] Clinical Lists Update: 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 02-14-2013 basophils as percent of blood leukocytes, manual count 0.5 % Invalid Interpretation Code [employer] Work Phone: [phone] eosinophils as percent of blood leukocytes, manual count 2.2 % Invalid Interpretation Code [employer] Work Phone: [phone] Erythrocytes (RBC) 5.35 10*6/uL Invalid Interpretation Code [employer] Work Phone: [phone] Hematocrit (HCT) 45.4 % Invalid Interpretation Code [employer] Work Phone: [phone] Hemoglobin (HGB) 15.8 g/dL Invalid Interpretation Code [employer] Work Phone: [phone] Lymphocytes/100 leukocytes 21.0 % Invalid Interpretation Code [employer] Work Phone: [phone] MCH 29.5 pg Invalid Interpretation Code [employer] Work Phone: [phone] MCV 84.9 fL Invalid Interpretation Code [employer] Work Phone: [phone] Monocytes/100 leukocytes 7.8 % Invalid Interpretation Code [employer] Work Phone: [phone] neutrophils, band form as percent of blood leukocytes, manual count 68.3 % Invalid Interpretation Code [employer] Work Phone: [phone] Platelets 243 10*3/mm3 Invalid Interpretation Code [employer] Work Phone: [phone] WBC (Leukocytes) 5.5 10*3/uL Invalid Interpretation Code [employer] Work Phone: [phone] Clinical Lists Update: 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 02-12-2013 Thyroid stimulating hormone (TSH) 1.26 u[iU]/mL Invalid Interpretation Code [facility] Work Phone: [phone] Clinical Lists Update: 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 11-27-2012 Albumin 3.8 g/dL Invalid Interpretation Code [facility] Work Phone: [phone] Alkaline phosphatase (ALP) 126 U/L Invalid Interpretation Code [facility] Work Phone: [phone] Aspartate aminotransferase (AST) 31 U/L Invalid Interpretation Code [facility] Work Phone: [phone] Bilirubin (direct) 0.11 mg/dL Invalid Interpretation Code [facility] Work Phone: [phone] Bilirubin (total) 0.40 mg/dL Invalid Interpretation Code [facility] Work Phone: [phone] Protein 6.7 g/dL Invalid Interpretation Code [facility] Work Phone: [phone] Vital Signs Date Time Vital Sign Value Performing Clinician Pepe zarate 11-09-2016 09:02-0500 BMI (Body Mass Index) 29.12 kg/m2 RACHAEL [facility] Work Phone: 11-09-2016 09:02-0500 BP Diastolic 70 mm[Hg] RACHAEL [facility] Work Phone: 11-09-2016 09:02-0500 BP Systolic 130 mm[Hg] RACHAEL [facility] Work Phone: 11-09-2016 09:02-0500 BSA (Body Surface Area) 2.1 m2 RACHAEL [facility] Work Phone: 11-09-2016 09:02-0500 Pulse (Heart Rate) 72 /min [facility] Work Phone: 11-09-2016 09:02-0500 Respiratory Rate 20 /min [facility] Work Phone: 11-09-2016 09:02-0500 Weight 92.08 kg RACHAEL [facility] Work Phone: 03-28-2013 10:05-0400 Height 177.8 cm More Wilkerson RN [facility] Work Phone: Procedures Date Procedure Procedure Detail Performing Clinician Start: 11-09-2016 End: 11-09-2016 ALICIA Moreira MD Start: 11-09-2016 End: 11-09-2016 Follow Up Appt 1 year Tacho Moreira MD Start: 12-01-2015 End: 12-03-2015 *RANJIT Moreira MD Start: 11-11-2015 End: 11-11-2015 *RANJIT Moreira MD Start: 11-05-2014 End: 11-05-2014 ALICIA Moreira MD Start: 11-05-2014 End: 11-06-2014 Documentation of current medications Tacho Moreira MD Start: 11-05-2014 End: 11-05-2014 Electrocardiogram, complete Tacho Sandhu i, MD Start: 11-05-2014 End: 11-05-2014 Follow Up Appt 1 year Tacho Moreira MD Start: 03-28-2013 End: 04-05-2013 Carotid duplex Tacho Moreira MD Start: 03-28-2013 End: 03-28-2013 ALICIA Moreira MD Start: 03-28-2013 End: 03-28-2013 Follow Up Appt Other Tacho Moreira MD Plan of Treatment Date Care Activity Detail Author Start: 11-10-2017 End: 11-10-2017 Appointment Appointment [facility] Work Phone: Start: 11-09-2016 End: 11-09-2016 ALIC[facility] Work Phone: Start: 11-09-2016 End: 11-09-2016 Follow Up Appt 1 year Follow Up Appt 1 year [facility] Work Phone: Start: 12-01-2015 End: 12-03-2015 *BMP *BMP [facility] Work Phone: Start: 11-11-2015 End: 11-11-2015 *BMP *BMP [facility] Work Phone: Start: 11-11-2015 End: 11-11-2015 CLERICAL ORDER FILLER CLERICAL ORDER FILLER [facility] Work Phone: Start: 11-11-2015 End: 11-11-2015 Follow Up Appt 1 year Follow Up Appt 1 year [facility] Work Phone: Start: 11-05-2014 End: 11-05-2014 CLERICAL ORDER FILLER CLERICAL ORDER FILLER [facility] Work Phone: Start: 11-05-2014 End: 11-05-2014 Electrocardiogram, complete EKG (In office) [facility] Work Phone: Start: 11-05-2014 End: 11-05-2014 Follow Up Appt 1 year Follow Up Appt 1 year [facility] Work Phone: Start: 03-28-2013 End: 03-28-2013 Carotid duplex Carotid duplex [facility] Work Phone: Start: 03-28-2013 End: 03-28-2013 CLERICAL ORDER FILLER CLERICAL ORDER FILLER [facility] Work Phone: Start: 03-28-2013 End: 03-28-2013 Follow Up Appt Other Follow Up Appt Other [facility] Work Phone: Summary Purpose Family History No Family History Records FoundNo Family History Records Found Advance Directives No Advanced Directives Records FoundNo Advanced Directives Records Found Procedure Findings Note HNO ID: [id number] Author: Nu Wakefield Service: Gastroenterology Author Type: Physician Type: Brief Op Note Filed: 06/11/2019 11:22 AM Note Text: BRIEF OPERATIVE NOTE PATIENT NAME: Mily Wright LOG ID: [id number] Surgery Date: 06/11/2019 Surgeon(s) and Optical Engineering Manager(s): Gino Wakefield MD -Primary Procedure(s): Procedure(s) (LRB): COLONOSCOPY (N/A) Anesthesia: Procedural Sedation Findings: Normal exam Estimated Blood Loss: 0 ml Specimens: None Preop Diagnosis: Family history of colon cancer [Z80.0] Postop Diagnosis: Family history of colon cancer [Z80.0] SIGNATURE: Gino Wakefield MD DATE: June 11, 2019 TIME: 11:21 AM Additional Source Comments (unrecognized sect ion and content) No Status Records FoundNo Status Records Found INFORMATION SOURCE (unrecogn ized section and content) DATE CREATED AUTHOR 06/11/2019 [facility] DATE CREATED AUTHOR AUTHOR'S ORGANIZ ATELENI 07/19/2019 [facility] ([place]) FOR RECORDS PERTAINING TO PATIENTS WHO ARE OR HAVE BEEN ENROLLED IN A CHEMICAL DEPENDENCY/SUBSTANCEABUSE PROGRAM, SOME INFORMATION MAY BE OMITTED. This clinical summary was aggregated from multiple sources. Caution should be exercised in using it in the provision of clinical care. This summary normalizes information from multiple sources, and as a consequence, information in this document may materially change the coding, format and clinical context of patient data. In addition, data may be omitted in some cases. CLINICAL DECISIONS SHOULD BE BASED ON THE PRIMARY CLINICAL RECORDS. [employer] [facility]. provides no warranty or guarantee of the accuracy or completeness of information in this document.
== END 2024-08-13 13:00 | disposition home or self-care (01) ==
PROVIDERS: PCP Family Medicine; Referring Provider Internal Medicine Cardiovascular Disease; Visit Provider Internal Medicine Cardiovascular Disease
DX: Z95.0 Presence of cardiac pacemaker (principal); G47.33 Obstructive sleep apnea (adult) (pediatric); I10 Essential (primary) hypertension; N40.0 Benign prostatic hyperplasia without lower urinary tract symptoms; E78.5 Hyperlipidemia, unspecified; Z79.82 Long term (current) use of aspirin; Z79.899 Other long term (current) drug therapy; Z86.718 Personal history of other venous thrombosis and embolism; Z87.891 Personal history of nicotine dependence
CPT/HCPCS: 33286; 99152

== ENCOUNTER → 2024-09-25 | Outpatient (CLI) | payer MEDICARE, SELFPAY ==
[2024-09-25 10:10] LABS: Absolute Lymphocyte Count 1.04 X10^3/uL (0.83-4.51); Absolute Neutrophil Count 2.9 X10^3/uL (2.0-7.7); Basophil# 0.06 X10^3/uL; Basophil% 1.3 % (0-1); Eosinophil# 0.21 X10^3/uL; Eosinophils% 4.5 % (0-5); Hematocrit 44.8 % (40-54); Hemoglobin 14.8 g/dL (13.0-16.5); Lymphocyte # 1.04 X10^3/ul (0.83-4.51); Lymphocyte % 22.3 % (19-41); Mean Corpuscular Hgb 28.5 pg (27.0-32.0); Mean Corpuscular Volume 86.2 fL (80-94); Mean Platelet Vol. 11.1 fl (6.2-12.0); Monocyte# 0.38 X10^3/uL; Monocyte% 8.2 % (0-10); NRBC Flagged by Analyzer 0 % (0-5); Neutrophil # 2.93 X10^3/uL (2.7-7.7); Neutrophil % 62.8 % (47-70); Platelet Count 225 K/mm3 (150-450); RBC Distribution Width CV 12.9 % (11.6-14.6); White Blood Count 4.7 K/mm3 (4.4-11.0)
[2024-09-25 10:30] LABS: Vitamin D,25 Hydroxy 37.5 ng/mL
[2024-09-25 10:55] LABS: ALB/GLOB Ratio 1.1 RATIO (0.9-2.4); AST(SGOT) 22 U/L (15-37); Alanine Aminotransfer ALT/SGPT 17 U/L (16-61); Albumin, Serum 3.3 g/dL (3.2-5.0); Alkaline Phosphatase 168 U/L (45-117); Anion Gap 6 (5-15); BUN 17 mg/dL (7-18); BUN/Creat Ratio 25.5 RATIO (10-20); Chloride 104 mmol/L (98-107); Cholesterol 195 mg/dL (200); Creatinine, Serum 0.67 mg/dL (0.70-1.30); EST Glomerular Filtration Rate 122 mL/min (>60); Est Glom Filt Rate - Afr Amer 148 mL/min (>60); Globulin 2.9 g/dL (2.2-4.2); Glucose 114 mg/dL (74-106); High Density Lipoprotein 89 mg/dL; Potassium 4.1 mmol/L (3.5-5.1); Protein, Total 6.2 g/dL (6.4-8.2); Sodium Level 136 mmol/L (136-145); Triglycerides 66 mg/dL; Very Low Density Lipoprotein 13 mg/dL (5-40)
[2024-09-25 11:48] LABS: Hemoglobin A1c 5.5 % (3.8-5.6)
== END | disposition home or self-care (01) ==
LOC: MFPLAB 08:28
PROVIDERS: PCP Family Medicine; Visit Provider Family Medicine
DX: Z00.00 Encounter for general adult medical examination without abnormal findings (principal)
CPT/HCPCS: 36415; 80053; 80061; 82306; 83036; 85025

== ENCOUNTER → 2024-09-26 | Outpatient (CLI) | payer MEDICARE, SELFPAY ==
--- NOTE | 2024-09-26 09:29 | VDLE_ITS ---
Reason For Study: RLE [place] RIGHT LEFT GSV is normal. FV is compressible, spontaneous, phasic, CFV is compressible, spontaneous, phasic, competent and demonstrates normal competent and demonstrates normal augmentation. augmentation. FV is compressible, spontaneous, phasic, competent and demonstrates normal augmentation. POP V is compressible, spontaneous, phasic, competent and demonstrates normal augmentation. T/P Trunk is compressible. PTV is compressible. RT PerV is compressible. Procedure This is a venous duplex using B-mode, color flow and spectral Doppler. Exam performed in department. The exam was diagnostic. A preliminary report was called and/or faxed to Dr. Nogueira office. VL/Venous Duplex US, Unilateral Interpretation Summary Deep veins of the right lower extremity are patent and compressible segmentally . There is no evidence of right lower extremity deep vein thrombosis. The right great sapheno us vein appears patent and compressible segmentally. Ordering Physician: Jose Nogueira Referring Physician: Jose Nogueira Performed By: William Cali RVT
--- NOTE | 2024-09-26 09:30 | RAD_ITS ---
HISTORY: pain. TECHNIQUE: XR Ankle Min 3 Views. COMPARISON: None. FINDINGS: BONES : Small linear lucency at the tip of the fibula. Plantar calcaneal spur with ossification of the plantar fascia. JOINTS: No dislocation. Mild degenerative change. Mild joint effusion. SOFT TISSUES: Moderate soft tissue swelling. RAD/Ankle min 3 Views IMPRESSION: Moderate soft tissue swelling of the right ankle with suspicion for nondisplaced fracture of the lateral malleolus. Electronically Signed: Dulce Maria Salazar MD at 8:15 EST ,
== END | disposition home or self-care (01) ==
LOC: CVS 09:25
PROVIDERS: PCP Family Medicine; Referring Provider Family Medicine; Visit Provider Family Medicine
DX: M79.89 Other specified soft tissue disorders (principal); M25.571 Pain in right ankle and joints of right foot
CPT/HCPCS: 73610; 93971

== ENCOUNTER → 2024-10-09 | Outpatient (CLI) | payer MEDICARE, SELFPAY ==
--- NOTE | 2024-10-09 12:53 | RAD_ITS ---
HISTORY: ANKLE PAIN. TECHNIQUE: XR Ankle Min 3 Views. COMPARISON: None. FINDINGS: BONES : No acute fracture identified. Plantar calcaneal spur with ossification of the plantar fascia. JOINTS: No dislocation. Mild degenerative change. SOFT TISSUES: Moderate soft tissue swelling. RAD/Ankle min 3 Views IMPRESSION: No acute fracture or dislocation identified in the right ankle. Soft tissue swelling. Electronically Signed: Dulce Maria Salazar MD at 13:49 EST ,
== END | disposition home or self-care (01) ==
LOC: MTRAD 12:38
PROVIDERS: PCP Family Medicine; Referring Provider Family Medicine; Visit Provider Family Medicine
DX: M25.571 Pain in right ankle and joints of right foot (principal)
CPT/HCPCS: 73610

== ENCOUNTER → 2024-10-23 | Outpatient (CLI) | payer MEDICARE, SELFPAY ==
[2024-10-23 15:42] LABS: ALB/GLOB Ratio 1.1 RATIO (0.9-2.4); AST(SGOT) 21 U/L (15-37); Alanine Aminotransfer ALT/SGPT 15 U/L (16-61); Albumin, Serum 3.4 g/dL (3.2-5.0); Alkaline Phosphatase 166 U/L (45-117); Anion Gap 5 (5-15); BUN 10 mg/dL (7-18); BUN/Creat Ratio 17.1 RATIO (10-20); Calcium,Total 8.8 mg/dL (8.5-10.1); Chloride 102 mmol/L (98-107); Creatinine, Serum 0.58 mg/dL (0.70-1.30); EST Glomerular Filtration Rate 142 mL/min (>60); Est Glom Filt Rate - Afr Amer 172 mL/min (>60); Glucose 96 mg/dL (74-106); Potassium 4.1 mmol/L (3.5-5.1); Protein, Total 6.4 g/dL (6.4-8.2); Sodium Level 134 mmol/L (136-145)
[2024-10-25 04:07] LABS: Prealbumin 25 mg/dL (9-32)
== END | disposition home or self-care (01) ==
LOC: MFPLAB 11:32
PROVIDERS: PCP Family Medicine; Referring Provider Family Medicine; Visit Provider Family Medicine
DX: E77.8 Other disorders of glycoprotein metabolism (principal)
CPT/HCPCS: 36415; 80053; 84134

== ENCOUNTER → 2024-11-21 | Outpatient (CLI) | payer MEDICARE, SELFPAY ==
[2024-11-21 12:36] LABS: Absolute Lymphocyte Count 1.07 X10^3/uL (0.83-4.51); Absolute Neutrophil Count 5.5 X10^3/uL (2.0-7.7); Basophil# 0.06 X10^3/uL; Basophil% 0.8 % (0-1); Eosinophil# 0.17 X10^3/uL; Eosinophils% 2.3 % (0-5); Hemoglobin 14.7 g/dL (13.0-16.5); Lymphocyte # 1.07 X10^3/ul (0.83-4.51); Lymphocyte % 14.6 % (19-41); Mean Corp Hgb Conc 32.7 g/dL (32-36); Mean Corpuscular Hgb 28.2 pg (27.0-32.0); Mean Corpuscular Volume 86.2 fL (80-94); Mean Platelet Vol. 11.1 fl (6.2-12.0); Monocyte# 0.47 X10^3/uL; Monocyte% 6.4 % (0-10); NRBC Flagged by Analyzer 0 % (0-5); Neutrophil # 5.51 X10^3/uL (2.7-7.7); Neutrophil % 75.4 % (47-70); Platelet Count 238 K/mm3 (150-450); RBC Distribution Width CV 12.9 % (11.6-14.6); RBC Distribution Width SD 40.2 fl (35.1-43.9); Red Blood Count 5.22 M/mm3 (4.6-6.2); White Blood Count 7.3 K/mm3 (4.4-11.0)
[2024-11-21 13:00] LABS: Vitamin D,25 Hydroxy 41.8 ng/mL
[2024-11-21 13:20] LABS: ALB/GLOB Ratio 1.2 RATIO (0.9-2.4); AST(SGOT) 26 U/L (15-37); Alanine Aminotransfer ALT/SGPT 15 U/L (16-61); Albumin, Serum 3.5 g/dL (3.2-5.0); Alkaline Phosphatase 138 U/L (45-117); Anion Gap 8 (5-15); BUN 11 mg/dL (7-18); BUN/Creat Ratio 15.9 RATIO (10-20); Calcium,Total 8.5 mg/dL (8.5-10.1); Chloride 101 mmol/L (98-107); Cholesterol 182 mg/dL (200); Creatinine, Serum 0.69 mg/dL (0.70-1.30); EST Glomerular Filtration Rate 117 mL/min (>60); Est Glom Filt Rate - Afr Amer 142 mL/min (>60); Globulin 2.9 g/dL (2.2-4.2); Glucose 91 mg/dL (74-106); High Density Lipoprotein 95 mg/dL; Magnesium 2.4 mg/dL (1.6-2.6); Potassium 4.3 mmol/L (3.5-5.1); Protein, Total 6.4 g/dL (6.4-8.2); Sodium Level 133 mmol/L (136-145); Thyroid Stim Hormone (TSH) 0.951 uIU/mL (0.358-3.740); Triglycerides 64 mg/dL; Very Low Density Lipoprotein 13 mg/dL (5-40)
[2024-11-21 13:51] LABS: Hemoglobin A1c 5.2 % (3.8-5.6)
== END | disposition home or self-care (01) ==
LOC: MFPLAB 10:08
PROVIDERS: PCP Family Medicine; Referring Provider Family Medicine; Visit Provider Family Medicine
DX: I10 Essential (primary) hypertension (principal); E78.5 Hyperlipidemia, unspecified; E55.9 Vitamin D deficiency, unspecified; R73.02 Impaired glucose tolerance (oral)
CPT/HCPCS: 36415; 80053; 80061; 82306; 83036; 83735; 84443; 85025

== ENCOUNTER → 2024-11-26 | Outpatient (CLI) | payer MEDICARE, SELFPAY ==
--- NOTE | 2024-11-26 11:04 | VDLE_ITS ---
Reason For Study: Pain RLE RIGHT LEFT GSV is normal. CFV is compressible, spontaneous, phasic, CFV is compressible, spontaneous, phasic, competent, and demonstrates normal competent and demonstrates normal augmentation. augmentation. FV is compressible, spontaneous, phasic, competent and demonstrates normal augmentation. POP V is compressible, spontaneous, phasic, competent and demonstrates normal augmentation. T/P Trunk is compressible. PTV is compressible. RT PerV is compressible. Procedure This is a venous duplex using B-mode, color flow and spectral Doppler. Exam performed in department. A preliminary report was called and/or faxed to Dr. Meneses. VL/Venous Duplex US, Unilateral Interpretation Summary Deep veins of the right lower extremity are patent and compressible segmentally . There is no evidence of right lower extremity deep vein thrombosis. Valvular competence yang ears intact within the proximal deep venous system on the right . The right great saphenous vein a ppears patent and compressible segmentally. The left common femoral vein is patent and compressib le . Ordering Physician: Pacheco Meneses Referring Physician: Jose Nogueira Performed By: Katie Navarrete, MARTÍN, RVT
== END | disposition home or self-care (01) ==
LOC: CVS 11:00
PROVIDERS: PCP Family Medicine; Referring Provider Podiatrist; Visit Provider Podiatrist
DX: M79.661 Pain in right lower leg (principal); M79.89 Other specified soft tissue disorders
CPT/HCPCS: 93971

== ENCOUNTER → 2024-12-28 | Outpatient (CLI) | payer MEDICARE, SELFPAY ==
[2024-12-31 14:08] LABS: Trileptal-Oxcarbazepine 16 ug/mL (10-35)
== END | disposition home or self-care (01) ==
LOC: MTLAB 07:42
PROVIDERS: PCP Family Medicine; Referring Provider Psychiatry & Neurology Neurology; Visit Provider Psychiatry & Neurology Neurology
DX: G62.9 Polyneuropathy, unspecified (principal)
CPT/HCPCS: 36415; 82542

== ENCOUNTER → 2025-01-03 | Outpatient (CLI) | payer MEDICARE, SELFPAY ==
[2025-01-03 11:41] LABS: PSA,Total- Diagnostic 0.41 ng/mL (0.00-4.00)
== END | disposition home or self-care (01) ==
LOC: LAB 10:11
PROVIDERS: PCP Family Medicine; Referring Provider Urology; Visit Provider Urology
DX: N40.1 Benign prostatic hyperplasia with lower urinary tract symptoms (principal)
CPT/HCPCS: 36415; 84153

== ENCOUNTER → 2025-01-04 | Outpatient (CLI) | payer MEDICARE, SELFPAY ==
--- NOTE | 2025-01-04 12:51 | VDLE_ITS ---
Reason For Study Reason For Study: Swelling RIGHT LEFT GSV is normal. CFV is compressible, spontaneous, phasic, competent, CFV is compressible, spontaneous, phasic, competent and demonstrates normal augmentation. and demonstrates normal augmentation. FV is compressible, spontaneous, phasic, competent and demonstrates normal augmentation. POP V is compressible, spontaneous, phasic, competent and demonstrates normal augmentation. T/P Trunk is compressible. PTV is compressible. RT PerV is compressible. SFJ is competent and measures 0.99 cm. GSV proximal thigh measures 0.38x0.45 cm. GSV at knee measures 0.40x0.53 cm. GSV INCOMPETENT throughout for greater than 0.5 seconds. SSV mid calf is competent and measures 0.38x0.43 cm. Procedure This is a venous duplex using B-mode, color flow and spectral Doppler. Exam performed in department. Patient was scanned in reverse Trendelenburg position during reflux assessment. VL/Venous Duplex US, Unilateral Interpretation Summary Deep veins of the right lower extremity are patent and compressible segmentally . There is no evidence of right lower extremity deep vein thrombosis. The right great saphenous vein appears patent a nd compressible segmentally. Positive for reflux in the right great saphenous vein throughout Ordering Physician: Ksenia Thomason Referring Physician: Jose Nogueira Performed By: Zully Clifford
== END | disposition home or self-care (01) ==
LOC: CVS 12:51
PROVIDERS: PCP Family Medicine; Referring Provider Physician Assistant; Visit Provider Physician Assistant
DX: R60.0 Localized edema (principal); I87.2 Venous insufficiency (chronic) (peripheral)
CPT/HCPCS: 93971

== ENCOUNTER → 2025-03-21 | Outpatient (CLI) | payer MEDICARE, SELFPAY ==
--- OUTSIDE RECORDS SUMMARY | 2025-03-21 07:39 | XMS RPT_ITS | CCD ---
Author Organization [facility] Care Team Providers Care Instant Print Operator Name Role Phone RACHAEL Wilkerson, Dr. Mily Hopkins Primary Care Provider 1([facility] )[phone] Dr. Tacho Moreira Attending Provider 1([facility])-[phone] Mily Nogueira Referring Provider 1([facility])[phone] Kwaku APARICIO, CHIEF WARDEN-C Michelle Attending Provider Patricia Moore Attending Provider Unavailable Dr. Mily Nogueira Primary Care Provider Dr. Mily Nogueira Referring Provider Dr. Tacho Moreira Attending Provider 1([facility])-[phone] Tacho Moreira Referring Provider 1([facility])-57 [phone] Kwaku APARICIO, MARKUS-C Michelle Attending Provider Dr. Mily Nogueira Primary Care Provider 1([facility] )[phone] Dr. Mily Nogueira Referring Provider 1([facility])[phone] Dr. Tacho Moreira Attending Provider 1([facility])[phone] Popeye Pagan Attending Provider Dr. Mily Nogueira Primary Care Provider Dr. Mily Nogueira Referring Provider Dr. Popeye Pagan Attending Provider [phone] Mily Nogueira Primary Care Provider Dr. Mily Nogueira Referring Provider 1([facility])[phone] Dr. Tacho Moreira Attending Provider [phone] Popeye Pagan Attending Provider Dr. Moises Bird Referring Provider Dr. Joseph Barker Referring Provider Margarette Toth Attending Provider Unavailable Dr. Mily Nogueira Primary Care Provider Dr. Popeye Pagan Attending Provider Dr. Moises Bird Referring Provider Dr. Joseph Barker Referring Provider Dr. Mily Nogueira Referring Provider Margarette Toth Attending Provider Unavailable Dr. Tacho Moreira Attending Provider [phone] Mily Nogueira Primary Care Provider Dr. Popeye Pagan Attending Provider Dr. Moises Bird Referring Provider Dr. Mily Nogueira Primary Care Provider Dr. Popeye Pagan Attending Provider Dr. Tacho Moreira Attending Provider [phone] Mily Nogueira Primary Care Provider Dr. Mily Nogueira Referring Provider Dr. Tacho Moreira Attending Provider [phone] Popeye Pagan Attending Provider Dr. Mily Nogueira Primary Care Provider Dr. Mily Nogueira Referring Provider Dr. Tacho Moreira Attending Provider [phone] Christian Payton Attending Provider [phone] Dr. Christian Payton Referring Provider [phone] Dr. Christian Payton Other Provider Dr. Cachorro Joy Attending Provider Dr. Mily Nogueira Primary Care Provider Dr. Tacho Moreira Attending Provider [phone] Christian Payton Referring Provider Dr. Christian Payton Other Provider Dr. Cachorro Joy Attending Provider Dr. Mily Nogueira Referring Provider 1([facility])[phone] Kwaku APARICIO, DEEPIKA Martinez Attending Provider Dr. Christian Payton Attending Provider Dr. Mily Nogueira Primary Care Provider Dr. Tacho Moreira Attending Provider 1([facility])-[phone] Mily Nogueira Primary Care Provider 1([facility] )[phone] Dr. Vitaly Ma Attending Provider 1([facility])-[phone] Mily Nogueira MD Primary Care Provider Dr. Christian Payton MD Attending Provider Dr. Christian Payton MD Referring Provider Dr. Mily Nogueira MD Attending Provider Dr. Mily Nogueira MD Referring Provider Dr. Vitaly Ma MD Attending Provider 1([facility])[phone] Dr. Pacheco Meneses DPM Attending Provider Zaira AMIN, Dr. Bergman Referring Provider Geneva THAKKAR, Dr. Neo Blanco Attending Provider Ksenia Joya Attending Provider [phone] Sabrina THAKKAR, Dr. Jori Sarah Attending Provider [phone] Sabrina THAKKAR, Dr. Jori Sarah Referring Provider Ksenia Joya Referring Provider 1([facility])-[phone] Mily Nogueira MD Primary Care Provider Tata THAKKAR, Dr. Gonzales Attending Provider Tata THAKKAR, Dr. Gonzales Referring Provider [phone] Harish THAKKAR, Dr. Titus Attending Provider Mirlande THAKKAR, Dr. Mily Wesley Primary Care Provider Tata THAKKAR, Dr. Gonzales Attending Provider Tata THAKKAR, Dr. Gonzales Referring Provider Mirlande THAKKAR, Dr. Mily Wesley Attending Provider [phone] Mirlande THAKKAR, Dr. Mily Wesley Referring Provider Francesca THAKKAR, Dr. Haider Attending Provider Mirlande THAKKAR, Mily Primary Care Provider Unavaila Vitaly Hoffman Attending Unavailable Schinner, Mily E Primary Care Unavailable Thomason, Ksenia Referring Unavailable Schinner, Mily E Primary Care Unavailable Harish, Tacho Referring Unavailable Nicolas Moreiral Attending Unavailable Christian Payton Attending Unavailable Christian Payton Referring Unavailable Schinner, Mily E Primary Care Unavailable Christian Payton Attending Unavailable Christian Payton Referring Unavailable Schinner, Mily E Primary Care Unavailable Christian Payton Attending Unavailable Christian Payton Referring Unavailable Schinner, Mily E Primary Care Unavailable Schinner, Mily E Primary Care Unavailable Schinner, Mily E Referring Unavailable Schinner, Mily E Attending Unavailable Schinner, Mily E Primary Care Unavailable ThomasonJesúsKsenia Attending Unavailable Katelin Ksenia Referring Unavailable Christian Payton Attending Unavailable Christian Payton Referring Unavailable Schinner, Mily E Primary Care Unavailable Schinner, Mily E Primary Care Unavailable SabrinaJori Referring Unavailable SabrinaJori Attending Unavailable Schinner, Mily E Referring Unavailable Schinner, Mily E Attending Unavailable Schinner, Mily E Primary Care Unavailable Schinner, Mily E Attending Unavailable Schinner, Mily E Referring Unavailable Schinner, Mily E Primary Care Unavailable Schinner, Mily E Primary Care Unavailable Schinner, Mily E Attending Unavailable Schinner, Mily E Referring Unavailable Schinner, Mily E Primary Care Unavailable Harish, [place] Attending Unavailable Harish, Tacho Referring Unavailable Schinner, Mily E Primary Care Unavailable Schinner, Mily E Attending Unavailable Schinner Mily E Primary Care Unavailable Jori Bennett Attending Unavailable Jori Bennett Referring Unavailable Schinner, Mily E Primary Care Unavailable Schinner Mily E Attending Unavailable Schinner Mily E Referring Unavailable Schinner, Mily E Primary Care Unavailable Pacheco Meneses Attending Unavailable Pacheco Meneses Referring Unavailable Christian Payton Attending Unavailable Tata Christian Referring Unavailable Schinner, Mily E Primary Care Unavailable Schinner, Mily E Primary Care Unavailable Harish Tacho Attending Unavailable Schinner Mily E Referring Unavailable Tata, Christian Referring Unavailable Christian Payton Attending Unavailable Mily Nogueira E Primary Care Unavailable Christian Payton Referring Unavailable Christian Payton Attending Unavailable SchMily flores E Primary Care Unavailable Christian Payton Attending Unavailable Mily Nogueira E Primary Care Unavailable Christian Payton Referring Unavailable SchMily flores E Attending Unavailable SchMily flores E Primary Care Unavailable SchinMily reilly E Primary Care Unavailable Harish Tacho Attending Unavailable SchinMily reilly E Primary Care Unavailable Schsandra Mily E Referring Unavailable Vitaly aM Attending Unavailable SchMily flores E Primary Care Unavailable Harish, Tacho Attending Unavailable Harish, Tacho Consulting Unavailable Vitaly Ma Attending Unavailable Mily Nogueira E Referring Unavailable SchMily flores E Primary Care Unavailable Michelle Ames NP Attending Unavailable Christian Payton Attending Unavailable Tata Christian Referring Unavailable SchinMily reilly E Primary Care Unavailable Mily Quiroz Primary Care Unavailable SchMily flores E Referring Unavailable Ksenia Thomason Attending Unavailable Christian Payton Attending Unavailable SchMily flores E Referring Unavailable Tata, Christian Referring Unavailable Christian Payton Attending Unavailable Mily Nogueira E Primary Care Unavailable Christian Payton Attending Unavailable Schintommie Mily E Referring Unavailable Schinner Mily E Primary Care Unavailable Schinner Mily E Primary Care Unavailable Harish [place] Attending Unavailable Christian Payton Attending Unavailable Tata Christian Referring Unavailable Schinner Mily E Primary Care Unavailable Ksenia Thomason Attending Unavailable Schinner, Mily E Primary Care Unavailable Schinner, Mily E Referring Unavailable Baddour, Christian Attending Unavailable Christian Payton Referring Unavailable Mily Nogueira Primary Care Unavailable Mily Nogueira Primary Care Unavailable Mily Nogueira Attending Unavailable Medications Current Medications Medication Drug Class(es) Dates Sig (Normalized) Sig (Original) aspirin 81 mg delayed release oral tablet (20 sources) Nonsteroidal Anti-inflammatory Drug Start: 10-20-2017 Aspirin (Adult Low Dose Aspirin) 81 mg tablet,delayed release (DR/EC) Active 81 mg PO DAILY October 20, 2017 1:00am Start: 12-11-2014 End: 12-13-2014 take 1 tablet by mouth twice daily at mealtime Aspirin 325 MG tablet Discontinued 325 mg PO TWICE DAILY WITH MEALS 60 December 11, 2014 1:00am December 13, 2014 3:23pm Start: 03-25-2013 take 1 tablet by dora th once daily ASPIRIN 81 MG TABS One tablet by mouth daily ASPIRIN [id number] Patricia Nguyen RN atorvastatin 20 mg oral tablet (20 sources) HMG-CoA Reductase Inhibitor Start: 09-07-2021 take 10 mg by mouth once daily Atorvastatin 20 mg tablet Active 10 mg PO DAILY September 07, 2021 4:08pm Start: 09-07-2021 take 10 mg by mouth once daily Atorvastatin Active 10 MG PO DAILY September 07, 2021 4:08pm Start: 08-24-2021 End: 09-07-2021 take 1 tablet by mouth once daily Atorvastatin 20 mg tablet Discontinued 20 mg PO DAILY August 24, 2021 1:00am September 07, 2021 4:08pm Start: 11-05-2014 take 1 tablet by dora th once daily at bedtime ATORVASTATIN CALCIUM 10 MG TABS One tablet by mouth daily at bedtime ATORVASTATIN CALCIUM [id number] Tacho Moreira MD cholecalciferol 0.05 mg oral capsule (20 sources) Vitamin D Start: 10-21-2020 take 1 capsule by mouth once daily Cholecalciferol (Vitamin D3) 50 mcg (2,000 unit) capsule Active 2000 U PO DAILY October 21, 2020 10:20am Start: 10-20-2017 End: 10-21-2020 take 1 capsule by mouth once Cholecalciferol (Vitamin D3) 2,000 unit capsule Discontinued 2000 U PO ONCE October 20, 2017 1:00am October 21, 2020 10:21am Start: 11-11-2015 take 1 tablet by dora once daily VITAMIN D 2000 UNIT TABS One tablet by mouth daily CHOLECALCIFEROL [id number] Tacho Moreira MD Magnesium (5 sources) Start: 12-12-2024 take 2 tablets by [facility] once daily Magnesium 200 mg tablet Active 400 mg PO daily December 12, 2024 1:00am Start: 12-12-2024 take 2 tablets by mo [facility] once daily Magnesium 200 mg tablet Discontinued 400 mg PO daily December 12, 2024 1:00am mirtazapine 15 mg oral tablet (20 sources) Start: 02-25-2022 take 1 tablet by mouth at bedtime Mirtazapine 15 mg tablet Active 15 mg PO AT BEDTIME February 25, 2022 12:00am Start: 08-24-2021 End: 02-25-2022 take 1 tablet by mouth at bedtime Mirtazapine 7.5 mg tablet Discontinued 7.5 mg PO AT BEDTIME August 24, 2021 1:00am February 25, 2022 9:27am rOPINIRole 0.5 mg oral tablet (15 sources) Nonergot Dopamine Agonist Start: 09-06-2024 End: 12-27-2024 take 1 tablet by mouth three times daily Ropinirole 0.5 mg tablet Active 0.5 mg PO THREE TIMES A DAY 270 December 27, 2024 12:09pm Start: 05-08-2024 End: 09-06-2024 take 1 tablet by mouth once daily, then take 1 tablet by mouth twice daily, then take 1 tablet by mouth three times daily Ropinirole 0.5 mg tablet Discontinued 0 .ROUTE .COMPLEX 90 May 08, 2024 12:00am September 06, 2024 10:52am Take 1 tablet orally daily for 1 week then 1 tablet twice daily for 1 week then 1 tablet 3 times per day thereafter Completed/Discontinued Medications Medication Drug Class(es) Dates Sig (Normalized) Sig (Original) acetaminophen 325 mg / HYDROcodone bitartrate 5 mg oral tablet (20 sources) Opioid Agonist Start: 01-14-2024 End: 01-10-2025 Hydrocodone-Acetami nophen 5-325 mg tablet Discontinued 1 {tbl} PO Q4H as needed for pain 10 January 14, 2024 January 10, 2025 10:31am Start: 01-14-2024 take 1 tablet by dora th every four hours Hydrocodone-Acetaminophen Active 1 TABLE T PO Q4H 10 January 14, 2024 Start: 01-13-2019 End: 01-16-2019 Hydrocodone-Acetaminophen 1 TABLET tablet Discontinued 1 {tbl} PO EVERY 6 HOURS NEEDED as needed for Pain 10 January 13, 2019 12:00am January 15, 2019 12:00am January 16, 2019 12:08am Start: 01-13-2019 End: 01-16-2019 take 1 tablet by mouth every six hours as needed Hydrocodone-Acetaminophen Discontinued 1 TABLET PO EVERY 6 HOURS NEEDED 10 January 13, 2019 12:00am January 16, 2019 12:08am acetaminophen 325 mg / oxyCODONE hydrochloride 5 mg oral tablet (20 sources) Opioid Agonist Start: 12-11-2014 End: 10-20-2017 Oxycodone-Acetaminophen 1 TABLET tablet Discontinued 2 {tbl} PO EVERY 4 HOURS NEEDED as needed for PAIN December 11, 2014 1:00am October 20, 2017 10:11pm Start: 12-11-2014 End: 10-20-2017 take 2 tablets by mouth every four hours as needed Oxycodone-Acetaminophen Discontinued 2 TABLET PO EVERY 4 HOURS NEEDED December 11, 2014 1:00am October 20, 2017 10:11pm amLODIPine 5 mg oral tablet (20 sources) Dihydropyridine Calcium Channel Mike Start: 02-07-2023 End: 02-08-2025 take 1 tablet by mouth once daily Amlodipine 5 mg tablet Discontinued 5 mg PO DAILY February 15, 2024 12:56pm February 08, 2025 9:07am Start: 08-25-2021 End: 07-07-2022 take 1 tablet by mouth once daily Amlodipine 5 mg tablet Discontinued 5 mg PO DAILY July 06, 2022 4:58pm July 07, 2022 4:12pm bethanechol chloride 50 mg oral tablet (2 sources) Cholinergic Muscarinic Agonist Start: 03-25-2013 End: 11-11-2015 take 1 tablet by mouth three times daily URECHOLINE 50 MG TABS One tablet by mouth three times daily BETHANECHOL CHLORIDE [id number] Tacho Moreira MD carbidopa 50 mg / levodopa 200 mg extended release oral tablet (20 sources) Aromatic Amino Acid Decarboxylation Inhibitor, Aromatic Amino Acid Start: 08-29-2023 End: 12-27-2024 Carbidopa-Levodopa 50-200 mg tablet extended release Discontinued 1 {tbl} PO TWICE A DAY 180 September 06, 2024 10:51am December 27, 2024 8:58am Start: 08-29-2023 End: 12-27-2023 take 1 tablet by mouth twice daily Carbidopa-Levodopa Active 1 TABLET PO TWICE A DAY 60 August 29, 2023 9:12pm Start: 08-24-2021 End: 11-20-2021 Carbidopa-Levodopa 25-100 mg tablet Discontinued 2 {tbl} PO TWICE A DAY August 24, 2021 1:00am November 20, 2021 11:58am Start: 08-24-2021 End: 08-29-2023 Carbidopa-Levodopa 50-200 mg tablet extended release Discontinued 1 {tbl} PO EVERY MORNING February 25, 2022 9:24am August 29, 2023 11:18am Start: 08-24-2021 End: 11-20-2021 take 2 tablets by mouth twice daily Carbidopa-Levodopa Discontinued 2 TABLET PO TWICE A DAY August 24, 2021 1:00am November 20, 2021 11:58am Start: 08-24-2021 End: 08-29-2023 take 1 tablet by mouth once daily in the morning Carbidopa-Levodopa Discontinued 1 TABLET PO EVERY MORNING February 25, 2022 8:24am August 29, 2023 10:18am Start: 10-23-2019 End: 12-27-2024 take 2 tablets by mouth at dinner, then take 3 tablets by mouth at lunch Carbidopa-Levodopa 25-100 mg tablet Discontinued 0 PO .COMPLEX 630 September 06, 2024 10:51am December 27, 2024 12:09pm Take 2 tabs at breakfast and dinner, 3 tabs at lunch. Start: 10-23-2019 End: 12-27-2023 take 2 tablets by mouth at dinner, then take 3 tablets by mouth at lunch Carbidopa-Levodopa Discontinued 0 PO .COMPLEX February 25, 2022 8:25am August 29, 2023 9:11pm Take 2 tabs at breakfast and dinner, 3 tabs at lunch. cephalexin 500 mg oral capsule (20 sources) Cephalosporin Antibacterial Start: 12-13-2014 End: 10-20-2017 take 1 capsule by mouth three times daily Cephalexin 500 MG capsule Discontinued 500 mg PO THREE TIMES A DAY 5 December 13, 2014 1:00am October 20, 2017 10:11pm clopidogrel 75 mg oral tablet (20 sources) [id number] Platelet Inhibitor Start: 08-25-2021 End: 11-20-2021 take 1 tablet by mouth once daily Clopidogrel 75 mg Tablet Discontinued 75 mg PO DAILY 30 August 25, 2021 1:00am November 20, 2021 12:06pm dorzolamide 20 mg/ml / timolol 5 mg/ml ophthalmic solution (20 sources) Carbonic Anhydrase Inhibitor, beta-Adrenergic Mike Start: 08-29-2023 End: 12-12-2024 Dorzolamide-Timolo l 22.3-6.8 mg/mL drops Discontinued 1 NMA OPHTHALMIC DAILY August 29, 2023 11:18am December 12, 2024 2:26pm Start: 08-29-2023 Dorzolamide-Ti molol Active 1 DRP OPHTHALMIC DAILY August 29, 2023 11:18am Start: 10-21-2020 End: 08-29-2023 Dorzolamide-Timolol 22.3-6.8 mg/mL drops Discontinued 1 NMA OPHTHALMIC TWICE A DAY October 21, 2020 1:00am August 29, 2023 11:18am Start: 10-21-2020 End: 08-29-2023 Dorzolamide-Timolol Disconti nued 1 DRP OPHTHALMIC TWICE A DAY October 21, 2020 1:00am August 29, 2023 11:18am doxycycline hyclate 20 mg oral tablet (20 sources) Tetracycline-class Drug Start: 10-21-2017 End: 10-24-2018 take 1 tablet by mouth twice daily Doxycycline Hyclate 20 MG tablet Discontinued 20 mg PO TWICE A DAY 180 90 October 21, 2017 1:00am October 24, 2018 11:26am gabapentin 100 mg oral capsule (20 sources) Anti-epileptic Agent Start: 02-02-2024 End: 05-08-2024 take 1 capsule by mouth twice daily, then take 2 capsules by mouth once daily Gabapentin 100 mg capsule Discontinued 100 mg PO .COMPLEX 120 February 02, 2024 4:17pm May 08, 2024 9:10am Take 1 capsule orally twice daily and 2 capsules nightly Start: 01-23-2024 End: 02-02-2024 take 2 capsules by mouth three times daily Gabapentin 100 mg capsule Discontinued 200 mg PO THREE TIMES A DAY 180 January 23, 2024 5:29pm February 02, 2024 4:18pm Start: 01-23-2024 End: 02-02-2024 take 200 mg by mouth three times daily Gabapentin Discontinued 200 MG PO THREE TIMES A DAY 180 January 23, 2024 5:29pm February 02, 2024 4:18pm Start: 12-27-2023 End: 01-23-2024 take 1 capsule by mouth three times daily Gabapentin 100 mg capsule Discontinued 100 mg PO THREE TIMES A DAY 90 December 27, 2023 12:00am January 23, 2024 5:30pm Start: 03-28-2013 End: 11-11-2015 take 1 tablet by mouth three times daily GABAPENTIN 100 MG CAPS One tablet by mouth three times daily GABAPENTIN [id number] Tacho Moreira MD hydroCHLOROthiazide 25 mg oral tablet (20 sources) Thiazide Diuretic Start: 10-23-2019 End: 02-25-2022 Hydrochlorothiazide 25 mg tablet Discontinued 0 .ROUTE .COMPLEX 90 December 01, 2020 12:30pm August 24, 2021 3:58pm TAKE 1 TABLET DAILY Start: 10-23-2019 End: 10-23-2019 take 1 tablet by mouth once daily Hydrochlorothiazide 12.5 mg tablet Discontinued 12.5 mg PO DAILY October 23, 2019 10:29am October 23, 2019 10:49am Start: 01-13-2019 End: 10-23-2019 Hydrochlorothiazide 25 MG ta blet Discontinued 12.5 mg PO daily January 13, 2019 11:39am October 23, 2019 10:28am Start: 01-13-2019 End: 10-23-2019 take 12.5 mg by mouth once daily Hydrochlorothiazide Discontinued 12.5 MG PO daily January 13, 2019 11:39am October 23, 2019 10:28am Start: 10-13-2017 End: 01-13-2019 take 1 tablet by mouth once daily Hydrochlorothiazide 25 mg tablet Discontinued 25 mg PO daily October 13, 2017 4:56pm January 13, 2019 11:39am Start: 10-07-2017 End: 10-13-2017 take 1 capsule by mouth once daily Hydrochlorothiazide 12.5 mg capsule Discontinued 12.5 mg PO daily October 07, 2017 1:00am October 13, 2017 4:39pm Start: 11-09-2016 take 1 tablet by dora th once daily HYDROCHLOROTHIAZIDE 12.5 MG TABS One tablet by mouth daily HYDROCHLOROTHIAZIDE [id number] Mily Navarrete CHIEF WARDEN lisinopril 40 mg oral tablet (20 sources) Angiotensin Converting Enzyme Inhibitor Start: 05-23-2023 End: 10-12-2024 Lisinopril 40 mg tablet Discontinued 0 .ROUTE .COMPLEX October 31, 2023 3:46pm November 24, 2023 11:09am TAKE 1 TABLET DAILY Start: 05-26-2022 End: 05-23-2023 Lisinopril 40 mg tablet Disc ontinued 0 .ROUTE .COMPLEX May 26, 2022 8:09am May 23, 2023 9:28am TAKE 1 TABLET DAILY Start: 05-26-2022 End: 05-23-2023 Lisinopril Discontinued 0 .R OUTE .COMPLEX May 26, 2022 7:09am May 23, 2023 8:28am TAKE 1 TABLET DAILY Start: 05-26-2022 End: 05-23-2023 Lisinopril Discontinued 0 .R OUTE .COMPLEX May 26, 2022 8:09am May 23, 2023 9:28am TAKE 1 TABLET DAILY Start: 05-26-2022 Lisinopril Act piyush 0 .ROUTE .COMPLEX May 26, 2022 7:09am TAKE 1 TABLET DAILY Start: 05-26-2022 Lisinopril Act piyush 0 .ROUTE .COMPLEX May 26, 2022 8:09am TAKE 1 TABLET DAILY Start: 10-21-2017 End: 05-26-2022 take 1 tablet by mouth once daily Lisinopril 40 mg tablet Discontinued 40 mg PO daily March 02, 2021 1:58pm August 24, 2021 4:48pm Start: 11-11-2015 End: 10-21-2017 take 1 tablet by mouth once daily Lisinopril 20 mg tablet Discontinued 20 mg PO daily October 07, 2017 1:00am October 21, 2017 11:26am Start: 11-05-2014 End: 10-07-2017 take 1 tablet by mouth once daily Lisinopril 10 MG tablet Discontinued 10 mg PO DAILY November 27, 2014 1:00am October 07, 2017 3:47pm loratadine 10 mg oral tablet (1 source) Start: 03-25-2013 take 1 tablet by mouth once daily CLARITIN 10 MG CAPS One tablet by mouth daily LORATADINE [id number] Patricia Nguyen RN LORazepam 0.5 mg oral tablet (20 sources) Benzodiazepine Start: 12-11-2014 End: 10-20-2017 take 1 tablet by mouth every eight hours as needed for anxiety Lorazepam 0.5 MG tablet Discontinued 0.5 mg PO EVERY 8 HOURS NEEDED as needed for ANXIETY December 11, 2014 1:00am October 20, 2017 10:11pm meloxicam 15 mg oral tablet (20 sources) Nonsteroidal Anti-inflammatory Drug Start: 11-05-2014 End: 10-21-2017 take 1 tablet by mouth once daily Meloxicam 15 mg tablet Discontinued 15 mg PO daily October 20, 2017 1:00am October 21, 2017 11:07am 24 hr metoprolol succinate 50 mg extended release oral tablet (20 sources) beta-Adrenergic Mike Start: 10-21-2017 End: 10-21-2017 Metoprolol Succinate 50 MG tablet Discontinued 75 mg PO DAILY October 21, 2017 11:08am October 21, 2017 11:26am Start: 10-21-2017 End: 10-21-2017 take 75 mg by mouth once daily Metoprolol Succinate Di scontinued 75 MG PO DAILY October 21, 2017 11:08am October 21, 2017 11:26am Start: 11-15-2013 End: 07-20-2024 take 1 tablet by mouth once daily Metoprolol Succinate (Toprol Xl) 50 mg tablet extended release 24 hr Discontinued 50 mg PO DAILY June 21, 2023 10:56am July 20, 2024 8:00am Start: 03-25-2013 TOPROL XL 50 M G [id number] 1 and 1/2 tablet by mouth daily METOPROLOL SUCCINATE [id number] Tacho Moreira MD Start: 03-25-2013 take 1 tablet by dora th once daily TOPROL XL 50 MG [id number] (ER) One tablet by mouth daily METOPROLOL SUCCINATE [id number] Tacho Moreira MD OXcarbazepine 300 mg oral tablet (20 sources) Anti-epileptic Agent Start: 08-29-2023 End: 12-27-2024 Oxcarbazepine 300 mg tablet Discontinued 450 mg PO TWICE A DAY September 06, 2024 10:51am December 27, 2024 12:09pm Start: 08-29-2023 End: 12-27-2023 take 450 mg by mouth twice daily Oxcarbazepine Active 450 MG PO TWICE A DAY December 27, 2023 9:05am Start: 08-29-2023 End: 08-29-2023 take 1 tablet by mouth twice daily Oxcarbazepine 300 mg tablet Discontinued 300 mg PO TWICE A DAY August 29, 2023 11:16am August 29, 2023 10:13pm Start: 11-25-2022 End: 08-29-2023 take 1 tablet by mouth three times daily Oxcarbazepine 300 mg tablet Discontinued 300 mg PO THREE TIMES A DAY November 25, 2022 11:36am August 29, 2023 11:18am Start: 10-21-2020 End: 11-25-2022 Oxcarbazepine 300 mg tablet Discontinued 450 mg PO TWICE A DAY October 21, 2020 1:00am November 25, 2022 11:37am Start: 10-21-2020 End: 11-25-2022 take 450 mg by mouth twice daily Oxcarbazepine Discontinued 450 MG PO TWICE A DAY October 21, 2020 1:00am November 25, 2022 11:37am Start: 11-05-2014 take 1 tablet by dora th three times daily TRILEPTAL 300 MG TABS One tablet by mouth three times daily for neuropathy OXCARBAZEPINE [id number] Tacho Moreira MD Start: 03-25-2013 take 1 tablet by dora th once daily TRILEPTAL 150 MG TABS One tablet by mouth daily OXCARBAZEPINE [id number] Patricia Nguyen RN rivaroxaban 15 mg oral tablet (20 sources) Factor Xa Inhibitor Start: 12-13-2014 End: 10-20-2017 Rivaroxaban 15 MG tablet Discontinued 15 mg PO TWICE A DAY December 13, 2014 1:00am October 20, 2017 10:11pm 15 mg po bid x 14 days then 20 mg po daily x 3 months total; dispense 1 month supply 2 refills sildenafil 20 mg oral tablet (20 sources) Phosphodiesterase 5 Inhibitor Start: 11-11-2015 End: 10-23-2019 take 1 tablet by mouth once daily Sildenafil (Pulm.Hypertensio n) 20 mg tablet Discontinued 20 mg PO daily October 20, 2017 1:00am October 23, 2019 10:28am Problems Active Problems Problem Classification Problem Date Documented Da te Episodic/Chronic Acute cerebrovascular disease (20 sources) Cerebral infarction, unspecified; Translations: [Stroke of unknown etiology] Chronic Blindness and vision defects (20 sources) Visual disturbance; Translations: [Unspecified visual disturbance] 09-02-2021 Episodic Cardiac dysrhythmias (20 sources) Ventricular tachycardia; Translations: [Cardiac arrhythmia] Onset: 03-25-2013 03-25-2013 Chronic Conduction disorders (6 sources) Patient encounter status; Translations: [Encounter for adjustment and management of other cardiac device] Onset: 08-31-2024 07-26-2024 Chronic Disorders of lipid metabolism (20 sources) Hyperlipidemia; Translations: [Hyperlipidemia, unspecified] Onset: 11-11-2015 11-11-2015 Chronic E Codes: Fall (10 sources) Fall; Translations: [Unspecified fall, initial encounter] 01-14-2024 Episodic Essential hypertension (20 sources) Hypertensive disorder; Translations: [Essential hypertension] Onset: 11-11-2015 11-11-2015 Chronic Hyperplasia of prostate (1 source) Benign prostatic hyperplasia with lower urinary tract symptoms; Translations: [Benign prostatic hyperplasia with lower urinary tract symptoms] Onset: 01-11-2025 Chronic Malaise and fatigue (18 sources) Fatigue; Translations: [Other fatigue] Onset: 02-28-2025 09-10-2024 Episodic Occlusion or stenosis of precerebral arteries (1 source) Occlusion and stenosis of bilateral carotid arteries; Translations: [Occlusion and stenosis of bilateral carotid arteries] Onset: 07-16-2024 Chronic Other circulatory disease (1 source) Disorder of carotid artery; Translations: [Occlusion and stenosis of unspecified carotid artery] Onset: 03-28-2013 03-28-2013 Chronic Other connective tissue disease (1 source) Pain in right lower leg; Translations: [Pain in right lower leg] Onset: 12-12-2024 Episodic Other diseases of veins and lymphatics (10 sources) Peripheral venous insufficiency; Translations: [Venous insufficiency (chronic) (peripheral)] 12-12-2024 Episodic Other fractures (10 sources) Fracture of multiple ribs ; Translations: [Multiple fractures of ribs, unspecified side, initial encounter for closed fracture] 01-14-2024 Episodic Other gastrointestinal disorders (20 sources) Swollen abdomen; Translations: [Abdominal distension (gaseous)] 01-13-2019 Episodic Other nervous system disorders (19 sources) Polyneuropathy; Translations: [Polyneuropathy, unspecified] 08-29-2023 Chronic Other nervous system disorders (10 sources) Polyneuropathy, unspecified; Translations: [Unspecified hereditary and idiopathic peripheral neuropathy] Onset: 01-29-2025 08-29-2023 Chronic Other nervous system disorders (20 sources) Post-surgery back pain; Translations: [Other acute postprocedural pain] 10-09-2022 Episodic Other nervous system disorders (19 sources) Abnormal gait; Translations: [Unspecified abnormalities of gait and mobility] 08-29-2023 Episodic Other nervous system disorders (19 sources) History of amaurosis fugax; Translations: [Personal history of other diseases of the nervous system and sense organs] 08-29-2023 Episodic Other nervous system disorders (10 sources) Unspecified abnormalities of gait and mobility; Translations: [Abnormality of gait] Onset: 01-29-2025 08-29-2023 Episodic Other nervous system disorders (10 sources) Personal history of other diseases of the nervous system and sense organs; Translations: [Personal history of other disorders of nervous system and sense organs] Onset: 01-29-2025 08-29-2023 Episodic Other non-traumatic joint disorders (20 sources) Effusion of joint of left knee; Translations: [Effusion, left knee] 01-14-2019 Episodic Other non-traumatic joint disorders (20 sources) Pain in left knee; Translations: [Pain, joint, knee, left] 01-14-2019 Episodic Other nutritional; endocrine; and metabolic disorders (1 source) Other disorders of glycoprotein metabolism; Translations: [Other disorders of glycoprotein metabolism] Onset: 11-13-2024 Chronic Parkinson`s disease (20 sources) Parkinson's disease; Translations: [Parkinson's disease] 10-01-2022 Chronic Parkinson`s disease (1 source) Parkinson`s disease; Translations: [Parkinson's disease without dyskinesia, without mention of fluctuations] Onset: 01-29-2025 Phlebitis; thrombophlebitis and thromboembolism (20 sources) Deep venous thrombosis of lower extremity; Translations: [Acute embolism and thrombosis of unspecified deep veins of left lower extremity] 10-03-2022 Episodic Residual codes; unclassified (10 sources) Edema of right lower limb; Translations: [Localized edema] 12-12-2024 Episodic Residual codes; unclassified (1 source) Localized edema; Translations: [Localized edema] Onset: 01-11-2025 Episodic Skin and subcutaneous tissue infections (20 sources) Cellulitis; Translations: [Cellulitis, unspecified] 01-13-2019 Episodic Comment on above: L knee Transient cerebral ischemia (20 sources) Amaurosis fugax of left eye; Translations: [Amaurosis fugax] Chronic Unclassified (1 source) Preoperative cardiovascular examination ; Translations: [Encounter for preprocedural cardiovascular examination] Onset: 11-05-2014 11-05-2014 Past or Other Problems Problem Classification Problem Date Documented Date Episodic/Chronic Nonspecific chest pain (1 source) Precordial pain; Translations: [Precordial pain] Onset: 03-25-2013 03-25-2013 Episodic Other connective tissue disease (1 source) Other specified soft tissue disorders; Translations: [Other specified soft tissue disorders] Onset: 10-27-2024 Episodic Other liver diseases (1 source) Abnormal levels of other serum enzymes; Translations: [Abnormal levels of other serum enzymes] Onset: 08-16-2024 Episodic Other non-traumatic joint disorders (1 source) Pain in right ankle and joints of right foot; Translations: [Pain in right ankle and joints of right foot] Onset: 11-01-2024 Episodic Other nutritional; endocrine; and metabolic disorders (1 source) Body mass index (BMI) 29.0-29.9, adult; Translations: [Body mass index (BMI) 29.0-29.9, adult] Onset: 11-05-2014 11-05-2014 Episodic Other screening for suspected conditions (not mental disorders or infectious disease) (1 source) Encounter for screening for malignant neoplasm of prostate; Translations: [Encounter for screening for malignant neoplasm of prostate] Onset: 09-06-2024 Episodic Residual codes; unclassified (20 sources) Other specified postprocedural states; Translations: [Personal history of surgery to other organs] Onset: 09-16-2021 Episodic Spondylosis; intervertebral disc disorders; other back problems (20 sources) Lumbar radiculopathy; Translations: [Radiculopathy, lumbar region] Onset: 07-16-2024 08-29-2023 Episodic Results Test Name Value Interpretation Reference Range Facility MR/BMS.Aram 02-28-2025 [facility] [address] [place] [address] OFFICE VISIT Date of Service: 02/28/25 MR#: [id number] Acct: [id number] Name: MILY BOLANOS Rep #: [id number] : 1945 Provider: GERA Mcduffie Age/Sex: 79/M Location: [facility] Status: Signed Intake Vital Signs 11/19/24 10:25 01/10/25 10:24 02/28/25 10:42 Height 5 ft 10 in 5 ft 10 in Weight: 200 lb BP 139/82 H Blood Pressure Location Lt brachial Position Sitting Respiration 16 Pulse 66 Pulse Source Monitor Temp 98.4 F Temp Source Temporal Pulse Oximetry (%) 98 Oxygen Delivery Method room air Intake Visit Reasons: 2-3 M FU Chief Complaint: Is patient in pain?: No Allergies No Known Allergies Allergy (Verified 02/28/25 10:44) Medications ???Medication ???Instructions ???Recorded ???Confirmed ???Type aspirin 81 mg tablet,delayed 81 mg PO DAILY 10/20/17 02/28/25 H istory release (Adult Low Dose Aspirin) cholecalciferol (vitamin D3) 50 2,000 unit PO DAILY 10/21/2002/28 History mcg (2,000 unit) capsule atorvastatin 20 mg tablet 10 mg PO DAILY cholesterol 1 02/28/25 History mirtazapine 15 mg tablet 15 mg PO QHS 02/25/22 02/28/25 His tory metoprolol succinate 50 mg 50 mg PO DAILY #90 TABLETS 4 02/28/25 Rx tablet,extended release 24 hr lisinopril 40 mg tablet 40 mg PO DAILY #90 TABLETS 4 02/28/25 Rx magnesium 200 mg tablet 400 mg PO QDAY 12/12/24 02/28/25 H istory carbidopa 25 mg-levodopa 100 mg See Rx Instructions PO .COMPLEX 02/28/25 Rx tablet #630 tabs oxcarbazepine 300 mg tablet 450 mg (1.5 x 300 mg) PO BID #270 12/27/24 02/28/25 Rx tabs ropinirole 0.5 mg tablet 0.5 mg PO TID #270 tabs 12/27/24 0 02/28/25 Rx amlodipine 5 mg tablet 5 mg PO DAILY #30 tabs 02/08/25 Rx Have you fallen in the past year?: [facility] Hx of fracture of rib ( 01/2024) DVT (deep venous thrombosis) ( 09/2022) Bladder retention Spinal stenosis (09/2022) Cryptogenic stroke Arrhythmia Amaurosis fugax of left eye Obstructive sleep apnea Parkinson disease Essential (primary) hypertension Osteoarthritis Carotid artery disease Glaucoma BPH (benign prostatic hyperplasia) Hyperlipidemia Ventricular tachycardia Ventricular tachyarrhythmia Peripheral neuropathy Benign prostate hyperplasia Surgical History History of spinal surgery ( 09/2022) History of loop recorder (09/16/21) History of total knee replacement History of left heart catheterization (02/15/13) Family History Other Cancer Colon cancer Heart disease Hypertension Social History Smoking Status: Former smoker how long ago did patient quit smokin years ago alcohol intake: current alcohol intake frequency: 0-2 drinks per day Alcohol type: beer substance use type: does not use caffeine: Yes Type: coffee Number of servings: 1 HPI HPI HPI: MILY CICI, is a 79 M who presents to the office today for follow-up of RLE edema after venous reflux study and trial of conservative management. He did obtain the measured compression stockings as ordered, reports they feel pretty tight and they are challenging to get one so admittedly he does not wear them every day. He feels his RLE edema is stable. He notes some associated fatigue/heaviness but otherwise largely asymptomatic at this time. He is without wounds or significant chronic skin changes. He continues to adhere to a strict exercise regimen and leg elevation at rest. Venous reflux study demonstrated R GSV reflux, no other abnormalities. ROS General General: Yes weight change; No appetite, fatigue, colon cancer, breast cancer or weakness HEENT HEENT: No difficulty swallowing, eye injury, eye surgery, swollen glands or hoarseness Additional Details: blood clot in eye Endo Endocrine: No thyroid disease, diabetes mellitus, thyroid cancer, Hair loss, heat intolerance or cold intolerance Skin Skin: No rash or changing moles Musc Musculoskeletal: Yes back problems, arthritis, rheumatoid arthritis and joint pain; No gout Cardio Cardiovascular: Yes atrial fibrillation and high blood pressure; No murmur, pacemaker, heart disease, heart attack, heart stent, palpitations, shortness of breath with exertion or chest pain Psych Psychiatric: No depression, anxiety or hearing voices Resp Respiratory: No shortness of breath, Yes sleep apnea, No cough, No COPD, Yes asthma, No emphysema and No wheezing Gastro Gastrointestinal: No abdominal pain, No nausea or vomiting, No diarrhea, (more content not included)... Normal [facility] Office Visit Reporton 2024 Office Visit Report [facility] [address] [place] [address] OFFICE VISIT Date of Service: 02/28/25 MR#: [id number] Acct: [id number] Patient: MILY BOLANOS Rep #: [id number] : 1945 Provider: Dr. Christian storm MD Age/Sex: 79/M Location: [facility]. Status: Signed Intake Vital Signs 01/10/25 10:24 02/28/25 09:33 Height 5 ft 10 in Weight: 199 lb 10 oz BP 136/81 H Blood Pressure Location Lt brachial Position Sitting Respiration 17 Pulse 65 Pulse Source Monitor Temp 98.2 F Temp Source Temporal Pulse Oximetry (%) 97 Oxygen Delivery Method room air Intake Visit Reasons: B12 inject Chief Complaint: Allergies No Known Allergies Allergy (Verified 02/28/25 10:44) Have you fallen in the past year?: Yes Office Meds cyanocobalamin (vitamin B-12) 1,000 mcg/mL injection solution Performing Provider: Christian Payton MD Performing Location: [facility] Administered by: Mariluz rAchuleta on 02/28/25 09:07 Dose Route Admin Location Dispensed Lot Number Expiration Date [facility] Man ufacturer 1,000 mcg IM left deltoid 1 mL [id number] 01/14/27 33909-280-28 VITRUVVAMSHI White JOHNATHONFrancis Comments: The patient presents for B12 injection for treatment of fatigue. He has fatigue. His last B12 injection was of benefit for fatigue. The patient is awake and alert. B12 1000mcg IM was administered today. There were no complications. Assessment and Plan Assessment and Plan (1) Fatigue: Orders: Orders Vitamin B12 Today R53.83 - Other fatigue Clinical Quality Measures Falls Risk Screening/Assistive Devices Have you fallen in the past year?: Yes 02/28/25 1553 Date [facility] Signature: Date (if applicable) CC: Normal [facility] Office Visit Reporton 2024 Office Visit Report [facility] [address] [place] [address] OFFICE VISIT Date of Service: 01/28/25 MR#: [id number] Acct: [id number] Patient: MILY BOLANOS Rep #: [id number] : 1945 Provider: Dr. Christian storm MD Age/Sex: 79/M Location: [facility] Status: Signed Intake Vital Signs 11/19/24 10:25 01/10/25 10:24 01/28/25 09:45 Height 5 ft 10 in 5 ft 10 in Weight: 199 lb 199 lb 10 oz BMI 28.5 BP 132/82 H 148/84 H Blood Pressure Location Lt brachial Lt brachial Position Sitting Sitting Respiration 16 17 Pulse 77 Pulse Source Monitor Monitor Temp 98.3 F Temp Source Temporal Pulse Oximetry (%) 97 Oxygen Delivery Method room air Intake Visit Reasons: B12 inject Chief Complaint: Allergies No Known Allergies Allergy (Verified 01/10/25 10:29) Have you fallen in the past year?: Yes Office Meds cyanocobalamin (vitamin B-12) 1,000 mcg/mL injection solution Performing Provider: Christian Payton MD Performing Location: [facility] Administered by: Mariluz Archuleta on 01/28/25 09:36 Dose Route Admin Location Dispensed Lot Number Expiration Date [facility] Man ufacturer 1,000 mcg IM right deltoid 1 mL [id number] 01/14/27 44206-246-44 VITRUVI THERA Comments: The patient presents for B12 injection for treatment of fatigue. He has fatigue. His last B12 injection was of benefit for fatigue. The patient is awake and alert. B12 1000mcg IM was administered today. There were no complications. Assessment and Plan Assessment and Plan (1) Fatigue: Orders: Orders Vitamin B12 Today R53.83 - Other fatigue Clinical Quality Measures Falls Risk Screening/Assistive Devices Have you fallen in the past year?: Yes 01/28/25 1733 Date Christian Payton MD Cosigner Signature: Date (if applicable) CC: Normal [facility] Cardiology Visit Reporton Cardiology Visit Report [facility] [address] [place] [address] OFFICE VISIT Date of Service: 01/10/25 MR#: [id number] Acct: [id number] Name: MILY BOLANOS Rep #: [id number] : 1945 Provider: Dr. Tacho Moreira MD Age/Sex: 79/M Location: [facility] Status: Signed HPI HPI History of Present Illness Details: This is a 79-year-old gentleman who presents here today for a cardiovascular follow up visit. Patient was admitted to [facility] on 08/24/2021 for amaurosis fugax. MRI and MRA were negative. He underwent a loop recorder placement on 09/16/21 for amaurosis fugax. He has a history of cryptogenic stroke, hypertension and hyperlipidemia. He had a retinal artery occlusion in 2019. He complained recently of some right leg discomfort but a venous ultrasound was done which did not demonstrate any significant abnormalities. He tells me that he has been diagnosed recently with Parkinson's disease. From a cardiac standpoint, the patient is doing well. He denies any palpitations, chest pain, pressure or heaviness. He denies SOB, Orthopnea, and PND. He does not have bleeding issues; no blood in urine, stool or nosebleeds. He denies any decrease in energy level, myalgias, or claudication. He does not have edema, or sudden weight gain. He denies dizziness, lightheadedness, syncopal or near syncopal episodes, and headaches. He continues to stay very [facility] Intake Vital Signs 11/24/23 09:59 12/27/24 08:28 01/10/25 10:24 Height 5 ft 10 in 5 ft 10 in 5 ft 10 in Weight: 199 lb BMI 28.5 BP 132/82 H Blood Pressure Location Lt brachial Position Sitting Respiration 16 Pulse Source Monitor Intake Visit Reasons: 1 Y FU [employer] Required: No Accompanied by: Self Is patient in pain?: No Allergies No Known Allergies Allergy (Verified 01/10/25 10:29) Medications ???Medication ???Instructions ???Recorded ???Confirmed ???Type aspirin 81 mg tablet,delayed 81 mg PO DAILY 10/20/17 01/10/25 H istory release (Adult Low Dose Aspirin) cholecalciferol (vitamin D3) 50 2,000 unit PO DAILY 10/21/2001/10 History mcg (2,000 unit) capsule atorvastatin 20 mg tablet 10 mg PO DAILY cholesterol 1 01/10/25 History mirtazapine 15 mg tablet 15 mg PO QHS 02/25/22 01/10/25 His tory amlodipine 5 mg tablet 5 mg PO DAILY #30 tabs 02/15/24 Rx metoprolol succinate 50 mg 50 mg PO DAILY #90 TABLETS 4 01/10/25 Rx tablet,extended release 24 hr lisinopril 40 mg tablet 40 mg PO DAILY #90 TABLETS 4 01/10/25 Rx magnesium 200 mg tablet 400 mg PO QDAY 12/12/24 01/10/25 H istory carbidopa 25 mg-levodopa 100 mg See Rx Instructions PO .COMPLEX 01/10/25 Rx tablet #630 tabs oxcarbazepine 300 mg tablet 450 mg (1.5 x 300 mg) PO BID #270 12/27/24 01/10/25 Rx tabs ropinirole 0.5 mg tablet 0.5 mg PO TID #270 tabs 12/27/24 0 01/10/25 Rx Have you fallen in the past year?: Yes [facility] Medical History Hx of fracture of rib ( 01/2024) DVT (deep venous thrombosis) ( 09/2022) Bladder retention Spinal stenosis (09/2022) Cryptogenic stroke Arrhythmia Amaurosis fugax of left eye Obstructive sleep apnea Parkinson disease Essential (primary) hypertension Osteoarthritis Carotid artery disease Glaucoma BPH (benign prostatic hyperplasia) Hyperlipidemia Ventricular tachycardia Ventricular tachyarrhythmia Peripheral neuropathy Benign prostate hyperplasia Surgical History History of spinal surgery ( 09/2022) History of loop recorder (09/16/21) History of total knee replacement History of left heart catheterization (02/15/13) Family History Other Cancer Colon cancer Heart disease Hypertension Social History Smoking Status: Former smoker how long ago did patient quit smokin years ago alcohol intake: current alcohol intake frequency: 0-2 drinks per day Alcohol type: beer substance use type: does not use caffeine: Yes Type: coffee Number of servings: 1 ROS Const Const: Negative for fatigue, weakness, headache(s), daytime sleepiness or difficulty sleeping ENT ENT: Negative for headache(s), dizziness or Nosebleed/epistaxis Cardio Chest Pain: No Palpitations: No Edema: Right (recently had a venous doppler) Resp Respiratory: Negative for SOB with activity, SOB at rest, SOB orthopnea SOB lying down or Cough GI GI: Negative nausea, vomiting or heartburn Neuro Neuro: Negative for dizziness, lightheadedness, near syncope, headache(s) or weakness Endo Endo: Negative for fatigue Cardiology Exa (more content not included)... Normal [facility] Venous duplex ultrasound rep ortOrdered By: Vitaly Ma on 01-07-2025 US Vein [facility] [address] [place] [address] Venous Duplex US, Unilateral 01/04/25 1252 MR#: [id number] Acct: [id number] Name: MILY BOLANOS Rep #:[id number] : 1945 79 From: Vitaly Sommers Attending Dr: GERA Mcduffie Stat us: REG CLI Ordering Dr: Ksenia Thomason Date: Location: [facility] Sex: M C Admitted: Reason For Study Reason For Study: Swelling RIGHT LEFT GSV is normal. CFV is compressible, spontaneous, phasic, competent, CFV is compressible, spontaneous, phasic, competent and demonstrates normal augmentation. and demonstrates normal augmentation. FV is compressible, spontaneous, phasic, competent and demonstrates normal augmentation. POP V is compressible, spontaneous, phasic, competent and demonstrates normal augmentation. T/P Trunk is compressible. PTV is compressible. RT PerV is compressible. SFJ is competent and measures 0.99 cm. GSV proximal thigh measures 0.38x0.45 cm. GSV at knee measures 0.40x0.53 cm. GSV INCOMPETENT throughout for greater than 0.5 seconds. SSV mid calf is competent and measures 0.38x0.43 cm. Procedure This is a venous duplex using B-mode, color flow and spectral Doppler. Exam performed in department. Patient was scanned in reverse Trendelenburg position during reflux assessment. VL/Venous Duplex US, Unilateral Interpretation Summary Deep veins of the right lower extremity are patent and compressible segmentally.There is no evidence of right lower extremity deep vein thrombosis. The right great saphenous vein appears patent and compressible segmentally. Positive for reflux in the right great saphenous vein throughout Ordering Physician: Ksenia Thomason Referring Physician: Mily Nogueira Performed By: Zully Clifford 01/07/25 1728 Date _ Vitaly Ma MD CC: GERA Mcduffie; Dr. Mily Nogueira MD ~ Date Dictated: 01/04/25 1252 Date Transcribed: 01/07/251727 Administrative Coordinator: Signed [facility] Work Phone: Venous Duplex US, Unilateral on 01-04-2025 Venous Duplex US, Unilateral [facility] [address] [place] [address] Venous Duplex US, Unilateral 01/04/25 1252 MR#: [id number] Acct: [id number] Name: MILY BOLANOS Rep #: [id number] : 1945 79 From: Vitaly Ma MD Attending Dr: GERA Mcduffie Status: REG CLI Ordering Dr: Ksenia Thomason Date: 01/04/25 Location: [facility] Sex: M C Admitted: Reason For Study Reason For Study: Swelling RIGHT LEFT GSV is normal. CFV is compressible, spontaneous, phasic, competent, CFV is compressible, spontaneous, phasic, competent and demonstrates normal augmentation. and demonstrates normal augmentation. FV is compressible, spontaneous, phasic, competent and demonstrates normal augmentation. POP V is compressible, spontaneous, phasic, competent and demonstrates normal augmentation. T/P Trunk is compressible. PTV is compressible. RT PerV is compressible. SFJ is competent and measures 0.99 cm. GSV proximal thigh measures 0.38x0.45 cm. GSV at knee measures 0.40x0.53 cm. GSV INCOMPETENT throughout for greater than 0.5 seconds. SSV mid calf is competent and measures 0.38x0.43 cm. Procedure This is a venous duplex using B-mode, color flow and spectral Doppler. Exam performed in department. Patient was scanned in reverse Trendelenburg position during reflux assessment. VL/Venous Duplex US, Unilateral Interpretation Summary Deep veins of the right lower extremity are patent and compressible segmentally. There is no evidence of right lower extremity deep vein thrombosis. The right great saphenous vein appears patent and compressible segmentally. Positive for reflux in the right great saphenous vein throughout Ordering Physician: Ksenia Thomason Referring Physician: Mily Nogueira Performed By: Zully Clifford 01/07/251727 Date Vitaly Ma MD CC: GERA Mcduffie; Dr. Mily Nogueira MD Date Dictated: 01/04/25 1252 Date Transcribed: 01/07/251727 Administrative Coordinator: Signed Normal [facility] Diagnostic total prostate sp ecific antigen (PSA) measurementOrdered By: Jori Bennett on 01-03-2025 Prostate Specific Antigen Total 0.41 ng/mL 0.00-4.00 [facility] Comment on above: This test was perfor med using the [employer] tPSA method. Measured values of a patient sample can vary depending on the testing procedure used. PSA values determined on patient samples by different testing procedures cannot be used interchangeably. If there is a change in PSA assays while monitoring therapy, sequential testing should be performed to confirm baseline values. PSA,Total- [employer] - 0 PSA, DIAGNOSTIC 0.41 ng/mL Normal 0.00-4.00 [facility] Comment on above: Result Comment: This test was performed using the [employer] tPSA method. Measured values of a patient??sample can vary depending on the testing procedure used. PSA values determined on patient samples by different testing procedures cannot be used interchangeably. If there is a change in PSA assays while monitoring therapy, sequential testing should be performed to confirm baseline values. Performed By: #### L 501.9940 #### [facility] [address] [place], [address] Trileptal-Oxcarbazepineon OXCARBAZEPINE 16 ug/mL Normal [facility] Comment on above: Result Comment: This test was developed and its performance characteristics determined by [employer]. It has not been cleared or approved by the Food and Drug Administration. Detection Limit = 1 Performed at: [facility] [address] [id number] [employer] Operator: Rodrigo Mathews MD, Phone: [phone] Performed By: #### L 3800.1700 ####[facility] [address] [place], [place], [address] OXcarbazepine [Mass/Vol]Orde red By: Christian Payton on 12-28-2024 Oxcarbazepine Level 16 ug/mL -35 [facility] Comment on above: This test was develo ped and its performance characteristicsdetermined by [employer]. It has not been cleared orapproved by the Food and Drug Administration. Detection Limit = 1Performed at: [address] [id number] Director: Rodrigo Mathews MD, Phone: [phone] Serum or plasma oxcarbazepin e measurement (mass/volume)Ordered By: Christian Payton on 12-28-2024 OXcarbazepine [Mass/Vol] 16 ug/mL 10 [facility] Comment on above: This test was develo ped and its performance characteristicsdetermined by [employer]. It has not been cleared orapproved by the Food and Drug Administration. Detection Limit = 1Performed at: [facility]) [address] [id number] Director: Rodrigo Mathews MD, Phone: [phone] Neurology Visit Reporton Neurology Visit Report [facility] [address], [address] [place] [address] OFFICE VISIT Date of Service: 12/27/24 MR#: [id number] Acct: [id number] Name: MILY BOLANOS Rep #: [id number] : 1945 Provider: Dr. Christian storm MD Age/Sex: 79/M Location: [facility]. Status: Signed HPI HPI Chief Complaint: Details: Interim History: Mily returns for follow-up visit. He has a history of hypertension, hyperlipidemia, left eye central retinal venous occlusion around 2019, left amaurosis fugax in 2020, Parkinson's disease, polyneuropathy, and obstructive sleep apnea (he uses CPAP). He began to have a tremor affecting the right hand around 2016. Over the years, he developed some slowing of his gait and a stooping of his posture. He has some gait imbalance. He reports having more prominent postural instability when he is standing (this lessens when he is ambulating). His handwriting has become coarse. He has had some hypophonia. He denied having dysphagia. He denied having memory difficulty. He has had difficulty with fine motor control of the hands (with activities such as turning pages). He saw a neurologist and was diagnosed with Parkinson's disease around 2017 and has been treated with carbidopa/levodopa and carbidopa/levodopa ER and these have been of benefit for his parkinsonian tremor. Outpatient physical therapy in 2023 was of benefit. He participates in a Parkinson's disease exercise program 3 days/week and also participates in a boxing program. The addition of ropinirole in 2023 has been of benefit for his parkinsonian symptoms and the medication has been well-tolerated. He wishes to make a trial of discontinuing carbidopa/levodopa ER. As a result of his left eye retinal vein occlusion and left amaurosis fugax, he has residual left eye visual impairment. 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 On exam today, a moderate right foot drop is also noted. EMG/nerve conduction studies of the lower extremities in September 2023 reveal a severe sensorimotor polyneuropathy and chronic left L4 and L5 radiculopathies. He uses a left ankle strap that attaches to his shoe to assist dorsiflexion of the foot. He uses a cane. Oxcarbazepine has been of benefit for his neuropathic pain. He stated that a prior evaluation for his polyneuropathy did not reveal any etiology for the polyneuropathy. Gabapentin was not well- tolerated. He had lumbar surgery in 2021 for back pain; he continued to experience low back pain postoperatively. He also has experienced bilateral lower extremity radicular pain in the past; his lower extremity radicular pain subsided. He sees a pain management physician, Dr. Lackey; lumbar injections have not been of significant benefit. The patient decided not to pursue dorsal column stimulator placement. Per prior discussion, he did not wish to consider further lumbar surgery. He has an implanted cardiac loop recorder. He has fatigue. B12 injections have been of benefit for his fatigue. He has moderate right lower extremity pitting edema. He has mild left lower extremity pitting edema. He reports having a prior history of lower extremity DVT. He is using a right compression stocking. Physical Exam: Neuro: The patient is awake and alert and responds appropriately; motor strength is 5/5 in the quadriceps bilaterally, and 4/5 in the foot dorsiflexors bilaterally; no rigidity is noted in the wrists and lower extremities; a mild tremor is noted in the hands when arms are extended; gait is slow and mildly unsteady Extremities: Moderate pitting edema is noted in the right richey; mild pitting edema is noted in the left richey Neck: No bruits Heart: Regular rhythm and rate Supplemental Info Head CT (08/24/2021): FINDINGS: Normal soft tissue structures. Normal calvarium. There is mild cerebral atrophy with widening of the extra-axial spaces and ventricular dilatation. There are areas of decreased attenuation within the white matter tracts of the supratentorial brain, consistent with microvascular disease changes. Normal basal ganglia and thalami. Normal brainstem. Normal cerebellum. There is no intracranial hemorrhage. There are no findings of an acute ischemic infarction. Atherosclerotic plaque formation of the cavernous portions of the internal carotid arteries bilaterally. Normal visualized paranasal sinuses. IMPRESSION: Chronic involutional changes of the brain. These images were reviewed on 08/29/2023. Mild diffuse cerebral atrophy is noted. Mild bilateral periventricular chronic small vessel ischemic disease is noted. Neck MRA (08/24/2021): FINDINGS: RIGHT COMMON CAROTID ARTERY: Unremarkable. No occlusion or significant stenosis. No dissection. RIGHT INTERNAL CAROTID ARTERY: Unremarkable. Extracranial segment is (more content not included)... Normal [facility]BMS.BV[facility] [address] [place] [address] OFFICE VISIT Date of Service: 12/12/24 MR#: [id number] Acct: [id number] Name: MILY BOLANOS Rep #: [id number] : 1945 Provider: GERA Mcduffie Age/Sex: 79/M Location: [facility] Status: Signed Intake Vital Signs 11/19/24 10:25 12/12/24 13:19 Height 5 ft 10 in Weight: 198 lb 199 lb BMI 28.4 BP 122/76 H 157/92 H Blood Pressure Location Lt brachial Lt brachial Position Sitting Sitting Respiration 15 16 Pulse 71 71 Pulse Source Monitor Monitor Temp 97.8 F 98.4 F Temp Source Temporal Temporal Pulse Oximetry (%) 97 95 Oxygen Delivery Method room air room air Intake Visit Reasons: Edema RLE Chief Complaint: establish care Is patient in pain?: No Allergies No Known Allergies Allergy (Verified 12/12/24 13:21) Medications ???Medication ???Instructions ???Recorded ???Confirmed ???Type aspirin 81 mg tablet,delayed 81 mg PO DAILY 10/20/17 12/12/24 H istory release (Adult Low Dose Aspirin) cholecalciferol (vitamin D3) 50 2,000 unit PO DAILY 10/21/2012/12 History mcg (2,000 unit) capsule atorvastatin 20 mg tablet 10 mg PO DAILY cholesterol 1 12/12/24 History mirtazapine 15 mg tablet 15 mg PO QHS 02/25/22 12/12/24 His tory hydrocodone-acetaminophen 5-325mg 1 tab PO Q4H PRN pain 3 days #10 01/14/24 12/12/24 Rx 5mg-325mg tabs amlodipine 5 mg tablet 5 mg PO DAILY #30 tabs 02/15/24 Rx metoprolol succinate 50 mg 50 mg PO DAILY #90 TABLETS 4 12/12/24 Rx tablet,extended release 24 hr carbidopa 25 mg-levodopa 100 mg See Rx Instructions PO .COMPLEX 12/12/24 Rx tablet #630 tabs carbidopa ER 50 mg-levodopa 200 mg 1 tab PO BID #180 tabs 09/06/24 12/12/24 Rx tablet,extended release oxcarbazepine 300 mg tablet 450 mg (1.5 x 300 mg) PO BID #270 09/06/24 12/12/24 Rx tabs ropinirole 0.5 mg tablet 0.5 mg PO TID #270 tabs 09/06/24 0 12/12/24 Rx lisinopril 40 mg tablet 40 mg PO DAILY #90 TABLETS 4 12/12/24 Rx magnesium 200 mg tablet 400 mg PO QDAY 12/12/24 12/12/24 H istory Have you fallen in the past year?: Yes [facility] Medical History (Updated 12/12/24 @ 14:03 by GERA Mcduffie) Hx of fracture of rib ( 01/2024) DVT (deep venous thrombosis) ( 09/2022) Bladder retention Spinal stenosis (09/2022) Cryptogenic stroke Arrhythmia Amaurosis fugax of left eye Obstructive sleep apnea Parkinson disease Essential (primary) hypertension Osteoarthritis Carotid artery disease Glaucoma BPH (benign prostatic hyperplasia) Hyperlipidemia Ventricular tachycardia Ventricular tachyarrhythmia Peripheral neuropathy Benign prostate hyperplasia Surgical History History of spinal surgery ( 09/2022) History of loop recorder (09/16/21) History of total knee replacement History of left heart catheterization (02/15/13) Family History (Updated 12/12/24 @ 13:19 by Fany Taylor) Other Cancer Colon cancer Heart disease Hypertension Social History Smoking Status: Former smoker how long ago did patient quit smokin years ago alcohol intake: current alcohol intake frequency: 0-2 drinks per day Alcohol type: beer substance use type: does not use caffeine: Yes Type: coffee Number of servings: 1 HPI HPI HPI: MILY BOLANOS, is a 79 M who presents to the office today for evaluation of RLE edema as referred by his PCP. He has noticed progressive RLE edema over the last 8-9 months. He is not sure if it improves with elevation. It is not particularly painful, he does have some lower extremity fatigue. He has noticed some increased red/pink discoloration to the skin along his medial R lower leg as well. He has some reticular varices/small varicosities bilaterally, but none particularly symptomatic. He has a history of 2 prior provoked infrapopliteal LLE DVTs (following L TKR and spine surgery); no DVT/SVT in the RLE. He does not currently use compression, has had a lot of difficulty getting the stockings on in the past. He is very active, keeps to a strict exercise regimen. His medical history is otherwise significant for Parkinson's, significant spine disease with prior spine surgery for low back pain and radiculopathy with minimal improvement in symptpoms, idiopathic polyneuropathy. ROS General General: No weight change, appetite, fatigue, colon cancer, breast cancer or weakness HEENT HEENT: Yes eye surgery; No difficulty swallowing, eye injury, swollen glands or hoarseness Additional Details: blood clot in eye Endo Endocrine: No thyroid disease, diabetes mellitus, thyroid cancer, Hair loss, heat int (more content not included)... Normal [facility] Venous Duplex US, Unilateral on 11-26-2024 Venous Duplex US, Unilateral [facility] [address] [place] [address] Venous Duplex US, Unilateral 11/26/24 1106 MR#: [id number] Acct: [id number] Name: MILY BOLANOS Rep #: [id number] : 1945 79 From: Neo Bean MD Attending Dr: Dr. Pacheco Meneses, DPM Status: REG CLI Ordering Dr: Pacheco Meneses DPM Date: 11/26/24 Location: [facility] Sex: M C Admitted: Reason For Study: Pain RLE RIGHT LEFT GSV is normal. CFV is compressible, spontaneous, phasic, CFV is compressible, spontaneous, phasic, competent, and demonstrates normal competent and demonstrates normal augmentation. augmentation. FV is compressible, spontaneous, phasic, competent and demonstrates normal augmentation. POP V is compressible, spontaneous, phasic, competent and demonstrates normal augmentation. T/P Trunk is compressible. PTV is compressible. RT PerV is compressible. Procedure This is a venous duplex using B-mode, color flow and spectral Doppler. Exam performed in department. A preliminary report was called and/or faxed to Dr. Meneses. VL/Venous Duplex US, Unilateral Interpretation Summary Deep veins of the right lower extremity are patent and compressible segmentally. There is no evidence of right lower extremity deep vein thrombosis. Valvular competence appears intact within the proximal deep venous system on the right . The right great saphenous vein appears patent and compressible segmentally. The left common femoral vein is patent and compressible . Ordering Physician: Pacheco Meneses Referring Physician: Mily Nogueira Performed By: Katie Navarrete, MARTÍN, RVT 11/26/24 2240 Date Neo Bean MD CC: DPM Dr. Pacheco Meneses; Dr. Mily Nogueira MD Date Dictated: 11/26/24 1106 Date Transcribed: 11/26/240 Administrative Coordinator: Signed Normal [facility] 30-VF-Kfukjul DOrdered By: Bryce Nogueira on 11-21-2024 Vitamin D 25-Hydroxy 41.8 ng/mL [facility] Comment on above: Vitamin D 25(OH) Sta tus Range Deficiency <20 ng/mL (50nmol/L) Insufficiency 20 - 30 ng/mL (50 - 75 nmol/L) Sufficiency 30 - 100 ng/mL (75 - 250 nmol/L) Toxicity >100 ng/mL (>250 nmol/L) Absolute lymphocyte countOrd ered By: Mily Nogueira on 11-21-2024 Lymphocytes Auto (Unsp spec) [#/Vol] 1.07 10*3/uL 0.83-4.51 [facility] Absolute neutrophil countOrd ered By: Mily Nogueira on 11-21-2024 Neutrophils (Bld) [#/Vol] 5.5 10*3/uL 2.0-7.7 [facility] Albumin to globulin ratioOrd ered By: Mily Nogueira on 11-21-2024 Albumin/Globulin [Mass ratio] 1.2 {ratio} 0.9-2.4 [facility] Automated lymphocyte count a s percentage of total leukocytesOrdered By: Mily Nogueira on 11-21-2024 Lymphocytes/100 WBC Auto (Unsp spec) 14.6 % Low 19-41 [facility] Basophil percentageOrdered B y: Mily Nogueira on 11-21-2024 Basophils/100 WBC (Bld) 0.8 % 0-1 [facility] Bilirubin, totalOrdered By: Mily Nogueira on 11-21-2024 Bilirubin [Mass/Vol] 0.60 mg/dL 0.20-1.00 [facility] Comment on above: For patients on eltr ombopag therapy, use of Dimension [place] TBIL is not recommended. Blood urea nitrogen (BUN)/cr eatinine ratioOrdered By: Mily Nogueira on 11-21-2024 Urea nitrogen/Creatinine [Mass ratio] 15.9 mg/mg 10-20 [facility] CBC W/Diff, Automatedon 02-0 5-2024 Absolute Lymph 1.07 X10 3/uL Normal 0.83-4.51 [facility] Comment on above: Order Comment: Order Date: 11/21/24Order Info: [id number] - CBCD Performed By: #### L 500.4100, L501.9520, L100.0100, L501.5200, L500.4050, L501.9985, L506.1000 ####[facility] [address] [place], [address] Absolute Neut 5.5 X10 3/uL Normal 2.0-7.7 [facility] Comment on above: Order Comment: Order Date: 11/21/24Order Info: 0184-1 - CBCD Performed By: #### L 500.4100, L501.9520, L100.0100, L501.5200, L500.4050, L501.9985, L506.1000 ####[facility] [address] [place], [place], [phone]) Basophils/100 WBC (Bld) 0.8 % Normal 0-1 [facility] Comment on above: Order Comment: Order Date: 11/21/24Order Info: 0184-1 - CBCD Performed By: #### L 500.4100, L501.9520, L100.0100, L501.5200, L500.4050, L501.9985, L506.1000 ####[facility] [address] [place], [address] Eosinophils/100 WBC (Bld) 2.3 % Normal 0-5 [facility] Comment on above: Order Comment: Order Date: 11/21/24Order Info: 0184-1 - CBCD Performed By: #### L 500.4100, L501.9520, L100.0100, L501.5200, L500.4050, L501.9985, L506.1000 ####[facility] [address] [place], [address] Erythrocyte distribution width (RBC) [Ratio] 12.9 % Normal 11.6-14.6 [facility] Comment on above: Order Comment: Order Date: 11/21/24Order Info: 0184-1 - CBCD Performed By: #### L 500.4100, L501.9520, L100.0100, L501.5200, L500.4050, L501.9985, L506.1000 ####[facility] [address] [place], [place], [phone] Hematocrit (Bld) [Volume fraction] 45.0 % Normal 40-54 [facility] Comment on above: Order Comment: Order Date: 11/21/24Order Info: 0184-1 - CBCD Performed By: #### L 500.4100, L501.9520, L100.0100, L501.5200, L500.4050, L501.9985, L506.1000 ####[facility] [address] [facility] [place], [place], [id number] Hemoglobin (Bld) [Mass/Vol] 14.7 g/dL Normal 13.0-16.5 [facility] Comment on above: Order Comment: Order Date: 11/21/24Order Info: 0184-1 - CBCD Performed By: #### L 500.4100, L501.9520, L100.0100, L501.5200, L500.4050, L501.9985, L506.1000 ####[facility] [address] [facility] [place], [address] IG% 0.500 Normal 0.0-0.9 [facility] Comment on above: Order Comment: Order Date: 11/21/24Order Info: 0184-1 - CBCD Result Comment: IG% - Immature Granulocytes (promyelocytes, myelocytes and metamyelocytes) > 1% indicates that a LEFT SHIFT is Present. Performed By: #### L 500.4100, L501.9520, L100.0100, L501.5200, L500.4050, L501.9985, L506.1000 ####[facility] [address] [place], [address] Lymphocytes/100 WBC (Bld) 14.6 % Low 19-41 [facility] Comment on above: Order Comment: Order Date: 11/21/24Order Info: 0184-1 - CBCD Performed By: #### L 500.4100, L501.9520, L100.0100, L501.5200, L500.4050, L501.9985, L506.1000 ####[facility] [address] [place], [address] MCH (RBC) [Entitic mass] 28.2 pg Normal 27.0-32.0 [facility] Comment on above: Order Comment: Order Date: 11/21/24Order Info: 018-1 - CBCD Performed By: #### L 500.4100, L501.9520, L100.0100, L501.5200, L500.4050, L501.9985, L506.1000 ####[facility] [address] [place], [address] MCHC (RBC) [Mass/Vol] 32.7 g/dL Normal 32-36 [facility] Comment on above: Order Comment: Order Date: 11/21/24Order Info: 0184-1 - CBCD Performed By: #### L 500.4100, L501.9520, L100.0100, L501.5200, L500.4050, L501.9985, L506.1000 ####[facility] [address] [place], [address] MCV (RBC) [Entitic vol] 86.2 fL Normal 80-94 [facility] Comment on above: Order Comment: Order Date: 11/21/24Order Info: 018-1 - CBCD Performed By: #### L 500.4100, L501.9520, L100.0100, L501.5200, L500.4050, L501.9985, L506.1000 ####[facility] [address] [place], [address] Monocytes/100 WBC (Bld) 6.4 % Normal 0-10 [facility] Comment on above: Order Comment: Order Date: 11/21/24Order Info: 0184-1 - CBCD Performed By: #### L 500.4100, L501.9520, L100.0100, L501.5200, L500.4050, L501.9985, L506.1000 ####[facility] [address] [place], [address] Neutrophils/100 WBC (Bld) 75.4 % High 47-70 [facility] Comment on above: Order Comment: Order Date: 11/21/24Order Info: 0184-1 - CBCD Performed By: #### L 500.4100, L501.9520, L100.0100, L501.5200, L500.4050, L501.9985, L506.1000 ####[facility] [address] [place], [address] Nucleated RBC (Bld) [#/Vol] 0 10*3/uL Normal 0-5 [facility] Comment on above: Order Comment: Order Date: 11/21/24Order Info: 0184-1 - CBCD Performed By: #### L 500.4100, L501.9520, L100.0100, L501.5200, L500.4050, L501.9985, L506.1000 ####[facility] [address] [place], [address] Platelet mean volume (Bld) [Entitic vol] 11.1 fL Normal 6.2-12.0 [facility] Comment on above: Order Comment: Order Date: 11/21/24Order Info: 0184-1 - CBCD Performed By: #### L 500.4100, L501.9520, L100.0100, L501.5200, L500.4050, L501.9985, L506.1000 ####[facility] [address] [place], [address] Platelets (Bld) [#/Vol] 238 10*3/uL Normal 150-450 [facility] Comment on above: Order Comment: Order Date: 11/21/24Order Info: 0184-1 - CBCD Performed By: #### L 500.4100, L501.9520, L100.0100, L501.5200, L500.4050, L501.9985, L506.1000 ####[facility] [address] [place], [address] RBC (Bld) [#/Vol] 5.22 10*6/uL Normal 4.6-6.2 [facility] Comment on above: Order Comment: Order Date: 11/21/24Order Info: 0184-1 - CBCD Performed By: #### L 500.4100, L501.9520, L100.0100, L501.5200, L500.4050, L501.9985, L506.1000 ####[facility] [address] [place], [address] RDW SD 40.2 fl Normal 35.1-43.9 [facility] Comment on above: Order Comment: Order Date: 11/21/24Order Info: 0184-1 - CBCD Performed By: #### L 500.4100, L501.9520, L100.0100, L501.5200, L500.4050, L501.9985, L506.1000 ####[facility] [address] [place], [address] WBC (Bld) [#/Vol] 7.3 10*3/uL Normal 4.4-11.0 [facility] Comment on above: Order Comment: Order Date: 11/21/24Order Info: 0184-1 - CBCD Performed By: #### L 500.4100, L501.9520, L100.0100, L501.5200, L500.4050, L501.9985, L506.1000 ####[facility] [address] [place], [address] Carbon dioxide measurementOr dered By: Mily Nogueira on 11-21-2024 CO2 [Moles/Vol] 24.0 mmol/L 21.0-32.0 [facility] Chloride measurementOrdered By: Mily Nogueira on 11-21-2024 Chloride [Moles/Vol] 101 mmol/L 98-107 [facility] Comprehensive Metabolic Prof ilon 11-21-2024 Albumin [Mass/Vol] 3.5 g/dL Normal 3.2-5.0 [facility] Comment on above: Order Comment: Order Date: 11/21/24Order Info: [id number] - CMPOrder Info: [id number] - LIPIDOrder Info: [id number] - MGOrder Info: [id number] - TSH Performed By: #### L 500.4100, L501.9520, L100.0100, L501.5200, L500.4050, L501.9985, L506.1000 ####[facility] [address] [place], [address] Albumin/Globulin [Mass ratio] 1.2 {ratio} Normal 0.9-2.4 [facility] Comment on above: Order Comment: Order Date: 11/21/24Order Info: [id number] - CMPOrder Info: [id number] - LIPIDOrder Info: [id number] - MGOrder Info: [id number] - TSH Performed By: #### L 500.4100, L501.9520, L100.0100, L501.5200, L500.4050, L501.9985, L506.1000 ####[facility] [address] [place], [address] ALK P 138 U/L High 45-117 [facility] Comment on above: Order Comment: Order Date: 11/21/24Order Info: [id number] - CMPOrder Info: [id number] - LIPIDOrder Info: [id number] - MGOrder Info: [id number] - TSH Performed By: #### L 500.4100, L501.9520, L100.0100, L501.5200, L500.4050, L501.9985, L506.1000 ####[facility] [address] [place], [address] ALT [Catalytic activity/Vol] 15 U/L Low 16-61 [facility] Comment on above: Order Comment: Order Date: 11/21/24Order Info: 86-1 - CMPOrder Info: [id number] - LIPIDOrder Info: [id number] - MGOrder Info: 6-3 - TSH Performed By: #### L 500.4100, L501.9520, L100.0100, L501.5200, L500.4050, L501.9985, L506.1000 ####[facility] [address] [place], [place], [address] AST [Catalytic activity/Vol] 26 U/L Normal 15-37 [facility] Comment on above: Order Comment: Order Date: 11/21/24Order Info: 07- - CMPOrder Info: [id number] - LIPIDOrder Info: [id number] - MGOrder Info: 6-3 - TSH Performed By: #### L 500.4100, L501.9520, L100.0100, L501.5200, L500.4050, L501.9985, L506.1000 ####[facility] [address] [place], [address] Bilirubin [Mass/Vol] 0.60 mg/dL Normal 0.20-1.00 [facility] Comment on above: Order Comment: Order Date: 11/21/24Order Info: [id number] - CMPOrder Info: [id number] - LIPIDOrder Info: [id number] - MGOrder Info: [id number] - TSH Result Comment: For patients on eltrombopag therapy, use of Dimension [place] TBIL is not recommended. Performed By: #### L 500.4100, L501.9520, L100.0100, L501.5200, L500.4050, L501.9985, L506.1000 ####[facility] [address] [place], [address] BUN/CRE 15.9 RATIO Normal 10-20 [facility] Comment on above: Order Comment: Order Date: 11/21/24Order Info: [id number] - CMPOrder Info: [id number] - LIPIDOrder Info: [id number] - MGOrder Info: [id number] - TSH Performed By: #### L 500.4100, L501.9520, L100.0100, L501.5200, L500.4050, L501.9985, L506.1000 ####[facility] [address] [place], [place], [id number] [place],Total 8.5 mg/dL Normal 8.5-10.1 [facility] Comment on above: Order Comment: Order Date: 11/21/24Order Info: [id number] - CMPOrder Info: [id number] - LIPIDOrder Info: [id number] - MGOrder Info: [id number] - TSH Performed By: #### L 500.4100, L501.9520, L100.0100, L501.5200, L500.4050, L501.9985, L506.1000 ####[facility] [address] [place], [place], [phone] Chloride [Moles/Vol] 101 mmol/L Normal 98-107 [facility] Comment on above: Order Comment: Order Date: 11/21/24Order Info: [id number] - CMPOrder Info: [id number] - LIPIDOrder Info: [id number] - MGOrder Info: [id number] - TSH Performed By: #### L 500.4100, L501.9520, L100.0100, L501.5200, L500.4050, L501.9985, L506.1000 ####[facility] [address] [place], [address] CO2 [Moles/Vol] 24.0 mmol/L Normal 21.0-32.0 [facility] Comment on above: Order Comment: Order Date: 11/21/24Order Info: [id number] - CMPOrder Info: [id number] - LIPIDOrder Info: [id number] - MGOrder Info: [id number] - TSH Performed By: #### L 500.4100, L501.9520, L100.0100, L501.5200, L500.4050, L501.9985, L506.1000 ####[facility] [address] [place], [address] Creatinine [Mass/Vol] 0.69 mg/dL Low 0.70-1.30 [facility] Comment on above: Order Comment: Order Date: 11/21/24Order Info: [id number] - CMPOrder Info: [id number] - LIPIDOrder Info: [id number] - MGOrder Info: [id number] - TSH Result Comment: The validity of the calculated GFR GFRAA in patients over 70 years has not been determined. Clinical correlation is essential. Performed By: #### L 500.4100, L501.9520, L100.0100, L501.5200, L500.4050, L501.9985, L506.1000 ####[facility] [address] [place], [address] EST GFR - AA 142 mL/min Normal >60 [facility] Comment on above: Order Comment: Order Date: 11/21/24Order Info: 07-1 - CMPOrder Info: [id number] - LIPIDOrder Info: [id number] - MGOrder Info: [id number] - TSH Result Comment: Afri can Danish GFR Calc Performed By: #### L 500.4100, L501.9520, L100.0100, L501.5200, L500.4050, L501.9985, L506.1000 ####[facility] [address] [place], [address] GAP 8 Normal 5-15 [facility] Comment on above: Order Comment: Order Date: 11/21/24Order Info: [id number] - CMPOrder Info: [id number] - LIPIDOrder Info: [id number] - MGOrder Info: [id number] - TSH Performed By: #### L 500.4100, L501.9520, L100.0100, L501.5200, L500.4050, L501.9985, L506.1000 ####[facility] [address] [place], [address] GFR/1.73 sq M.predicted among non-blacks MDRD (S/P/Bld) [Vol rate/Area] 117 mL/min/{1.73_m2} Normal >60 [facility] Comment on above: Order Comment: Order Date: 11/21/24Order Info: [id number] - CMPOrder Info: [id number] - LIPIDOrder Info: [id number] - MGOrder Info: [id number] - TSH Result Comment: Non- GFR Calc Performed By: #### L 500.4100, L501.9520, L100.0100, L501.5200, L500.4050, L501.9985, L506.1000 ####[facility] [address] [place], [address] Globulin (S) [Mass/Vol] 2.9 g/dL Normal 2.2-4.2 [facility] Comment on above: Order Comment: Order Date: 11/21/24Order Info: 07-1 - CMPOrder Info: [id number] - LIPIDOrder Info: [id number] - MGOrder Info: [id number] - TSH Performed By: #### L 500.4100, L501.9520, L100.0100, L501.5200, L500.4050, L501.9985, L506.1000 ####[facility] [address] [place], [address] Glucose [Mass/Vol] 91 mg/dL Normal 74-106 [facility] Comment on above: Order Comment: Order Date: 11/21/24Order Info: [id number] - CMPOrder Info: [id number] - LIPIDOrder Info: [id number] - MGOrder Info: [id number] - TSH Performed By: #### L 500.4100, L501.9520, L100.0100, L501.5200, L500.4050, L501.9985, L506.1000 ####[facility] [address] [place], [address] Potassium [Moles/Vol] 4.3 mmol/L Normal 3.5-5.1 [facility] Comment on above: Order Comment: Order Date: 11/21/24Order Info: 86-1 - CMPOrder Info: [id number] - LIPIDOrder Info: [id number] - MGOrder Info: [id number] - TSH Performed By: #### L 500.4100, L501.9520, L100.0100, L501.5200, L500.4050, L501.9985, L506.1000 ####[facility] [address] [place], [address] Sodium [Moles/Vol] 133 mmol/L Low 136-145 [facility] Comment on above: Order Comment: Order Date: 11/21/24Order Info: [id number] - CMPOrder Info: [id number] - LIPIDOrder Info: [id number] - MGOrder Info: [id number] - TSH Performed By: #### L 500.4100, L501.9520, L100.0100, L501.5200, L500.4050, L501.9985, L506.1000 ####[facility] [address] [place], [address] T PROT 6.4 g/dL Normal 6.4-8.2 [facility] Comment on above: Order Comment: Order Date: 11/21/24Order Info: [id number] - CMPOrder Info: [id number] - LIPIDOrder Info: [id number] - MGOrder Info: [id number] - TSH Performed By: #### L 500.4100, L501.9520, L100.0100, L501.5200, L500.4050, L501.9985, L506.1000 ####[facility] [address] [place], [place], [address] Urea nitrogen [Mass/Vol] 11 mg/dL Normal 7-18 [facility] Comment on above: Order Comment: Order Date: 11/21/24Order Info: [id number] - CMPOrder Info: [id number] - LIPIDOrder Info: [id number] - MGOrder Info: [id number] - TSH Performed By: #### L 500.4100, L501.9520, L100.0100, L501.5200, L500.4050, L501.9985, L506.1000 ####[facility] [address] [place], [place], [address] Eosinophil percentageOrdered By: Mily Nogueira on 11-21-2024 Eosinophils/100 WBC (Bld) 2.3 % 0-5 [facility] Erythrocyte distribution wid th ratioOrdered By: Mily Nogueira on 11-21-2024 Erythrocyte distribution width (RBC) [Ratio] 12.9 % 11.6-14.6 [facility] Erythrocyte distribution wid th standard deviationOrdered By: Mily Nogueira on 11-21-2024 Erythrocyte distribution width (RBC) [Entitic vol] 40.2 fL 35.1-43.9 [facility] Erythrocyte distribution width (RBC) [Ratio] 40.2 fl 35.1-43.9 [facility] Estimated glomerular filtrat ion rate (GFR) AmericanOrdered By: Mily Nogueira on 11-21-2024 Estimated GFR (MDRD) Amer 142 mL/min >60 [facility] Comment on above: GFR Calc Glomerular filtration rate ( GFR) estimationOrdered By: Mily Nogueira on 11-21-2024 Estimated GFR (MDRD) Non-Af Amer 117 mL/min >60 [facility] Comment on above: Non- GFR Calc GFR/1.73 sq M.predicted among non-blacks MDRD (S/P/Bld) [Vol rate/Area] 117 mL/min/{1.73_m2} >60 [facility] Comment on above: Non- GFR Calc Glucose measurementOrdered B y: Mily Nogueira on 11-21-2024 Glucose [Mass/Vol] 91 mg/dL 74-106 [facility] Hematocrit Auto (Bld) [Volum e fraction]Ordered By: Mily Nogueira on 11-21-2024 Hematocrit (Bld) [Volume fraction] 45.0 % 40-54 [facility] Hemoglobin A1con 11-21-2024 HbA1c (Bld) [Mass fraction] 5.2 % Normal 3.8-5.6 [facility] Comment on above: Order Comment: Order Date: 11/21/24Order Info: [id number] - A1C Result Comment: Norm al < 5.7 % Prediabetic 5.7 - 6.4 % Diabetic >or= 6.5 % Please note range changes. Performed By: #### L 500.2500, L3800.1700 #### [facility] [address] [place], [address] Hemoglobin A1c percentageOrd ered By: Mily Nogueira on 11-21-2024 HbA1c (Bld) [Mass fraction] 5.2 % 3.8-5.6 [facility] Comment on above: Normal < 5.7 % Predi abetic 5.7 - 6.4 % Diabetic >or= 6.5 % Please note range changes. Hemoglobin measurementOrdere d By: Mily Nogueira on 11-21-2024 Hemoglobin (Bld) [Mass/Vol] 14.7 g/dL 13.0-16.5 [facility] High density lipoprotein (HD L) measurementOrdered By: Mily Nogueira on 11-21-2024 Cholesterol in HDL [Mass/Vol] 95 mg/dL >40 [facility] Comment on above: The drugs N-Acetylcy steine and Metamizole may falsely depress this assay. Reference Range HDL <40 mg/dL Low HDL Cholesterol HDL >or= 60 mg/dL High HDL Cholesterol Immature granulocytes/100 WB C Auto (Bld)Ordered By: Mily Nogueira on 11-21-2024 Immature granulocytes/100 WBC (Bld) 0.500 % 0.0-0.9 [facility] Comment on above: IG% - Immature Granu locytes (promyelocytes, myelocytes and metamyelocytes) > 1% indicates that a LEFT SHIFT is Present. Laboratory - Chemistry and C hemistry - challengeOrdered By: Mily Nogueira on 11-21-2024 AST [Catalytic activity/Vol] 26 U/L 15-37 [facility] Lipid Profileon 11-21-2024 Cholesterol [Mass/Vol] 182 mg/dL Normal 200 [facility] Comment on above: Order Comment: Order Date: 11/21/24Order Info: [id number] - CMPOrder Info: [id number] - LIPIDOrder Info: [id number] - MGOrder Info: [id number] - TSH Result Comment: <200 mg/dL Desirable 200-240 mg/dL Borderline >240 mg/dL High Risk Performed By: #### L 500.4100, L501.9520, L100.0100, L501.5200, L500.4050, L501.9985, L506.1000 ####[facility] [address] [place], [address] Cholesterol in HDL [Mass/Vol] 95 mg/dL Normal [facility] Comment on above: Order Comment: Order Date: 11/21/24Order Info: [id number] - CMPOrder Info: [id number] - LIPIDOrder Info: [id number] - MGOrder Info: [id number] - TSH Result Comment: The drugs N-Acetylcysteine and Metamizole may falsely depress this assay. Reference Range HDL <40 mg/dL Low HDL Cholesterol HDL >or= 60 mg/dL High HDL Cholesterol Performed By: #### L 500.4100, L501.9520, L100.0100, L501.5200, L500.4050, L501.9985, L506.1000 ####[facility] [address] [place], [address] Cholesterol in LDL [Mass/Vol] 74 mg/dL Normal 0-130 [facility] Comment on above: Order Comment: Order Date: 11/21/24Order Info: [id number] - CMPOrder Info: [id number] - LIPIDOrder Info: [id number] - MGOrder Info: [id number] - TSH Performed By: #### L 500.4100, L501.9520, L100.0100, L501.5200, L500.4050, L501.9985, L506.1000 ####[facility] [address] [place], [address] Cholesterol in VLDL [Mass/Vol] 13 mg/dL Normal 5-40 [facility] Comment on above: Order Comment: Order Date: 11/21/24Order Info: 07-1 - CMPOrder Info: [id number] - LIPIDOrder Info: [id number] - MGOrder Info: 6-3 - TSH Performed By: #### L 500.4100, L501.9520, L100.0100, L501.5200, L500.4050, L501.9985, L506.1000 ####[facility] [address] [place], [place], [address] Triglyceride [Mass/Vol] 64 mg/dL Normal [facility] Comment on above: Order Comment: Order Date: 11/21/24Order Info: [id number] - CMPOrder Info: [id number] - LIPIDOrder Info: [id number] - MGOrder Info: 6-3 - TSH Result Comment: The drugs N-Acetylcysteine and Metamizole may falsely depress this assay. Serum Triglycerides Reference Interval Normal <150 mg/dL Borderline high 150 - 199 mg/dL High 200 - 499 mg/dL Very High > or = 500 mg/dL Performed By: #### L 500.4100, L501.9520, L100.0100, L501.5200, L500.4050, L501.9985, L506.1000 ####[facility] [address] [place], [address] Low density lipoprotein (LDL ) cholesterol measurementOrdered By: Mily Nogueira on 11-21-2024 Cholesterol in LDL [Mass/Vol] 74 mg/dL 0-130 [facility] Lymphocytes Auto (Unsp spec) [#/Vol]Ordered By: Mily Nogueira on 11-21-2024 Lymphocytes (Bld) [#/Vol] 1.07 10*3/uL 0.83-4.51 [facility] Lymphocytes/100 WBC Auto (Un sp spec)Ordered By: Mily Nogueira on 11-21-2024 Lymphocytes/100 WBC (Bld) 14.6 % Low 19-41 [facility] MCV (mean corpuscular volume ) determinationOrdered By: Mily Nogueira on 11-21-2024 MCV (RBC) [Entitic vol] 86.2 fL 80-94 [facility] Magnesiumon 11-21-2024 Magnesium [Mass/Vol] 2.4 mg/dL Normal 1.6-2.6 [facility] Comment on above: Order Comment: Order Date: 11/21/24Order Info: [id number] - CMPOrder Info: [id number] - LIPIDOrder Info: [id number] - MGOrder Info: [id number] - TSH Performed By: #### L 500.4100, L501.9520, L100.0100, L501.5200, L500.4050, L501.9985, L506.1000 ####[facility] [address] [place], [address] Magnesium measurementOrdered By: Mily Nogueira on 11-21-2024 Magnesium [Mass/Vol] 2.4 mg/dL 1.6-2.6 [facility] Mean corpuscular hemoglobin (MCH) determinationOrdered By: Mily Nogueira on 11-21-2024 MCH (RBC) [Entitic mass] 28.2 pg 27.0-32.0 [facility] Mean corpuscular hemoglobin concentration (MCHC) determinationOrdered By: Mily Nogueira on 11-21-2024 MCHC (RBC) [Mass/Vol] 32.7 g/dL 32-36 [facility] Mean platelet volume determi nationOrdered By: Mily Nogueira on 11-21-2024 Platelet mean volume (Bld) [Entitic vol] 11.1 fL 6.2-12.0 [facility] Monocyte percentageOrdered B y: Mily Nogueira on 11-21-2024 Monocytes/100 WBC (Bld) 6.4 % 0-10 [facility] Neutrophil percentageOrdered By: Mily Nogueira on 11-21-2024 Neutrophils/100 WBC (Bld) 75.4 % High 47-70 [facility] Nucleated red blood cell per centageOrdered By: Mily Nogueira on 11-21-2024 Nucleated RBC/100 WBC (Bld) [Ratio] 0 % 0-5 [facility] Platelet countOrdered By: Yecenia Nogueira on 11-21-2024 Platelets (Bld) [#/Vol] 238 10*3/uL 150-450 [facility] Potassium measurementOrdered By: Mily Nogueira on 11-21-2024 Potassium [Moles/Vol] 4.3 mmol/L 3.5-5.1 [facility] RBC Auto (Bld) [#/Vol]Ordere d By: Mily Nogueira on 11-21-2024 RBC (Bld) [#/Vol] 5.22 10*6/uL 4.6-6.2 [facility] Serum anion gap measurementO rdered By: Mily Nogueira on 11-21-2024 Anion gap [Moles/Vol] 8 mmol/L 5-15 [facility] Serum globulin measurementOr dered By: Mily Nogueira on 11-21-2024 Globulin (S) [Mass/Vol] 2.9 g/dL 2.2-4.2 [facility] Serum or plasma alanine koroma otransferase (ALT) measurementOrdered By: Mily Nogueira on 11-21-2024 ALT [Catalytic activity/Vol] 15 U/L Low 16-61 [facility] Serum or plasma albumin aida urement (mass/volume)Ordered By: Mily Nogueira on 11-21-2024 Albumin [Mass/Vol] 3.5 g/dL 3.2-5.0 [facility] Serum or plasma alkaline garret sphatase measurementOrdered By: Mily Nogueira on 11-21-2024 ALP [Catalytic activity/Vol] 138 U/L High 45-117 [facility] Serum or plasma calcium aida urement (mass/volume)Ordered By: Mily Nogueira on 11-21-2024 Calcium [Mass/Vol] 8.5 mg/dL 8.5-10.1 [facility] Serum or plasma cholesterol measurement (mass/volume)Ordered By: Mily Nogueira on 11-21-2024 Cholesterol [Mass/Vol] 182 mg/dL <200 [facility] Comment on above: <200 mg/dL Desirable 200-240 mg/dL Borderline >240 mg/dL High Risk Serum or plasma creatinine m easurement (mass/volume)Ordered By: Mily Nogueira on 11-21-2024 Creatinine [Mass/Vol] 0.69 mg/dL Low 0.70-1.30 [facility] Comment on above: The validity of the calculated GFR & GFRAA in patients over 70 years has not been determined. Clinical correlation is essential. Serum or plasma thyroid stim ulating hormone (TSH) measurement (units/volume)Ordered By: Mily Nogueira on 11-21-2024 TSH Qn 0.951 uIU/mL 0.358-3.74 0 [facility] Serum or plasma urea nitroge n measurement (mass/volume)Ordered By: Mily Nogueira on 11-21-2024 Urea nitrogen [Mass/Vol] 11 mg/dL 7-18 [facility] Sodium levelOrdered By: Mily Nogueira on 11-21-2024 Sodium [Moles/Vol] 133 mmol/L Low 136-145 [facility] TSH QnOrdered By: Mily reilly on 11-21-2024 Thyroid Stimulating Hormone (TSH) 0.951 uIU/mL 0.358-3.74 0 [facility] Thyroid Stim Hormone (TSH)on 11-21-2024 TSH 0.951 uIU/mL Normal 0.358-3.74 0 [facility] Comment on above: Order Comment: Order Date: 11/21/24Order Info: [id number] - CMPOrder Info: [id number] - LIPIDOrder Info: [id number] - MGOrder Info: [id number] - TSH Performed By: #### L 500.4100, L501.9520, L100.0100, L501.5200, L500.4050, L501.9985, L506.1000 ####[facility] [address] [place], [address] Total proteinOrdered By: Kevin Nogueira on 11-21-2024 Protein [Mass/Vol] 6.4 g/dL 6.4-8.2 [facility] Triglycerides measurementOrd ered By: Mily Nogueira on 11-21-2024 Triglyceride [Mass/Vol] 64 mg/dL <199 [facility] Comment on above: The drugs N-Acetylcy steine and Metamizole may falsely depress this assay.Serum Triglycerides Reference Interval Normal <150 mg/dL Borderline high 150 - 199 mg/dL High 200 - 499 mg/dL Very High > or = 500 mg/dL Very low density lipoprotein (VLDL) cholesterol measurementOrdered By: Mily Nogueira on 11-21-2024 Very low density lipoprotein (VLDL) cholesterol measurement 13 mg/dL 5-40 [facility] VLDL Cholesterol 13 mg/dL 5-40 [facility] Vitamin D,25 Hydroxyon 11-21 Vitamin D 25-OH 41.8 ng/mL Normal [facility] Comment on above: Order Comment: Order Date: 11/21/24Order Info: [id number] - VITD25 Result Comment: Vivian min D 25(OH) Status Range Deficiency <20 ng/mL (50nmol/L) Insufficiency 20 - 30 ng/mL (50 - 75 nmol/L) Sufficiency 30 - 100 ng/mL (75 - 250 nmol/L) Toxicity >100 ng/mL (>250 nmol/L) Performed By: #### L 500.4100, L501.9520, L100.0100, L501.5200, L500.4050, L501.9985, L506.1000 ####[facility] [address] [place], [address] White blood cell (WBC) count Ordered By: Mily Nogueira on 11-21-2024 WBC (Bld) [#/Vol] 7.3 10*3/uL 4.4-11.0 [facility] Office Visit Reporton 2024 Office Visit Report [facility] [address] [address] OFFICE VISIT Date of Service: 11/19/24 MR#: [id number] Acct: [id number] Patient: MILY BOLANOS Rep #: [id number] : 1945 Provider: Dr. Christian storm MD Age/Sex: 79/M Location: [facility] Status: Signed Intake Vital Signs 09/10/24 09:35 10/18/24 13:06 11/19/24 10:25 Height 5 ft 10 in 5 ft 10 in 5 ft 10 in Weight: 201 lb 198 lb BMI 28.8 28.4 BP 136/70 H 122/76 H Blood Pressure Location Lt brachial Lt brachial Position Sitting Sitting Respiration 16 15 Pulse 65 71 Pulse Source Monitor Monitor Temp 98.6 F 97.8 F Temp Source Temporal Temporal Pulse Oximetry (%) 95 97 Oxygen Delivery Method room air room air Intake Visit Reasons: B12 inject Chief Complaint: Fatigue Allergies No Known Allergies Allergy (Verified 10/18/24 13:07) Have you fallen in the past year?: Yes Office Meds cyanocobalamin (vitamin B-12) 1,000 mcg/mL injection solution Performing Provider: Christian Payton MD Performing Location: [facility] Administered by: Belkis Woo on 11/19/24 10:30 Dose Route Admin Location Dispensed Lot Number Expiration Date PAC Man ufacturer 1,000 mcg IM Right Deltoid 1 mL [id number] 01/14/27 10857-723-73 VITRUVI THERA Comments: The patient presents for vitamin B12 injection for treatment of fatigue. He has fatigue. His last B12 injection was of benefit for fatigue. The patient is awake and alert. Vitamin B12 1,000 IM was administered today. There were no complications. Assessment and Plan Assessment and Plan (1) Fatigue: Orders: Orders Vitamin B12 Today R53.83 - Other fatigue Clinical Quality Measures Falls Risk Screening/Assistive Devices Have you fallen in the past year?: Yes 11/19/24 1629 Date Christian Payton MD Cosigner Signature: Date (if applicable) CC: Normal [facility] Prealbumin [id number] Prealbumin [Mass/Vol] 25 mg/dL Normal 9-32 [facility] Comment on above: Result Comment: Perf ormed at: - [facility] [address] [id number] [employer] Operator: Kartik Schuster PhD, Phone: [phone] Performed By: #### L 9543.4724 ####[facility] [address] [place], [address] Albumin to globulin ratioOrd ered By: Mily Nogueira on 10-23-2024 Albumin/Globulin [Mass ratio] 1.1 {ratio} 0.9-2.4 [facility] Bilirubin, totalOrdered By: Mily Nogueira on 10-23-2024 Bilirubin [Mass/Vol] 0.60 mg/dL 0.20-1.00 [facility] Comment on above: For patients on eltr ombopag therapy, use of Dimension [place] TBIL is not recommended. Blood urea nitrogen (BUN)/cr eatinine ratioOrdered By: Mily Nogueira on 10-23-2024 Urea nitrogen/Creatinine [Mass ratio] 17.1 mg/mg 10-20 [facility] Carbon dioxide measurementOr dered By: Mily Nogueira on 10-23-2024 CO2 [Moles/Vol] 27.0 mmol/L 21.0-32.0 [facility] Chloride measurementOrdered By: Mily Nogueira on 10-23-2024 Chloride [Moles/Vol] 102 mmol/L 98-107 [facility] Comprehensive Metabolic Prof ilon 10-23-2024 Albumin [Mass/Vol] 3.4 g/dL Normal 3.2-5.0 [facility] Comment on above: Order Comment: Order Date: 10/23/24Order Info: [id number] - CMP Performed By: #### L 500.6144, L3821.1700 #### [facility] [address] [place], [address] Albumin/Globulin [Mass ratio] 1.1 {ratio} Normal 0.9-2.4 [facility] Comment on above: Order Comment: Order Date: 10/23/24Order Info: 0786-1 - CMP Performed By: #### L 500.2500, L3800.1700 #### [facility] [address] [place], [address] ALK P 166 U/L High 45-117 [facility] Comment on above: Order Comment: Order Date: 10/23/24Order Info: 0786-1 - CMP Performed By: #### L 500.2500, L3800.1700 #### [facility] [address] [place], [address] ALT [Catalytic activity/Vol] 15 U/L Low 16-61 [facility] Comment on above: Order Comment: Order Date: 10/23/24Order Info: 0786-1 - CMP Performed By: #### L 500.2500, L3800.1700 #### [facility] [address] [place], [address] AST [Catalytic activity/Vol] 21 U/L Normal 15-37 [facility] Comment on above: Order Comment: Order Date: 10/23/24Order Info: 0786-1 - CMP Performed By: #### L 500.2500, L3800.1700 #### [facility] [address] [place], [address] Bilirubin [Mass/Vol] 0.60 mg/dL Normal 0.20-1.00 [facility] Comment on above: Order Comment: Order Date: 10/23/24Order Info: 0786-1 - CMP Result Comment: For patients on eltrombopag therapy, use of Dimension [place] TBIL is not recommended. Performed By: #### L 500.2500, L3800.1700 #### [facility] [address] [place], [address] BUN/CRE 17.1 RATIO Normal 10-20 [facility] Comment on above: Order Comment: Order Date: 10/23/24Order Info: 0786-1 - CMP Performed By: #### L 500.2500, L3800.1700 #### [facility] [address] [place], [address] CA,Total 8.8 mg/dL Normal 8.5-10.1 [facility] Comment on above: Order Comment: Order Date: 10/23/24Order Info: 0786-1 - CMP Performed By: #### L 500.2500, L3800.1700 #### [facility] [address] [place], [address] Chloride [Moles/Vol] 102 mmol/L Normal 98-107 [facility] Comment on above: Order Comment: Order Date: 10/23/24Order Info: 0786-1 - CMP Performed By: #### L 500.2500, L3800.1700 #### [facility] [address] [place], [address] CO2 [Moles/Vol] 27.0 mmol/L Normal 21.0-32.0 [facility] Comment on above: Order Comment: Order Date: 10/23/24Order Info: 0786-1 - CMP Performed By: #### L 500.2500, L3800.1700 #### [facility] [address] [place], [address] Creatinine [Mass/Vol] 0.58 mg/dL Low 0.70-1.30 [facility] Comment on above: Order Comment: Order Date: 10/23/24Order Info: 0786-1 - CMP Result Comment: The validity of the calculated GFR GFRAA in patients over 70 years has not been determined. Clinical correlation is essential. Performed By: #### L 500.2500, L3800.1700 #### [facility] [address] [place], [address] EST GFR - AA 172 mL/min Normal >60 [facility] Comment on above: Order Comment: Order Date: 10/23/24Order Info: 0786-1 - CMP Result Comment: Afri can Danish GFR Calc Performed By: #### L 500.2500, L3800.1700 #### [facility] [address] [place], [address] GAP 5 Normal 5-15 [facility] Comment on above: Order Comment: Order Date: 10/23/24Order Info: 07-1 - CMP Performed By: #### L 500.2500, L3800.1700 #### [facility] [address] [place], [address] GFR/1.73 sq M.predicted among non-blacks MDRD (S/P/Bld) [Vol rate/Area] 142 mL/min/{1.73_m2} Normal >60 [facility] Comment on above: Order Comment: Order Date: 10/23/24Order Info: 0786- - CMP Result Comment: Non- GFR Calc Performed By: #### L 500.2500, L3800.1700 #### [facility] [address] [place], [address] Globulin (S) [Mass/Vol] 3.0 g/dL Normal 2.2-4.2 [facility] Comment on above: Order Comment: Order Date: 10/23/24Order Info: 0786- - CMP Performed By: #### L 500.2500, L3800.1700 #### [facility] [address] [place], [address] Glucose [Mass/Vol] 96 mg/dL Normal 74-106 [facility] Comment on above: Order Comment: Order Date: 10/23/24Order Info: 0786-1 - CMP Performed By: #### L 500.2500, L3800.1700 #### [facility] [address] [place], [address] Potassium [Moles/Vol] 4.1 mmol/L Normal 3.5-5.1 [facility] Comment on above: Order Comment: Order Date: 10/23/24Order Info: 0786-1 - CMP Performed By: #### L 500.2500, L3800.1700 #### [facility] [address] [place], [address] Sodium [Moles/Vol] 134 mmol/L Low 136-145 [facility] Comment on above: Order Comment: Order Date: 10/23/24Order Info: 0786-1 - CMP Performed By: #### L 500.2500, L3800.1700 #### [facility] [address] [place], [address] T PROT 6.4 g/dL Normal 6.4-8.2 [facility] Comment on above: Order Comment: Order Date: 10/23/24Order Info: 0786-1 - CMP Performed By: #### L 500.2500, L3800.1700 #### [facility] [address] [place], [address] Urea nitrogen [Mass/Vol] 10 mg/dL Normal 7-18 [facility] Comment on above: Order Comment: Order Date: 10/23/24Order Info: 0786-1 - CMP Performed By: #### L 500.2500, L3800.1700 #### [facility] [address] [place], [address] Estimated glomerular filtrat ion rate (GFR) AmericanOrdered By: Mily Nogueira on 10-23-2024 Estimated GFR (MDRD) Amer 172 mL/min >60 [facility] Comment on above: GFR Calc Glomerular filtration rate ( GFR) estimationOrdered By: Mily Nogueira on 10-23-2024 Estimated GFR (MDRD) Non-Af Amer 142 mL/min >60 [facility] Comment on above: Non- GFR Calc Glucose measurementOrdered B y: Mily Nogueira on 10-23-2024 Glucose [Mass/Vol] 96 mg/dL 74-106 [facility] - Chemistry and C hemistry - challengeOrdered By: Mily Nogueira on 10-23-2024 AST [Catalytic activity/Vol] 21 U/L 15-37 [facility] Potassium measurementOrdered By: Mily Nogueira on 10-23-2024 Potassium [Moles/Vol] 4.1 mmol/L 3.5-5.1 [facility] Serum anion gap measurementO rdered By: Mily Nogueira on 10-23-2024 Anion gap [Moles/Vol] 5 mmol/L 5-15 [facility] Serum globulin measurementOr dered By: Mily Nogueira on 10-23-2024 Globulin (S) [Mass/Vol] 3.0 g/dL 2.2-4.2 [facility] Serum or plasma alanine koroma otransferase (ALT) measurementOrdered By: Mily Nogueira on 10-23-2024 ALT [Catalytic activity/Vol] 15 U/L Low 16-61 [facility] Serum or plasma albumin aida urement (mass/volume)Ordered By: Mily Nogueira on 10-23-2024 Albumin [Mass/Vol] 3.4 g/dL 3.2-5.0 [facility] Serum or plasma alkaline garret sphatase measurementOrdered By: Mily Nogueira on 10-23-2024 ALP [Catalytic activity/Vol] 166 U/L High 45-117 [facility] Serum or plasma calcium aida urement (mass/volume)Ordered By: Mily Nogueira on 10-23-2024 Calcium [Mass/Vol] 8.8 mg/dL 8.5-10.1 [facility] Serum or plasma creatinine m easurement (mass/volume)Ordered By: Mily Nogueira on 10-23-2024 Creatinine [Mass/Vol] 0.58 mg/dL Low 0.70-1.30 [facility] Comment on above: The validity of the calculated GFR & GFRAA in patients over 70 years has not been determined. Clinical correlation is essential. Serum or plasma urea nitroge n measurement (mass/volume)Ordered By: Mily Nogueira on 10-23-2024 Urea nitrogen [Mass/Vol] 10 mg/dL 7-18 [facility] Serum prealbumin measurement by immunoassayOrdered By: Mily Nogueira on 10-23-2024 Prealbumin [Mass/Vol] 25 mg/dL [facility] Comment on above: Performed at: [facility] [id number] [place], [place] [id number] Director: Kartik Schuster PhD, Phone: [phone] Sodium levelOrdered By: Mily Nogueira on 10-23-2024 Sodium [Moles/Vol] 134 mmol/L Low 136-145 [facility] Total proteinOrdered By: Kevin Nogueira on 10-23-2024 Protein [Mass/Vol] 6.4 g/dL 6.4-8.2 [facility] Office Visit Reporton 2024 Office Visit Report [facility] [address] [place] [address] OFFICE VISIT Date of Service: 10/18/24 MR#: [id number] Acct: [id number] Patient: MILY BOLANOS Rep #: [id number] : 1945 Provider: Dr. Christian storm MD Age/Sex: 79/M Location: [facility] Status: Signed Intake Vital Signs 09/10/24 09:35 10/18/24 13:06 Height 5 ft 10 in 5 ft 10 in Weight: 201 lb BMI 28.8 BP 136/70 H Blood Pressure Location Lt brachial Position Sitting Respiration 16 Pulse 65 Pulse Source Monitor Temp 98.6 F Temp Source Temporal Pulse Oximetry (%) 95 Oxygen Delivery Method room air Intake Visit Reasons: B12 inject Chief Complaint: Fatigue Flight Radio Operator Required: No Accompanied by: Self Is patient in pain?: No Allergies No Known Allergies Allergy (Verified 10/18/24 13:07) Medications ???Medication ???Instructions ???Recorded ???Confirmed ???Type aspirin 81 mg tablet,delayed 81 mg PO DAILY 10/20/17 10/18/24 History release (Adult Low Dose Aspirin) cholecalciferol (vitamin D3) 50 2,000 unit PO DAILY 10/21/20 10/18/24 History mcg (2,000 unit) capsule atorvastatin 20 mg tablet 10 mg PO DAILY cholesterol 09/07/21 10/18/24 History mirtazapine 15 mg tablet 15 mg PO QHS 02/25/22 10/18/24 History dorzolamide 22.3 mg-timolol 6.8 1 drp ophthalmic (eye) DAILY 08/29/23 10/18/24 History mg/mL eye drops hydrocodone-acetaminophen 5-325mg 1 tab PO Q4H PRN pain 3 days #10 01/14/24 10/18/24 Rx 5mg-325mg tabs amlodipine 5 mg tablet 5 mg PO DAILY #30 tabs 02/15/24 10/18/24 Rx metoprolol succinate 50 mg 50 mg PO DAILY #90 TABLETS 07/20/24 10/18/24 Rx tablet,extended release 24 hr carbidopa 25 mg-levodopa 100 mg See Rx Instructions PO .COMPLEX 09/06/24 10/18/24 Rx tablet #630 tabs carbidopa ER 50 mg-levodopa 200 mg 1 tab PO BID #180 tabs 09/06/24 10/18/24 Rx tablet,extended release oxcarbazepine 300 mg tablet 450 mg (1.5 x 300 mg) PO BID #270 09/06/24 10/18/24 Rx tabs ropinirole 0.5 mg tablet 0.5 mg PO TID #270 tabs 09/06/24 10/18/24 Rx lisinopril 40 mg tablet 40 mg PO DAILY #90 TABLETS 10/12/24 10/18/24 Rx Have you fallen in the past year?: No Office Meds cyanocobalamin (vitamin B-12) 1,000 mcg/mL injection solution Performing Provider: Christian Payton MD Performing Location: [facility] Administered by: Bing Austin on 10/18/24 13:07 Dose Route Admin Location Dispensed Lot Number Expiration Date NDC Man ufacturer 1,000 mcg IM left deltoid 1 mL [id number] 12/15/26 28974-021-72 LUIS F RODRIGUEZ Comments: The patient presents for B12 injection for treatment of fatigue. He has fatigue. His last B12 injection was of benefit for fatigue. The patient is awake and alert. B12 1000mcg IM was administered today. Assessment and Plan Assessment and Plan (1) Fatigue: Orders: Orders Vitamin B12 Today R53.83 - Other fatigue Clinical Quality Measures Falls Risk Screening/Assistive Devices Have you fallen in the past year?: No 10/18/24 1628 Date Christian Payton MD Cosigner Signature: Date (if applicable) CC: Normal [facility] Ankle min 3 Viewson 10-09-20 24 Ankle min 3 Views [facility] Imaging [facility] [address] [place], [place] [address] Ankle min 3 Views MR#: [id number] Acct: [id number] Name: MILY BOLANOS Rep #: [id number] : 1945 M 79 From: Dulce Maria marroquin MD PCP: Dr. Mily Nogueira MD Status: REG CLI Study: Ankle min 3 Views Date of Exam: 10/09/24 Exam# [id number] Ordering Dr: Mily Nogueira MD [id number] HISTORY: ANKLE PAIN. TECHNIQUE: XR Ankle Min 3 Views. COMPARISON: None. FINDINGS: BONES : No acute fracture identified. Plantar calcaneal spur with ossification of the plantar fascia. JOINTS: No dislocation. Mild degenerative change. SOFT TISSUES: Moderate soft tissue swelling. RAD/Ankle min 3 Views IMPRESSION: No acute fracture or dislocation identified in the right ankle. Soft tissue swelling. Electronically Signed: Dulce Maria Salazar MD at 13:49 EST , CC: Dr. Mily Nogueira MD Administrative Coordinator: Signed Normal [facility] Ankle min 3 Viewson 09-26-20 24 Ankle min 3 Views [facility] Imaging Services [address] [facility] [address] Ankle min 3 Views MR#: [id number] Acct: [id number] Name: MILY BOLANOS Rep #: [id number] : 1945 M 79 From: Dulce Maria marroquin MD PCP: Dr. Mily Nogueira MD Status: REG CLI Study: Ankle min 3 Views Date of Exam: 09/26/24 Exam# [id number] Ordering Dr: Mily Nogueira MD [id number] HISTORY: pain. TECHNIQUE: XR Ankle Min 3 Views. COMPARISON: None. FINDINGS: BONES : Small linear lucency at the tip of the fibula. Plantar calcaneal spur with ossification of the plantar fascia. JOINTS: No dislocation. Mild degenerative change. Mild joint effusion. SOFT TISSUES: Moderate soft tissue swelling. RAD/Ankle min 3 Views IMPRESSION: Moderate soft tissue swelling of the right ankle with suspicion for nondisplaced fracture of the lateral malleolus. Electronically Signed: Dulce Maria Salazar MD at 8:15 EST Reading Location ID and State: [facility] / [place] Tel , Service support , CC: Dr. Mily Nogueira MD Administrative Coordinator: Signed Normal [facility] Venous Duplex US, Unilateral on 09-26-2024 Venous Duplex US, Unilateral [facility] [address] [place] [address] Venous Duplex US, Unilateral 09/26/24 0940 MR#: [id number] Acct: [id number] Name: MILY BOLANOS Rep #: [id number] : 1945 79 From: Vitaly Ma MD Attending Dr: Dr. Mily Nogueira MD Status: R EG CLI Ordering Dr: Mily Nogueira MD Date: 09/26/24 Location: [facility] Sex: M C Admitted: Reason For Study: RLE [place] RIGHT LEFT GSV is normal. FV is compressible, spontaneous, phasic, CFV is compressible, spontaneous, phasic, competent and demonstrates normal competent and demonstrates normal augmentation. augmentation. FV is compressible, spontaneous, phasic, competent and demonstrates normal augmentation. POP V is compressible, spontaneous, phasic, competent and demonstrates normal augmentation. T/P Trunk is compressible. PTV is compressible. RT PerV is compressible. Procedure This is a venous duplex using B-mode, color flow and spectral Doppler. Exam performed in department. The exam was diagnostic. A preliminary report was called and/or faxed to Dr. Nogueira office. VL/Venous Duplex US, Unilateral Interpretation Summary Deep veins of the right lower extremity are patent and compressible segmentally. There is no evidence of right lower extremity deep vein thrombosis. The right great saphenous vein appears patent and compressible segmentally. Ordering Physician: Mily Nogueira Referring Physician: Mily Nogueira Performed By: William Cali, T 09/27/241657 Date Vitaly Ma MD CC: Dr. Mily Nogueira MD Date Dictated: 09/26/24 0940 Date Transcribed: 09/27/241657 Administrative Coordinator: Signed Normal [facility] 81-[id number] DOrdered By: Bryce Nogueira on 09-25-2024 Vitamin D 25-Hydroxy 37.5 ng/mL [facility] Comment on above: Vitamin D 25(OH) Sta tus Range Deficiency <20 ng/mL (50nmol/L) Insufficiency 20 - 30 ng/mL (50 - 75 nmol/L) Sufficiency 30 - 100 ng/mL (75 - 250 nmol/L) Toxicity >100 ng/mL (>250 nmol/L) Absolute neutrophil countOrd ered By: Mily Nogueira on 09-25-2024 Neutrophils (Bld) [#/Vol] 2.9 10*3/uL 2.0-7.7 [facility] Albumin to globulin ratioOrd ered By: Mily Nogueira on 09-25-2024 Albumin/Globulin [Mass ratio] 1.1 {ratio} 0.9-2.4 [facility] Basophil percentageOrdered B y: Mily Nogueira on 09-25-2024 Basophils/100 WBC (Bld) 1.3 % High 0-1 [facility] Bilirubin, totalOrdered By: Mily Nogueira on 09-25-2024 Bilirubin [Mass/Vol] 0.50 mg/dL 0.20-1.00 [facility] Comment on above: For patients on eltr ombopag therapy, use of Dimension [place] TBIL is not recommended. Blood urea nitrogen (BUN)/cr eatinine ratioOrdered By: Mily Nogueira on 09-25-2024 Urea nitrogen/Creatinine [Mass ratio] 25.5 mg/mg High 10-20 [facility] CBC W/Diff, Automatedon 09-16 Absolute Lymph 1.04 X10 3/uL Normal 0.83-4.51 [facility] Comment on above: Performed By: #### L 501.9985, L500.4050, L100.0100, L500.4100, L506.1000 #### [facility] [address] [place], [address] Absolute Neut 2.9 X10 3/uL Normal 2.0-7.7 [facility] Comment on above: Performed By: #### L 501.9985, L500.4050, L100.0100, L500.4100, L506.1000 #### [facility] [address] [place], [address] Basophils/100 WBC (Bld) 1.3 % High 0-1 [facility] Comment on above: Performed By: #### L 501.9985, L500.4050, L100.0100, L500.4100, L506.1000 #### [facility] [address] [place], [address] Eosinophils/100 WBC (Bld) 4.5 % Normal 0-5 [facility] Comment on above: Performed By: #### L 501.9985, L500.4050, L100.0100, L500.4100, L506.1000 #### [facility] [address] [facility] [place], [address] Erythrocyte distribution width (RBC) [Ratio] 12.9 % Normal 11.6-14.6 [facility] Comment on above: Performed By: #### L 501.9985, L500.4050, L100.0100, L500.4100, L506.1000 #### [facility] [address] [facility] [place], [address] Hematocrit (Bld) [Volume fraction] 44.8 % Normal 40-54 [facility] Comment on above: Performed By: #### L 501.9985, L500.4050, L100.0100, L500.4100, L506.1000 #### [facility] [address] [facility] [place], [address] Hemoglobin (Bld) [Mass/Vol] 14.8 g/dL Normal 13.0-16.5 [facility] Comment on above: Performed By: #### L 501.9985, L500.4050, L100.0100, L500.4100, L506.1000 #### [facility] [address] [place], [address] IG% 0.900 Normal 0.0-0.9 [facility] Comment on above: Result Comment: IG% - Immature Granulocytes (promyelocytes, myelocytes and metamyelocytes) > 1% indicates that a LEFT SHIFT is Present. Performed By: #### L 501.9985, L500.4050, L100.0100, L500.4100, L506.1000 #### [facility] [address] [place], [address] Lymphocytes/100 WBC (Bld) 22.3 % Normal 19-41 [facility] Comment on above: Performed By: #### L 501.9985, L500.4050, L100.0100, L500.4100, L506.1000 #### [facility] [address] [place], [address] MCH (RBC) [Entitic mass] 28.5 pg Normal 27.0-32.0 [facility] Comment on above: Performed By: #### L 501.9985, L500.4050, L100.0100, L500.4100, L506.1000 #### [facility] [address] [place], [address] MCHC (RBC) [Mass/Vol] 33.0 g/dL Normal 32-36 [facility] Comment on above: Performed By: #### L 501.9985, L500.4050, L100.0100, L500.4100, L506.1000 #### [facility] [address] [place], [address] MCV (RBC) [Entitic vol] 86.2 fL Normal 80-94 [facility] Comment on above: Performed By: #### L 501.9985, L500.4050, L100.0100, L500.4100, L506.1000 #### [facility] [address] [place], [address] Monocytes/100 WBC (Bld) 8.2 % Normal 0-10 [facility] Comment on above: Performed By: #### L 501.9985, L500.4050, L100.0100, L500.4100, L506.1000 #### [facility] [address] [place], [address] Neutrophils/100 WBC (Bld) 62.8 % Normal 47-70 [facility] Comment on above: Performed By: #### L 501.9985, L500.4050, L100.0100, L500.4100, L506.1000 #### [facility] [address] [place], [address] Nucleated RBC (Bld) [#/Vol] 0 10*3/uL Normal 0-5 [facility] Comment on above: Performed By: #### L 501.9985, L500.4050, L100.0100, L500.4100, L506.1000 #### [facility] [address] [place], [address] Platelet mean volume (Bld) [Entitic vol] 11.1 fL Normal 6.2-12.0 [facility] Comment on above: Performed By: #### L 501.9985, L500.4050, L100.0100, L500.4100, L506.1000 #### [facility] [address] [place], [address] Platelets (Bld) [#/Vol] 225 10*3/uL Normal 150-450 [facility] Comment on above: Performed By: #### L 501.9985, L500.4050, L100.0100, L500.4100, L506.1000 #### [facility] [address] [place], [address] RBC (Bld) [#/Vol] 5.20 10*6/uL Normal 4.6-6.2 [facility] Comment on above: Performed By: #### L 501.9985, L500.4050, L100.0100, L500.4100, L506.1000 #### [facility] [address] [place], [address] RDW SD 40.0 fl Normal 35.1-43.9 [facility] Comment on above: Performed By: #### L 501.9985, L500.4050, L100.0100, L500.4100, L506.1000 #### [facility] [address] [place], [address] WBC (Bld) [#/Vol] 4.7 10*3/uL Normal 4.4-11.0 [facility] Comment on above: Performed By: #### L 501.9985, L500.4050, L100.0100, L500.4100, L506.1000 #### [facility] [address] [place], [address] Carbon dioxide measurementOr dered By: Mily Nogueira on 09-25-2024 CO2 [Moles/Vol] 26.0 mmol/L 21.0-32.0 [facility] Chloride measurementOrdered By: Mily Nogueira on 09-25-2024 Chloride [Moles/Vol] 104 mmol/L 98-107 [facility] Comprehensive Metabolic Prof ilon 09-25-2024 Albumin [Mass/Vol] 3.3 g/dL Normal 3.2-5.0 [facility] Comment on above: Performed By: #### L 501.9985, L500.4050, L100.0100, L500.4100, L506.1000 #### [facility] [address] [place], [address] Albumin/Globulin [Mass ratio] 1.1 {ratio} Normal 0.9-2.4 [facility] Comment on above: Performed By: #### L 501.9985, L500.4050, L100.0100, L500.4100, L506.1000 #### [facility] [address] [place], [address] ALK P 168 U/L High 45-117 [facility] Comment on above: Performed By: #### L 501.9985, L500.4050, L100.0100, L500.4100, L506.1000 #### [facility] [address] [place], [address] ALT [Catalytic activity/Vol] 17 U/L Normal 16-61 [facility] Comment on above: Performed By: #### L 501.9985, L500.4050, L100.0100, L500.4100, L506.1000 #### [facility] [address] [place], [address] AST [Catalytic activity/Vol] 22 U/L Normal 15-37 [facility] Comment on above: Performed By: #### L 501.9985, L500.4050, L100.0100, L500.4100, L506.1000 #### [facility] [address] [place], [address] Bilirubin [Mass/Vol] 0.50 mg/dL Normal 0.20-1.00 [facility] Comment on above: Result Comment: For patients on eltrombopag therapy, use of Dimension [place] TBIL is not recommended. Performed By: #### L 501.9985, L500.4050, L100.0100, L500.4100, L506.1000 #### [facility] [address] [place], [address] BUN/CRE 25.5 RATIO High 10-20 [facility] Comment on above: Performed By: #### L 501.9985, L500.4050, L100.0100, L500.4100, L506.1000 #### [facility] [address] [place], [address] CA,Total 9.0 mg/dL Normal 8.5-10.1 [facility] Comment on above: Performed By: #### L 501.9985, L500.4050, L100.0100, L500.4100, L506.1000 #### [facility] [address] [place], [address] Chloride [Moles/Vol] 104 mmol/L Normal 98-107 [facility] Comment on above: Performed By: #### L 501.9985, L500.4050, L100.0100, L500.4100, L506.1000 #### [facility] [address] [place], [address] CO2 [Moles/Vol] 26.0 mmol/L Normal 21.0-32.0 [facility] Comment on above: Performed By: #### L 501.9985, L500.4050, L100.0100, L500.4100, L506.1000 #### [facility] [address] [place], [address] Creatinine [Mass/Vol] 0.67 mg/dL Low 0.70-1.30 [facility] Comment on above: Result Comment: The validity of the calculated GFR GFRAA in patients over 70 years has not been determined. Clinical correlation is essential. Performed By: #### L 501.9985, L500.4050, L100.0100, L500.4100, L506.1000 #### [facility] [address] [place], [address] EST GFR - AA 148 mL/min Normal >60 [facility] Comment on above: Result Comment: Afri can Danish GFR Calc Performed By: #### L 501.9985, L500.4050, L100.0100, L500.4100, L506.1000 #### [facility] [address] [place], [address] GAP 6 Normal 5-15 [facility] Comment on above: Performed By: #### L 501.9985, L500.4050, L100.0100, L500.4100, L506.1000 #### [facility] [address] [place], [address] GFR/1.73 sq M.predicted among non-blacks MDRD (S/P/Bld) [Vol rate/Area] 122 mL/min/{1.73_m2} Normal >60 [facility] Comment on above: Result Comment: Non- GFR Calc Performed By: #### L 501.9985, L500.4050, L100.0100, L500.4100, L506.1000 #### [facility] [address] [place], [address] Globulin (S) [Mass/Vol] 2.9 g/dL Normal 2.2-4.2 [facility] Comment on above: Performed By: #### L 501.9985, L500.4050, L100.0100, L500.4100, L506.1000 #### [facility] [address] [place], [address] Glucose [Mass/Vol] 114 mg/dL High 74-106 [facility] Comment on above: Result Comment: Fast ing Glucose result from 100 to 125 mg/dL suggests IMPAIRED HOMEOSTASIS per A.D.A. criteria. Performed By: #### L 501.9985, L500.4050, L100.0100, L500.4100, L506.1000 #### [facility] [address] [place], [address] Potassium [Moles/Vol] 4.1 mmol/L Normal 3.5-5.1 [facility] Comment on above: Performed By: #### L 501.9985, L500.4050, L100.0100, L500.4100, L506.1000 #### [facility] [address] [place], [address] Sodium [Moles/Vol] 136 mmol/L Normal 136-145 [facility] Comment on above: Performed By: #### L 501.9985, L500.4050, L100.0100, L500.4100, L506.1000 #### [facility] [address] [place], [address] T PROT 6.2 g/dL Low 6.4-8.2 [facility] Comment on above: Performed By: #### L 501.9985, L500.4050, L100.0100, L500.4100, L506.1000 #### [facility] [address] [place], [address] Urea nitrogen [Mass/Vol] 17 mg/dL Normal 7-18 [facility] Comment on above: Performed By: #### L 501.9985, L500.4050, L100.0100, L500.4100, L506.1000 #### [facility] [address] [place], [place], [address] Eosinophil percentageOrdered By: Mily Nogueira on 09-25-2024 Eosinophils/100 WBC (Bld) 4.5 % 0-5 [facility] Erythrocyte distribution wid th ratioOrdered By: Mily Nogueira on 09-25-2024 Erythrocyte distribution width (RBC) [Ratio] 12.9 % 11.6-14.6 [facility] Erythrocyte distribution wid th standard deviationOrdered By: Mily Nogueira on 09-25-2024 Erythrocyte distribution width (RBC) [Entitic vol] 40.0 fL 35.1-43.9 [facility] Estimated glomerular filtrat ion rate (GFR) AmericanOrdered By: Mily Nogueira on 09-25-2024 Estimated GFR (MDRD) Amer 148 mL/min >60 [facility] Comment on above: GFR Calc Glomerular filtration rate ( GFR) estimationOrdered By: Mily Nogueira on 09-25-2024 Estimated GFR (MDRD) Non-Af Amer 122 mL/min >60 [facility] Comment on above: Non- GFR Calc Glucose measurementOrdered B y: Mily Nogueira on 09-25-2024 Glucose [Mass/Vol] 114 mg/dL High 74-106 [facility] Comment on above: Fasting Glucose resu lt from 100 to 125 mg/dL suggests IMPAIRED HOMEOSTASIS per A.D.A. criteria. Hematocrit Auto (Bld) [Volum e fraction]Ordered By: Mily Nogueira on 09-25-2024 Hematocrit (Bld) [Volume fraction] 44.8 % 40-54 [facility] Hemoglobin A1con 09-25-2024 HbA1c (Bld) [Mass fraction] 5.5 % Normal 3.8-5.6 [facility] Comment on above: Result Comment: Norm al < 5.7 % Prediabetic 5.7 - 6.4 % Diabetic >or= 6.5 % Please note range changes. Performed By: #### L 501.9985, L500.4050, L100.0100, L500.4100, L506.1000 #### [facility] [address] [place], [place], [address] Hemoglobin A1c percentageOrd ered By: Mily Nogueira on 09-25-2024 HbA1c (Bld) [Mass fraction] 5.5 % 3.8-5.6 [facility] Comment on above: Normal < 5.7 % Predi abetic 5.7 - 6.4 % Diabetic >or= 6.5 % Please note range changes. Hemoglobin measurementOrdere d By: Mily Nogueira on 09-25-2024 Hemoglobin (Bld) [Mass/Vol] 14.8 g/dL 13.0-16.5 [facility] High density lipoprotein (HD L) measurementOrdered By: Mily Nogueira on 09-25-2024 Cholesterol in HDL [Mass/Vol] 89 mg/dL >40 [facility] Comment on above: The drugs N-Acetylcy steine and Metamizole may falsely depress this assay. Reference Range HDL <40 mg/dL Low HDL Cholesterol HDL >or= 60 mg/dL High HDL Cholesterol Immature granulocytes/100 WB C Auto (Bld)Ordered By: Mily Nogueira on 09-25-2024 Immature granulocytes/100 WBC (Bld) 0.900 % 0.0-0.9 [facility] Comment on above: IG% - Immature Granu locytes (promyelocytes, myelocytes and metamyelocytes) > 1% indicates that a LEFT SHIFT is Present. Laboratory - Chemistry and C hemistry - challengeOrdered By: Miyl Nogueira on 09-25-2024 AST [Catalytic activity/Vol] 22 U/L 15-37 [facility] Lipid Profileon 09-25-2024 Cholesterol [Mass/Vol] 195 mg/dL Normal 200 [facility] Comment on above: Result Comment: <200 mg/dL Desirable 200-240 mg/dL Borderline >240 mg/dL High Risk Performed By: #### L 501.9985, L500.4050, L100.0100, L500.4100, L506.1000 #### [facility] [address] [place], [address] Cholesterol in HDL [Mass/Vol] 89 mg/dL Normal [facility] Comment on above: Result Comment: The drugs N-Acetylcysteine and Metamizole may falsely depress this assay. Reference Range HDL <40 mg/dL Low HDL Cholesterol HDL >or= 60 mg/dL High HDL Cholesterol Performed By: #### L 501.9985, L500.4050, L100.0100, L500.4100, L506.1000 #### [facility] [address] [place], [address] Cholesterol in LDL [Mass/Vol] 93 mg/dL Normal 0-130 [facility] Comment on above: Performed By: #### L 501.9985, L500.4050, L100.0100, L500.4100, L506.1000 #### [facility] [address] [place], [address] Cholesterol in VLDL [Mass/Vol] 13 mg/dL Normal 5-40 [facility] Comment on above: Performed By: #### L 501.9985, L500.4050, L100.0100, L500.4100, L506.1000 #### [facility] [address] [place], [address] Triglyceride [Mass/Vol] 66 mg/dL Normal [facility] Comment on above: Result Comment: The drugs N-Acetylcysteine and Metamizole may falsely depress this assay. Serum Triglycerides Reference Interval Normal <150 mg/dL Borderline high 150 - 199 mg/dL High 200 - 499 mg/dL Very High > or = 500 mg/dL Performed By: #### L 501.9985, L500.4050, L100.0100, L500.4100, L506.1000 #### [facility] [address] [place], [address] Low density lipoprotein (LDL ) cholesterol measurementOrdered By: Mily Nogueira on 09-25-2024 Cholesterol in LDL [Mass/Vol] 93 mg/dL 0-130 [facility] Lymphocytes Auto (Unsp spec) [#/Vol]Ordered By: Mily Nogueira on 09-25-2024 Lymphocytes (Bld) [#/Vol] 1.04 10*3/uL 0.83-4.51 [facility] Lymphocytes/100 WBC Auto (Un sp spec)Ordered By: Mily Nogueira on 09-25-2024 Lymphocytes/100 WBC (Bld) 22.3 % 19-41 [facility] MCV (mean corpuscular volume ) determinationOrdered By: Mily Nogueira on 09-25-2024 MCV (RBC) [Entitic vol] 86.2 fL 80-94 [facility] Mean corpuscular hemoglobin (MCH) determinationOrdered By: Mily Nogueira on 09-25-2024 MCH (RBC) [Entitic mass] 28.5 pg 27.0-32.0 [facility] Mean corpuscular hemoglobin concentration (MCHC) determinationOrdered By: Mily Nogueira on 09-25-2024 MCHC (RBC) [Mass/Vol] 33.0 g/dL 32-36 [facility] Mean platelet volume determi nationOrdered By: Mily Nogueira on 09-25-2024 Platelet mean volume (Bld) [Entitic vol] 11.1 fL 6.2-12.0 [facility] Monocyte percentageOrdered B y: Mily Nogueira on 09-25-2024 Monocytes/100 WBC (Bld) 8.2 % 0-10 [facility] Neutrophil percentageOrdered By: Mily Nogueira on 09-25-2024 Neutrophils/100 WBC (Bld) 62.8 % 47-70 [facility] Nucleated red blood cell per centageOrdered By: Mily Nogueira on 09-25-2024 Nucleated RBC/100 WBC (Bld) [Ratio] 0 % 0-5 [facility] Platelet countOrdered By: Yecenia Nogueira on 09-25-2024 Platelets (Bld) [#/Vol] 225 10*3/uL 150-450 [facility] Potassium measurementOrdered By: Mily Nogueira on 09-25-2024 Potassium [Moles/Vol] 4.1 mmol/L 3.5-5.1 [facility] RBC Auto (Bld) [#/Vol]Ordere d By: Miyl Nogueira on 09-25-2024 RBC (Bld) [#/Vol] 5.20 10*6/uL 4.6-6.2 [facility] Serum anion gap measurementO rdered By: Mily Nogueira on 09-25-2024 Anion gap [Moles/Vol] 6 mmol/L 5-15 [facility] Serum globulin measurementOr dered By: Mily Nogueira on 09-25-2024 Globulin (S) [Mass/Vol] 2.9 g/dL 2.2-4.2 [facility] Serum or plasma alanine koroma otransferase (ALT) measurementOrdered By: Mily Nogueira on 09-25-2024 ALT [Catalytic activity/Vol] 17 U/L 16-61 [facility] Serum or plasma albumin aida urement (mass/volume)Ordered By: Mily Nogueira on 09-25-2024 Albumin [Mass/Vol] 3.3 g/dL 3.2-5.0 [facility] Serum or plasma alkaline garret sphatase measurementOrdered By: Mily Nogueira on 09-25-2024 ALP [Catalytic activity/Vol] 168 U/L High 45-117 [facility] Serum or plasma calcium aida urement (mass/volume)Ordered By: Mily Nogueira on 09-25-2024 Calcium [Mass/Vol] 9.0 mg/dL 8.5-10.1 [facility] Serum or plasma cholesterol measurement (mass/volume)Ordered By: Mily Nogueira on 09-25-2024 Cholesterol [Mass/Vol] 195 mg/dL <200 [facility] Comment on above: <200 mg/dL Desirable 200-240 mg/dL Borderline >240 mg/dL High Risk Serum or plasma creatinine m easurement (mass/volume)Ordered By: Mily Nogueira on 09-25-2024 Creatinine [Mass/Vol] 0.67 mg/dL Low 0.70-1.30 [facility] Comment on above: The validity of the calculated GFR & GFRAA in patients over 70 years has not been determined. Clinical correlation is essential. Serum or plasma urea nitroge n measurement (mass/volume)Ordered By: Mily Nogueira on 09-25-2024 Urea nitrogen [Mass/Vol] 17 mg/dL 7-18 [facility] Sodium levelOrdered By: Mily Nogueira on 09-25-2024 Sodium [Moles/Vol] 136 mmol/L 136-145 [facility] Total proteinOrdered By: Kevin Nogueira on 09-25-2024 Protein [Mass/Vol] 6.2 g/dL Low 6.4-8.2 [facility] Triglycerides measurementOrd ered By: Mily Nogueira on 09-25-2024 Triglyceride [Mass/Vol] 66 mg/dL <199 [facility] Comment on above: The drugs N-Acetylcy steine and Metamizole may falsely depress this assay.Serum Triglycerides Reference Interval Normal <150 mg/dL Borderline high 150 - 199 mg/dL High 200 - 499 mg/dL Very High > or = 500 mg/dL Very low density lipoprotein (VLDL) cholesterol measurementOrdered By: Mily Nogueira on 09-25-2024 VLDL Cholesterol 13 mg/dL 5-40 [facility] Vitamin D,25 Hydroxyon 09-25 Vitamin D 25-OH 37.5 ng/mL Normal [facility] Comment on above: Result Comment: Vivian min D 25(OH) Status Range Deficiency <20 ng/mL (50nmol/L) Insufficiency 20 - 30 ng/mL (50 - 75 nmol/L) Sufficiency 30 - 100 ng/mL (75 - 250 nmol/L) Toxicity >100 ng/mL (>250 nmol/L) Performed By: #### L 501.9985, L500.4050, L100.0100, L500.4100, L506.1000 #### [facility] [address] [place], [address] White blood cell (WBC) count Ordered By: Mily Nogueira on 09-25-2024 WBC (Bld) [#/Vol] 4.7 10*3/uL 4.4-11.0 [facility] Office Visit Reporton 2023 Office Visit Report [facility] [address] [place] [address] OFFICE VISIT Date of Service: 09/10/24 MR#: [id number] Acct: [id number] Patient: MILY BOLANOS Rep #: [id number] : 1945 Provider: Dr. Christian storm MD Age/Sex: 79/M Location: [facility] Status: Signed Intake Vital Signs 07/09/24 09:20 09/06/24 08:28 09/10/24 09:35 Height 5 ft 10 in 5 ft 10 in 5 ft 10 in Weight: 197 lb 194 lb 6 oz BMI 28.3 27.8 BP 144/82 H 138/80 H Blood Pressure Location Lt brachial Lt brachial Position Sitting Sitting Respiration 15 17 Pulse 82 78 Pulse Source Monitor Monitor Temp 98.2 F 98.0 F Temp Source Temporal Temporal Pulse Oximetry (%) 97 97 Oxygen Delivery Method room air room air Intake Visit Reasons: B12 inject Chief Complaint: Allergies No Known Allergies Allergy (Verified 09/06/24 08:32) Have you fallen in the past year?: Yes Office Meds cyanocobalamin (vitamin B-12) 1,000 mcg/mL injection solution Performing Provider: Christian Payton MD Performing Location: [facility] Administered by: Mariluz Archuleta on 09/10/24 09:38 Dose Route Admin Location Dispensed Lot Number Expiration Date NDC Man ufacturer 1,000 mcg IM left deltoid 1 mL [id number] 11/16/26 81738-064-40 LU[employer] F RODRIGUEZ Comments: The patient presents for B12 injection for treatment of fatigue. He has fatigue. His last B12 injection was of benefit for fatigue. The patient is awake and alert. B12 1000mcg IM was administered today. Assessment and Plan Assessment and Plan (1) Fatigue: Orders: Orders Vitamin B12 Today R53.83 - Other fatigue Clinical Quality Measures Falls Risk Screening/Assistive Devices Have you fallen in the past year?: Yes 09/10/24 1456 Date Christian Payton MD Cosigner Signature: Date (if applicable) CC: Normal [facility] Neurology Visit Reporton Neurology Visit Report [facility] [address], [address] [place] [address] OFFICE VISIT Date of Service: 09/06/24 MR#: [id number] Acct: [id number] Name: MILY BOLANOS Rep #: [id number] : 1945 Provider: Dr. Christian storm MD Age/Sex: 79/M Location: [facility]. Status: Signed HPI HPI Chief Complaint: Details: Interim History: Mily returns for follow-up visit. He has a history of hypertension, hyperlipidemia, left eye central retinal venous occlusion around 2019, left amaurosis fugax in 2020, Parkinson's disease, polyneuropathy, and obstructive sleep apnea (he uses CPAP). He began to have a tremor affecting the right hand around 2016. Over the years, he developed some slowing of his gait and a stooping of his posture. He has some gait imbalance. His handwriting has become coarse. He has had some hypophonia. He denied having dysphagia. He denied having memory difficulty. He has had difficulty with fine motor control of the hands (with activities such as turning pages). He saw a neurologist and was diagnosed with Parkinson's disease around 2017 and has been treated with carbidopa/levodopa and carbidopa/levodopa ER and these have been of benefit for his parkinsonian tremor. He has received outpatient physical therapy earlier in 2023 which was of benefit and is involved in a Parkinson's disease exercise programs and also exercises on his own. The addition of ropinirole earlier in 2023 has been of benefit for his parkinsonian symptoms and the medication has been well-tolerated. As a result of his left eye retinal vein occlusion and left amaurosis fugax, he has residual left eye visual impairment. 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 EMG/nerve conduction studies of the lower extremities in September 2023 reveal a severe sensorimotor polyneuropathy and chronic left L4 and L5 radiculopathies. He uses a left ankle strap that attaches to his shoe to assist dorsiflexion of the foot. He occasionally uses a cane. He is using oxcarbazepine for his neuropathic pain and this is of some benefit. He stated that a prior evaluation for his polyneuropathy did not reveal any etiology for the polyneuropathy. Gabapentin was not well-tolerated. He had lumbar surgery in 2021 for back pain; he continued to experience low back pain postoperatively. He also has experienced bilateral lower extremity radicular pain in the past; his lower extremity radicular pain subsided. He sees a pain management physician, Dr. Lackey; lumbar injections have not been of significant benefit and pursuit of dorsal column stimulator placement is being planned. Per prior discussion, he did not wish to consider further lumbar surgery. He has an implanted cardiac loop recorder. He has fatigue. B12 injections have been of benefit for his fatigue. Physical Exam: Neuro: The patient is awake and alert and responds appropriately; motor strength is 5/5 in the quadriceps bilaterally, and 4+/5 in the right foot dorsiflexors and 4 -/5 in the left foot dorsiflexors; no rigidity is noted in the wrist; a mild tremor is noted in the hands when arms are extended; gait is slow Neck: No bruits Heart: Regular rhythm and rate Supplemental Info Head CT (08/24/2021): FINDINGS: Normal soft tissue structures. Normal calvarium. There is mild cerebral atrophy with widening of the extra-axial spaces and ventricular dilatation. There are areas of decreased attenuation within the white matter tracts of the supratentorial brain, consistent with microvascular disease changes. Normal basal ganglia and thalami. Normal brainstem. Normal cerebellum. There is no intracranial hemorrhage. There are no findings of an acute ischemic infarction. Atherosclerotic plaque formation of the cavernous portions of the internal carotid arteries bilaterally. Normal visualized paranasal sinuses. IMPRESSION: Chronic involutional changes of the brain. These images were reviewed on 08/29/2023. Mild diffuse cerebral atrophy is noted. Mild bilateral periventricular chronic small vessel ischemic disease is noted. Neck MRA (08/24/2021): FINDINGS: RIGHT COMMON CAROTID ARTERY: Unremarkable. No occlusion or significant stenosis. No dissection. RIGHT INTERNAL CAROTID ARTERY: Unremarkable. Extracranial segment is patent with no occlusion or significant stenosis. No dissection. RIGHT EXTERNAL CAROTID ARTERY: Unremarkable. No occlusion. RIGHT VERTEBRAL ARTERY: Unremarkable. No occlusion or significant stenosis. No dissection. LEFT COMMON CAROTID ARTERY: Unremarkable. No occlusion or significant stenosis. No dissection. LEFT INTERNAL CAROTID ARTERY: There is mild atherosclerotic plaque formation of the origin of the right and left internal carotid artery with less than 50% cross sectional diameter stenosis. ALL (more content not included)... Normal [facility] TXT:Device Implant / Explant on 08-13-2024 TXT:Device Implant / Explant [facility] [address] [place] [address] TXT:Device Implant / Explant MR#: [id number] Acct: [id number] Name: MILY BOLANOS Rep #: [id number] : 1945 79 From: Tacho Moreira MD PCP: Dr. Mily Nogueira MD Status:[facility] Patient: MILY BOLANOS Study Date: 08/13/2024 Performing: Tacho Moreira MD : 1945 Age: 79 Gender: male PROCEDURES PERFORMED LP02-(43205)REMOVAL OF LOOP RECORDER INDICATIONS End-of-life replacement indicator Amaurosis fugax PROCEDURE DETAILS The patient was brought to the Catheterization Lab in the postabsorptive nonsedated state. Informed consent was obtained prior to the procedure. Local anesthetic was given subcutaneously to the left upper chest area with Lidocaine 2%. ICM Reveal LINQ was removed. Steri-strips applied to Lt chest area. The patient tolerated the procedure well. Estimated Blood Loss: 10 ml's IMPLANTED / EX-PLANTED DEVICES DEVICE PARAMETERS CONCLUSIONS / RECOMMENDATIONS Device Conclusions: Successful explant of a patient activated loop recorder. Device Recommendations: Follow up with Primary Care Physician PROCEDURE MEDICATIONS Versed 1 mg IV Oxygen: 2 L/min via nasal cannula Antibiotic given in appropriate timeframe. Ancef 2 Gm IV @ 08/13/2024 11:48:29 Signed By Tacho Moreira MD On 08/13/2024 12:05:20 Tacho Moreira MD 08/13/24 1206 Date Tacho Moreira MD Cosigner Signature: Date (if indicated) CC: Dr. Tacho Moreira MD; Dr. Mily Nogueira MD Date Dictated: 08/13/24 1156 Date Transcribed: 08/13/24 1205 Administrative Coordinator: [place] Signed [facility] Office Visit Reporton 2023 Office Visit Report [facility] [address] [place] [address] OFFICE VISIT Date of Service: 08/09/24 MR#: [id number] Acct: [id number] Patient: MILY BOLANOS Rep #: [id number] : 1945 Provider: Dr. Christian storm MD Age/Sex: 79/M Location: [facility] Status: Signed Intake Vital Signs 06/07/24 09:43 07/09/24 09:20 08/09/24 09:43 Height 5 ft 10 in 5 ft 10 in 5 ft 10 in Weight: 197 lb BMI 28.3 BP 140/82 H Blood Pressure Location Lt brachial Position Sitting Respiration 17 Pulse 76 Pulse Source Monitor Temp 98.4 F Temp Source Temporal Pulse Oximetry (%) 96 Oxygen Delivery Method room air Intake Visit Reasons: B12 inject Chief Complaint: Allergies No Known Allergies Allergy (Verified 05/08/24 08:36) Have you fallen in the past year?: Yes Office Meds cyanocobalamin (vitamin B-12) 1,000 mcg/mL injection solution Performing Provider: Christian Payton MD Performing Location: [facility] Administered by: Mariluz Archuleta on 08/09/24 09:44 Dose Route Admin Location Dispensed Lot Number Expiration Date KELLY Padilla uflauraurer 1,000 mcg IM left deltoid 1 mL [id number] 11/16/26 76641-817-36 LUIS F RODRIGUEZ Comments: The patient presents for B12 injection for treatment of fatigue. He has fatigue. His last B12 injection was of benefit for fatigue. The patient is awake and alert. B12 1000mcg IM was administered today. There were no complications. Assessment and Plan Assessment and Plan (1) Fatigue: Orders: Orders Vitamin B12 Today R53.83 - Other fatigue Clinical Quality Measures Falls Risk Screening/Assistive Devices Have you fallen in the past year?: Yes 08/09/24 1149 Date [facility] Signature: Date (if applicable) CC: Normal [facility] PT D/C Summary (1)on 024 PT D/C Summary (1) [facility] [place] [address] / REHABILITATION SERVICES DISCHARGE SUMMARY MR#: [id number] Acct: [id number] Name: MILY BOLANOS Rep #: [id number] : 1945 79 From: Deb YEH Referring Dr.: Dr. Christian Payton MD Status: REG RCR Insurance: [facility] [employer] [facility]Y INSURANCE Discharge Summary D/C summary: It has been my pleasure to treat MILY BOLANOS referred by Dr. Christian Payton MD, with the diagnosis of Parkinson's for a total of 12 visit(s). Discharge Date: 08/07/24 Please see the following information for a summary of their discharge status. Subjective Subjective: Pt understands his HEP and ready to work out on his own. Overall Improvement % Improvement: 70 Objective Objective/Function: R hip flex 25.9 and L 28.1 R knee ext 24.2 and L 20.6 R knee flex 18.8 and L 14.8 R supine hip abd 12.5 and L 12.8 R hip ext 7.8 and L 6.2). Goals Goal 1:: I HEP Goal Progress: Goal Met Goal 2:: Be able to stand with EC X 30 seconds with CGA without losing his balance Goal Progress: Goal Met Goal 3:: Increase B LE strength to help with lack of ankle strength due to neuropathy (at the time of the eval: LE MMT: R hip flex 8.6 and L 8 R knee ext 24.2 and L 19.2 R knee flex 9.1 and L 7 R supine hip abd 12.5 and L 12.8 R hip ext 7.8 and L 6.2). Goal Progress: Goal Met Goal 4:: Be able to side step with CGA 30 feet each direction without LOB/Stepping out to correct balance Goal Progress: Goal Met Goal 5:: Increase balance (FGA 5 at eval) Plan Plan: DC PT to indep H W routine D/C Information Discharge Comments: DC PT to [facility] gym routine d/c sentence: If there are questions or concerns regarding this patient's physical therapy, please feel free to call me at [phone]. Thank you for the referral of this patient. Sincerely, Deb Osborn, MPT Balance/Gait/Functional tests Balance/Special Test Scores Functional Gait Assessment Score: 9 % Disability: 70.0000 Lower Extremity Functional Score: 41 Improvement % Improvement: 70 08/07/24 1217 CC: Dr. Mily Nogueira MD; Dr. Christian Payton MD Signed Normal [facility] Basic Metabolic Profile (BMP )on 07-27-2024 BUN/CRE 22.3 RATIO High 08-05 [facility] Comment on above: Order Comment: loop recorder explant Performed By: #### L 500.2500 ####[facility] [address] [place], [address] CA,Total 8.9 mg/dL Normal 8.5-10.1 [facility] Comment on above: Order Comment: loop recorder explant Performed By: #### L 500.2500 ####[facility] [address] [place], [address] Chloride [Moles/Vol] 99 mmol/L Normal 98-107 [facility] Comment on above: Order Comment: loop recorder explant Performed By: #### L 500.2500 ####[facility] [address] [place], [address] CO2 [Moles/Vol] 26.0 mmol/L Normal 21.0-32.0 [facility] Comment on above: Order Comment: loop recorder explant Performed By: #### L 500.2500 ####[facility] [address] [place], [address] Creatinine [Mass/Vol] 0.63 mg/dL Low 0.70-1.30 [facility] Comment on above: Order Comment: loop recorder explant Result Comment: The validity of the calculated GFR GFRAA in patients over 70 years has not been determined. Clinical correlation is essential. Performed By: #### L 500.2500 ####[facility] [address] [place], [address] EST GFR - AA 158 mL/min Normal >60 [facility] Comment on above: Order Comment: loop recorder explant Result Comment: Afri can Danish GFR Calc Performed By: #### L 500.2500 ####[facility] [address] [place], [address] GAP 8 Normal 5-15 [facility] Comment on above: Order Comment: loop recorder explant Performed By: #### L 500.2500 ####[facility] [address] [place], [address] GFR/1.73 sq M.predicted among non-blacks MDRD (S/P/Bld) [Vol rate/Area] 131 mL/min/{1.73_m2} Normal >60 [facility] Comment on above: Order Comment: loop recorder explant Result Comment: Non- GFR Calc Performed By: #### L 500.2500 ####[facility] [address] [place], [address] Glucose [Mass/Vol] 135 mg/dL High 74-106 [facility] Comment on above: Order Comment: loop recorder explant Result Comment: Fast ing Glucose result greater than or equal to 126 mg/dL suggests DIABETES MELLITUS per A.D.A. criteria. Performed By: #### L 500.2500 ####[facility] [address] [place], [address] Potassium [Moles/Vol] 3.7 mmol/L Normal 3.5-5.1 [facility] Comment on above: Order Comment: loop recorder explant Performed By: #### L 500.2500 ####[facility] [address] [place], [address] Sodium [Moles/Vol] 133 mmol/L Low 136-145 [facility] Comment on above: Order Comment: loop recorder explant Performed By: #### L 500.2500 ####[facility] [address] [place], [address] Urea nitrogen [Mass/Vol] 14 mg/dL Normal 7-18 [facility] Comment on above: Order Comment: loop recorder explant Performed By: #### L 500.2500 ####[facility] [address] [place], [address] L501.5101on 07-27-2024 GGTP 29 IU/L Normal 0-65 [facility] Comment on above: Result Comment: Perf ormed at: - [facility] [address] [id number] [employer] Operator: Kartik Schuster PhD, Phone: [phone] Performed By: #### L 501.5103 ####[facility] [address] [place], [address] Office Visit Reporton 2023 Office Visit Report [facility] [address] [place] [address] OFFICE VISIT Date of Service: 07/09/24 MR#: [id number] Acct: [id number] Patient: MILY BOLANOS Rep #: [id number] : 1945 Provider: Dr. Christian storm MD Age/Sex: 79/M Location: [facility] Status: Signed Intake Vital Signs 05/08/24 08:32 06/07/24 09:43 07/09/24 09:20 Height 5 ft 10 in 5 ft 10 in 5 ft 10 in Weight: 192 lb 3 oz 194 lb BMI 27.6 27.8 BP 142/80 H 150/88 H Blood Pressure Location Lt brachial Lt brachial Position Sitting Sitting Respiration 17 17 Pulse 72 71 Pulse Source Monitor Monitor Temp 98.6 F 98.4 F Temp Source Temporal Temporal Pulse Oximetry (%) 98 97 Oxygen Delivery Method room air room air Intake Visit Reasons: B12 inject Chief Complaint: Allergies No Known Allergies Allergy (Verified 05/08/24 08:36) Have you fallen in the past year?: Yes Office Meds cyanocobalamin (vitamin B-12) 1,000 mcg/mL injection solution Performing Provider: Christian Payton MD Performing Location: [facility] Administered by: Mariluz Archuleta on 07/09/24 09:22 Dose Route Admin Location Dispensed Lot Number Expiration Date [facility] Man ufacturer 1,000 mcg IM left deltoid 1 mL [id number] 08/16/26 04989-895-42 LUIS F RODRIGUEZ Comments: The patient presents for B12 injection for treatment of fatigue. He has fatigue. His last B12 injection was of benefit for fatigue. The patient is awake and alert. B12 1000mcg IM was administered today. There were no complications. Assessment and Plan Assessment and Plan (1) Fatigue: Orders: Orders Vitamin B12 Today R53.83 - Other fatigue Clinical Quality Measures Falls Risk Screening/Assistive Devices Have you fallen in the past year?: Yes 07/09/2434 Date Christian Toney Signature: Date (if applicable) CC: Normal [facility] Carotid Duplex Ultrasoundon 06-25-2024 Carotid Duplex Ultrasound [facility] [address] [place] [address] Carotid Duplex Ultrasound 06/25/24 1309 MR#: [id number] Acct: [id number] Name: MILY BOLANOS Rep #: [id number] : 1945 79 From: Vitaly Ma MD Attending Dr: Dr. Mily Nogueira MD Status: [facility] Ordering Dr: Mily Nogueira MD Date: 06/25/24 Location: [facility] Sex: M C Admitted: Reason For Study: Carotid stenosis Rt. Velocities/BP Lt. Velocities/BP Prox CCA 93.8/21.1 cm/sec. Prox CCA 91/23.9 cm/sec. Mid CCA 70.2/17.3 cm/sec. Mid CCA 83.4/23 cm/sec. Dist CCA 78.7/19.2 cm/sec. Dist CCA 77.8/21.1 cm/sec. Prox ICA 55.1/13.5 cm/sec. Prox ICA 66.4/15.4 cm/sec. Mid ICA 57.9/19.2 cm/sec. Mid ICA 65.5/24.8 cm/sec. Dist ICA 57/18.2 cm/sec. Dist ICA 64.5/25.8 cm/sec. Rt. ICA/CCA = 0.82. Lt. ICA/CCA = 0.80. Prox ECA 91/10.7 cm/sec. Prox ECA 101.4/16.8 cm/sec. Rt. Vert. 34.3/12.6 cm/sec. Lt. Vert. 39/15.4 cm/sec. Right Extracranial There is intimal thickening but no significant atherosclerotic plaque noted in the right common carotid artery. There is heterogeneous, irregular atherosclerotic plaque noted in the right internal carotid artery. There is intimal thickening but no significant atherosclerotic plaque noted in the right external carotid artery. Antegrade flow is noted in the right vertebral artery. Left Extracranial There is intimal thickening but no significant atherosclerotic plaque noted in the left common carotid artery. There is heterogeneous, irregular atherosclerotic plaque noted in the left internal carotid artery. There is intimal thickening but no significant atherosclerotic plaque noted in the left external carotid artery. Antegrade flow is noted in the left vertebral artery. Procedure This is a Carotid Duplex examination using B-mode, color flow and specral Doppler. Carotid Duplex 82000. Exam performed in department. VL/Carotid Duplex Ultrasound Interpretation Summary Mild (<50%) stenosis right extracranial internal carotid. Mild (<50%) stenosis left extracranial internal carotid. Patent and antegrade vertebrals bilaterally. Ordering Physician: Mily Nogueira Referring Physician: Mily Nogueira Performed By: Sumi Hoffman Bogdan 06/25/241823 Date Vitaly Ma MD CC: Dr. Mily Nogueira MD Date Dictated: 06/25/24 1309 Date Transcribed: 06/25/241823 Administrative Coordinator: Signed Normal [facility] Office Visit Reporton 2023 Office Visit Report [facility] [address] [place] [address] OFFICE VISIT Date of Service: 06/07/24 MR#: [id number] Acct: [id number] Patient: MILY BOLANOS Rep #: [id number] : 1945 Provider: Dr. Christian storm MD Age/Sex: 79/M Location: [facility] Status: Signed Intake Vital Signs 05/08/24 08:32 06/07/24 09:43 Height 5 ft 10 in 5 ft 10 in Weight: 192 lb 3 oz BMI 27.6 BP 142/80 H Blood Pressure Location Lt brachial Position Sitting Respiration 17 Pulse 72 Pulse Source Monitor Temp 98.6 F Temp Source Temporal Pulse Oximetry (%) 98 Oxygen Delivery Method room air Intake Visit Reasons: B12 inject Chief Complaint: Allergies No Known Allergies Allergy (Verified 05/08/24 08:36) Have you fallen in the past year?: Yes Office Meds cyanocobalamin (vitamin B-12) 1,000 mcg/mL injection solution Performing Provider: Christian Payton MD Performing Location: [facility] Administered by: Mariluz Archuleta on 06/07/24 09:46 Dose Route Admin Location Dispensed Lot Number Expiration Date [place] Man ufacturer 1,000 mcg IM left deltoid 1 mL [id number] 08/16/26 13922-082-77 LUIS F RODRIGUEZ Comments: The patient presents for B12 injection for treatment of fatigue. He has fatigue. His last B12 injection was of benefit for fatigue. The patient is awake and alert. B12 1000mcg IM was administered today. There were no complications. Assessment and Plan Assessment and Plan (1) Fatigue: Orders: Orders Vitamin B12 Today R53.83 - Other fatigue Clinical Quality Measures Falls Risk Screening/Assistive Devices Have you fallen in the past year?: Yes 06/07/24 1108 Date Christian Payton MD Cosigner Signature: Date (if applicable) CC: Normal [facility] CBC W/Diff, Automatedon 08-2 0 Absolute Lymph 0.85 X10 3/uL Normal 0.83-4.51 [facility] Comment on above: Order Comment: Order Date: 06/05/24Order Info: [id number] - CBCD Performed By: #### L 500.2500, L3800.1700 #### [facility] [address] [place], [address] Absolute Neut 4.8 X10 3/uL Normal 2.0-7.7 [facility] Comment on above: Order Comment: Order Date: 06/05/24Order Info: 0184-1 - CBCD Performed By: #### L 500.2500, L3800.1700 #### [facility] [address] [place], [address] Basophils/100 WBC (Bld) 0.8 % Normal 0-1 [facility] Comment on above: Order Comment: Order Date: 06/05/24Order Info: 0184- - CBCD Performed By: #### L 500.2500, L3800.1700 #### [facility] [address] [place], [address] Eosinophils/100 WBC (Bld) 3.0 % Normal 0-5 [facility] Comment on above: Order Comment: Order Date: 06/05/24Order Info: 018-1 - CBCD Performed By: #### L 500.2500, L3800.1700 #### [facility] [address] [place], [address] Erythrocyte distribution width (RBC) [Ratio] 13.1 % Normal 11.6-14.6 [facility] Comment on above: Order Comment: Order Date: 06/05/24Order Info: [id number] - CBCD Performed By: #### L 500.2500, L3800.1700 #### [facility] [address] [place], [address] Hematocrit (Bld) [Volume fraction] 45.8 % Normal 40-54 [facility] Comment on above: Order Comment: Order Date: 06/05/24Order Info: 0184-1 - CBCD Performed By: #### L 500.2500, L3800.1700 #### [facility] [address] [place], [address] Hemoglobin (Bld) [Mass/Vol] 14.8 g/dL Normal 13.0-16.5 [facility] Comment on above: Order Comment: Order Date: 06/05/24Order Info: 018- - CBCD Performed By: #### L 500.2500, L3800.1700 #### [facility] [address] [place], [address] IG% 0.900 Normal 0.0-0.9 [facility] Comment on above: Order Comment: Order Date: 06/05/24Order Info: 018- - CBCD Result Comment: IG% - Immature Granulocytes (promyelocytes, myelocytes and metamyelocytes) > 1% indicates that a LEFT SHIFT is Present. Performed By: #### L 500.2500, L3800.1700 #### [facility] [address] [place], [address] Lymphocytes/100 WBC (Bld) 13.2 % Low 19-41 [facility] Comment on above: Order Comment: Order Date: 06/05/24Order Info: 018- - CBCD Performed By: #### L 500.2500, L3800.1700 #### [facility] [address] [place], [address] MCH (RBC) [Entitic mass] 28.7 pg Normal 27.0-32.0 [facility] Comment on above: Order Comment: Order Date: 06/05/24Order Info: 018- - CBCD Performed By: #### L 500.2500, L3800.1700 #### [facility] [address] [place], [address] MCHC (RBC) [Mass/Vol] 32.3 g/dL Normal 32-36 [facility] Comment on above: Order Comment: Order Date: 06/05/24Order Info: 183- - CBCD Performed By: #### L 500.2500, L3800.1700 #### [facility] [address] [place], [address] MCV (RBC) [Entitic vol] 88.9 fL Normal 80-94 [facility] Comment on above: Order Comment: Order Date: 06/05/24Order Info: 183- - CBCD Performed By: #### L 500.2500, L3800.1700 #### [facility] [address] [place], [address] Monocytes/100 WBC (Bld) 7.9 % Normal 0-10 [facility] Comment on above: Order Comment: Order Date: 06/05/24Order Info: 183- - CBCD Performed By: #### L 500.2500, L3800.1700 #### [facility] [address] [place], [address] Neutrophils/100 WBC (Bld) 74.2 % High 47-70 [facility] Comment on above: Order Comment: Order Date: 06/05/24Order Info: 183- - CBCD Performed By: #### L 500.2500, L3800.1700 #### [facility] [address] [place], [address] Nucleated RBC (Bld) [#/Vol] 0 10*3/uL Normal 0-5 [facility] Comment on above: Order Comment: Order Date: 06/05/24Order Info: 183- - CBCD Performed By: #### L 500.2500, L3800.1700 #### [facility] [address] [place], [address] Platelet mean volume (Bld) [Entitic vol] 11.5 fL Normal 6.2-12.0 [facility] Comment on above: Order Comment: Order Date: 06/05/24Order Info: 183- - CBCD Performed By: #### L 500.2500, L3800.1700 #### [facility] [address] [place], [address] Platelets (Bld) [#/Vol] 222 10*3/uL Normal 150-450 [facility] Comment on above: Order Comment: Order Date: 06/05/24Order Info: 018-1 - CBCD Performed By: #### L 500.2500, L3800.1700 #### [facility] [address] [place], [address] RBC (Bld) [#/Vol] 5.15 10*6/uL Normal 4.6-6.2 [facility] Comment on above: Order Comment: Order Date: 06/05/24Order Info: 183- - CBCD Performed By: #### L 500.2500, L3800.1700 #### [facility] [address] [place], [address] RDW SD 42.4 fl Normal 35.1-43.9 [facility] Comment on above: Order Comment: Order Date: 06/05/24Order Info: 018- - CBCD Performed By: #### L 500.2500, L3800.1700 #### [facility] [address] [place], [address] WBC (Bld) [#/Vol] 6.4 10*3/uL Normal 4.4-11.0 [facility] Comment on above: Order Comment: Order Date: 06/05/24Order Info: 018-1 - CBCD Performed By: #### L 500.2500, L3800.1700 #### [facility] [address] [place], [address] Comprehensive Metabolic Prof ilon 06-05-2024 Albumin [Mass/Vol] 3.4 g/dL Normal 3.2-5.0 [facility] Comment on above: Order Comment: Order Date: 06/05/24Order Info: [id number] - CMPOrder Info: [id number] - LIPIDOrder Info: [id number] - MGOrder Info: [id number] - TSH Performed By: #### L 500.2500, L3800.1700 #### [facility] [address] [place], [address] Albumin/Globulin [Mass ratio] 1.1 {ratio} Normal 0.9-2.4 [facility] Comment on above: Order Comment: Order Date: 06/05/24Order Info: 0786-1 - CMPOrder Info: [id number] - LIPIDOrder Info: [id number] - MGOrder Info: [id number] - TSH Performed By: #### L 500.2500, L3800.1700 #### [facility] [address] [place], [address] ALK P 162 U/L High 45-117 [facility] Comment on above: Order Comment: Order Date: 06/05/24Order Info: [id number] - CMPOrder Info: [id number] - LIPIDOrder Info: [id number] - MGOrder Info: [id number] - TSH Performed By: #### L 500.2500, L3800.1700 #### [facility] [address] [place], [address] ALT [Catalytic activity/Vol] 19 U/L Normal 16-61 [facility] Comment on above: Order Comment: Order Date: 06/05/24Order Info: [id number] - CMPOrder Info: [id number] - LIPIDOrder Info: [id number] - MGOrder Info: [id number] - TSH Performed By: #### L 500.2500, L3800.1700 #### [facility] [address] [place], [address] AST [Catalytic activity/Vol] 64 U/L High 15-37 [facility] Comment on above: Order Comment: Order Date: 06/05/24Order Info: 0786-1 - CMPOrder Info: [id number] - LIPIDOrder Info: [id number] - MGOrder Info: [id number] - TSH Performed By: #### L 500.2500, L3800.1700 #### [facility] [address] [place], [address] Bilirubin [Mass/Vol] 0.50 mg/dL Normal 0.20-1.00 [facility] Comment on above: Order Comment: Order Date: 06/05/24Order Info: 0786-1 - CMPOrder Info: [id number] - LIPIDOrder Info: [id number] - MGOrder Info: [id number] - TSH Result Comment: For patients on eltrombopag therapy, use of Dimension [place] TBIL is not recommended. Performed By: #### L 500.2500, L3800.1700 #### [facility] [address] [place], [address] BUN/CRE 20.1 RATIO High 10-20 [facility] Comment on above: Order Comment: Order Date: 06/05/24Order Info: 0786-1 - CMPOrder Info: [id number] - LIPIDOrder Info: [id number] - MGOrder Info: [id number] - TSH Performed By: #### L 500.2500, L3800.1700 #### [facility] [address] [place], [address] CA,Total 9.2 mg/dL Normal 8.5-10.1 [facility] Comment on above: Order Comment: Order Date: 06/05/24Order Info: 0786-1 - CMPOrder Info: [id number] - LIPIDOrder Info: [id number] - MGOrder Info: [id number] - TSH Performed By: #### L 500.2500, L3800.1700 #### [facility] [address] [place], [address] Chloride [Moles/Vol] 100 mmol/L Normal 98-107 [facility] Comment on above: Order Comment: Order Date: 06/05/24Order Info: 0786-1 - CMPOrder Info: [id number] - LIPIDOrder Info: [id number] - MGOrder Info: [id number] - TSH Performed By: #### L 500.2500, L3800.1700 #### [facility] [address] [place], [address] CO2 [Moles/Vol] 26.0 mmol/L Normal 21.0-32.0 [facility] Comment on above: Order Comment: Order Date: 06/05/24Order Info: 0786-1 - CMPOrder Info: [id number] - LIPIDOrder Info: [id number] - MGOrder Info: [id number] - TSH Performed By: #### L 500.2500, L3800.1700 #### [facility] [address] [place], [address] Creatinine [Mass/Vol] 0.65 mg/dL Low 0.70-1.30 [facility] Comment on above: Order Comment: Order Date: 06/05/24Order Info: 0786-1 - CMPOrder Info: [id number] - LIPIDOrder Info: [id number] - MGOrder Info: [id number] - TSH Result Comment: The validity of the calculated GFR GFRAA in patients over 70 years has not been determined. Clinical correlation is essential. Performed By: #### L 500.2500, L3800.1700 #### [facility] [address] [place], [address] EST GFR - AA 153 mL/min Normal >60 [facility] Comment on above: Order Comment: Order Date: 06/05/24Order Info: 86-1 - CMPOrder Info: [id number] - LIPIDOrder Info: [id number] - MGOrder Info: [id number] - TSH Result Comment: Afri can Danish GFR Calc Performed By: #### L 500.2500, L3800.1700 #### [facility] [address] [place], [address] GAP 8 Normal 5-15 [facility] Comment on above: Order Comment: Order Date: 06/05/24Order Info: [id number] - CMPOrder Info: [id number] - LIPIDOrder Info: [id number] - MGOrder Info: [id number] - TSH Performed By: #### L 500.2500, L3800.1700 #### [facility] [address] [place], [address] GFR/1.73 sq M.predicted among non-blacks MDRD (S/P/Bld) [Vol rate/Area] 127 mL/min/{1.73_m2} Normal >60 [facility] Comment on above: Order Comment: Order Date: 06/05/24Order Info: 0786-1 - CMPOrder Info: [id number] - LIPIDOrder Info: [id number] - MGOrder Info: [id number] - TSH Result Comment: Non- GFR Calc Performed By: #### L 500.2500, L3800.1700 #### [facility] [address] [place], [address] Globulin (S) [Mass/Vol] 3.0 g/dL Normal 2.2-4.2 [facility] Comment on above: Order Comment: Order Date: 06/05/24Order Info: 86-1 - CMPOrder Info: [id number] - LIPIDOrder Info: [id number] - MGOrder Info: [id number] - TSH Performed By: #### L 500.2500, L3800.1700 #### [facility] [address] [place], [address] Glucose [Mass/Vol] 106 mg/dL Normal 74-106 [facility] Comment on above: Order Comment: Order Date: 06/05/24Order Info: 86-1 - CMPOrder Info: [id number] - LIPIDOrder Info: [id number] - MGOrder Info: [id number] - TSH Result Comment: Fast ing Glucose result from 100 to 125 mg/dL suggests IMPAIRED HOMEOSTASIS per A.D.A. criteria. Performed By: #### L 500.2500, L3800.1700 #### [facility] [address] [place], [address] Potassium [Moles/Vol] 4.1 mmol/L Normal 3.5-5.1 [facility] Comment on above: Order Comment: Order Date: 06/05/24Order Info: [id number] - CMPOrder Info: [id number] - LIPIDOrder Info: [id number] - MGOrder Info: [id number] - TSH Performed By: #### L 500.2500, L3800.1700 #### [facility] [address] [place], [address] Sodium [Moles/Vol] 134 mmol/L Low 136-145 [facility] Comment on above: Order Comment: Order Date: 06/05/24Order Info: [id number] - CMPOrder Info: [id number] - LIPIDOrder Info: [id number] - MGOrder Info: [id number] - TSH Performed By: #### L 500.2500, L3800.1700 #### [facility] [address] [place], [address] T PROT 6.4 g/dL Normal 6.4-8.2 [facility] Comment on above: Order Comment: Order Date: 06/05/24Order Info: [id number] - CMPOrder Info: [id number] - LIPIDOrder Info: [id number] - MGOrder Info: [id number] - TSH Performed By: #### L 500.2500, L3800.1700 #### [facility] [address] [place], [address] Urea nitrogen [Mass/Vol] 13 mg/dL Normal 7-18 [facility] Comment on above: Order Comment: Order Date: 06/05/24Order Info: 0786-1 - CMPOrder Info: [id number] - LIPIDOrder Info: [id number] - MGOrder Info: [id number] - TSH Performed By: #### L 500.2500, L3800.1700 #### [facility] [address] [place], [address] Hemoglobin A1con 06-05-2024 HbA1c (Bld) [Mass fraction] 5.3 % Normal 3.8-5.6 [facility] Comment on above: Order Comment: Order Date: 06/05/24Order Info: [id number] - A1C Result Comment: Norm al < 5.7 % Prediabetic 5.7 - 6.4 % Diabetic >or= 6.5 % Please note range changes. Performed By: #### L 500.2500, L3800.1700 #### [facility] [address] [place], [place], [address] Inital Evaluation (1) - PTon 06-05-2024 Inital Evaluation (1) - PT [facility] [address] [place] [address] / REHABILITATION SERVICES INITIAL EVALUATION MR#: [id number] Acct: [id number] Name: MILY BOLANOS Rep #: [id number] : 1945 79 From: Deb YEH Referring Dr.: Dr. Christian Payton MD Status: REG RCR Insurance: [facility] SELF PAY INSURANCE Patient's Visit Information Visit Information Visit Information: MILY BOLANOS is a 79 year old M referred to Physical Therapy by Dr. Christian Payton MD with a diagnosis of Parkinson's. Date of Evaluation: 06/05/24 Physical Therapist: RAO Thrasher Visit Plan Frequency: 2x /Week Duration: 3 Months Plan: ++Pt needs a gait belt at all times++++ 2X/ week for 8-12 weeks for LE strength (hip. knee and core) to help with balance, balance activities working on static to dynamic with stepping in all directions to help with balance to make up for lack of ankle strength, HEP: pt to do LTR and SKC to each side twice a day and see if helps with trunk pain Subjective Subjective: Pt is looking for another AFO brace that goes on outside of the shoe. He is not catching his toes that much but he is having a tripping hazard. He has fallen a few times (one with broken ribs) and he is always falling FW. He is getting clumsy in the kitchen etc. He does not know where his feet are in space. Dr Cody is very thorough and he agreed with PT that his neuropathy is causing all of his problems. He occ has burning and tingling in his feet. His R foot is better than the L and ok with driving. Everything seems worse in his L but he feels that his tremors are always in the right. He had some terrible back pain and he had to sit to make the pain go away lately. If he bends over the sink to wash dishes his back hurts to bad. He is getting a trial wire put in his back to see if he likes it. He is going to try and cancel that appt as he has too many appt. Objective Objective: Gait: walks with no toe push off and steppage gait. He tends to hold onto the wall at times to help catch his balance. Pt is unable to heel raise and able to toe raise in a smaller ROM LE MMT: R hip flex 8.6 and L 8 R knee ext 24.2 and L 19.2 R knee flex 9.1 and L 7 R supine hip abd 12.5 and L 12.8 R hip ext 7.8 and L 6.2 LTR: very stiff at first but loosed up the more he did....same with SK FGA: 5 Pt tends to step up slightly FW/BW to correct LOB with side stepping Pt is very unsteady with smaller steps walking BW with CGA..... Pt is unable to stand with EC greater than 5 seconds and has to hold onto the wall to stop from losing his balance Balance/Special Test Scores Functional Gait Assessment Score: 5 % Disability: 83.3400 Lower Extremity Functional Score: 32 Goals Goal 1:: I HEP Goal Time Frame: 8-12 Weeks Goal 2:: Be able to stand with EC X 30 seconds with CGA without losing his balance Goal Time Frame: 8-12 Weeks Goal 3:: Increase B LE strength to help with lack of ankle strength due to neuropathy (at the time of the eval: LE MMT: R hip flex 8.6 and L 8 R knee ext 24.2 and L 19.2 R knee flex 9.1 and L 7 R supine hip abd 12.5 and L 12.8 R hip ext 7.8 and L 6.2). Goal Time Frame: 8-12 Weeks Goal 4:: Be able to side step with CGA 30 feet each direction without LOB/Stepping out to correct balance Goal Time Frame: 8-12 Weeks Goal 5:: Increase balance (FGA 5 at eval) Goal Time Frame: 8-12 Weeks Rehabilitation Potential Rehabilitation Potential: Good Anticipated Interventions Text: Thank you for the opportunity to evaluate your patient. For Medicare and Medicare HMO plans, please review the plan of care and approve it. It will need to be FAXED BACK to us at [phone] for Medicare purposes. For Medicare only, by signing this I certify the plan of care. Please let me know if there are questions or concerns regarding this plan of care. Physician Signature: Date: 06/05/24 1200 CC: Dr. Mily Nogueira MD; Dr. Christian Payton MD Signed Normal [facility] Lipid Profileon 06-05-2024 Cholesterol [Mass/Vol] 182 mg/dL Normal 200 [facility] Comment on above: Order Comment: Order Date: 06/05/24Order Info: [id number] - CMPOrder Info: [id number] - LIPIDOrder Info: [id number] - MGOrder Info: [id number] - TSH Result Comment: <200 mg/dL Desirable 200-240 mg/dL Borderline >240 mg/dL High Risk Performed By: #### L 500.2500, L3800.1700 #### [facility] [address] [place], [place] [address]maryjane. [place], [place], [id number] Cholesterol in HDL [Mass/Vol] 91 mg/dL Normal [facility] Comment on above: Order Comment: Order Date: 06/05/24Order Info: [id number] - CMPOrder Info: [id number] - LIPIDOrder Info: [id number] - MGOrder Info: [id number] - TSH Result Comment: The drugs N-Acetylcysteine and Metamizole may falsely depress this assay. Reference Range HDL <40 mg/dL Low HDL Cholesterol HDL >or= 60 mg/dL High HDL Cholesterol Performed By: #### L 500.2500, L3800.1700 #### [facility] [address] [place], [address] Cholesterol in LDL [Mass/Vol] 79 mg/dL Normal 0-130 [facility] Comment on above: Order Comment: Order Date: 06/05/24Order Info: [id number] - CMPOrder Info: [id number] - LIPIDOrder Info: [id number] - MGOrder Info: [id number] - TSH Performed By: #### L 500.2500, L3800.1700 #### [facility] [address] [place], [address] Cholesterol in VLDL [Mass/Vol] 12 mg/dL Normal 5-40 [facility] Comment on above: Order Comment: Order Date: 06/05/24Order Info: [id number] - CMPOrder Info: [id number] - LIPIDOrder Info: [id number] - MGOrder Info: [id number] - TSH Performed By: #### L 500.2500, L3800.1700 #### [facility] [address] [place], [address] Triglyceride [Mass/Vol] 59 mg/dL Normal [facility] Comment on above: Order Comment: Order Date: 06/05/24Order Info: [id number] - CMPOrder Info: - LIPIDOrder Info: [id number] - MGOrder Info: [id number] - TSH Result Comment: The drugs N-Acetylcysteine and Metamizole may falsely depress this assay. Serum Triglycerides Reference Interval Normal <150 mg/dL Borderline high 150 - 199 mg/dL High 200 - 499 mg/dL Very High > or = 500 mg/dL Performed By: #### L 500.2500, L3800.1700 #### [facility] [address] [place], [address] Magnesiumon 06-05-2024 Magnesium [Mass/Vol] 2.2 mg/dL Normal 1.6-2.6 [facility] Comment on above: Order Comment: Order Date: 06/05/24Order Info: [id number] - CMPOrder Info: [id number] - LIPIDOrder Info: - MGOrder Info: [id number] - TSH Performed By: #### L 500.2500, L3800.1700 #### [facility] [address] [place], [address] Thyroid Stim Hormone (TSH)on 06-05-2024 TSH 0.866 uIU/mL Normal 0.358-3.74 0 [facility] Comment on above: Order Comment: Order Date: 06/05/24Order Info: [id number] - CMPOrder Info: [id number] - LIPIDOrder Info: - MGOrder Info: [id number] - TSH Performed By: #### L 500.2500, L3800.1700 #### [facility] [address] [place], [place], [address] Vitamin D,25 Hydroxyon 06-05 Vitamin D 25-OH 52.4 ng/mL Normal [facility] Comment on above: Order Comment: Order Date: 06/05/24Order Info: [id number] - VITD25 Result Comment: Vivian min D 25(OH) Status Range Deficiency <20 ng/mL (50nmol/L) Insufficiency 20 - 30 ng/mL (50 - 75 nmol/L) Sufficiency 30 - 100 ng/mL (75 - 250 nmol/L) Toxicity >100 ng/mL (>250 nmol/L) Performed By: #### L 500.2500, L3800.1700 #### [facility] [address] [place], [place], [address] Trileptal-Oxcarbazepineon OXCARBAZEPINE 13 ug/mL Normal 10-35 [facility] Comment on above: Result Comment: This test was developed and its performance characteristics determined by [employer]. It has not been cleared or approved by the Food and Drug Administration. Detection Limit = 1 Performed at: [address] [id number] [employer] Operator: Rodrigo Mathews MD, Phone: [phone] Performed By: #### L 500.2500, L3800.1700 #### [facility] [address] [place], [address] Basic Metabolic Profile (BMP )on 05-09-2024 BUN/CRE 25.2 RATIO High 10-20 [facility] Comment on above: Performed By: #### L 500.2500, L3800.1700 #### [facility] [address] [place], [address] CA,Total 8.9 mg/dL Normal 8.5-10.1 [facility] Comment on above: Performed By: #### L 500.2500, L3800.1700 #### [facility] [address] [place], [address] Chloride [Moles/Vol] 102 mmol/L Normal 98-107 [facility] Comment on above: Performed By: #### L 500.2500, L3800.1700 #### [facility] [address] [place], [address] CO2 [Moles/Vol] 26.0 mmol/L Normal 21.0-32.0 [facility] Comment on above: Performed By: #### L 500.2500, L3800.1700 #### [facility] [address] [place], [address] Creatinine [Mass/Vol] 0.64 mg/dL Low 0.70-1.30 [facility] Comment on above: Result Comment: The validity of the calculated GFR GFRAA in patients over 70 years has not been determined. Clinical correlation is essential. Performed By: #### L 500.2500, L3800.1700 #### [facility] [address] [place], [address] EST GFR - AA 156 mL/min Normal >60 [facility] Comment on above: Result Comment: Afri can Danish GFR Calc Performed By: #### L 500.2500, L3800.1700 #### [facility] [address] [place], [address] GAP 7 Normal 5-15 [facility] Comment on above: Performed By: #### L 500.2500, L3800.1700 #### [facility] [address] [place], [address] GFR/1.73 sq M.predicted among non-blacks MDRD (S/P/Bld) [Vol rate/Area] 129 mL/min/{1.73_m2} Normal >60 [facility] Comment on above: Result Comment: Non- GFR Calc Performed By: #### L 500.2500, L3800.1700 #### [facility] [address] [place], [address] Glucose [Mass/Vol] 107 mg/dL High 74-106 [facility] Comment on above: Result Comment: Fast ing Glucose result from 100 to 125 mg/dL suggests IMPAIRED HOMEOSTASIS per A.D.A. criteria. Performed By: #### L 500.2500, L3800.1700 #### [facility] [address] [place], [address] Potassium [Moles/Vol] 4.1 mmol/L Normal 3.5-5.1 [facility] Comment on above: Performed By: #### L 500.2500, L3800.1700 #### [facility] [address] [place], [address] Sodium [Moles/Vol] 135 mmol/L Low 136-145 [facility] Comment on above: Performed By: #### L 500.2500, L3800.1700 #### [facility] [address] [place], [address] Urea nitrogen [Mass/Vol] 16 mg/dL Normal 7-18 [facility] Comment on above: Performed By: #### L 500.2500, L3800.1700 #### [facility] [address] [place], [address] Neurology Visit Reporton Neurology Visit Report [facility] [address], [address] [place] [address] OFFICE VISIT Date of Service: 05/08/24 MR#: [id number] Acct: [id number] Name: MILY BOLANOS Rep #: [id number] : 1945 Provider: Dr. Christian storm MD Age/Sex: 78/M Location: [facility]. Status: Signed with Addenda ADDENDUM by Dr. Christian Payton MD on 07/13/24 at 1809 Addendum Addendum (07/13/2024): Addendum (05/28/2024): The patient wished to have additional physical therapy for his Parkinson's disease and this will be ordered at [facility]. 07/13/24 1809 Date Christian Payton MD cc: * Signed HPI HPI Chief Complaint: Details: Interim History: Mily returns for follow-up visit. He has a history of hypertension, hyperlipidemia, left eye central retinal venous occlusion around 2019, left amaurosis fugax in 2020, Parkinson's disease, polyneuropathy, and obstructive sleep apnea (he uses CPAP). He began to have a tremor affecting the right hand around 2016. Over the years, he developed some slowing of his gait and a stooping of his posture. He has some gait imbalance. His handwriting has become coarse. He has had some hypophonia. He denied having dysphagia. He denied having memory difficulty. He reports having difficulty with fine motor control of the hands (with activities such as turning pages). He saw a neurologist and was diagnosed with Parkinson's disease around 2017 and has been treated with carbidopa/levodopa and carbidopa/levodopa ER and these have been of benefit for his parkinsonian tremor. He has received outpatient physical therapy and is involved in 2 Parkinson's disease exercise programs and also exercises on his own. As a result of his left eye retinal vein occlusion and left amaurosis fugax, he has residual left eye visual impairment. 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 EMG/nerve conduction studies of the lower extremities in September 2023 reveal a severe sensorimotor polyneuropathy and chronic left L4 and L5 radiculopathies. He no longer uses a left AFO. He occasionally uses a cane. He is using oxcarbazepine for his neuropathic pain and this is of some benefit. He stated that a prior evaluation for his polyneuropathy did not reveal any etiology for the polyneuropathy. Gabapentin was not well-tolerated. He had lumbar surgery in 2021 for back pain; he continued to experience low back pain postoperatively. He also has experienced bilateral lower extremity radicular pain in the past; his lower extremity radicular pain subsided. He sees a pain management physician, Dr. Lackey, and is to receive further lumbar injections. He is considering placement of a dorsal column stimulator. He does not wish to consider further lumbar surgery. He has an implanted cardiac loop recorder. He has fatigue. Physical Exam: Neuro: The patient is awake and alert and responds appropriately; motor strength is 5/5 in the quadriceps bilaterally, abductor pollicis brevis bilaterally and first dorsal interosseous bilaterally and 4/5 in the foot dorsiflexors bilaterally; moderate right wrist rigidity is noted; mild left lower extremity rigidity is noted Neck: No bruits Heart: Regular rhythm and rate Supplemental Info Head CT (08/24/2021): FINDINGS: Normal soft tissue structures. Normal calvarium. There is mild cerebral atrophy with widening of the extra-axial spaces and ventricular dilatation. There are areas of decreased attenuation within the white matter tracts of the supratentorial brain, consistent with microvascular disease changes. Normal basal ganglia and thalami. Normal brainstem. Normal cerebellum. There is no intracranial hemorrhage. There are no findings of an acute ischemic infarction. Atherosclerotic plaque formation of the cavernous portions of the internal carotid arteries bilaterally. Normal visualized paranasal sinuses. IMPRESSION: Chronic involutional changes of the brain. These images were reviewed on 08/29/2023. Mild diffuse cerebral atrophy is noted. Mild bilateral periventricular chronic small vessel ischemic disease is noted. Neck MRA (08/24/2021): FINDINGS: RIGHT COMMON CAROTID ARTERY: Unremarkable. No occlusion or significant stenosis. No dissection. RIGHT INTERNAL CAROTID ARTERY: Unremarkable. Extracranial segment is patent with no occlusion or significant stenosis. No dissection. RIGHT EXTERNAL CAROTID ARTERY: Unremarkable. No occlusion. RIGHT VERTEBRAL ARTERY: Unremarkable. No occlusion or significant stenosis. No dissection. LEFT COMMON CAROTID ARTERY: Unremarkable. No occlusion or significant stenosis. No dissection. LEFT INTERNAL CAROTID ARTERY: There is mild atherosclerotic plaque formation of the origin of the right and left inte (more content not included)... Normal [facility] Absolute lymphocyte countOrd ered By: Mily Nogueira on 02-07-2024 Lymphocytes Auto (Unsp spec) [#/Vol] 1.02 10*3/uL 0.83-4.51 [facility] Automated lymphocyte count a s percentage of total leukocytesOrdered By: Mily Nogueira on 02-07-2024 Lymphocytes/100 WBC Auto (Unsp spec) 17.9 % 19-41 [facility] Basophil percentageOrdered B y: Mily Nogueira on 02-07-2024 Basophil percentage 0 SEEN /hpf 0-5 [facility] Basophils/100 WBC (Bld) 0.7 % 0-1 [facility] Bilirubin [Mass/Vol] 0.70 mg/dL 0.20-1.00 [facility] Comment on above: For patients on eltr ombopag therapy, use of Dimension [place] TBIL is not recommended. Chloride [Moles/Vol] 97 mmol/L 98-107 [facility] Cholesterol [Mass/Vol] 182 mg/dL <200 [facility] Comment on above: <200 mg/dL Desirable 200-240 mg/dL Borderline >240 mg/dL High Risk Eosinophils/100 WBC (Bld) 2.8 % 0-5 [facility] Glucose [Mass/Vol] 96 mg/dL 74-106 [facility] Hemoglobin (Bld) [Mass/Vol] 14.9 g/dL 13.0-16.5 [facility] Monocytes/100 WBC (Bld) 7.7 % 0-10 [facility] Neutrophils (Bld) [#/Vol] 4.0 10*3/uL 2.0-7.7 [facility] Neutrophils/100 WBC (Bld) 70.2 % 47-70 [facility] Potassium [Moles/Vol] 3.9 mmol/L 3.5-5.1 [facility] Protein [Mass/Vol] 6.6 g/dL 6.4-8.2 [facility] Sodium [Moles/Vol] 130 mmol/L 136-145 [facility] Triglyceride [Mass/Vol] 83 mg/dL <199 [facility] Comment on above: The drugs N-Acetylcy steine and Metamizole may falsely depress this assay.Serum Triglycerides Reference Interval Normal <150 mg/dL Borderline high 150 - 199 mg/dL High 200 - 499 mg/dL Very High > or = 500 mg/dL WBC (Bld) [#/Vol] 5.7 10*3/uL 4.4-11.0 [facility] Bilirubin Test strip Ql (U)O rdered By: Mily Nogueira on 02-07-2024 Bilirubin Ql (U) Negative Negative [facility] Determination of erythrocyte mean corpuscular volume (MCV)Ordered By: Mily Nogueira on 02-07-2024 MCV (RBC) [Entitic vol] 86.4 fL 80-94 [facility] Erythrocyte distribution wid th ratioOrdered By: Mily Nogueira on 02-07-2024 Erythrocyte distribution width (RBC) [Ratio] 12.6 % 11.6-14.6 [facility] Erythrocyte distribution wid th standard deviationOrdered By: Mily Nogueira on 02-07-2024 Erythrocyte distribution width (RBC) [Entitic vol] 39.8 fL 35.1-43.9 [facility] Hematocrit Auto (Bld) [Volum e fraction]Ordered By: Mily Nogueira on 02-07-2024 Hematocrit (Bld) [Volume fraction] 44.3 % 40-54 [facility] Immature granulocytes/100 WB C Auto (Bld)Ordered By: Mily Nogueira on 02-07-2024 Immature granulocytes/100 WBC (Bld) 0.700 % 0.0-0.9 [facility] Comment on above: IG% - Immature Granu locytes (promyelocytes, myelocytes and metamyelocytes) > 1% indicates that a LEFT SHIFT is Present. Ketones Test strip Ql (U)Ord ered By: Mily Nogueira on 02-07-2024 Ketones Ql (U) Negative Negative [facility] - Chemistry and C hemistry - challengeOrdered By: Mily Nogueira on 02-07-2024 Albumin/Globulin [Mass ratio] 1.2 {ratio} 0.9-2.4 [facility] ALP [Catalytic activity/Vol] 149 U/L 45-117 [facility] ALT [Catalytic activity/Vol] 16 U/L 16-61 [facility] Cholesterol in HDL [Mass/Vol] 94 mg/dL >40 [facility] Comment on above: The drugs N-Acetylcy steine and Metamizole may falsely depress this assay. Reference Range HDL <40 mg/dL Low HDL Cholesterol HDL >or= 60 mg/dL High HDL Cholesterol Cholesterol in LDL [Mass/Vol] 71 mg/dL 0-130 [facility] CO2 [Moles/Vol] 26.0 mmol/L 21.0-32.0 [facility] Globulin (S) [Mass/Vol] 3.0 g/dL 2.2-4.2 [facility] Magnesium [Mass/Vol] 2.0 mg/dL 1.6-2.6 [facility] Urea nitrogen/Creatinine [Mass ratio] 17.5 mg/mg 10-20 [facility] - Hematology and Cell countsOrdered By: Mily Nogueira on 02-07-2024 MCH (RBC) [Entitic mass] 29.0 pg 27.0-32.0 [facility] MCHC (RBC) [Mass/Vol] 33.6 g/dL 32-36 [facility] Nucleated RBC/100 WBC (Bld) [Ratio] 0 % 0-5 [facility] Platelet mean volume (Bld) [Entitic vol] 10.6 fL 6.2-12.0 [facility] Platelets (Bld) [#/Vol] 282 10*3/uL 150-450 [facility] Mucus LM Ql (Urine sed)Order ed By: Mily Nogueira on 02-07-2024 Mucus Ql (Urine sed) 0 SEEN /hpf [facility] Nitrite Test strip Ql (U)Ord ered By: Mily Nogueira on 02-07-2024 Nitrite Ql (U) Negative Negative [facility] No Panel InformationOrdered By: Mily Nogueira on 02-07-2024 Urine RBC 0 SEEN /hpf 0-5 [facility] Estimated GFR (MDRD) Amer 158 mL/min >60 [facility] Comment on above: GFR Calc Estimated GFR (MDRD) Non-Af Amer 131 mL/min >60 [facility] Comment on above: Non- GFR Calc Vitamin D 25-Hydroxy 44.7 ng/mL [facility] Comment on above: Vitamin D 25(OH) Sta tus Range Deficiency <20 ng/mL (50nmol/L) Insufficiency 20 - 30 ng/mL (50 - 75 nmol/L) Sufficiency 30 - 100 ng/mL (75 - 250 nmol/L) Toxicity >100 ng/mL (>250 nmol/L) VLDL Cholesterol 17 mg/dL 5-40 [facility] Protein Test strip Ql (U)Ord ered By: Mily Nogueira on 02-07-2024 Protein Ql (U) 15 mg/dl Negative [facility] RBC Auto (Bld) [#/Vol]Ordere d By: Mily Nogueira on 02-07-2024 RBC (Bld) [#/Vol] 5.13 10*6/uL 4.6-6.2 [facility] Serum or plasma calcium aida urement (mass/volume)Ordered By: Mily Nogueira on 02-07-2024 Calcium [Mass/Vol] 8.9 mg/dL 8.5-10.1 [facility] Serum or plasma creatinine m easurement (mass/volume)Ordered By: Mily Nogueira on 02-07-2024 Creatinine [Mass/Vol] 0.63 mg/dL 0.70-1.30 [facility] Comment on above: The validity of the calculated GFR & GFRAA in patients over 70 years has not been determined. Clinical correlation is essential. Serum or plasma thyroid stim ulating hormone (TSH) measurement (units/volume)Ordered By: Mily Nogueira on 02-07-2024 TSH Qn 0.88 uIU/mL 0.358-3.74 [facility] Serum or plasma urea nitroge n measurement (mass/volume)Ordered By: Mily Nogueira on 02-07-2024 Urea nitrogen [Mass/Vol] 11 mg/dL 7-18 [facility] Squamous epithelial cells de tection in urine sediment by light microscopyOrdered By: Mily Nogueira on 02-07-2024 Epithelial cells.squamous LM Ql (Urine sed) 0 SEEN /hpf 0-5 [facility] Thin prep Papanicolaou smear with manual screeningOrdered By: Mily Nogueira on 02-07-2024 Thin prep Papanicolaou smear with manual screening 3.6 g/dL 3.2-5.0 [facility] Thin prep Papanicolaou smear with manual screening 23 U/L 15-37 [facility] Thin prep Papanicolaou smear with manual screening 7 5-15 [facility] Urine blood detectionOrdered By: Mily Nogueira on 02-07-2024 RBC Ql (U) Negative Negative [facility] Urine clarityOrdered By: Kevin Nogueira on 02-07-2024 Clarity (U) Clear Clear [facility] Urine color determinationOrd ered By: Mily Nogueira on 02-07-2024 Color (U) Yellow Yellow [facility] Urine glucose detectionOrder ed By: Mily Nogueira on 02-07-2024 Glucose Ql (U) Normal mg/dl Normal [facility] Urine leukocyte esterase det ection by dipstickOrdered By: Mily Nogueira on 02-07-2024 Leukocyte esterase Test strip Ql (U) Negative Negative [facility] Urine pHOrdered By: Mily flores on 02-07-2024 pH (U) 7.0 [pH] 5.0 - 8.0 [facility] Urine sediment bacteria coun t by microscopy (number/high power field)Ordered By: Mily Nogueira on 02-07-2024 Bacteria LM.HPF (Urine sed) [#/Area] 0 /[HPF] None Seen [facility] Urine specific gravity measu rementOrdered By: Mily Nogueira on 02-07-2024 Specific gravity (U) [Rel density] 1.010 1.002-1.03 0 [facility] Urine urobilinogen measureme ntOrdered By: Mily Nogueira on 02-07-2024 Urobilinogen Ql (U) Normal mg/dl Normal [facility] Whole blood hemoglobin A1c/t otal hemoglobin ratio (mass fraction)Ordered By: Mily Nogueira on 02-07-2024 HbA1c (Bld) [Mass fraction] 5.2 % 3.8-5.6 [facility] Comment on above: Normal < 5.7 % Predi abetic 5.7 - 6.4 % Diabetic >or= 6.5 % Please note range changes. Basophil percentageOrdered B y: Christian Payton on 12-29-2023 Basophil percentage < 1.0 mg/dL 0.70-1.30 [facility] No Panel InformationOrdered By: Christian Laguerrekaren on 12-29-2023 Bedside Estimated GFR (eGFR) > 60.0000 mL/min >60 [facility] Basophil percentageOrdered B y: Mily Nogueira on 09-07-2023 Bilirubin [Mass/Vol] 0.70 mg/dL 0.20-1.00 [facility] Comment on above: For patients on eltr ombopag therapy, use of Dimension [place] TBIL is not recommended. Chloride [Moles/Vol] 101 mmol/L 98-107 [facility] Cholesterol [Mass/Vol] 170 mg/dL <200 [facility] Comment on above: <200 mg/dL Desirable 200-240 mg/dL Borderline >240 mg/dL High Risk Glucose [Mass/Vol] 108 mg/dL 74-106 [facility] Comment on above: Fasting Glucose resu lt from 100 to 125 mg/dL suggests IMPAIRED HOMEOSTASIS per A.D.A. criteria. Potassium [Moles/Vol] 4.1 mmol/L 3.5-5.1 [facility] Protein [Mass/Vol] 6.4 g/dL 6.4-8.2 [facility] Sodium [Moles/Vol] 133 mmol/L 136-145 [facility] Triglyceride [Mass/Vol] 54 mg/dL <199 [facility] Comment on above: The drugs N-Acetylcy steine and Metamizole may falsely depress this assay.Serum Triglycerides Reference Interval Normal <150 mg/dL Borderline high 150 - 199 mg/dL High 200 - 499 mg/dL Very High > or = 500 mg/dL Laboratory - Chemistry and C hemistry - challengeOrdered By: Mily Nogueira on 09-07-2023 ALP [Catalytic activity/Vol] 132 U/L 45-117 [facility] ALT [Catalytic activity/Vol] 16 U/L 16-61 [facility] CO2 [Moles/Vol] 26.0 mmol/L 21.0-32.0 [facility] Globulin (S) [Mass/Vol] 2.9 g/dL 2.2-4.2 [facility] Urea nitrogen/Creatinine [Mass ratio] 14.8 mg/mg 10-20 [facility] No Panel InformationOrdered By: Mily Nogueira on 09-07-2023 Estimated GFR (MDRD) Amer 146 mL/min >60 [facility] Comment on above: GFR Calc Estimated GFR (MDRD) Non-Af Amer 121 mL/min >60 [facility] Comment on above: Non- GFR Calc Prostate Specific Antigen Screen 0.41 ng/mL 0.00-4.00 [facility] Comment on above: This test was perfor med using the TPSA assay method for [employer] chemistry system. Values obtained with differentassay methods cannot be used interchangably.When changing PSA assays in the course of monitoring apatient, additional sequential testing should be carriedout to confirm baseline values. Vitamin D 25-Hydroxy 43.3 ng/mL [facility] Comment on above: Vitamin D 25(OH) Sta tus Range Deficiency <20 ng/mL (50nmol/L) Insufficiency 20 - 30 ng/mL (50 - 75 nmol/L) Sufficiency 30 - 100 ng/mL (75 - 250 nmol/L) Toxicity >100 ng/mL (>250 nmol/L) Serum or plasma albumin aida urement (mass/volume)Ordered By: Mily Nogueira on 09-07-2023 Albumin [Mass/Vol] 3.5 g/dL 3.2-5.0 [facility] Serum or plasma albumin/glob ulin mass ratioOrdered By: Mily Nogueira on 09-07-2023 Albumin/Globulin [Mass ratio] 1.2 {ratio} 0.9-2.4 [facility] Serum or plasma calcium aida urement (mass/volume)Ordered By: Mily Nogueira on 09-07-2023 Calcium [Mass/Vol] 8.5 mg/dL 8.5-10.1 [facility] Serum or plasma cholesterol in HDL measurement (mass/volume)Ordered By: Mily Nogueira on 09-07-2023 Cholesterol in HDL [Mass/Vol] 94 mg/dL >40 [facility] Comment on above: The drugs N-Acetylcy steine and Metamizole may falsely depress this assay. Reference Range HDL <40 mg/dL Low HDL Cholesterol HDL >or= 60 mg/dL High HDL Cholesterol Serum or plasma cholesterol in VLDL measurement (mass/volume)Ordered By: Mily Nogueira on 09-07-2023 Cholesterol in VLDL [Mass/Vol] 11 mg/dL 5-40 [facility] Serum or plasma creatinine m easurement (mass/volume)Ordered By: Mily Nogueira on 09-07-2023 Creatinine [Mass/Vol] 0.67 mg/dL 0.70-1.30 [facility] Comment on above: The validity of the calculated GFR & GFRAA in patients over 70 years has not been determined. Clinical correlation is essential. Serum or plasma low density lipoprotein (LDL) cholesterol measurement (mass/volume)Ordered By: Mily Nogueira on 09-07-2023 Cholesterol in LDL [Mass/Vol] 65 mg/dL 0-130 [facility] Serum or plasma urea nitroge n measurement (mass/volume)Ordered By: Mily Nogueira on 09-07-2023 Urea nitrogen [Mass/Vol] 10 mg/dL 7-18 [facility] Thin prep Papanicolaou smear with manual screeningOrdered By: Mily Nogueira on 09-07-2023 Thin prep Papanicolaou smear with manual screening 26 U/L 15-37 [facility] Thin prep Papanicolaou smear with manual screening 6 5-15 [facility] Whole blood hemoglobin A1c/t otal hemoglobin ratio (mass fraction)Ordered By: Mily Nogueira on 09-07-2023 HbA1c (Bld) [Mass fraction] 5.2 % 3.8-5.6 [facility] Comment on above: Normal < 5.7 % Predi abetic 5.7 - 6.4 % Diabetic >or= 6.5 % Please note range changes. Basophil percentageOrdered B y: Christian Payton on 08-31-2023 Bilirubin [Mass/Vol] 0.70 mg/dL 0.20-1.00 [facility] Comment on above: For patients on eltr ombopag therapy, use of Dimension [place] TBIL is not recommended. Chloride [Moles/Vol] 99 mmol/L 98-107 [facility] Glucose [Mass/Vol] 119 mg/dL 74-106 [facility] Comment on above: Fasting Glucose resu lt from 100 to 125 mg/dL suggests IMPAIRED HOMEOSTASIS per A.D.A. criteria. Potassium [Moles/Vol] 4.1 mmol/L 3.5-5.1 [facility] Protein [Mass/Vol] 6.6 g/dL 6.4-8.2 [facility] Sodium [Moles/Vol] 132 mmol/L 136-145 [facility] WBC (Bld) [#/Vol] 7.7 10*3/uL 4.4-11.0 [facility] Blood erythrocytes count (nu mber/volume)Ordered By: Christian Payton on 08-31-2023 RBC (Bld) [#/Vol] 5.23 10*6/uL 4.6-6.2 [facility] Blood hemoglobin measurement (mass/volume)Ordered By: Christian Payton on 08-31-2023 Hemoglobin (Bld) [Mass/Vol] 15.4 g/dL 13.0-16.5 [facility] Blood platelet mean volumeOr dered By: Christian Payton on 08-31-2023 Platelet mean volume (Bld) [Entitic vol] 10.9 fL 6.2-12.0 [facility] Determination of erythrocyte mean corpuscular volume (MCV)Ordered By: Christian Payton on 08-31-2023 MCV (RBC) [Entitic vol] 88.1 fL 80-94 [facility] Hematocrit Auto (Bld) [Volum e fraction]Ordered By: Christian Payton on 08-31-2023 Hematocrit (Bld) [Volume fraction] 46.1 % 40-54 [facility] Laboratory - Chemistry and C hemistry - challengeOrdered By: Christian Payton on 08-31-2023 ALP [Catalytic activity/Vol] 146 U/L 45-117 [facility] ALT [Catalytic activity/Vol] 17 U/L 16-61 [facility] CO2 [Moles/Vol] 28.0 mmol/L 21.0-32.0 [facility] Globulin (S) [Mass/Vol] 3.1 g/dL 2.2-4.2 [facility] Urea nitrogen/Creatinine [Mass ratio] 24.2 mg/mg 10-20 [facility] - Hematology and Cell countsOrdered By: Christian Payton on 08-31-2023 Erythrocyte distribution width (RBC) [Entitic vol] 40.6 fL 35.1-43.9 [facility] Erythrocyte distribution width (RBC) [Ratio] 12.6 % 11.6-14.6 [facility] MCH (RBC) [Entitic mass] 29.4 pg 27.0-32.0 [facility] MCHC Auto (RBC) [Mass/Vol]Or dered By: Christian Payton on 08-31-2023 MCHC (RBC) [Mass/Vol] 33.4 g/dL 32-36 [facility] No Panel InformationOrdered By: Christian Payton on 08-31-2023 Estimated GFR (MDRD) Amer 139 mL/min >60 [facility] Comment on above: GFR Calc Estimated GFR (MDRD) Non-Af Amer 115 mL/min >60 [facility] Comment on above: Non- GFR Calc Thyroid Stimulating Hormone (TSH) 0.90 uIU/mL 0.358-3.74 [facility] Whole Blood Vitamin B1 Level 134.4 nmol/L 66.5-200.0 [facility] Comment on above: Performed at: [address] [id number] Director: Rodrigo Mathews MD, Phone: [phone] Platelets bldOrdered By: Joao Payton on 08-31-2023 Platelets (Bld) [#/Vol] 256 10*3/uL 150-450 [facility] Serum or plasma albumin aida urement (mass/volume)Ordered By: Christian Payton on 08-31-2023 Albumin [Mass/Vol] 3.5 g/dL 3.2-5.0 [facility] Serum or plasma albumin/glob ulin mass ratioOrdered By: Christian Payton on 08-31-2023 Albumin/Globulin [Mass ratio] 1.1 {ratio} 0.9-2.4 [facility] Serum or plasma calcium aida urement (mass/volume)Ordered By: Christian Payton on 08-31-2023 Calcium [Mass/Vol] 8.8 mg/dL 8.5-10.1 [facility] Serum or plasma creatinine m easurement (mass/volume)Ordered By: Christian Payton on 08-31-2023 Creatinine [Mass/Vol] 0.70 mg/dL 0.70-1.30 [facility] Comment on above: The validity of the calculated GFR & GFRAA in patients over 70 years has not been determined. Clinical correlation is essential. Serum or plasma folate measu rement (mass/volume)Ordered By: Christian Payton on 08-31-2023 Folate [Mass/Vol] 19.80 ng/mL 3.1-55.4 [facility] Comment on above: Slight Hemolysis, Re sult may be falsely increased. Serum or plasma urea nitroge n measurement (mass/volume)Ordered By: Christian Payton on 08-31-2023 Urea nitrogen [Mass/Vol] 17 mg/dL 7-18 [facility] Thin prep Papanicolaou smear with manual screeningOrdered By: Christian Payton on 08-31-2023 Thin prep Papanicolaou smear with manual screening 29 U/L 15-37 [facility] Thin prep Papanicolaou smear with manual screening 5 5-15 [facility] Albumin Elph [Mass/Vol]Order ed By: Leighton Cruz on 05-31-2023 Albumin [Mass/Vol] 3.6 g/dL 2.9-4.4 [facility] Basophil percentageOrdered B y: Leighton Cruz on 05-31-2023 Basophil percentage < 1 ug/L 0-9 [facility] Comment on above: Detection Limit = 1 Blood mercury measurement (m ass/volume)Ordered By: Leighton Cruz on 05-31-2023 Mercury (Bld) [Mass/Vol] < 1.0 ug/L 0.0-14.9 [facility] Comment on above: Environmental Exposu re: <15.0 Occupational Exposure: GEETHA - Inorganic Mercury: 15.0 Detection Limit = 1.0Performed at: [address] [id number] Director: Kartik Schuster PhD, Phone: [phone] at: [address] [id number] Director: Rodrigo Mathews MD, Phone: [phone] Interpretation of serum or p lasma protein pattern by immunofixation (narrative resultOrdered By: Leighton Cruz on 05-31-2023 Protein Fractions Immunofixation Magan [Interp] See comment [facility] Comment on above: Result: Not Observed Laboratory - Chemistry and C hemistry - challengeOrdered By: Leighton Crzu on 05-31-2023 Cobalamin (Vitamin B12) [Mass/Vol] 599 pg/mL 211-911 [facility] No Panel InformationOrdered By: Leighton Cruz on 05-31-2023 Addendum Document Comment . [facility] Comment on above: Protein electrophore sis scan will follow via computer,mail, or video journalist delivery. Lead 2.6 ug/dL 0.0-3.4 [facility] Comment on above: Testing performed by Inductively coupled plasma/MassSpectrometry. Environmental Exposure: WHO Recommendation <5.0 Occupational Exposure: OSHA Lead Std 40.0 GEETHA 30.0 Detection Limit = 1.0 Serum [id number] measu rement by electrophoresisOrdered By: Leighton Cruz on 05-31-2023 Alpha 1 globulin Elph [Mass/Vol] 0.2 g/dL 0.0-0.4 [facility] Alpha 1 globulin Elph [Mass/Vol] 0.7 g/dL 0.4-1.0 [facility] Serum globulin measurement ( mass/volume)Ordered By: Leighton Cruz on 05-31-2023 Globulin (S) [Mass/Vol] 2.6 g/dL 2.2-3.9 [facility] Serum or plasma IgA measurem ent (mass/volume)Ordered By: Leighton Cruz on 05-31-2023 IgA [Mass/Vol] 66 mg/dL 61-437 [facility] Serum or plasma IgG measurem ent (mass/volume)Ordered By: Leighton Cruz on 05-31-2023 IgG [Mass/Vol] 764 mg/dL 603-1613 [facility] Serum or plasma IgM measurem ent (mass/volume)Ordered By: Leighton Cruz on 05-31-2023 IgM [Mass/Vol] 60 mg/dL 15-143 [facility] Serum or plasma beta globuli n measurement by electrophoresis (mass/volume)Ordered By: Leighton Cruz on 05-31-2023 Beta globulin Elph [Mass/Vol] 0.9 g/dL 0.7-1.3 [facility] Serum or plasma gamma globul in measurement by electrophoresis (mass/volume)Ordered By: Leighton Cruz on 05-31-2023 Gamma globulin Elph [Mass/Vol] 0.8 g/dL 0.4-1.8 [facility] Serum or plasma immunoelectr ophoresis interpretation (nominal result)Ordered By: Leighton Cruz on 05-31-2023 Interpretation IEP [Interp] Comment . [facility] Comment on above: No monoclonality det ected. Thin prep Papanicolaou smear with manual screeningOrdered By: Leighton Cruz on 05-31-2023 Thin prep Papanicolaou smear with manual screening 1.4 0.7-1.7 [facility] Total protein bloodOrdered B y: Leighton Cruz on 05-31-2023 Protein [Mass/Vol] 6.2 g/dL 6.0-8.5 [facility] Absolute lymphocyte countOrd ered By: Mily Nogueira on 04-28-2023 Lymphocytes Auto (Unsp spec) [#/Vol] 0.94 10*3/uL 0.83-4.51 [facility] Basophil percentageOrdered B y: Mily Nogueira on 04-28-2023 Basophils/100 WBC (Bld) 1.2 % 0-1 [facility] Bilirubin [Mass/Vol] 0.70 mg/dL 0.20-1.00 [facility] Comment on above: For patients on eltr ombopag therapy, use of Dimension [place] TBIL is not recommended. Chloride [Moles/Vol] 101 mmol/L 98-107 [facility] Cholesterol [Mass/Vol] 165 mg/dL <200 [facility] Comment on above: <200 mg/dL Desirable 200-240 mg/dL Borderline >240 mg/dL High Risk Eosinophils/100 WBC (Bld) 5.6 % 0-5 [facility] Glucose [Mass/Vol] 105 mg/dL 74-106 [facility] Comment on above: Fasting Glucose resu lt from 100 to 125 mg/dL suggests IMPAIRED HOMEOSTASIS per A.D.A. criteria. Neutrophils (Bld) [#/Vol] 2.7 10*3/uL 2.0-7.7 [facility] Neutrophils/100 WBC (Bld) 62.0 % 47-70 [facility] Potassium [Moles/Vol] 4.1 mmol/L 3.5-5.1 [facility] Protein [Mass/Vol] 6.4 g/dL 6.4-8.2 [facility] Sodium [Moles/Vol] 134 mmol/L 136-145 [facility] Triglyceride [Mass/Vol] 47 mg/dL <199 [facility] Comment on above: The drugs N-Acetylcy steine and Metamizole may falsely depress this assay.Serum Triglycerides Reference Interval Normal <150 mg/dL Borderline high 150 - 199 mg/dL High 200 - 499 mg/dL Very High > or = 500 mg/dL WBC (Bld) [#/Vol] 4.3 10*3/uL 4.4-11.0 [facility] Blood erythrocytes count (nu mber/volume)Ordered By: Mily Nogueira on 04-28-2023 RBC (Bld) [#/Vol] 5.26 10*6/uL 4.6-6.2 [facility] Blood hemoglobin measurement (mass/volume)Ordered By: Mily Nogueira on 04-28-2023 Hemoglobin (Bld) [Mass/Vol] 15.4 g/dL 13.0-16.5 [facility] Blood lymphocytes/100 leukoc ytesOrdered By: Mily Nogueira on 04-28-2023 Lymphocytes/100 WBC (Bld) 21.9 % 19-41 [facility] Blood monocytes/100 leukocyt esOrdered By: Mily Nogueira on 04-28-2023 Monocytes/100 WBC (Bld) 8.4 % 0-10 [facility] Blood platelet mean volumeOr dered By: Mily Nogueira on 04-28-2023 Platelet mean volume (Bld) [Entitic vol] 10.9 fL 6.2-12.0 [facility] Determination of erythrocyte mean corpuscular volume (MCV)Ordered By: Mily Nogueira on 04-28-2023 MCV (RBC) [Entitic vol] 87.5 fL 80-94 [facility] Hematocrit Auto (Bld) [Volum e fraction]Ordered By: Mily Nogueira on 04-28-2023 Hematocrit (Bld) [Volume fraction] 46.0 % 40-54 [facility] Laboratory - Chemistry and C hemistry - challengeOrdered By: Mily Nogueira on 04-28-2023 ALP [Catalytic activity/Vol] 177 U/L 45-117 [facility] ALT [Catalytic activity/Vol] 16 U/L 16-61 [facility] CO2 [Moles/Vol] 25.0 mmol/L 21.0-32.0 [facility] Globulin (S) [Mass/Vol] 3.2 g/dL 2.2-4.2 [facility] Urea nitrogen/Creatinine [Mass ratio] 14.4 mg/mg 10-20 [facility] - Hematology and Cell countsOrdered By: Mily Nogueira on 04-28-2023 Erythrocyte distribution width (RBC) [Entitic vol] 41.1 fL 35.1-43.9 [facility] Erythrocyte distribution width (RBC) [Ratio] 12.9 % 11.6-14.6 [facility] Immature granulocytes/100 WBC (Bld) 0.900 % 0.0-0.9 [facility] Comment on above: IG% - Immature Granu locytes (promyelocytes, myelocytes and metamyelocytes) > 1% indicates that a LEFT SHIFT is Present. MCH (RBC) [Entitic mass] 29.3 pg 27.0-32.0 [facility] Nucleated RBC/100 WBC (Bld) [Ratio] 0 % 0-5 [facility] MCHC Auto (RBC) [Mass/Vol]Or dered By: Mily Nogueira on 04-28-2023 MCHC (RBC) [Mass/Vol] 33.5 g/dL 32-36 [facility] No Panel InformationOrdered By: Mily Nogueira on 04-28-2023 Estimated GFR (MDRD) Amer 160 mL/min >60 [facility] Comment on above: GFR Calc Estimated GFR (MDRD) Non-Af Amer 132 mL/min >60 [facility] Comment on above: Non- GFR Calc Thyroid Stimulating Hormone (TSH) 1.27 uIU/mL 0.358-3.74 [facility] Vitamin D 25-Hydroxy 60.7 ng/mL [facility] Comment on above: Vitamin D 25(OH) Sta tus Range Deficiency <20 ng/mL (50nmol/L) Insufficiency 20 - 30 ng/mL (50 - 75 nmol/L) Sufficiency 30 - 100 ng/mL (75 - 250 nmol/L) Toxicity >100 ng/mL (>250 nmol/L) Platelets bldOrdered By: Kevin Nogueira on 04-28-2023 Platelets (Bld) [#/Vol] 234 10*3/uL 150-450 [facility] Serum or plasma albumin aida urement (mass/volume)Ordered By: Mily Nogueira on 04-28-2023 Albumin [Mass/Vol] 3.2 g/dL 3.2-5.0 [facility] Serum or plasma albumin/glob ulin mass ratioOrdered By: Mily Nogueira on 04-28-2023 Albumin/Globulin [Mass ratio] 1.0 {ratio} 0.9-2.4 [facility] Serum or plasma calcium aida urement (mass/volume)Ordered By: Mily Nogueira on 04-28-2023 Calcium [Mass/Vol] 8.5 mg/dL 8.5-10.1 [facility] Serum or plasma cholesterol in HDL measurement (mass/volume)Ordered By: Mily Nogueira on 04-28-2023 Cholesterol in HDL [Mass/Vol] 88 mg/dL >40 [facility] Comment on above: The drugs N-Acetylcy steine and Metamizole may falsely depress this assay. Reference Range HDL <40 mg/dL Low HDL Cholesterol HDL >or= 60 mg/dL High HDL Cholesterol Serum or plasma cholesterol in VLDL measurement (mass/volume)Ordered By: Mily Noguiera on 04-28-2023 Cholesterol in VLDL [Mass/Vol] 9 mg/dL 5-40 [facility] Serum or plasma creatinine m easurement (mass/volume)Ordered By: Mily Nogueira on 04-28-2023 Creatinine [Mass/Vol] 0.62 mg/dL 0.70-1.30 [facility] Comment on above: The validity of the calculated GFR & GFRAA in patients over 70 years has not been determined. Clinical correlation is essential. Serum or plasma low density lipoprotein (LDL) cholesterol measurement (mass/volume)Ordered By: Mily Nogueira on 04-28-2023 Cholesterol in LDL [Mass/Vol] 68 mg/dL 0-130 [facility] Serum or plasma urea nitroge n measurement (mass/volume)Ordered By: Mily Nogueira on 04-28-2023 Urea nitrogen [Mass/Vol] 9 mg/dL 7-18 [facility] Thin prep Papanicolaou smear with manual screeningOrdered By: Mily Nogueira on 04-28-2023 Thin prep Papanicolaou smear with manual screening 37 U/L 15-37 [facility] Thin prep Papanicolaou smear with manual screening 8 5-15 [facility] Whole blood hemoglobin A1c/t otal hemoglobin ratio (mass fraction)Ordered By: Mily Nogueira on 04-28-2023 HbA1c (Bld) [Mass fraction] 5.5 % 3.8-5.6 [facility] Comment on above: Normal < 5.7 % Predi abetic 5.7 - 6.4 % Diabetic >or= 6.5 % Please note range changes. Culture, urineOrdered By: Dr Goyo Bennett on 01-01-2023 Bacteria identified Cx Nom (U) Serratia marcescens [facility] Culture, urineOrdered By: Irma Bennett on 12-30-2022 Bacteria identified Cx Nom (U) Serratia marcescens [facility] Culture, urineOrdered By: Dr Goyo Nogueira on 11-21-2022 Bacteria identified Cx Nom (U) Klebsiella aerogenes [facility] Basophil percentageOrdered B y: Dr. Nogueira on 11-02-2022 Bilirubin [Mass/Vol] 0.40 mg/dL 0.20-1.00 [facility] Comment on above: For patients on eltr ombopag therapy, use of Dimension [place] TBIL is not recommended. Chloride [Moles/Vol] 99 mmol/L 98-107 [facility] Glucose [Mass/Vol] 93 mg/dL 74-106 [facility] Potassium [Moles/Vol] 4.0 mmol/L 3.5-5.1 [facility] Protein [Mass/Vol] 6.2 g/dL 6.4-8.2 [facility] Sodium [Moles/Vol] 135 mmol/L 136-145 [facility] Laboratory - Chemistry and C hemistry - challengeOrdered By: Dr. Nogueira on 11-02-2022 ALP [Catalytic activity/Vol] 144 U/L 45-117 [facility] ALT [Catalytic activity/Vol] 13 U/L 16-61 [facility] CO2 [Moles/Vol] 27.0 mmol/L 21.0-32.0 [facility] Globulin (S) [Mass/Vol] 2.7 g/dL 2.2-4.2 [facility] Urea nitrogen/Creatinine [Mass ratio] 15.1 mg/mg 10-20 [facility] No Panel InformationOrdered By: Dr. Nogueira on 11-02-2022 Estimated GFR (MDRD) Amer 94 mL/min >60 [facility] Comment on above: GFR Calc Estimated GFR (MDRD) Non-Af Amer 77 mL/min >60 [facility] Comment on above: Non- GFR Calc Serum or plasma albumin aida urement (mass/volume)Ordered By: Dr. Nogueira on 11-02-2022 Albumin [Mass/Vol] 3.5 g/dL 3.2-5.0 [facility] Serum or plasma albumin/glob ulin mass ratioOrdered By: Dr. Nogueira on 11-02-2022 Albumin/Globulin [Mass ratio] 1.3 {ratio} 0.9-2.4 [facility] Serum or plasma calcium aida urement (mass/volume)Ordered By: Dr. Nogueira on 11-02-2022 Calcium [Mass/Vol] 8.4 mg/dL 8.5-10.1 [facility] Serum or plasma creatinine m easurement (mass/volume)Ordered By: Dr. Nogueira on 11-02-2022 Creatinine [Mass/Vol] 0.99 mg/dL 0.70-1.30 [facility] Comment on above: The validity of the calculated GFR & GFRAA in patients over 70 years has not been determined. Clinical correlation is essential. Serum or plasma urea nitroge n measurement (mass/volume)Ordered By: Dr. Nogueira on 11-02-2022 Urea nitrogen [Mass/Vol] 15 mg/dL 7-18 [facility] Thin prep Papanicolaou smear with manual screeningOrdered By: Dr. Nogueira on 11-02-2022 Thin prep Papanicolaou smear with manual screening 25 U/L 15-37 [facility] Thin prep Papanicolaou smear with manual screening 9 5-15 [facility] Absolute lymphocyte countOrd ered By: Dr. Nogueira on 10-28-2022 Lymphocytes Auto (Unsp spec) [#/Vol] 1.00 10*3/uL 0.83-4.51 [facility] Basophil percentageOrdered B y: Dr. Nogueira on 10-28-2022 Basophils/100 WBC (Bld) 0.9 % 0-1 [facility] Cholesterol [Mass/Vol] 184 mg/dL <200 [facility] Comment on above: <200 mg/dL Desirable 200-240 mg/dL Borderline >240 mg/dL High Risk Eosinophils/100 WBC (Bld) 4.7 % 0-5 [facility] Neutrophils (Bld) [#/Vol] 2.9 10*3/uL 2.0-7.7 [facility] Neutrophils/100 WBC (Bld) 63.1 % 47-70 [facility] Triglyceride [Mass/Vol] 80 mg/dL <199 [facility] Comment on above: The drugs N-Acetylcy steine and Metamizole may falsely depress this assay.Serum Triglycerides Reference Interval Normal <150 mg/dL Borderline high 150 - 199 mg/dL High 200 - 499 mg/dL Very High > or = 500 mg/dL WBC (Bld) [#/Vol] 4.7 10*3/uL 4.4-11.0 [facility] Blood erythrocytes count (nu mber/volume)Ordered By: Dr. Nogueira on 10-28-2022 RBC (Bld) [#/Vol] 5.26 10*6/uL 4.6-6.2 [facility] Blood hemoglobin measurement (mass/volume)Ordered By: Dr. Nogueira on 10-28-2022 Hemoglobin (Bld) [Mass/Vol] 15.5 g/dL 13.0-16.5 [facility] Blood lymphocytes/100 leukoc ytesOrdered By: Dr. Nogueira on 10-28-2022 Lymphocytes/100 WBC (Bld) 21.5 % 19-41 [facility] Blood monocytes/100 leukocyt esOrdered By: Dr. Nogueira on 10-28-2022 Monocytes/100 WBC (Bld) 9.4 % 0-10 [facility] Blood platelet mean volumeOr dered By: Dr. Nogueira on 10-28-2022 Platelet mean volume (Bld) [Entitic vol] 11.2 fL 6.2-12.0 [facility] Determination of erythrocyte mean corpuscular volume (MCV)Ordered By: Dr. Nogueira on 10-28-2022 MCV (RBC) [Entitic vol] 87.6 fL 80-94 [facility] Hematocrit Auto (Bld) [Volum e fraction]Ordered By: Dr. Nogueira on 10-28-2022 Hematocrit (Bld) [Volume fraction] 46.1 % 40-54 [facility] - Hematology and Cell countsOrdered By: Dr. Nogueira on 10-28-2022 Erythrocyte distribution width (RBC) [Entitic vol] 40.9 fL 35.1-43.9 [facility] Erythrocyte distribution width (RBC) [Ratio] 12.7 % 11.6-14.6 [facility] Immature granulocytes/100 WBC (Bld) 0.400 % 0.0-0.9 [facility] Comment on above: IG% - Immature Granu locytes (promyelocytes, myelocytes and metamyelocytes) > 1% indicates that a LEFT SHIFT is Present. MCH (RBC) [Entitic mass] 29.5 pg 27.0-32.0 [facility] Nucleated RBC/100 WBC (Bld) [Ratio] 0 % 0-5 [facility] MCHC Auto (RBC) [Mass/Vol]Or dered By: Dr. Nogueira on 10-28-2022 MCHC (RBC) [Mass/Vol] 33.6 g/dL 32-36 [facility] No Panel InformationOrdered By: Dr. Nogueira on 10-28-2022 Vitamin D 25-Hydroxy 36.7 ng/mL [facility] Comment on above: Vitamin D 25(OH) Sta tus Range Deficiency <20 ng/mL (50nmol/L) Insufficiency 20 - 30 ng/mL (50 - 75 nmol/L) Sufficiency 30 - 100 ng/mL (75 - 250 nmol/L) Toxicity >100 ng/mL (>250 nmol/L) Platelets bldOrdered By: Dr. Nogueira on 10-28-2022 Platelets (Bld) [#/Vol] 233 10*3/uL 150-450 [facility] Serum or plasma cholesterol in HDL measurement (mass/volume)Ordered By: Dr. Nogueira on 10-28-2022 Cholesterol in HDL [Mass/Vol] 90 mg/dL >40 [facility] Comment on above: The drugs N-Acetylcy steine and Metamizole may falsely depress this assay. Reference Range HDL <40 mg/dL Low HDL Cholesterol HDL >or= 60 mg/dL High HDL Cholesterol Serum or plasma cholesterol in VLDL measurement (mass/volume)Ordered By: Dr. Nogueira on 10-28-2022 Cholesterol in VLDL [Mass/Vol] 16 mg/dL 5-40 [facility] Serum or plasma low density lipoprotein (LDL) cholesterol measurement (mass/volume)Ordered By: Dr. Nogueira on 10-28-2022 Cholesterol in LDL [Mass/Vol] 78 mg/dL 0-130 [facility] Basophil percentageOrdered B y: Dr. Nogueira on 08-25-2022 Chloride [Moles/Vol] 100 mmol/L 98-107 [facility] Glucose [Mass/Vol] 114 mg/dL 74-106 [facility] Comment on above: Fasting Glucose resu lt from 100 to 125 mg/dL suggests IMPAIRED HOMEOSTASIS per A.D.A. criteria. Potassium [Moles/Vol] 4.1 mmol/L 3.5-5.1 [facility] Sodium [Moles/Vol] 133 mmol/L 136-145 [facility] Laboratory - Chemistry and C hemistry - challengeOrdered By: Dr. Nogueira on 08-25-2022 CO2 [Moles/Vol] 27.0 mmol/L 21.0-32.0 [facility] Urea nitrogen/Creatinine [Mass ratio] 15.6 mg/mg 10-20 [facility] No Panel InformationOrdered By: Dr. Nogueira on 08-25-2022 Estimated GFR (MDRD) Amer 139 mL/min >60 [facility] Comment on above: GFR Calc Estimated GFR (MDRD) Non-Af Amer 115 mL/min >60 [facility] Comment on above: Non- GFR Calc Serum or plasma calcium aida urement (mass/volume)Ordered By: Dr. Nogueira on 08-25-2022 Calcium [Mass/Vol] 8.6 mg/dL 8.5-10.1 [facility] Serum or plasma creatinine m easurement (mass/volume)Ordered By: Dr. Nogueira on 08-25-2022 Creatinine [Mass/Vol] 0.70 mg/dL 0.70-1.30 [facility] Comment on above: The validity of the calculated GFR & GFRAA in patients over 70 years has not been determined. Clinical correlation is essential. Serum or plasma urea nitroge n measurement (mass/volume)Ordered By: Dr. Nogueira on 08-25-2022 Urea nitrogen [Mass/Vol] 11 mg/dL 7-18 [facility] Thin prep Papanicolaou smear with manual screeningOrdered By: Dr. Nogueira on 08-25-2022 Thin prep Papanicolaou smear with manual screening 6 5-15 [facility] Basophil percentageOrdered B y: Dr. Nogueira on 08-17-2022 Bilirubin [Mass/Vol] 0.70 mg/dL 0.20-1.00 [facility] Comment on above: For patients on eltr ombopag therapy, use of Dimension [place] TBIL is not recommended. Chloride [Moles/Vol] 92 mmol/L 98-107 [facility] Glucose [Mass/Vol] 99 mg/dL 74-106 [facility] Potassium [Moles/Vol] 3.8 mmol/L 3.5-5.1 [facility] Protein [Mass/Vol] 6.4 g/dL 6.4-8.2 [facility] Sodium [Moles/Vol] 126 mmol/L 136-145 [facility] Laboratory - Chemistry and C hemistry - challengeOrdered By: Dr. Nogueira on 08-17-2022 ALP [Catalytic activity/Vol] 126 U/L 45-117 [facility] ALT [Catalytic activity/Vol] 22 U/L 16-61 [facility] CO2 [Moles/Vol] 24.0 mmol/L 21.0-32.0 [facility] Globulin (S) [Mass/Vol] 3.0 g/dL 2.2-4.2 [facility] Sodium (U) [Moles/Vol] 74 mmol/L Not Establ. [facility] Urea nitrogen/Creatinine [Mass ratio] 19.4 mg/mg 10-20 [facility] No Panel InformationOrdered By: Dr. Nogueira on 08-17-2022 Estimated Creatinine Clearance Calc 134.00 ml/min [facility] Estimated GFR (MDRD) Amer 162 mL/min >60 [facility] Comment on above: GFR Calc Estimated GFR (MDRD) Non-Af Amer 134 mL/min >60 [facility] Comment on above: Non- GFR Calc Fractional Sodium Excretion 0.4 % [facility] Comment on above: ALMOST ALWAYS <1% IN PRERENAL AZOTEMIA (UNDERPERFUSION) AND>1.5% IN ACUTE TUBULAR NECROSIS. (REF:NESTOR 2ND.EDITION) Urine Potassium 28.0 mmol/L Not Establ. [facility] Vitamin D 25-Hydroxy 64.5 ng/mL [facility] Comment on above: Vitamin D 25(OH) Sta tus Range Deficiency <20 ng/mL (50nmol/L) Insufficiency 20 - 30 ng/mL (50 - 75 nmol/L) Sufficiency 30 - 100 ng/mL (75 - 250 nmol/L) Toxicity >100 ng/mL (>250 nmol/L) Serum or plasma albumin aida urement (mass/volume)Ordered By: Dr. Nogueira on 08-17-2022 Albumin [Mass/Vol] 3.4 g/dL 3.2-5.0 [facility] Serum or plasma albumin/glob ulin mass ratioOrdered By: Dr. Nogueira on 08-17-2022 Albumin/Globulin [Mass ratio] 1.1 {ratio} 0.9-2.4 [facility] Serum or plasma calcium aida urement (mass/volume)Ordered By: Dr. Nogueira on 08-17-2022 Calcium [Mass/Vol] 8.5 mg/dL 8.5-10.1 [facility] Serum or plasma creatinine m easurement (mass/volume)Ordered By: Dr. Nogueira on 08-17-2022 Creatinine [Mass/Vol] 0.62 mg/dL 0.70-1.30 [facility] Comment on above: The validity of the calculated GFR & GFRAA in patients over 70 years has not been determined. Clinical correlation is essential. Serum or plasma urea nitroge n measurement (mass/volume)Ordered By: Dr. Nogueira on 08-17-2022 Urea nitrogen [Mass/Vol] 12 mg/dL 7-18 [facility] Thin prep Papanicolaou smear with manual screeningOrdered By: Dr. Nogueira on 08-17-2022 Thin prep Papanicolaou smear with manual screening 27 U/L 15-37 [facility] Thin prep Papanicolaou smear with manual screening 87 mmol/L Not Establ. [facility] Thin prep Papanicolaou smear with manual screening 10 5-15 [facility] Urine creatinine measurement (mass/volume)Ordered By: Dr. Nogueira on 08-17-2022 Creatinine (U) [Mass/Vol] 80.50 mg/dL NO RANGE EST. [facility] Urine osmolality measurement Ordered By: Dr. Nogueira on 08-17-2022 Osmolality (U) [Osmolality] 490 mOsm/KG >50 [facility] Comment on above: Normal Urine Referen ce Ranges Random: 50 - 1200 mOsm/kg H20 depending on fluid intake Random: >850 mOsm/kg after 12 hour fluid restriction 24 hour: ~300 - 900 mOsm/kg H2O Whole blood hemoglobin A1c/t otal hemoglobin ratio (mass fraction)Ordered By: Dr. Nogueira on 08-17-2022 HbA1c (Bld) [Mass fraction] 5.6 % 3.8-5.6 [facility] Comment on above: Normal < 5.7 % Predi abetic 5.7 - 6.4 % Diabetic >or= 6.5 % Please note range changes. Absolute lymphocyte counton 03-23-2022 Lymphocytes Auto (Unsp spec) [#/Vol] 0.82 10*3/uL 0.83-4.51 [facility] Work Phone: Basophil percentageon 03-23- 2021 Basophils/100 WBC (Bld) 0.8 % 0-1 [facility] Work Phone: Bilirubin [Mass/Vol] 0.60 mg/dL 0.20-1.00 [facility] Work Phone: Comment on above: For patients on eltr ombopag therapy, use of Dimension [place] TBIL is not recommended. Chloride [Moles/Vol] 101 mmol/L 98-107 [facility] Work Phone: Cholesterol [Mass/Vol] 175 mg/dL <200 [facility] Work Phone: Comment on above: <200 mg/dL Desirable 200-240 mg/dL Borderline >240 mg/dL High Risk Eosinophils/100 WBC (Bld) 3.3 % 0-5 [facility] Work Phone: Glucose [Mass/Vol] 107 mg/dL 74-106 [facility] Work Phone: Comment on above: Fasting Glucose resu lt from 100 to 125 mg/dL suggests IMPAIRED HOMEOSTASIS per A.D.A. criteria. Neutrophils (Bld) [#/Vol] 3.3 10*3/uL 2.0-7.7 [facility] Work Phone: Neutrophils/100 WBC (Bld) 69.0 % 47-70 [facility] Work Phone: Potassium [Moles/Vol] 4.0 mmol/L 3.5-5.1 [facility] Work Phone: Protein [Mass/Vol] 6.3 g/dL 6.4-8.2 [facility] Work Phone: Sodium [Moles/Vol] 133 mmol/L 136-145 [facility] Work Phone: Triglyceride [Mass/Vol] 60 mg/dL <199 [facility] Work Phone: Comment on above: The drugs N-Acetylcy steine and Metamizole may falsely depress this assay.Serum Triglycerides Reference Interval Normal <150 mg/dL Borderline high 150 - 199 mg/dL High 200 - 499 mg/dL Very High > or = 500 mg/dL WBC (Bld) [#/Vol] 4.8 10*3/uL 4.4-11.0 [facility] Work Phone: Blood erythrocytes count (nu mber/volume)on 03-23-2022 RBC (Bld) [#/Vol] 5.17 10*6/uL 4.6-6.2 [facility]: Blood hemoglobin measurement (mass/volume)on 03-23-2022 Hemoglobin (Bld) [Mass/Vol] 14.9 g/dL 13.0-16.5 [facility] Work Phone: Blood lymphocytes/100 leukoc yteson 03-23-2022 Lymphocytes/100 WBC (Bld) 17.0 % 19-41 [facility] Work Phone: Blood monocytes/100 leukocyt eson 03-23-2022 Monocytes/100 WBC (Bld) 9.3 % 0-10 [facility] Work Phone: Blood platelet mean volumeon 03-23-2022 Platelet mean volume (Bld) [Entitic vol] 11.6 fL 6.2-12.0 [facility] Work Phone: Determination of erythrocyte mean corpuscular volume (MCV)on 03-23-2022 MCV (RBC) [Entitic vol] 86.1 fL 80-94 [facility] Work Phone: Hematocrit Auto (Bld) [Volum e fraction]on 03-23-2022 Hematocrit (Bld) [Volume fraction] 44.5 % 40-54 [facility] Work Phone: Laboratory - Chemistry and C hemistry - challengeon 03-23-2022 ALP [Catalytic activity/Vol] 150 U/L 45-117 [facility] Work Phone: ALT [Catalytic activity/Vol] 14 U/L 16-61 [facility] Work Phone: CO2 [Moles/Vol] 23.0 mmol/L 21.0-32.0 [facility] Work Phone: Globulin (S) [Mass/Vol] 2.8 g/dL 2.2-4.2 [facility] Work Phone: Urea nitrogen/Creatinine [Mass ratio] 26.3 mg/mg 10-20 [facility] Work Phone: Laboratory - Hematology and Cell countson 03-23-2022 Erythrocyte distribution width (RBC) [Entitic vol] 39.3 fL 35.1-43.9 [facility] Work Phone: Erythrocyte distribution width (RBC) [Ratio] 12.5 % 11.6-14.6 [facility] Work Phone: Immature granulocytes/100 WBC (Bld) 0.600 % 0.0-0.9 [facility] Work Phone: Comment on above: IG% - Immature Granu locytes (promyelocytes, myelocytes and metamyelocytes) > 1% indicates that a LEFT SHIFT is Present. MCH (RBC) [Entitic mass] 28.8 pg 27.0-32.0 [facility] Work Phone: Nucleated RBC/100 WBC (Bld) [Ratio] 0 % 0-5 [facility] Work Phone: MCHC Auto (RBC) [Mass/Vol]on 03-23-2022 MCHC (RBC) [Mass/Vol] 33.5 g/dL 32-36 [facility] Work Phone: No Panel Informationon 03-23 Estimated GFR (MDRD) Amer 178 mL/min >60 [facility] Work Phone: Comment on above: GFR Calc Estimated GFR (MDRD) Non-Af Amer 147 mL/min >60 [facility] Work Phone: Comment on above: Non- GFR Calc Vitamin D 25-Hydroxy 52.6 ng/mL [facility] Work Phone: Comment on above: Vitamin D 25(OH) Sta tus Range Deficiency <20 ng/mL (50nmol/L) Insufficiency 20 - 30 ng/mL (50 - 75 nmol/L) Sufficiency 30 - 100 ng/mL (75 - 250 nmol/L) Toxicity >100 ng/mL (>250 nmol/L) Platelets bldon 03-23-2022 Platelets (Bld) [#/Vol] 236 10*3/uL 150-450 [facility] Work Phone: Serum or plasma albumin aida urement (mass/volume)on 03-23-2022 Albumin [Mass/Vol] 3.5 g/dL 3.2-5.0 [facility] Work Phone: Serum or plasma albumin/glob ulin mass ratioon 03-23-2022 Albumin/Globulin [Mass ratio] 1.2 {ratio} 0.9-2.4 [facility] Work Phone: Serum or plasma calcium aida urement (mass/volume)on 03-23-2022 Calcium [Mass/Vol] 8.7 mg/dL 8.5-10.1 [facility] Work Phone: Serum or plasma cholesterol in HDL measurement (mass/volume)on 03-23-2022 Cholesterol in HDL [Mass/Vol] 86 mg/dL >40 [facility] Work Phone: Comment on above: The drugs N-Acetylcy steine and Metamizole may falsely depress this assay. Reference Range HDL <40 mg/dL Low HDL Cholesterol HDL >or= 60 mg/dL High HDL Cholesterol Serum or plasma cholesterol in VLDL measurement (mass/volume)on 03-23-2022 Cholesterol in VLDL [Mass/Vol] 12 mg/dL 5-40 [facility] Work Phone: Serum or plasma creatinine m easurement (mass/volume)on 03-23-2022 Creatinine [Mass/Vol] 0.57 mg/dL 0.70-1.30 [facility] Work Phone: Comment on above: The validity of the calculated GFR & GFRAA in patients over 70 years has not been determined. Clinical correlation is essential. Serum or plasma low density lipoprotein (LDL) cholesterol measurement (mass/volume)on 03-23-2022 Cholesterol in LDL [Mass/Vol] 77 mg/dL 0-130 [facility] Work Phone: Serum or plasma urea nitroge n measurement (mass/volume)on 03-23-2022 Urea nitrogen [Mass/Vol] 15 mg/dL 7-18 [facility] Work Phone: Thin prep Papanicolaou smear with manual screeningon 03-23-2022 Thin prep Papanicolaou smear with manual screening 26 U/L 15-37 [facility] Work Phone: Thin prep Papanicolaou smear with manual screening 9 5-15 [facility] Work Phone: Whole blood hemoglobin A1c/t otal hemoglobin ratio (mass fraction)on 03-23-2022 HbA1c (Bld) [Mass fraction] 5.6 % 3.8-5.6 [facility] Work Phone: Comment on above: Normal < 5.7 % Predi abetic 5.7 - 6.4 % Diabetic >or= 6.5 % Please note range changes. No Panel Informationon 01-05 Prostate Specific Antigen Screen 0.41 ng/mL 0.00-4.00 [facility] Work Phone: Comment on above: This test was perfor med using the TPSA assay method for the[employer] ([employer] chemistry system. Values obtained with differentassay methods cannot be used interchangably.When changing PSA assays in the course of monitoring apatient, additional sequential testing should be carriedout to confirm baseline values. Laboratory - Microbiology an d Antimicrobial susceptibilityon 09-25-2021 SARS-CoV-2 (COVID-19) RNA SERENE+probe Ql (Unsp spec) Not detected Not Detect [facility] Work Phone: Comment on above: Normal Reference Ran ge: Not DetectedMethod:(RT-PCR) real-time reverse transcriptase PCRLuminex LUIS EDUARDO Instrument*The Food and Drug Administration (FDA) has issued an Emergency Use Authorization (EAU) for the LUIS EDUARDO SARS-CoV-2 Assay for the rapid detection of the virus that causes COVID-19. This test has been validated, but the [facility] independent review of this validation is pending.*Negative results do not preclude infection and should not be used as the sole basis for treatment or patient management. Optimum specimen types and timing for peak viral levels during infections caused by SARS-CoV-2 have not been determined. Collection of multiple specimens from the same patient may be necessary to detect the virus. The possibility of a false negative result should be considered if the patient has clinical presentation or has had recent exposure. NM BRAIN DATSCANon 9 NM BRAIN DATSCAN [...] PM Sign Date: 07/17/2019 4:35:41 PM Normal [facility] ([place]) HISTORY PHYSICALon 9 HISTORY PHYSICAL HNO ID: [id number] Author: Gino Wakefield Service: Gastroenterology Author Type: [...] 2000 Colonoscopy - COLONOSCOP W/ OR W/O BRS SPEC 05/11/2005 Colonoscopy - COLONOSCOP W/ OR [...] SIGNATURE: Gino Wakefield MD PATIENT NAME: Mily Bolanos DATE: June 11, 2019 TIME: 11:06 AM PAGER: Normal [facility] NURSING PROGon 06-11-2019 NURSING PROG HNO ID: [id number] Author: Mojgan Soto RN Service: Nursing Author Type: Registered Nurse Type: Nursing Progress Note Filed: 06/11/2019 12:17 PM Note Text: Patient did not experience a fall prior to discharge. Patient did not experience a burn prior to discharge. Mojgan Soto RN [facility] NURSING PROG HNO ID: [id number] Author: Mojgan Soto RN Service: Nursing Author [...] Mojgan Soto RN In Department: AMBULATORY SURGERY [facility] NURSING PROG HNO ID: [id number] Author: Vickie Smith RN Service: ? Author Type: Registered Nurse Type: Nursing Progress Note Filed: 06/11/2019 11:23 AM Note Text: Patient did not experience a fall within the Intraoperative area. Patient did not experience a burn within the Intraoperative area. Vickie Smith RN [facility] NURSING PROG HNO ID: [id number] Author: Tati Spring RN Service: ? Author Type: Registered Nurse Type: Nursing Progress Note Filed: 06/11/2019 11:10 AM Note Text: [facility] PRE-OP NURSING HAND OFF NOTE SBAR Hand off given to Vickie Smith RN. Hand off was communicated verbally and at the patient's bedside and all questions were answered. FALLS/AGUILLON Patient did not experience a fall within the Preoperative area. Patient did not experience a burn within the Preoperative area. Tati Spring RN [facility] PT EDon 06-11-2019 PT ED HNO ID: [id number] Author: Mojgan Soto RN Service: Nursing Author [...] Department: AMBULATORY SURGERY Electronically Signed By: Mojgan oSto RN In Department: AMBULATORY SURGERY Normal [facility] HOSPon 02-09-2019 HOSP Patient:Mily Bolanos MRN: Height:5' 10(1.778 m) Weight:No patient weight recorded within the [...] notes entered within the past 30 days [facility] Lab Report: Basic Metabolic Profile (BMP)on 10-31-2017 Anion gap 6 mmol/L Invalid Interpretation Code 5-15 [employer] Work Phone: [phone] BUN/Creatinine Ratio 22.8 RATIO High 10-20 [facility] [place] Work Phone: Calcium 8.3 mg/dL Low 8.5-10.1 [facility] Work Phone: Chloride 98 mmol/L Invalid Interpretation Code 98-107 [employer] [employer] Work Phone: [phone] CO2 28.0 mmol/L Invalid Interpretation Code 21.0-32.0 [facility] [employer] Work Phone: [phone] Creatinine 0.66 mg/dL Low 0.70-1.30 [facility] Work Phone: [phone] eGFR (non-black) 153 mL/min/{1.73_m2} Invalid Interpretation Code >60 [facility] Work Phone: [phone] eGFR (non-black) 126 mL/min/{1.73_m2} Invalid Interpretation Code >60 [facility] Work Phone: [phone] Glucose 94 mg/dL Invalid Interpretation Code 70-110 [employer] Work Phone: [phone] Potassium 4.0 mmol/L Invalid Interpretation Code 3.5-5.1 [facility] Phone: [phone] Sodium 132 mmol/L Low 136-145 [facility] [employer] Work Phone: [phone] Urea nitrogen 15 mg/dL Invalid Interpretation Code 7-18 [facility] Work Phone: [phone] Office Visiton 11-09-2016 Documentation of current medications (procedure) Done Invalid Interpretation Code [facility] Phone: [phone] Office Visiton 11-11-2015 General cardiovascular disease 10Y risk [#] Leonidas 22 % Invalid Interpretation Code [facility] Phone: [phone] Tobacco smoking status NHIS Tobacco smoking status IDIS Invalid Interpretation Code [facility] Phone: [phone] 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 Alanine aminotransferase (ALT) 37 U/L Invalid Interpretation Code [facility] Phone: [phone] Cholesterol 187 mg/dL Invalid Interpretation Code [facility] Phone: [phone] HDL Cholesterol 65 mg/dL Invalid Interpretation Code [facility] Phone: [phone] LDL Cholesterol 103 mg/dL Invalid Interpretation Code [facility] Phone: [phone] Triglyceride 95 mg/dL Invalid Interpretation Code [employer] Work Phone: [phone] very low density lipoproteins 19 mg/dL Invalid Interpretation Code [facility] Phone: [phone] Office Visiton 11-05-2014 cardiac risk group B Invalid Interpretation Code [facility] Phone: [phone] Dietary management education, guidance, and counseling (procedure) yes Invalid Interpretation Code [facility] Phone: [phone] Replaced Document: Sophia WHYTE Observationson 11-05-2014 electrocardiogram interpretation Sinus Rhythm -RSR(V1) -nondiagnostic. PROBABLY NORMAL Invalid Interpretation Code [facility] Phone: [phone] GE use only - for [employer] import when terms are not otherwise specified 398 ms Invalid Interpretation Code [facility] Phone: [phone] P wave axis, electrocardiogram 53 deg Invalid Interpretation Code [facility] Phone: [phone] NM interval, electrocardiogram 164 ms Invalid Interpretation Code [facility] Phone: [phone] Pulse (Heart Rate) 76 /min Invalid Interpretation Code [facility] Phone: [phone] QRS axis, electrocardiogram 9 deg Invalid Interpretation Code [facility] Phone: [phone] QRS duration, electrocardiogram 106 ms Invalid Interpretation Code [facility] Phone: [phone] QT interval, electrocardiogram new path ms Invalid Interpretation Code [facility] Phone: [phone] T wave axis, electrocardiogram 23 deg Invalid Interpretation Code [facility] Phone: [phone] Clinical 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 basophils as percent of blood leukocytes, manual count 0.5 % Invalid Interpretation Code [facility] Phone: [phone] eosinophils as percent of blood leukocytes, manual count 2.2 % Invalid Interpretation Code [facility] Phone: [phone] Erythrocytes (RBC) 5.35 10*6/uL Invalid Interpretation Code [facility] Phone: [phone] Hematocrit (HCT) 45.4 % Invalid Interpretation Code [facility] Phone: [phone] Hemoglobin (HGB) 15.8 g/dL Invalid Interpretation Code [employer] Work Phone: [phone] Lymphocytes/100 leukocytes 21.0 % Invalid Interpretation Code [facility] Work Phone: [phone] MCH 29.5 pg Invalid Interpretation Code [facility] Work Phone: [phone] MCV 84.9 fL Invalid Interpretation Code [facility] Work Phone: [phone] Monocytes/100 leukocytes 7.8 % Invalid Interpretation Code [facility] Work Phone: [phone] neutrophils, band form as percent of blood leukocytes, manual count 68.3 % Invalid Interpretation Code [facility] Work Phone: [phone] Platelets 243 10*3/mm3 Invalid Interpretation Code [facility] Work Phone: [phone] WBC (Leukocytes) 5.5 10*3/uL Invalid Interpretation Code [facility] Work Phone: [phone] 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 Thyroid stimulating hormone (TSH) 1.26 u[iU]/mL Invalid Interpretation Code [facility] Work Phone: [phone] 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 Albumin 3.8 g/dL Invalid Interpretation Code [facility] Work Phone: [phone] Alkaline phosphatase (ALP) 126 U/L Invalid Interpretation Code [facility] Work Phone: [phone] Aspartate aminotransferase (AST) 31 U/L Invalid Interpretation Code [facility] Work Phone: [phone] Bilirubin (direct) 0.11 mg/dL Invalid Interpretation Code [facility] Work Phone: [phone] Bilirubin (total) 0.40 mg/dL Invalid Interpretation Code [facility] Work Phone: [phone] Protein 6.7 g/dL Invalid Interpretation Code [facility] Work Phone: [phone] Vital Signs Date Time Vital Sign Value Performing Clinician Pepe zarate 02-28-2025 10:42-0400 Body temperature 98.4 [degF] Dr. Mily Nogueira MD Work Phone: [facility] 02-28-2025 10:42-0400 Body weight 90.[address] Mily Nogueira MD Work Phone: [phone])529-730924 [place] [address] 02-28-2025 10:42-0400 Diastolic blood pressure 82 mm[Hg] Dr. Mily Nogueira MD Work Phone: 5(659)298-378624 [place] [address] 02-28-2025 10:42-0400 Heart rate 66 /min Dr. Mily Nogueira MD Work Phone: 4(160)148-318666 [place] [address] 02-28-2025 10:42-0400 Respiratory rate 16 /min Dr. Mily Nogueira MD Work Phone: 2(043)105-113166 [place] [address] 02-28-2025 10:42-0400 SaO2% (BldA) [Mass fraction] 98 % Dr. Mily Nogueira MD Work Phone: 3(045)958-135166 [place] [address] 02-28-2025 10:42-0400 Systolic blood pressure 139 mm[Hg] Dr. Mily Nogueira MD Work Phone: 1(497)633-371566 [place] [address] 02-28-2025 09:33-0400 Body temperature 98.2 [degF] Dr. Mily Nogueira MD Work Phone: 1(581)317-621866 [place] [address] 02-28-2025 09:33-0400 Body weight 90.[address] Mily Nogueira MD Work Phone: 6(525)474-553366 [place] [address] 02-28-2025 09:33-0400 Diastolic blood pressure 81 mm[Hg] Dr. Mily Nogueira MD Work Phone: 1(986)619-546966 [place] [address] 02-28-2025 09:33-0400 Heart rate 65 /min Dr. Mily Nogueira MD Work Phone: 8(068)692-029524 [place] [address] 02-28-2025 09:33-0400 Respiratory rate 17 /min Dr. Mily Nogueira MD Work Phone: 8(717)751-811266 [place] [address] 02-28-2025 09:33-0400 SaO2% (BldA) [Mass fraction] 97 % Dr. Mily Nogueira MD Work Phone: 8(090)976-368366 [place] [address] 02-28-2025 09:33-0400 Systolic blood pressure 136 mm[Hg] Dr. Miyl Nogueira MD Work Phone: 0(074)722-873224 [place] [address] 01-28-2025 09:45-0400 Body temperature 98.3 [degF] Dr. Mily Nogueira MD Work Phone: 2(698)425-931224 [place] [address] 01-28-2025 09:45-0400 Body weight 90.[address] Mily Nogueira MD Work Phone: 7(918)339-462566 [place] [address] 01-28-2025 09:45-0400 Diastolic blood pressure 84 mm[Hg] Dr. Mily Nogueira MD Work Phone: 3(200)939-698466 [place] [address] 01-28-2025 09:45-0400 Heart rate 77 /min Dr. Mily Nogueira MD Work Phone: 0(925)884-266066 [place] [address] 01-28-2025 09:45-0400 Respiratory rate 17 /min Dr. Mily Nogueira MD Work Phone: 4(937)391-059366 [place] [address] 01-28-2025 09:45-0400 SaO2% (BldA) [Mass fraction] 97 % Dr. Mily Nogueira MD Work Phone: 0(170)[phone] [place] [address] 01-28-2025 09:45-0400 Systolic blood pressure 148 mm[Hg] Dr. Mily Nogueira MD Work Phone: 0(542)969-757066 [place] [address] 01-10-2025 10:24-0400 Body height 177.[address] Mily Nogueira MD Work Phone: 1(529)933-482566 [place] [address] 01-10-2025 10:24-0400 Body mass index (BMI) [Ratio] 28.5 kg/m2 Dr. Mily Nogueira MD Work Phone: 6(509)155-989024 [place] [address] 01-10-2025 10:24-0400 Body weight 90.[address] Mily Nogueira MD Work Phone: 4(758)544-833724 [place] [address] 01-10-2025 10:24-0400 Diastolic blood pressure 82 mm[Hg] Dr. Mily Nogueira MD Work Phone: 4(380)893-510366 [place] [address] 01-10-2025 10:24-0400 Respiratory rate 16 /min Dr. Mily Nogueira MD Work Phone: 6(125)104-747324 [place] [address] 01-10-2025 10:24-0400 Systolic blood pressure 132 mm[Hg] Dr. Mily Nogueira MD Work Phone: 3(514)331-308866 [place] [address] 12-27-2024 08:28-0400 Body height 177.[address] Mily Nogueira MD Work Phone: 1(344)533-996066 [place] [address] 12-27-2024 08:28-0400 Body mass index (BMI) [Ratio] 28.3 kg/m2 Dr. Mily Nogueira MD Work Phone: 3(146)106-254166 [place] [address] 12-27-2024 08:28-0400 Body temperature 98.6 [degF] Dr. Mily Nogueira MD Work Phone: 9(163)772-511866 [place] [address] 12-27-2024 08:28-0400 Body weight 89.[address] Mily Nogueira MD Work Phone: 3(958)016-152366 [place] [address] 12-27-2024 08:28-0400 Diastolic blood pressure 82 mm[Hg] Dr. Mily Nogueira MD Work Phone: 1(811)024-474666 [place] [address] 12-27-2024 08:28-0400 Heart rate 77 /min Dr. Mily Nogueira MD Work Phone: 0(529)172-415466 [place] [address] 12-27-2024 08:28-0400 Respiratory rate 15 /min Dr. Mily Nogueira MD Work Phone: 3(131)814-485466 [place] [address] 12-27-2024 08:28-0400 SaO2% (BldA) [Mass fraction] 97 % Dr. Mily Nogueira MD Work Phone: 2(383)343-354866 [place] [address] 12-27-2024 08:28-0400 Systolic blood pressure 130 mm[Hg] Dr. Mily Nogueira MD Work Phone: 0(652)841-014666 [place] [address] 12-12-2024 13:19-0500 Body temperature 98.4 [degF] Dr. Mily Nogueira MD Work Phone: 9(942)415-293666 [place] [address] 12-12-2024 13:19-0500 Body weight 90.[address] Mily Nogueira MD Work Phone: [facility] 12-12-2024 13:19-0500 Diastolic blood pressure 92 mm[Hg] Dr. Mily Nogueira MD Work Phone: [facility] 12-12-2024 13:19-0500 Heart rate 71 /min Dr. Mily Nogueira MD Work Phone: 9(811)596-455624 [place] [address] 12-12-2024 13:19-0500 Respiratory rate 16 /min Dr. Mily Nogueira MD Work Phone: 6(056)172-625224 [place] [address] 12-12-2024 13:19-0500 SaO2% (BldA) [Mass fraction] 95 % Dr. Mily Nogueira MD Work Phone: 3(423)470-352324 [place] [address] 12-12-2024 13:19-0500 Systolic blood pressure 157 mm[Hg] Dr. Mily Nogueira MD Work Phone: 6(455)171-932724 [address] 11-19-2024 10:25-0500 Body mass index (BMI) [Ratio] 28.4 kg/m2 Dr. Mily Nogueira MD Work Phone: 4(373)273-839624 [place] [address] 11-19-2024 10:25-0500 Body temperature 97.8 [degF] Dr. Mily Nogueira MD Work Phone: 2(370)427-997524 [place] [address] 11-19-2024 10:25-0500 Body weight 89.[address] Mily Nogueira MD Work Phone: 1(687)908-576524 [place] [address] 11-19-2024 10:25-0500 Diastolic blood pressure 76 mm[Hg] Dr. Mily Nogueira MD Work Phone: 9(051)531-881324 [place] [address] 11-19-2024 10:25-0500 Heart rate 71 /min Dr. Mily Nogueira MD Work Phone: 8(970)591-526224 [place] [address] 11-19-2024 10:25-0500 Respiratory rate 15 /min Dr. Mily Nogueira MD Work Phone: 7(829)365-272024 [place] [address] 11-19-2024 10:25-0500 SaO2% (BldA) [Mass fraction] 97 % Dr. Mily Nogueira MD Work Phone: [facility] 11-19-2024 10:25-0500 Systolic blood pressure 122 mm[Hg] Dr. Mily Nogueira MD Work Phone: 2(728)354-528224 [place] [address] 10-18-2024 13:06-0500 Body mass index (BMI) [Ratio] 28.8 kg/m2 Dr. Mily Nogueira MD Work Phone: 1(894)333-746624 [place] [address] 10-18-2024 13:06-0500 Body temperature 98.6 [degF] Dr. Mily Nogueira MD Work Phone: 8(617)020-770266 [place] [address] 10-18-2024 13:06-0500 Body weight 91.[address] Mily Nogueira MD Work Phone: 6(534)723-971966 [place] [address] 10-18-2024 13:06-0500 Diastolic blood pressure 70 mm[Hg] Dr. Mily Nogueira MD Work Phone: 9(928)146-250724 [address] 10-18-2024 13:06-0500 Heart rate 65 /min Dr. Mily Nogueira MD Work Phone: 7(629)655-144166 [place] [address] 10-18-2024 13:06-0500 Respiratory rate 16 /min Dr. Mily Nogueira MD Work Phone: 7(958)772-194866 [place] [address] 10-18-2024 13:06-0500 SaO2% (BldA) [Mass fraction] 95 % Dr. Mily Nogueira MD Work Phone: 3(552)357-718924 [place] [address] 10-18-2024 13:06-0500 Systolic blood pressure 136 mm[Hg] Dr. Mily Nogueira MD Work Phone: 1(972)553-874024 [address] 09-10-2024 09:35-0500 Body mass index (BMI) [Ratio] 27.8 kg/m2 Dr. Mily Nogueira MD Work Phone: 7(593)348-897824 [place] [address] 09-10-2024 09:35-0500 Body temperature 98 [degF] Dr. Mily Nogueira MD Work Phone: 4(953)349-855724 [place] [address] 09-10-2024 09:35-0500 Body weight 88.[address] Mily Nogueira MD Work Phone: [facility] 09-10-2024 09:35-0500 Diastolic blood pressure 80 mm[Hg] Dr. Mily Nogueira MD Work Phone: [facility] 09-10-2024 09:35-0500 Heart rate 78 /min Dr. Mily Nogueira MD Work Phone: [facility] 09-10-2024 09:35-0500 Respiratory rate 17 /min Dr. Mily Nogueira MD Work Phone: 0(006)713-197524 [place] [address] 09-10-2024 09:35-0500 SaO2% (BldA) [Mass fraction] 97 % Dr. Mily Nogueira MD Work Phone: 9(188)993-575924 [place] [address] 09-10-2024 09:35-0500 Systolic blood pressure 138 mm[Hg] Dr. Mily Nogueira MD Work Phone: [facility] 01-14-2024 22:22-0400 Body temperature 98.2 [degF] Dr. Mily Nogueira Work Phone: [facility] 01-14-2024 22:22-0400 Diastolic blood pressure 94 mm[Hg] Dr. Mily Nogueira Work Phone: [facility] 01-14-2024 22:22-0400 Heart rate 68 /min Dr. Mily Nogueira Work Phone: [facility] 01-14-2024 22:22-0400 Respiratory rate 18 /min Dr. Mily Nogueira Work Phone: [facility] 01-14-2024 22:22-0400 SaO2% (BldA) [Mass fraction] 98 % Dr. Mily Nogueira Work Phone: [facility] 01-14-2024 22:22-0400 Systolic blood pressure 147 mm[Hg] Dr. Mily Nogueira Work Phone: [facility] 01-14-2024 19:36-0400 Body mass index (BMI) [Ratio] 28.2 kg/m2 Dr. Mily Nogueira Work Phone: [facility] 01-14-2024 19:36-0400 Body weight 89.[address] Mily Nogueira Work Phone: [facility] 01-14-2024 19:16-0400 Body height 177.[address] Mily Nogueira Work Phone: [facility] 12-27-2023 08:23-0400 Body height 177.[address] Mily Nogueira Work Phone: [facility] 12-27-2023 08:23-0400 Body mass index (BMI) [Ratio] 28.2 kg/m2 Dr. Mily Nogueira Work Phone: [facility] 12-27-2023 08:23-0400 Body temperature 98.2 [degF] Dr. Mily Nogueira Work Phone: [facility] 12-27-2023 08:23-0400 Body weight 89.[address] Mily Nogueira Work Phone: [facility] 12-27-2023 08:23-0400 Diastolic blood pressure 80 mm[Hg] Dr. Mily Nogeuira Work Phone: [facility] 12-27-2023 08:23-0400 Heart rate 74 /min Dr. Mily Nogueira Work Phone: [facility] 12-27-2023 08:23-0400 Respiratory rate 17 /min Dr. Mily Nogueira Work Phone: [facility] 12-27-2023 08:23-0400 SaO2% (BldA) [Mass fraction] 97 % Dr. Mily Nogueira Work Phone: [facility] 12-27-2023 08:23-0400 Systolic blood pressure 136 mm[Hg] Dr. Mily Nogueira Work Phone: [facility] 11-24-2023 09:59-0500 Body mass index (BMI) [Ratio] 28.1 kg/m2 Dr. Mily Nogueira Work Phone: [facility] 11-24-2023 09:59-0500 Body weight 88.[address] Mily Nogueira Work Phone: [facility] 11-24-2023 09:59-0500 Diastolic blood pressure 73 mm[Hg] Dr. Mily Nogueira Work Phone: [facility] 11-24-2023 09:59-0500 Heart rate 70 /min Dr. Mliy Nogueira Work Phone: [facility] 11-24-2023 09:59-0500 Respiratory rate 18 /min Dr. Mily Nogueira Work Phone: [facility] 11-24-2023 09:59-0500 SaO2% (BldA) [Mass fraction] 95 % Dr. Mily Nogueira Work Phone: [facility] 11-24-2023 09:59-0500 Systolic blood pressure 113 mm[Hg] Dr. Mily Nogueira Work Phone: [facility] 08-29-2023 21:00-0500 Diastolic blood pressure 96 mm[Hg] Dr. Mily Nogueira Work Phone: [facility] 08-29-2023 21:00-0500 Systolic blood pressure 154 mm[Hg] Dr. Mily Nogueira Work Phone: [facility] 08-29-2023 09:57-0500 Body height 177.[address] Mily Nogueira Work Phone: [facility] 08-29-2023 09:57-0500 Body mass index (BMI) [Ratio] 28 kg/m2 Dr. Mily Nogueira Work Phone: [facility] 08-29-2023 09:57-0500 Body temperature 98.6 [degF] Dr. Mily Nogueira Work Phone: [facility] 08-29-2023 09:57-0500 Body weight 88.[address] Mily Nogueira Work Phone: [facility] 08-29-2023 09:57-0500 Heart rate 74 /min Dr. Mily Nogueira Work Phone: [facility] 08-29-2023 09:57-0500 Respiratory rate 17 /min Dr. Mily Nogueira Work Phone: [facility] 08-29-2023 09:57-0500 SaO2% (BldA) [Mass fraction] 96 % Dr. Mily Nogueira Work Phone: [facility] 11-25-2022 10:41-0500 Body weight 87.[address] Mily Nogueira Work Phone: [facility] 11-25-2022 10:41-0500 Diastolic blood pressure 72 mm[Hg] Dr. Mily Nogueira Work Phone: [facility] 11-25-2022 10:41-0500 Heart rate 68 /min Dr. Mily Nogueira Work Phone: [facility] 11-25-2022 10:41-0500 Respiratory rate 20 /min Dr. Mily Nogueira Work Phone: [facility] 11-25-2022 10:41-0500 Systolic blood pressure 115 mm[Hg] Dr. Mily Nogueira Work Phone: [facility] 11-25-2022 08:31-0500 Body height 177.[address] Mily Nogueira Work Phone: [facility] 10-01-2022 11:05-0500 Diastolic blood pressure 78 mm[Hg] Dr. Mily Nogueira Work Phone: [facility] 10-01-2022 11:05-0500 Heart rate 72 /min Dr. Mily Nogueira Work Phone: [facility] 10-01-2022 11:05-0500 Respiratory rate 18 /min Dr. Mily Nogueira Work Phone: [facility] 10-01-2022 11:05-0500 SaO2% (BldA) [Mass fraction] 98 % Dr. Mily Nogueira Work Phone: [facility] 10-01-2022 11:05-0500 Systolic blood pressure 158 mm[Hg] Dr. Mily Nogueira Work Phone: [facility] 10-01-2022 05:10-0500 Body height 177.[address] Mily Nogueira Work Phone: [facility] 10-01-2022 05:10-0500 Body mass index (BMI) [Ratio] 27.8 kg/m2 Dr. Mily Nogueira Work Phone: [facility] 10-01-2022 05:10-0500 Body temperature 97.7 [degF] Dr. Mily Nogueira Work Phone: [facility] 10-01-2022 05:10-0500 Body weight 88.[address] Mily Nogueira Work Phone: [facility] 09-25-2022 13:08-0500 Diastolic blood pressure 89 mm[Hg] Dr. Mily Nogueira Work Phone: [facility] 09-25-2022 13:08-0500 Heart rate 71 /min Dr. Mily Nogueira Work Phone: [facility] 09-25-2022 13:08-0500 Respiratory rate 15 /min Dr. Mily Nogueira Work Phone: [facility] 09-25-2022 13:08-0500 SaO2% (BldA) [Mass fraction] 98 % Dr. Mily Nogueira Work Phone: [facility] 09-25-2022 13:08-0500 Systolic blood pressure 142 mm[Hg] Dr. Mily Nogueira Work Phone: [facility] 09-25-2022 09:15-0500 Body height 175.[address] Mily Nogueira Work Phone: [facility] Work Phone: 09-25-2022 09:15-0500 Body mass index (BMI) [Ratio] 27.7 kg/m2 Dr. Mily Nogueira Work Phone: [facility] 09-25-2022 09:15-0500 Body temperature 97.3 [degF] Dr. Mily Nogueira Work Phone: [facility] 09-25-2022 09:15-0500 Body weight 85.[address] Mily Nogueira Work Phone: [facility] 02-25-2022 09:36-0400 Diastolic blood pressure 70 mm[Hg] Dr. Mily Nogueira Work Phone: [facility] Work Phone: 02-25-2022 09:36-0400 Heart rate 67 /min Dr. Mily Nogueira Work Phone: [facility] Work Phone: 02-25-2022 09:36-0400 Systolic blood pressure 119 mm[Hg] Dr. Mily Nogueira Work Phone: [facility] Work Phone: 02-25-2022 09:36-0400 Diastolic blood pressure 70 mm[Hg] Dr. Mily Nogueira Work Phone: [facility] Work Phone: 02-25-2022 09:36-0400 Heart rate 67 /min Dr. Mily Nogueira Work Phone: [facility] Work Phone: 02-25-2022 09:36-0400 Systolic blood pressure 119 mm[Hg] Dr. Mily Nogueira Work Phone: [facility] Work Phone: 02-25-2022 09:20-0400 Body height 175.[address] Mily Nogueira Work Phone: [facility] Work Phone: 02-25-2022 09:20-0400 Body mass index (BMI) [Ratio] 28.8 kg/m2 Dr. Mily Nogueira Work Phone: [facility] Work Phone: 02-25-2022 09:20-0400 Body weight 88.[address] Mily Nogueira Work Phone: [facility] Work Phone: 02-25-2022 09:20-0400 Respiratory rate 18 /min Dr. Mily Nogueira Work Phone: [facility] Work Phone: 02-25-2022 09:20-0400 Body height 175.[address] Mily Nogueira Work Phone: [facility] Work Phone: 02-25-2022 09:20-0400 Body mass index (BMI) [Ratio] 28.8 kg/m2 Dr. Mily Nogueira Work Phone: [facility] Work Phone: 02-25-2022 09:20-0400 Body weight 88.[address] Mily Nogueira Work Phone: [facility] Work Phone: 02-25-2022 09:20-0400 Respiratory rate 18 /min Dr. Mily Nogueira Work Phone: [facility] Work Phone: 12-04-2021 14:08-0500 Diastolic blood pressure 70 mm[Hg] Dr. Mily Nogueira Work Phone: [facility] Work Phone: 12-04-2021 14:08-0500 Heart rate 71 /min Dr. Mily Nogueira Work Phone: [facility] Work Phone: 12-04-2021 14:08-0500 Respiratory rate 20 /min Dr. Mily Nogueira Work Phone: [facility] Work Phone: 12-04-2021 14:08-0500 Systolic blood pressure 131 mm[Hg] Dr. Mily Nogueira Work Phone: [facility] Work Phone: 12-04-2021 14:07-0500 SaO2% (BldA) [Mass fraction] 98 % Dr. Mily Nogueira Work Phone: [facility] Work Phone: 11-20-2021 10:17-0500 Diastolic blood pressure 80 mm[Hg] Dr. Mily Nogueira Work Phone: [facility] Work Phone: 11-20-2021 10:17-0500 Systolic blood pressure 140 mm[Hg] Dr. Mily Nogueira Work Phone: [facility] Work Phone: 11-20-2021 08:32-0500 Body height 175.[address] Mily Nogueira Work Phone: [facility] Work Phone: 11-20-2021 08:32-0500 Body weight 89.[address] Mily Nogueira Work Phone: [facility] Work Phone: 11-20-2021 08:32-0500 Heart rate 61 /min Dr. Mily Nogueira Work Phone: [facility] Work Phone: 11-20-2021 08:32-0500 Respiratory rate 18 /min Dr. Mily Nogueira Work Phone: [facility] Work Phone: 11-20-2021 08:32-0500 SaO2% (BldA) [Mass fraction] 100 % Dr. Mily Nogueira Work Phone: [facility] Work Phone: 09-16-2021 05:58-0500 Body weight 87.[address] Mily Nogueira Work Phone: [facility] Work Phone: 09-15-2021 08:47-0500 Body mass index (BMI) [Ratio] 28.5 kg/m2 Dr. Mily Nogueira Work Phone: [facility] Work Phone: 10-21-2020 07:44-0500 Body mass index (BMI) [Ratio] 29 kg/m2 Dr. Mily Nogueira Work Phone: [facility] Work Phone: 11-09-2016 09:02-0500 BMI (Body Mass Index) 29.12 [...] Work Phone: 03-28-2013 10:05-0400 Height 177.8 cm [facility] Work Phone: Encounters Encounter Date Encounter Type Care Provider Facility Start: 02-28-2025 End: 02-28-2025 Patient encounter procedure Ksenia BOSS -[facility] Work Phone: Start: 02-28-2025 End: 02-28-[address] Mily Nogueira MD Work Phone: [facility] Work Phone: Start: 02-28-2025 End: 02-28-[address] Christian Payton MD -[facility] Work Phone: Start: 02-28-2025 End: 02-28-[address] Mily Nogueira MD Work Phone: [facility] Work Phone: Start: 01-28-2025 End: 01-28-[address] Christian Payton MD -[facility] Work Phone: Start: 01-28-2025 End: 01-28-2025 ambulatory Christian Payton Facility:[facility] Start: 01-10-2025 End: 01-10-[address] Tacho Moreira MD -[facility] Work Phone: Start: 01-10-2025 End: 01-10-2025 ambulatory Mily Nogueira Facility:[facility] Start: 01-04-2025 Non-patient / Non-visit Dr. Vitaly gomez MD -[facility] Start: 01-04-2025 End: 01-04-[address] Mily Nogueira MD Work Phone: [facility] Work Phone: Start: 01-04-2025 End: 01-04-2025 Patient encounter procedure Ksenia BOSS -[facility] Work Phone: Start: 01-03-2025 End: 01-04-[address] Mily Nogueira MD Work Phone: [facility] Work Phone: Start: 01-03-2025 End: 01-03-[address] Jori Bennett MD -Laboratory Work Phone: Start: 01-03-2025 End: 01-03-2025 ambulatory Mily Nogueira Facility:[facility] Start: 12-28-2024 End: 12-28-[address] Mily Nogueira MD Work Phone: [facility] Work Phone: Start: 12-28-2024 End: 12-28-[address] [facility] Start: 12-27-2024 End: 12-27-[address] Christian Payton MD -[facility] Work Phone: Start: 12-27-2024 End: 12-28-2024 ambulatory Christian Payton Facility:[facility] Start: 12-12-2024 End: 12-12-2024 Patient encounter procedure Ksenia BOSS -[facility] Work Phone: Start: 12-12-2024 End: 12-12-2024 ambulatory Ksenia Thomason Facility:[facility] Start: 11-26-2024 End: 11-26-[address] Pacheco Meneses DPShayne -[facility] Work Phone: Start: 11-26-2024 End: 11-26-2024 ambulatory Mily Nogueira Facility:[facility] Start: 11-21-2024 End: 11-21-[address] [facility] Start: 11-21-2024 End: 11-21-2024 ambulatory Mily Nogueira Facility:[facility] Start: 11-19-2024 End: 11-19-[address] Christian Patyon MD -[facility] Work Phone: Start: 11-19-2024 End: 11-19-2024 ambulatory Christian Payton Facility:[facility] Start: 10-24-2024 Encounter for genera l adult medical examination without abnormal findings Mily Nogueira [facility] Start: 10-23-2024 End: 10-23-[address] Mily Nogueira MD -Laboratory, [facility] Start: 10-23-2024 End: 10-23-2024 ambulatory Mily Nogueira Facility:[facility] Start: 10-18-2024 End: 10-18-[address] Christian Payton MD -[facility] Work Phone: Start: 10-18-2024 End: 10-18-2024 ambulatory [facility] Facility:[facility] Start: 10-09-2024 End: 10-09-[address] Mily Nogueira MD -Radiology, [place] Work Phone: Start: 10-09-2024 End: 10-09-2024 ambulatory Mily Nogueira Facility:[facility] Start: 09-26-2024 ambulatory Vitaly Francesca Facility:[facility] Start: 09-26-2024 Non-patient / Non-visit Dr. Vitaly gomez MD -[facility] Start: 09-26-2024 End: 09-26-[address] Mily Nogueira MD -Cardiovascular Services Work Phone: Start: 09-26-2024 End: 09-26-2024 ambulatory Mily Nogueira Facility:[facility] Start: 09-25-2024 End: 09-25-[address] Mily Nogueira MD -Laboratory, [facility] Start: 09-25-2024 End: 09-25-2024 ambulatory Mily Nogueira Facility:[facility] Start: 09-10-2024 End: 09-10-[address] Christian Payton MD -[facility] Work Phone: Start: 09-10-2024 End: 09-10-[address] [facility] Start: 09-08-2024 ambulatory Mily Nogueira Facilit y:[facility] Start: 09-06-2024 End: 09-06-2024 ambulatory [facility] Facility:[facility] Start: 08-21-2024 Encounter for other preprocedural examination Tacho Harish [facility] Start: 08-13-2024 End: 08-13-2024 ambulatory Mily Nogueira Facility:[facility] Start: 08-09-2024 End: 08-09-[facility] Start: 08-07-2024 End: 08-07-20[facility] Start: 07-27-2024 ambulatory Mily Nogueira Facilit y:[facility] Start: 07-27-2024 End: 07-27-2024 ambulatory Mily Nogueira Facility:[facility] Start: 07-26-[address] Bryce Nogueira MD Work Phone: [facility] Start: 07-26-2024 End: 07-26-2024 ambulatory Mily Nogueira Facility:[facility] Start: 07-09-2024 End: 07-09-2024 ambulatory Christianliza Payton Facility:[facility] Start: 06-25-2024 ambulatory Mily Nogueira Facilit y:[facility] Start: 06-25-2024 End: 06-25-2024 ambulatory Mily Nogueira Facility:[facility] Start: 06-07-2024 End: 06-07-20[facility] Start: 06-05-2024 End: 06-05-2024 ambulatory Mily Nogueira Facility:[facility] Start: 06-04-2024 End: 06-04-2024 ambulatory Mily Nogueira Facility:[facility] Start: 05-08-2024 End: 05-09-2024 [facility] Start: 03-05-2024 End: 03-05-2024 ambulatory Mily Nogueira Facility:[facility] Start: 02-15-2024 End: 02-15-[address] Mily Nogueira Work Phone: [facility] Work Phone: Start: 02-15-2024 End: 02-15-[address] Mily Nogueira Work Phone: [facility] Work Phone: Start: 02-07-2024 End: 02-07-[address] Mily Nogueira Work Phone: [facility] Work Phone: Start: 02-07-2024 End: 02-07-[address] Mily Nogueira Work Phone: [facility] Start: 01-20-2024 End: 01-20-[address] Mily Nogueira Work Phone: [facility] Work Phone: Start: 01-20-2024 End: 01-20-[address] Mily Nogueira Work Phone: [facility] Work Phone: Start: 01-19-2024 Non-patient / Non-visit Dr. Yecenia Nogueira Work Phone: [facility] Start: 01-19-2024 End: 01-19-[address] Mily Nogueira Work Phone: [facility] Work Phone: Start: 01-19-2024 End: 01-19-[address] Mily Nogueira Work Phone: [facility]cul[facility] Services Work Phone: Start: 01-14-2024 End: 01-14-2024 Emergency department patient visit Dr. Mily Nogueira Work Phone: [facility]-Emergency Department Work Phone: Start: 12-29-2023 End: 12-29-[address] Mily Nogueira Work Phone: [facility] Work Phone: Start: 12-29-2023 End: 12-29-[address] Mily Nogueira Work Phone: [facility]-Cat Scan, [facility] Work Phone: Start: 12-27-2023 End: 12-27-[address] Mily Nogueira Work Phone: [facility] Neurology Work Phone: Start: 12-05-2023 End: 12-05-[address] Mily Nogueira Work Phone: [facility] Work Phone: Start: 11-24-2023 End: 11-24-[address] Mily Nogueira Work Phone: [facility] Work Phone: Start: 09-27-2023 End: 09-27-[address] Mily Nogueira Work Phone: [facility] Work Phone: Start: 09-27-2023 End: 09-27-[address] Mily Nogueira Work Phone: [facility] Work Phone: Start: 09-20-2023 Non-patient / Non-visit Dr. Yecenia Nogueira Work Phone: [facility] Start: 09-20-2023 End: 09-20-[address] Mily Nogueira Work Phone: [facility] Work Phone: Start: 09-20-2023 End: 09-20-[address] Mily Nogueira Work Phone: [facility]-Pulmonary Services/Neurology Work Phone: Start: 09-19-2023 End: 09-19-[address] Mily Nogueira Work Phone: [facility] Work Phone: Start: 09-19-2023 End: 09-19-[address] Mily Nogueira [facility] Start: 09-07-2023 End: 09-07-[address] Mily Nogueira Work Phone: [facility] Start: 09-05-2023 End: 09-05-[address] Mily Nogueira Work Phone: [facility] Work Phone: Start: 08-31-2023 End: 08-31-[address] Mily Nogueira Work Phone: [facility] Work Phone: Start: 08-29-2023 End: 08-29-[address] Mily Nogueira Work Phone: [facility] Neu[facility] Work Phone: Start: 06-03-2023 End: 08-03-2023 Patient encounter procedure Dr. Mily Nogueira Work Phone: [facility] Work Phone: Start: 05-31-2023 End: 05-31-[address] Mily Nogueira Work Phone: [facility] Work Phone: Start: 05-31-2023 End: 05-31-[address] Mily Nogueira Work Phone: [facility] Work Phone: Start: 05-30-[address] Mily Nogueira Work Phone: [facility]-Physical Therapy Work Phone: Start: 05-05-2023 Non-patient / Non-visit Dr. Yecenia Nogueira Work Phone: [facility] Start: 05-05-2023 End: 05-05-[address] Mily Nogueira Work Phone: [facility]Cardiovascula [facility] Services Work Phone: Start: 04-28-2023 End: 04-28-[address] Mily Nogueira Work Phone: [facility] Work Phone: Start: 04-28-2023 End: 04-28-[address] Mily Nogueira Work Phone: [facility] Start: 04-14-2023 End: 04-14-[address] Mily Nogueira Work Phone: [facility] Work Phone: Start: 04-14-2023 End: 04-14-[address] Mily Nogueira Work Phone: [facility]-MRI - [facility] Work Phone: Start: 04-11-2023 End: 04-11-[address] Mily Nogueira Work Phone: [facility] Work Phone: Start: 04-11-2023 End: 04-11-[address] Mily Nogueira Work Phone: [facility] Work Phone: Start: 04-11-[address] Mily Nogueira Work Phone: [facility] Work Phone: Start: 02-23-2023 End: 02-23-[address] Mily Nogueira Work Phone: [facility] Work Phone: Start: 02-16-2023 End: 02-16-[address] Mily Nogueira Work Phone: [facility] Work Phone: Start: 02-16-2023 End: 02-16-[address] Mily Nogueira Work Phone: [facility] Start: 01-25-2023 End: 01-25-[address] Mily Nogueira Work Phone: [facility] Work Phone: Start: 01-25-2023 End: 01-25-[address] Mily Nogueira Work Phone: [facility] Start: 01-03-[address] Mily Nogueira Work Phone: [facility] Start: 12-30-2022 End: 12-30-[address] Mily Nogueira Work Phone: [facility] Work Phone: Start: 12-30-2022 End: 12-30-[address] Mily Nogueira Work Phone: [facility]-Laboratory, Specimen Start: 11-25-2022 End: 11-25-[address] Mily Nogueira Work Phone: [facility] Start: 11-24-[address] Mily Nogueira Work Phone: [facility] Start: 11-22-[address] Mily Nogueira Work Phone: [facility] Start: 11-19-2022 End: 11-19-[address] Mily Nogueira Work Phone: [facility] Work Phone: Start: 11-19-2022 End: 11-19-[address] Mily Nogueira Work Phone: [facility]-Laboratory, Specimen Start: 11-19-2022 End: 11-19-[address] Mily Nogueira Work Phone: [facility] Start: 11-12-2022 End: 11-12-[address] Mily Nogueira Work Phone: [facility] Work Phone: Start: 11-12-2022 End: 11-12-[address] Mily Nogueira Work Phone: [facility]-Ultrasound, [facility] Start: 11-10-[address] Mily Nogueira Work Phone: [facility] Start: 11-10-2022 Non-patient / Non-visit Dr. Yecenia Nogueira Work Phone: [facility] Start: 11-10-2022 End: 11-10-[address] Mily Nogueira Work Phone: [facility] Work Phone: Start: 11-10-2022 End: 11-10-[address] Mily Nogueira Work Phone: [facility] Start: 11-08-[address] Mily Nogueira Work Phone: [facility] Start: 11-02-2022 End: 11-02-[address] Mily Nogueira Work Phone: [facility] Work Phone: Start: 11-02-2022 End: 11-02-[address] Mily Nogueira Work Phone: [facility]-Laboratory, [facility] Start: 10-28-2022 End: 10-28-[address] Mily Nogueira Work Phone: [facility] Work Phone: Start: 10-28-2022 End: 10-28-[address] Mily Nogueira Work Phone: [facility] Start: 10-01-2022 Non-patient / Non-visit Dr. Yecenia Nogueira Work Phone: [facility] Start: 10-01-2022 End: 10-01-2022 Emergency department patient visit Dr. Mily Nogueira Work Phone: [facility]Emergency Department Start: 09-28-2022 Non-patient / Non-visit Dr. Yecenia Nogueira Work Phone: [facility] Start: 09-28-2022 End: 09-28-[address] Mily Nogueira Work Phone: [facility] Start: 09-25-2022 Non-patient / Non-visit Dr. Yecenia Nogueira Work Phone: [facility] Start: 09-25-2022 End: 09-25-2022 Emergency department patient visit Dr. Mily Nogueira Work Phone: [facility] Start: 08-25-2022 End: 08-25-[address] Mily Nogueira Work Phone: [facility] Start: 08-17-2022 End: 08-17-[address] Mily Nogueira Work Phone: [facility] Start: 08-13-2022 End: 08-13-[address] Mily Nogueira Work Phone: [facility] Start: 06-16-2022 Non-patient / Non-visit Dr. Yecenia Nogueira Work Phone: [facility] Start: 06-16-2022 End: 06-16-[address] Mily Nogueira Work Phone: [facility] Work Phone: Start: 06-16-2022 End: 06-16-[address] Mily Nogueira Work Phone: [facility] Start: 05-05-2022 End: 05-05-[address] Mily Nogueira Work Phone: [facility] Start: 04-13-2022 End: 04-13-[address] Mily Nogueira Work Phone: [facility] Start: 03-23-2022 End: 03-23-[address] Mily Nogueira Work Phone: [facility] Start: 02-25-2022 End: 02-25-[address] Mily Nogueira Work Phone: [facility] Start: 01-27-2022 End: 01-27-[address] Mily Nogueira Work Phone: [facility] Start: 01-05-2022 End: 01-05-[address] Mily Nogueira Work Phone: [facility] Start: 12-04-2021 End: 12-04-[address] Mily Nogueira Work Phone: [facility] Start: 11-20-2021 End: 11-20-[address] Mily Nogueira Work Phone: [facility] Start: 09-25-[address] Mily Nogueira Work Phone: [facility] Start: 09-16-2021 End: 09-16-2021 Admission to same day surgery center Dr. Mily Nogueira Work Phone: [facility]/Special Procedures Start: 09-14-2021 Non-patient / Non-visit Dr. Yecenia Nogueira Work Phone: [facility] Start: 09-14-[address] Mily Nogueira Work Phone: [facility] Procedures Date Procedure Procedure Detail Performing Clinician Start: 01-03-2025 Assay of prostate specific antigen total Dr. Mily Nogueira MD Work Phone: Comment on above: This test was perfor med using the [employer] tPSA method. Measured values of a patient sample can vary depending on the testing procedure used. PSA values determined on patient samples by different testing procedures cannot be used interchangeably. If there is a change in PSA assays while monitoring therapy, sequential testing should be performed to confirm baseline values. Start: 11-21-2024 Measurement of renal function Dr. Mily Nogueira MD Work Phone: Comment on above: GFR Calc Start: 11-21-2024 Vitamin D, 25-hydrox y measurement Dr. Mily Nogueira MD Work Phone: Comment on above: Vitamin D 25(OH) Sta tus Range Deficiency <20 ng/mL (50nmol/L) Insufficiency 20 - 30 ng/mL (50 - 75 nmol/L) Sufficiency 30 - 100 ng/mL (75 - 250 nmol/L) Toxicity >100 ng/mL (>250 nmol/L) Start: 10-09-2024 X-ray of ankle, thre e or more views Dr. Mily Nogueira MD Work Phone: Start: 09-26-2024 X-ray of ankle, thre e or more views Dr. Mily Nogueira MD Work Phone: Start: 02-15-2024 Plain chest X-ray Dr. Bryce Nogueira Work Phone: Start: 01-20-2024 Radiologic examinati on of knee Dr. Mily Nogueira Work Phone: Start: 01-14-2024 CT of chest without contrast Dr. Mily Nogueira Work Phone: Start: 12-29-2023 CT of head without contrast Dr. Mily Nogueira Work Phone: Start: 09-27-2023 MRI of brain without contrast Dr. Mily Nogueira Work Phone: Start: 04-14-2023 MRI of joint of lowe r extremity Dr. Mily Nogueira Work Phone: Start: 02-16-2023 MRI of joint of lowe r extremity Dr. Mily Nogueira Work Phone: Start: 12-30-[address] Mily Nogueira Work Phone: Start: 11-12-2022 US scan of bladder Dr. Mily Nogueira Work Phone: Start: 04-13-2022 MRI of lumbar spine Dr. Mily Nogueira Work Phone: Start: 09-16-2021 H/O: surgery History of loo p recorder Dr. Tacho Moreira MD Start: 11-09-2016 End: 11-09-2016 ALICIA Moerira MD Start: 11-09-2016 End: 11-09-2016 Follow Up Appt 1 year Tacho Moreira MD Start: 12-01-2015 End: 12-03-2015 *RANJIT Moreira MD Start: 11-11-2015 End: 11-11-2015 *RANJIT Moreira MD Start: 11-05-2014 End: 11-05-2014 ALICIA Moreira MD Start: 11-05-2014 End: 11-06-2014 Documentation of current medications Tacho Moreira MD Start: 11-05-2014 End: 11-05-2014 Electrocardiogram, complete Tacho Moreira MD Start: 11-05-2014 End: 11-05-2014 Follow Up Appt 1 year Tacho Moreira MD Start: 03-28-2013 End: 04-05-2013 Carotid duplex Tacho Moreira MD Start: 03-28-2013 End: 03-28-2013 MANIPULATOR OPERATOR Tacho Moreira MD Start: 03-28-2013 End: 03-28-2013 Follow Up Appt Other Tacho Moreira MD Bacteria identified in Urine by Culture Dr. Mily Nogueira Work Phone: Urine culture Dr. Mily reilly Work Phone: Urine culture Dr. Mily reilly Work Phone: Plan of Treatment Date Care Activity Detail Author Start: 01-14-2024 Incentive spirometry [facility] Start: 01-14-2024 End: 01-14-2024 [facility] Start: 09-20-2023 [facility] Start: 11-12-2022 US scan of bladder Post Void R esidual Bladder [facility] Start: 11-10-2017 End: 11-10-2017 Appointment Appointment [facility] Work Phone: Start: 11-09-2016 End: 11-09-2016 MANIPULATOR OPERATOR MANIPULATOR OPERATOR [facility] Work Phone: Start: 11-09-2016 End: 11-09-2016 Follow Up Appt 1 year Follow Up Appt 1 year [facility] Work Phone: Start: 12-01-2015 End: 12-03-2015 *BMP *BMP [facility] Work Phone: Start: 11-11-2015 End: 11-11-2015 *BMP *BMP [facility] Work Phone: Start: 11-11-2015 End: 11-11-2015 MANIPULATOR OPERATOR MANIPULATOR OPERATOR [facility] Work Phone: Start: 11-11-2015 End: 11-11-2015 Follow Up Appt 1 year Follow Up Appt 1 year [facility] Work Phone: Start: 11-05-2014 End: 11-05-2014 MANIPULATOR OPERATOR MANIPULATOR OPERATOR [facility] Work Phone: Start: 11-05-2014 End: 11-05-2014 Electrocardiogram, complete EKG (In office) [facility] Work Phone: Start: 11-05-2014 End: 11-05-2014 Follow Up Appt 1 year Follow Up Appt 1 year [facility] Work Phone: Start: 03-28-2013 End: 03-28-2013 Carotid duplex Carotid duplex [facility] Work Phone: Start: 03-28-2013 End: 03-28-2013 MANIPULATOR OPERATOR MANIPULATOR OPERATOR [facility] Work Phone: Start: 03-28-2013 End: 03-28-2013 Follow Up Appt Other Follow Up Appt Other [facility] Work Phone: MR Brain contrast [facility] Patient Education [facility] Work Phone: Patient referral [facility] Work Phone: US.doppler Lower extremity vein [facility] Work Phone: Immunizations Immunization Date Immunization Notes Care Provider Fa [facility] 07-17-[address] Mily Nogueira Work Phone: [facility] Payers Date Payer Category Payer Self-pay [id number] 2016 Private Health Insurance 101 [id number] Medicare [id number] Unknown [id number] Unknown [id number] Unknown [id number] 2.16.8 40.1.418769.3.579.2.462 Unknown [id number] 2.16.8 40.1.116655.3.579.2.462 Unknown [id number] 2.16.8 40.1.640787.3.579.2.462 Unknown [id number] 2.16.8 40.1.176821.3.579.2.462 Unknown [id number] 2.16.8 40.1.993218.3.579.2.462 Unknown [id number] 2.16.8 40.1.910485.3.579.2.462 Unknown [id number] 2.16.8 40.1.572956.3.579.2.462 Unknown [id number] 2.16.8 40.1.329088.3.579.2.462 Unknown [id number] 2.16.8 40.1.739969.3.579.2.462 Unknown [id number] 2.16.8 40.1.788055.3.579.2.462 Unknown [id number] 2.16.8 40.1.668563.3.579.2.462 Unknown [id number] 2.16.8 40.1.594841.3.579.2.462 Unknown [id number] 2.16.8 40.1.250168.3.579.2.462 Unknown [id number] 2.16.8 40.1.766171.3.579.2.462 Unknown [id number] 2.16.8 40.1.104675.3.579.2.462 Unknown [id number] 2.16.8 40.1.675486.3.579.2.462 Unknown [id number] 2.16.8 40.1.165438.3.579.2.462 Unknown [id number] 2.16.8 40.1.070505.3.579.2.462 Unknown [id number] 2.16.8 40.1.354301.3.579.2.462 Unknown [id number] 2.16.8 40.1.923275.3.579.2.462 Unknown [id number] 2.16.8 40.1.237474.3.579.2.462 Unknown [id number] 2.16.8 40.1.740957.3.579.2.462 Unknown [id number] 2.16.8 40.1.618298.3.579.2.462 Unknown [id number] 2.16.8 40.1.902087.3.579.2.462 Unknown [id number] 2.16.8 40.1.124829.3.579.2.462 Unknown [id number] 2.16.8 40.1.210125.3.579.2.462 Unknown [id number] 2.16.8 40.1.466799.3.579.2.462 Unknown [id number] 2.16.8 40.1.286109.3.579.2.462 Unknown [id number] 2.16.8 40.1.133386.3.579.2.462 Unknown [id number] 2.16.8 40.1.553796.3.579.2.462 Unknown [id number] 2.16.8 40.1.586042.3.579.2.462 Unknown [id number] 2.16.8 40.1.776931.3.579.2.462 Unknown [id number] 2.16.8 40.1.776634.3.579.2.462 Unknown [id number] 2.16.8 40.1.066544.3.579.2.462 Unknown [id number] 2.16.8 40.1.140493.3.579.2.462 Unknown [id number] 2.16.8 40.1.020618.3.579.2.462 Unknown [id number] 2.16.8 40.1.437424.3.579.2.462 Unknown [id number] 2.16.8 40.1.699482.3.579.2.462 Unknown [id number] 2.16.8 40.1.096975.3.579.2.462 Social History Date Type Detail Facility Start: 12-04-2021 End: 08-29-2023 Tobacco smoking status [facility] Unknown if ever smoked [facility] Start: 01-13-2019 Rare [facility] Start: 12-12-2014 None [facility] Start: 01-13-2019 Spouse/ Signif icant Other [facility] Start: 12-12-2014 Non-smoker [facility] Start: 1945 Sex Assigned At Male [facility] Start: 08-13-2024 Tobacco smoking status NHIS Ex-smoker (finding) [facility] Start: 01-06-2025 End: 01-11-2025 Sex Male (finding) [facility] Medical Equipment Procedure Code Equipment Code Equipment Origin al Text Equipment Identifier Dates [employer] I[employer] (implanted cafeteria monitor) FDA Start: 09-16-2021 [employer] (implanted cafeteria monitor) FDA Start: 09-16-2021 [employer] I[employer] (implanted cafeteria monitor) FDA Start: 09-16-2021 [employer] ICM (implanted cafeteria monitor) FDA Start: 09-16-2021 [employer] ICM (implanted cafeteria monitor) FDA Start: 09-16-2021 [employer] ICM (implanted cafeteria monitor) FDA Start: 09-16-2021 [employer] ICM (implanted cafeteria monitor) FDA Start: 09-16-2021 [employer] ICM (implanted cafeteria monitor) FDA Start: 09-16-2021 [employer] ICM (implanted cafeteria monitor) FDA Start: 09-16-2021 [employer] ICM (implanted cafeteria monitor) FDA Start: 09-16-2021 [employer] I[employer] (implanted cafeteria monitor) FDA Start: 09-16-2021 [employer] I[employer] (implanted cafeteria monitor) FDA Start: 09-16-2021 [employer] (implanted cafeteria monitor) FDA Start: 09-16-2021 [employer] (implanted cafeteria monitor) FDA Start: 09-16-2021 [employer] (implanted cafeteria monitor) FDA Start: 09-16-2021 [employer] (implanted cafeteria monitor) FDA Start: 09-16-2021 [employer] (implanted cafeteria monitor) FDA Start: 09-16-2021 [employer] (implanted cafeteria monitor) FDA Start: 09-16-2021 [employer] (implanted cafeteria monitor) FDA Start: 09-16-2021 [employer] (implanted cafeteria monitor) FDA Start: 09-16-2021 [employer] (implanted cafeteria monitor) FDA Start: 09-16-2021 [employer] (implanted cafeteria monitor) FDA Start: 09-16-2021 [employer] (implanted cafeteria monitor) FDA Start: 09-16-2021 [employer] (implanted cafeteria monitor) FDA Start: 09-16-2021 [employer] (implanted cafeteria monitor) FDA Start: 09-16-2021 [employer] (implanted cafeteria monitor) FDA Start: 09-16-2021 [employer] (implanted cafeteria monitor) FDA Start: 09-16-2021 [employer] (implanted cafeteria monitor) FDA Start: 09-16-2021 Clinical Notes 09-16-2021 to 11-19-2024 Note Date & Type Note Facility 11-19-2024 Evaluation note Diagnosis Onset Date Resolution Fatigue noneactive November 19, 2024 10:23am Edema of right lower extremity acute December 12, 2024 12:43pm Venous insufficiency (chronic) (peripheral) chronic December 12, 2024 12:43pm Abnormality of gait and mobility acute December 27, 2024 8:26am Parkinson disease chronic December 152024 8:26am Polyneuropathy chronic December 8:26am History of amaurosis fugax resolved December 27, 2024 8:26am Fatigue noneactive December 27, 2024 8:26am Essential (primary) hypertension chronic January 10, 2025 10:15am History of loop recorder September 16, 2021 chronic January 10, 2025 10:15am Fatigue noneactive January 28, 2025 9:28am [facility] Work Phone: 1(486) 445-437302-03-2025 Evaluation note* Diagnosis Onset Date Resolution Status Admit Date Fatigue noneactive November 19, 2024 10:23am Edema of right lower extremity acute December 12, 025 12:43pm Venous insufficiency (chronic) (peripheral) chronic December 12, 2024 12:43pm Abnormality of gait and mobility acute December 27, 2024 8:26am Parkinson disease chronic December 152024 8:26am Polyneuropathy chronic December 8:26am History of amaurosis fugax resolved December 27, 2024 8:26am Fatigue noneactive December 27 8:26am Essential (primary) hypertension chronic January 10, 2025 10:15am History of loop recorder September 16, 2021 chr onic January 10, 2025 10:15am Fatigue noneactive January 28 9:28am Fatigue noneactive February 28, 2025 9:01am [facility] Work Phone: 1([phone]) [phone] Evaluation note* Diagnosis Onset Date Resolution Status Admit Date Fatigue noneactive October 18, 025 12:52pm Fatigue noneactive November 19, 2024 10:23am Edema of right lower extremity acute December 12, 2 025 12:43pm Venous insufficiency (chronic) (peripheral) chronic December 12, 2024 12:43pm Abnormality of gait and mobility acute December 27, 2024 8:26am Parkinson disease chronic December 152024 8:26am Polyneuropathy chronic December 8:26am History of amaurosis fugax resolved December 27, 2024 8:26am Fatigue noneactive December 27 8:26am Essential (primary) hypertension chronic January 10, 2025 10:15am History of loop recorder September 16, 2021 chr onic January 10, 2025 10:15am [facility] Work Phone: 1(792) 605-581011-25-2024 Evaluation note* Diagnosis Onset Date Resolution Status Admit Date Fatigue noneactive September 10, 2024 9:25am Fatigue noneactive October 18 12:52pm Fatigue noneactive November 19, 2024 10:23am Edema of right lower extremity acute December 12 025 12:43pm Venous insufficiency (chronic) (peripheral) chronic December 12, 2024 12:43pm Abnormality of gait and mobility acute December 27, 2024 8:26am Parkinson disease chronic December 152024 8:26am Polyneuropathy chronic December 8:26am History of amaurosis fugax resolved December 27, 2024 8:26am Fatigue noneactive December 27 8:26am [facility] Work Phone: 1(410) 524-833410-11-2024 [facility] Medical Records Department [address] [place] [id number] History Physical Exam 07/27/24 1445 MR#: [id number] Acct: [id number] Name: MILY BOLANOS Rep #: [id number] : [id number] 79 From: Tacho Moreira MD PCP: Dr. Mily Nogueira MD Status:PRE [facility] Location: [facility] History and Physical Date of Admission: 08/13/24 This is a 79 year-old gentleman who presents here today for the removal of his loop recorder. This has been causing him pain lately. Patient was admitted to [facility] on 08/24/2021 for amaurosis fugax. MRI and MRA were negative. He underwent a loop recorder placement on 09/16/21 for amaurosis fugax. He has a history of cryptogenic stroke, hypertension and hyperlipidemia. He had a retinal artery occlusion in 2019. From a cardiac standpoint, the patient is doing well. He denies any palpitations, chest pain, pressure or heaviness. He denies SOB, Orthopnea, and PND. He does not have bleeding issues; no blood in urine, stool or nosebleeds. He denies any decrease in energy level, myalgias, or claudication. He does not have edema, or sudden weight gain. He denies dizziness, lightheadedness, syncopal or near syncopal episodes, and headaches. He continues to stay very active at [facility] Intake Vital Signs See EMR Allergies See EMR Medications See EMR [facility] Medical History Amaurosis fugax of left eye Arrhythmia Benign prostate hyperplasia Bladder retention BPH (benign prostatic hyperplasia) Carotid artery disease Cryptogenic stroke DVT (deep venous thrombosis) ( 09/2022) Essential (primary) hypertension Glaucoma Hyperlipidemia Obstructive sleep apnea Osteoarthritis Parkinson disease Peripheral neuropathy Spinal stenosis (09/2022) Ventricular tachyarrhythmia Ventricular tachycardia Surgical History History of left heart catheterization (02/15/13) History of loop recorder (09/16/21) History of spinal surgery ( 09/2022) History of total knee replacement Social History Smoking Status: Former smoker how long ago did patient quit smokin years ago alcohol intake: current alcohol intake frequency: 0-2 drinks per day Alcohol type: beer substance use type: does not use caffeine: Yes Type: coffee Number of servings: 1 ROS Const Const: Negative for fatigue, weakness, fever(s), headache(s), chills, frequent falls, weight gain or weight loss Eyes Eyes: Negative for blind spots, loss of peripheral vision, transient loss of vision, blurry vision, change in vision, double vision, floaters or tunnel vision ENT ENT: Negative for headache(s), dizziness, Nosebleed/epistaxis, balance problems or neck pain Cardio Chest Pain: No Palpitations: No Edema: None Muscle aches with walking: None Resp Respiratory: Negative for SOB with activity, SOB at rest or SOB orthopnea SOB lying down GI GI: Negative nausea, vomiting, heartburn, bloating, vomiting blood/hematemesis, bright, red blood in stools or black,tarry stools Musc Musc: Negative for muscle aches/ myalgia, muscle weakness, joint pain or balance problems Neuro Neuro: Negative for dizziness, lightheadedness, near syncope, syncope, orthostatic symptoms, frequent falls, headache(s), weakness, blurry vision or double vision Ron Hematologic/Lymphatic: Negative for easy bleeding or easy bruising Endo Endo: Negative for fatigue Cardiology Exam Const Appearance: cooperative and no acute distress Nutritional Appearance: average body habitus and overweight Orientation: alert and oriented x3 Head Head: normal to inspection Ears: hearing grossly normal bilaterally Nose: external nose normal Face and Sinus: face symmetric Eyes General: appearance normal, both eyes and all related structures Eyelids: eyelids normal Conjunctivae: conjunctivae normal Pupils: PERRL and pupil size EOM: EOM intact bilaterally Neck Neck: normal visual inspection Carotids: Negative bruit Chest Chest inspection: normal inspection of the chest and normal respiratory effort Auscultation: Bilateral: Clear to Auscultation Cardio Palpation: normal PMI Rate: regular rate Rhythm: regular rhythm Heart sounds: S1 normal and S2 normal; Negative rub, gallop or murmur GI GI: normal to inspection and soft Neuro General: patient alert, patient oriented x3 and CN's II-XI intact bilaterally Skin Skin: no rashes or lesions noted Extremities Pulses: Normal: Right Posterior Tibial Pulse, Left Posterior Tibial Pulse, Right Radial Pulse and Left Radial Pulse Lower Extremity Edema: None: Bilateral Psych Psychological: normal affect Supplemental Info Supplemental Information Echocardiogram 09/14/2021: Interpretation Summary Normal LV size. Left ventricular systolic function is normal. The estimated ejection fraction is 65 %. Stage 1 diastolic dysfunction. (more content not included)...[facility]12-05-2023 Procedure [facility]12-04-2023 Discharge summary Author Deb Osobrn [facility] September 19, 2023 12:01pm Note Date/Time September 19, 2023 1 2:01pm [facility] Physical Therapy [facility] [address] [place] [address]. [address] [place] [address] / REHABILITATION SERVICES DISCHARGE SUMMARY MR#: [id number] Acct: [id number] Name: MILY BOLANOS Rep #: [id number] : 1945 78 From: Deb Mcfadden Referring Dr.: Dr. Mily Nogueira MD Status: REG RCR [facility] Discharge Summary D/C summary: It has been my pleasure to treat MILY BOLANOS referred by Dr. Mily Nogueira MD, with the diagnosis of neuropathy, loss of proprioception, loss of balance, PD for a total of 25 visit(s). Discharge Date: 09/19/23 Please see the following information for a summary of their discharge status. Subjective Subjective: Pt is noticing improvements in his walking, his balance and ADL's. He still has a hard time standing in one spot for a long time without holding onto something. Pain back pain: Pain Intensity (Out of 10): 3 L knee pain: Pain Intensity (Out of 10): 2 Overall Improvement % Improvement: 70 Objective Objective/Function: DF R 14.6 and L 12.1 PF 14.6 and L 16.2 R hip flex 15.5 and L 14.1 R knee ext 23.5 and L 26.6 R knee flex 16.6 and L 11.4 FGA 17 TUG 10:28 Goals Goal 1:: I HEP for hip and knee strength and gym routine Goal Progress: Goal Met Goal 2:: Increase LE strength (at time of the eval: DF R 11.9 and L 6.1 PF 9.6 and L 6.6 R hip flex 11.7 and L 9.2 R knee ext 15.8 and L 11 R knee flex 9.3 and L 9.5) TUG 10:28 Goal Progress: Goal Met Goal 3:: Increase balance (score of 7 on FGA at time of eval) Goal Progress: Goal Met Goal 4:: Be able to walk BW (length of blue strip in gym) with no LOB and largersteps Goal Progress: Goal Met Goal 5:: Be able to change direction on command without having to over step and correct balance Goal Progress: Progressing Plan Plan: DC PT to I exercises program D/C Information Discharge Comments: DC PT to idep exercise d/c sentence: If there are questions or concerns regarding this patient's physical therapy, please feel free to call me at [phone]. Thank you for the referral of thispatient. Sincerely, RAO Thrasher Balance/Gait/Functional tests Balance/Special Test Scores Functional Gait Assessment Score: 17 % Disability: 43.3400 Lower Extremity Functional Score: 35 Improvement % Improvement: 70 <Electronically signed by Deb Osborn MPT> 09/19/23 1201 CC: Dr. Mily Nogueira MD ~ Signed [facility] Work Phone: 1(690) 425-944606-27-2023 Discharge summary Author Jony Berumen [facility] April 12, 2023 8:58am Note Date/Time April 12, 2023 8:58 am [facility] [address] [place] [address] / REHABILITATION SERVICES DISCHARGE SUMMARY MR#: [id number] Acct: [id number] Name: MILY BOLANOS Rep #: [id number] : 1945 77 From: Jony Mcfadden Referring Dr.: ELOISA Meneses Status : REG RCR Insurance: [facility] SELF PAY INSURANCE It has been my pleasure to treat MILY BOLANOS referred by Dr. Pcaheco Meneses, ELOISA, with the diagnosis of L Osvaldoes tedinitis for a total of 9 visit(s). Discharge Date: 04/11/23 Please see the following information for a summary of their discharge status. Subjective: Pt. reports having some mild changes with his symptoms. He is walking with minimal pain and doing his exercises with minimal pain. He experiences most of his issues at night, with pressure on his heel. L calcaneus Pain Intensity (Out of 10): 1 L shoulder pain Pain Intensity (Out of 10): 2 % Improvement: 25 Objective/Function: Pt. still has limited L ankle DF and PF, DF 4-/5, PF 3/5 (unable to complete in standing). He has tenderness at distal aspect of Achilles and most posterior aspect of calcaneus. Pt. does have an increased callus in this area. Pt. ambulates with a shuffling pattern consistent with hisparkinsons but does have adequate foor clearance. Difficulty with controlled DF during initial loading on each side. At this point in time I would like him to continue with his stretching and strengthening on his own. We trialed DN/US and stretching. He has some improved ROM. PROM DF to 4 deg, active to neutral. Pt. agrees to continue his exercises at home. I talked to him about persistent stretching at home. Pt. consents. He is also to work on banded eccentrics, hopefully pressing to standing versions. His left shoulder is also not progressing as much as expected. He is to have an MRI on this next week. Goal 1:: I HEP Goal Progress: Goal Met Goal 2:: Increase L shoulder AROM (at the time of the eval R shoulder AROM flexion 150, ABD 140, ER 60, IR L1. L shoulder AROM: flex 75 ABD 105, ER 60,IR L1) Goal Progress: Goal Met Goal 3:: Increase L shoulder strength (at the time of the eval: R shoulder flexion 11.3, abd 12, ER 14.8, IR 9.9. L shoulder flexion 4.9, abd 5.9, ER 8.5,IR 11.7). Goal Progress: Not Progressing Goal 4:: LTG: Pt. to have full strength throughout R ankle. Goal Progress: Not Progressing Goal 5:: LTG: Pt. to have no pain with all walking and outside work activities. Goal Progress: Progressing Plan: pt. to be DC from PT at this point in time. Discharge Comments: Pt. was treated with DN, stretching and eccentrics. He has has some mild relief, but not a ton. He plans to continue with his exercises at home at this point in time. If there are questions or concerns regarding this patient's physical therapy, please feel free to call me at [phone]. Thank you for the referral of thispatient. Sincerely, Jony Berumen DPT Balance/Gait/Functional tests - Balance/Special Test Scores Lower Extremity Functional Score: 47 Quick DASH Score: 27.2725 <Electronically signed by Jony Berumen DPT> 04/12/23 0858 CC: ELOISA Meneses; Dr. Mily Nogueira MD ~ CLS Signed [facility] Work Phone: 1(248) 630-798704-11-2023 Discharge summary Author Deb Anurag [facility] January 25, 2023 2:01pm Note Date/Time January 25, 2023 11: 43am [facility] [address] [place] [address] [address] [place] [address] / REHABILITATION SERVICES DISCHARGE SUMMARY MR#: [id number] Acct: [id number] Name: MILY BOLANOS Rep #: [id number] : 1945 77 From: Deb Mcfadden Referring Dr.: Dr. Azael Guillaume DO Status: REG RCR Insurance: [facility] SELF PAY INSURANCE It has been my pleasure to treat MILY BOLANOS referred by Dr. Azael Guillaume DO, with the diagnosis of S/P spinal stenosis surgery 09-22-22 for a total of 26visit(s). Discharge Date: 01/25/23 Please see the following information for a summary of their discharge status. Subjective: Pt loaded dirt into his truck yesterday and now his back is sore today 11/26. He has a neurologist appt tomm and will find out the results of hisc-spine MRI. He feels that he can do the machines on his own and will continue with the classes. He was able back pain Pain Intensity (Out of 10): 2 % Improvement: 80 Objective/Function: LE MMT: R hip flex 15.4# and L 18.6#. R knee ext 22# and L24.2#. R knee flex 18# and L knee flex 16#. R hip abd R 16# and L 14#). Stairs: up and down stairs recip with 1 hand rail (slower and more cautious descending stairs). FGA: 15 Goal 1:: I HEP Goal Progress: Goal Met Goal 2:: Be able to go up and down steps recip with a hand rail but not having to pull himself up the step Goal 3:: Increase LE strength by 1/2 muscle grade (at time of the eval: R hip flex 12.6# and L 16.7#. R knee ext 12.7# and L 11.4#. R knee flex 8.7# and L knee flex 8.7#. R hip abd R 11.2# and L 12.7#) Goal Progress: Goal Met Goal 4:: Be able to sit at the computer or lean to do dishes without having painin his spine Goal Progress: Progressing Goal 5:: Increase his balance by 5 points to decrease fall risk (FGA 9 at time of eval) Goal Progress: Goal Met Plan: DC PT to I gym routine and PD classes and home exercises Pt feels comfortable and knowledgeable about I gym set up Discharge Comments: DC PT to H&W routine If there are questions or concerns regarding this patient's physical therapy, please feel free to call me at [phone]. Thank you for the referral of thispatient. Sincerely, Deb Osborn, RAO Balance/Gait/Functional tests - Balance/Special Test Scores Functional Gait Assessment Score: 15 % Disability: 50.0000 Oswestry Low Back Score: 12 <Electronically signed by Deb Osborn MPT> 01/25/23 1401 CC: Dr. Mily Nogueira MD; Dr. Azael Guillaume, DO ~ Signed [facility] Work Phone: 1(431) 782-221012-01-2021 Evaluation note* Diagnosis Onset Date Resolution Status Amaurosis fugax of left eye acute History of loop recorder September 16, 2021 acute Essential (primary) hypertension chronic Hyperlipidemia [facility] Work Phone: 1(889) 338-863712-01-2021 Evaluation note* Diagnosis Onset Date Resolution Status Cryptogenic stroke acute History of loop recorder September 16, 2021 acute Amaurosis fugax of left eye acute History of loop recorder September 16, 2021 acute Essential (primary) hypertension chronic Hyperlipidemia [facility] Work Phone: 1(240) 719-630112-01-2021 Evaluation note* Diagnosis Onset Date Resolution Status Amaurosis fugax of left eye acute History of loop recorder September 16, 2021 acute Essential (primary) hypertension chronic Hyperlipidemia chronic Cryptogenic stroke acute History of loop recorder September 16, 2021 acute [facility] Work Phone: 1(957) 202-905412-01-2021 Evaluation note* Diagnosis Onset Date Resolution Status Cryptogenic stroke acute History of loop recorder September 16, 2021 acute [facility] Work Phone: 1(803) 589-312612-01-2021 Evaluation note* Diagnosis Onset Date Resolution Status Cryptogenic stroke acute History of loop recorder September 16, 2021 acute Arrhythmia acute Cryptogenic stroke acute History of loop recorder September 16, 2021 acute [facility] Work Phone: 1(478) 370-778612-01-2021 Evaluation note* Diagnosis Onset Date Resolution Status History of loop recorder September 16, 2021 chronic History of loop recorder September 16, 2021 chronic [facility] Work Phone: 1(161) 718-331612-01-2021 Evaluation note* Diagnosis Onset Date Resolution Status History of loop recorder September 16, 2021 chronic History of loop recorder September 16, 2021 chronic Essential (primary) hypertension chronic History of loop recorder September 16, 2021 chronic [facility] Work Phone: 1(165) 206-135312-01-2021 Evaluation note* Diagnosis Onset Date Resolution Status History of loop recorder September 16, 2021 chronic Essential (primary) hypertension chronic History of loop recorder September 16, 2021 chronic [facility] Work Phone: 1(932) 563-967612-01-2021 Evaluation note* Diagnosis Onset Date Resolution Status History of loop recorder September 16, 2021 chronic [facility] Work Phone: [phone]) 198-860512-01-2021 Evaluation note* Diagnosis Onset Date Resolution Status History of loop recorder September 16, 2021 chronic Abnormality of gait and mobility acute History of amaurosis fugax a cute Low back pain chronic Parkinson disease chronic Polyneuropathy chronic [facility] Work Phone: [phone]) 196-393512-01-2021 Evaluation note* Diagnosis Onset Date Resolution Status Essential (primary) hypertension chronic History of loop recorder September 16, 2021 chronic Abnormality of gait and mobility acute History of amaurosis fugax a cute Lumbar radiculopathy acute Low back pain chronic Parkinson disease chronic Polyneuropathy chronic [facility] Work Phone: Evaluation noteNo assessment information available [facility] Work Phone: Hospital Discharge instructions Additional Instructions Follow-up with your PCP and return [facility] any worsening of [facility]: Reason for referral (narrative)No reason for referral information availableWMercy [facility] Work Phone: Summary Purpose Family History No Family History Records Found Relationship Condition Age at Onset Recorded Date/T juan Unknown Family History?- Unknown January 13, 2019 3:26pm Family History?Cancer Unknown January 13, 2019 3:26pm Family History?No pe rtinent history Unknown December 12, 2014 8:39am Family History?No pe rtinent history Unknown January 13, 2019 3:26pm Relationship Condition Age at Onset Recorded Date/T juan Unknown Family History?- Unknown January 13, 2019 2:26pm Family History?Cancer Unknown January 13, 2019 2:26pm Family History?No pe rtinent history Unknown December 12, 2014 7:39am Family History?No pe rtinent history Unknown January 13, 2019 2:26pm Relationship Condition Age at Onset Recorded Date/T juan Not Specified Malignant neoplasm of colon Unknown Cardiac disease Unknown Malignant neoplasm Unknown Hypertension Unknown Advance Directives No Advanced Directives Records Found Advance Directive Response Recorded Date/ Time Advance Directives Yes September 16, 2021 7:58am Living Will Yes September 16 7:58am Power of Manager Interface Yes September 16, 2021 7:58am Advance Directive Response Recorded Date/ Time Name of Medical Power of Manager Interface ? September 25, 2022 9:24am Advance Directives Yes September 16, 2021 6:58am Living Will Yes September 25 9:24am Power of Manager Interface Yes September 25, 2022 9:24am Advance Directive Response Recorded Date/ Time Name of Medical Power of Manager Interface ? September 25, 2022 9:24am Name of Medical Power of Manager Interface Maria L Richardson October 01, 2022 5:10am Advance Directives Yes September 16, 2021 6:58am Living Will Yes October 01 5:10am Power of Manager Interface Yes October 01, 2022 5:10am Advance Directive Response Recorded Date/ Time Name of Medical Power of Manager Interface ? September 25, 2022 10:24am Name of Medical Power of Manager Interface Maria L Richardson October 01, 2022 6:10am Advance Directives Yes September 16, 2021 7:58am Living Will Yes October 01 6:10am Power of Manager Interface Yes October 01, 2022 6:10am Advance Directive Response Recorded Date/ Time Name of Medical Power of Manager Interface Maria L Richardson October 01, 2022 6:10am Advance Directives Yes September 16, 2021 7:58am Living Will Yes October 01 6:10am Power of Manager Interface Yes October 01, 2022 6:10am Advance Directive Response Recorded Date/ Time Advance Directives Yes September 16, 2021 7:58am Living Will Yes October 01 6:10am Power of Manager Interface Yes October 01, 2022 6:10am Advance Directive Response Recorded Date/ Time Advance Directives Yes September 16, 2021 6:58am Living Will Yes October 01 5:10am Power of Manager Interface Yes October 01, 2022 5:10am Advance Directive Response Recorded Date/ Time Name of Medical Power of Manager Interface Steph January 14, 2024 7:36pm Advance Directives Yes September 16, 2021 7:58am Living Will Yes January 14, 2024 7:36pm Power of Manager Interface Yes January 13 7:36pm Advance Directive Response Recorded Date/ Time Living Will Yes January 14, 2024 7:36pm Do you have a Healthcare Power of Manager Interface? Yes January 14, 2024 7:36pm Advance Directives Yes August 13, 2024 11:19am Advance Directive Response Recorded Date/ Time Living Will Yes October 01 6:10am Do you have a Healthcare Power of Manager Interface? Yes October 01, 2022 6:10am Advance Directives Yes August 13, 2024 11:19am Procedure Findings Note HNO ID: [id number] Author: Nu Wakefield Service: Gastroenterology Author Type: Physician Type: Brief Op Note Filed: 06/11/2019 11:22 AM Note Text: BRIEF OPERATIVE NOTE PATIENT NAME: Mily Bolanos LOG ID: [id number] Surgery Date: 06/11/2019 Surgeon(s) and Relief Worker(s): Gino Wakefield MD -Primary Procedure(s): Procedure(s) (LRB): COLONOSCOPY (N/A) Anesthesia: Procedural Sedation Findings: Normal exam Estimated Blood Loss: 0 ml Specimens: None Preop Diagnosis: Family history of colon cancer [Z80.0] Postop Diagnosis: Family history of colon cancer [Z80.0] SIGNATURE: Gino Wakefield MD DATE: June 11, 2019 TIME: 11:21 AM Chief Complaint and Reason for Visit Chief Complaint TIA/CVA *HARISH* AMAUROSIS 1 Y FU Per Patricia L Reason for Visit Amaurosis fugax of l eft eye History of loop recorder Essential (primary) hypertension Hyperlipidemia Chief Complaint Per Patricia L remote ILR f/u 3 M FU NEED ORDER Reason for Visit Cryptogenic stroke History of loop recorder Amaurosis fugax of left eye History of loop recorder Essential (primary) hypertension Hyperlipidemia Chief Complaint 3 M FU NEED ORDER Other intervertebral disc degeneration, lumbosacra 3 mos remote ILR f/u CAROTID STENOSIS Reason for Visit Amaurosis fugax of l eft eye History of loop recorder Essential (primary) hypertension Hyperlipidemia Cryptogenic stroke History of loop recorder Chief Complaint CAROTID STENOSIS LEFT LEG PAIN Chief Complaint 3 mos remote ILR f/u LEFT LEG PAIN LEFT LEG DVT STAT dvt LUMBAR/SPINAL STENOSIS. PT HAS RX Reason for Visit Cryptogenic stroke History of loop recorder Chief Complaint 3 mos remote ILR f/u LEFT LEG PAIN LEFT LEG DVT STAT dvt Acute embolism and thrombosis of left tibial vein LUMBAR/SPINAL STENOSIS. PT HAS RX URINARY RETENTION Reason for Visit Cryptogenic stroke History of loop recorder Chief Complaint 3 mos remote ILR f/u LEFT LEG PAIN LEFT LEG DVT STAT dvt Acute embolism and thrombosis of left tibial vein URINARY RETENTION remote ILR f/u LUMBAR/SPINAL STENOSIS. PT HAS RX Reason for Visit Cryptogenic stroke History of loop recorder Arrhythmia Cryptogenic stroke History of loop recorder Chief Complaint 3 mos remote ILR f/u LEFT LEG PAIN LEFT LEG DVT STAT dvt Acute embolism and thrombosis of left tibial vein URINARY RETENTION remote ILR f/u LUMBAR/SPINAL STENOSIS. PT HAS RX Reason for Visit History of loop gena rder History of loop recorder Chief Complaint 3 mos remote ILR f/u LEFT LEG PAIN LEFT LEG DVT STAT dvt Acute embolism and thrombosis of left tibial vein URINARY RETENTION remote ILR f/u LUMBAR/SPINAL STENOSIS. PT HAS RX 1 Y FU Reason for Visit History of loop gena rder History of loop recorder Essential (primary) hypertension History of loop recorder Chief Complaint LEFT LEG PAIN LEFT LEG DVT STAT dvt Acute embolism and thrombosis of left tibial vein URINARY RETENTION remote ILR f/u 1 Y FU LUMBAR/SPINAL STENOSIS. PT HAS RX Reason for Visit History of loop gena rder Essential (primary) hypertension History of loop recorder Chief Complaint LEFT LEG DVT STAT dvt Acute embolism and thrombosis of left tibial vein URINARY RETENTION remote ILR f/u 1 Y FU LUMBAR/SPINAL STENOSIS. PT HAS RX Reason for Visit History of loop gena rder Essential (primary) hypertension History of loop recorder Chief Complaint Acute embolism and t hrombosis of left tibial vein URINARY RETENTION remote ILR f/u 1 Y FU LUMBAR/SPINAL STENOSIS. PT HAS RX LT ACHILLES TENDONITIS *HAS HEART MONITOR* Reason for Visit History of loop gena rder Essential (primary) hypertension History of loop recorder Chief Complaint LUMBAR/SPINAL STENOS IS. PT HAS RX LT ACHILLES TENDONITIS *HAS HEART MONITOR* 3 mos remote ILR f/u ACHILLES TENDINITIS RX HERE (DRY NEEDLING) STRAIN OF ROTATOR CUFF LEFT SIDE Reason for Visit History of loop gena rder Chief Complaint LUMBAR/SPINAL STENOS IS. PT HAS RX LT ACHILLES TENDONITIS *HAS HEART MONITOR* 3 mos remote ILR f/u ACHILLES TENDINITIS RX HERE (DRY NEEDLING) STRAIN OF ROTATOR CUFF LEFT SIDE ACUTE EMBOLISM, OCCLUSION AND STENOSIS OF CAROTID Reason for Visit History of loop gena rder Chief Complaint LT ACHILLES TENDONIT IS *HAS HEART MONITOR* 3 mos remote ILR f/u ACHILLES TENDINITIS RX HERE (DRY NEEDLING) STRAIN OF ROTATOR CUFF LEFT SIDE ACUTE EMBOLISM, OCCLUSION AND STENOSIS OF CAROTID NEUROPATHY LOSS OF PROPRIOCEPTION / RX HERE Reason for Visit History of loop gena rder Chief Complaint 3 mos remote ILR f/u Parkinson's disease EORDER NEUROPATHY LOSS OF PROPRIOCEPTION / RX HERE RADICULOPATHY, LUMBAR REGION Reason for Visit History of loop gena rder Abnormality of gait and mobility History of amaurosis fugax Low back pain Parkinson disease Polyneuropathy Chief Complaint 3 mos remote ILR f/u Parkinson's disease EORDER NEUROPATHY LOSS OF PROPRIOCEPTION / RX HERE RADICULOPATHY, LUMBAR REGION RADICULOPATHY, LUMBAR REGION Reason for Visit History of loop gena rder Abnormality of gait and mobility History of amaurosis fugax Low back pain Parkinson disease Polyneuropathy Chief Complaint Pacer Check Remote NEUROPATHY LOSS OF PROPRIOCEPTION / RX HERE RADICULOPATHY, LUMBAR REGION RADICULOPATHY, LUMBAR REGION 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 W/O MENTION IF FL 1 Y FU Pacer Check Remote 4 M FU FRONTAL BONE LESION Reason for Visit Essential (primary) hypertension History of loop recorder Abnormality of gait and mobility History of amaurosis fugax Lumbar radiculopathy Low back pain Parkinson disease Polyneuropathy Chief Complaint NEUROPATHY LOSS OF P ROPRIOCEPTION / RX HERE RADICULOPATHY, LUMBAR REGION RADICULOPATHY, LUMBAR REGION 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 W/O MENTION IF FL 1 Y FU Pacer Check Remote 4 M FU FRONTAL BONE LESION s/p fall Reason for Visit Essential (primary) hypertension History of loop recorder Abnormality of gait and mobility History of amaurosis fugax Lumbar radiculopathy Low back pain Parkinson disease Polyneuropathy Chief Complaint PARKINSON DISEASE W/ O DYSKINESIA W/O MENTION IF FL 1 Y FU Pacer Check Remote 4 M FU FRONTAL BONE LESION s/p fall LT LEG PAIN LEFT KNEE Reason for Visit Essential (primary) hypertension History of loop recorder Abnormality of gait and mobility History of amaurosis fugax Lumbar radiculopathy Low back pain Parkinson disease Polyneuropathy Chief Complaint 1 Y FU Pacer Check Remote 4 M FU FRONTAL BONE LESION s/p fall LT LEG PAIN LEFT KNEE Reason for Visit Essential (primary) hypertension History of loop recorder Abnormality of gait and mobility History of amaurosis fugax Lumbar radiculopathy Low back pain Parkinson disease Polyneuropathy Chief Complaint 3 mos remote ILR f/u Parkinson's disease EORDER NEUROPATHY LOSS OF PROPRIOCEPTION / RX HERE RADICULOPATHY, LUMBAR REGION RADICULOPATHY, LUMBAR REGION 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 W/O MENTION IF FL Reason for Visit History of loop gena rder Abnormality of gait and mobility History of amaurosis fugax Low back pain Parkinson disease Polyneuropathy Chief Complaint Admit Date B12 inject September 10, 2024 9:25am RLE SWELLING September 26, 2024 9:21am RIGHT ANKLE PAIN October 09, 2024 12:37pm B12 inject October 18, 2024 12 :52pm B12 inject November 19, 2024 1 0:23am Pain in right lower leg November 26 11:00am PAIN RLE November 26, 2024 11:06am Edema RLE December 12, 2024 12:43pm 4 M FU/B12 INJECT December 27, 2024 8:2 6am RIGHT LEG SWELLING January 04, 2025 12: 51pm Reason for Visit Admit Date Fatigue September 10, 2024 9:25am Fatigue October 18, 2024 12 :52pm Fatigue November 19, 2024 1 0:23am Edema of right lower extremity December 12, 2024 12:43pm Venous insufficiency (chronic) (peripher al) December 12, 2024 12:43pm Abnormality of gait and mobility December 152024 8:26am Parkinson disease December 27, 2024 8:2 6am Polyneuropathy December 27, 2024 8:2 6am History of amaurosis fugax December 27 8:26am Fatigue December 27, 2024 8:2 6am Chief Complaint Admit Date RLE SWELLING September 26, 2024 9:21am RIGHT ANKLE PAIN October 09, 2024 12:37pm B12 inject October 18, 2024 12 :52pm B12 inject November 19, 2024 1 0:23am Pain in right lower leg November 26 11:00am PAIN RLE November 26, 2024 11:06am Edema RLE December 12, 2024 12:43pm 4 M FU/B12 INJECT December 27, 2024 8:2 6am RIGHT LEG SWELLING January 04, 2025 12: 51pm 1 Y FU January 10, 2025 10: 15am Reason for Visit Admit Date Fatigue October 18, 2024 12 :52pm Fatigue November 19, 2024 1 0:23am Edema of right lower extremity December 12, 2024 12:43pm Venous insufficiency (chronic) (peripher al) December 12, 2024 12:43pm Abnormality of gait and mobility December 152024 8:26am Parkinson disease December 27, 2024 8:2 6am Polyneuropathy December 27, 2024 8:2 6am History of amaurosis fugax December 27 8:26am Fatigue December 27, 2024 8:2 6am Essential (primary) hypertension December 162024 10:15am History of loop recorder January 10 10:15am Chief Complaint Admit Date B12 inject November 19, 2024 1 0:23am Pain in right lower leg November 26 11:00am PAIN RLE November 26, 2024 11:06am Edema RLE December 12, 2024 12:43pm 4 M FU/B12 INJECT December 27, 2024 8:2 6am RIGHT LEG SWELLING January 04, 2025 12: 51pm 1 Y FU January 10, 2025 10: 15am B12 inject January 28, 2025 9:2 8am B12 inject February 28, 2025 9:01a m Reason for Visit Admit Date Fatigue November 19, 2024 1 0:23am Edema of right lower extremity December 12, 2024 12:43pm Venous insufficiency (chronic) (peripher al) December 12, 2024 12:43pm Abnormality of gait and mobility December 152024 8:26am Parkinson disease December 27, 2024 8:2 6am Polyneuropathy December 27, 2024 8:2 6am History of amaurosis fugax December 27 8:26am Fatigue December 27, 2024 8:2 6am Essential (primary) hypertension December 162024 10:15am History of loop recorder January 10 10:15am Fatigue January 28, 2025 9:2 8am Chief Complaint Admit Date B12 inject November 19, 2024 1 0:23am Pain in right lower leg November 26 11:00am PAIN RLE November 26, 2024 11:06am Edema RLE December 12, 2024 12:43pm 4 M FU/B12 INJECT December 27, 2024 8:2 6am RIGHT LEG SWELLING January 04, 2025 12: 51pm 1 Y FU January 10, 2025 10: 15am B12 inject January 28, 2025 9:2 8am B12 inject February 28, 2025 9:01a m 2-3 M FU February 28, 2025 10:28 am Reason for Visit Admit Date Fatigue November 19, 2024 1 0:23am Edema of right lower extremity December 12, 2024 12:43pm Venous insufficiency (chronic) (peripher al) December 12, 2024 12:43pm Abnormality of gait and mobility December 152024 8:26am Parkinson disease December 27, 2024 8:2 6am Polyneuropathy December 27, 2024 8:2 6am History of amaurosis fugax December 27 8:26am Fatigue December 27, 2024 8:2 6am Essential (primary) hypertension December 162024 10:15am History of loop recorder January 10 10:15am Fatigue January 28, 2025 9:2 8am Fatigue February 28, 2025 9:01a m Additional Source Comments (unrecognized sect ion and content) No Status Records FoundNo Status Records FoundNo Status Records Found INFORMATION SOURCE (unrecogn ized section and content) DATE CREATED AUTHOR 06/11/2019 [facility] DATE CREATED AUTHOR AUTHOR'S ORGANIZ ATION 07/19/2019 [facility] ([place]) DATE CREATED AUTHOR AUTHOR'S ORGANIZ ATION 03/01/2025 [facility] Goals (unrecognized section and content) Goals may be documented in a n alternate sectionGoals may be documented in an alternate sectionGoals may be documented in an alternate sectionGoals may be documented in an alternate sectionGoals may be documented in an alternate sectionGoals may be documented in an alternate sectionGoals may be documented in an alternate sectionGoals may be documented in an alternate sectionGoals may be documented in an alternate sectionGoals may be documented in an alternate sectionGoals may be documented in an alternate sectionGoals may be documented in an alternate sectionGoals may be documented in an alternate sectionGoals may be documented in an alternate sectionGoals may be documented in an alternate sectionGoals may be documented in an alternate sectionGoals may be documented in an alternate sectionGoals may be documented in an alternate sectionGoals may be documented in an alternate sectionGoals may be documented in an alternate sectionGoals may be documented in an alternate sectionGoals may be documented in an alternate sectionGoals may be documented in an alternate sectionGoals may be documented in an alternate sectionGoals may be documented in an alternate sectionGoals may be documented in an alternate sectionGoals may be documented in an alternate sectionGoals may be documented in an alternate sectionGoals may be documented in an alternate sectionGoals may be documented in an alternate section Care Teams (unrecognized sec tion and content) Team Status: Active Member Role Status Dates Dr. Vitaly Kunz MD Family Provider Active Dr. Mily Nogueira MD Primary Care Provider Active Team Status: Inactive Member Role Status Dates Dr. Mily Nogueira MD Primary Care Provider, Referr ing Provider Active Margarette Toth Active Dr. Tacho Moreira MD Attending Provider Active Team Status: Active Member Role Status Dates Dr. Mily Nogueira MD Primary Care Provider Active Dr. Popeye Pagan MD Attending Provider Active Dr. Moises Bird MD Referring Provider Active Team Status: Active Member Role Status Dates Dr. Mily Nogueira MD Primary Care Provider Active Dr. Popeye Pagan MD Attending Provider Active Dr. Joseph Barker DO Referring Provider Active Team Status: Inactive Member Role Status Dates Dr. Mily Nogueira MD Primary Care Pr ovider, Attending Provider, Referring Provider Active Team Status: Inactive Member Role Status Dates Dr. Mily Nogueira MD Primary Care Provider Active Dr. Moises Bird MD Attending Provider, Emergency Provider Active Team Status: Inactive Member Role Status Dates Dr. Mily Nogueira MD Primary Care Provider Active Dr. Moises Bird MD Attending Provider, Referring Provider Active Team Status: Inactive Member Role Status Dates Dr. Mily Nogueira MD Primary Care Provider Active Dr. Joseph Barker DO Attending Provider, Emergency Pr ovider Active Team Status: Active Member Role Status Dates Dr. Mily Nogueira MD Primary Care Provider Active Dr. Azael Guillaume DO Attending Provider, Referring P rovider Active Team Status: Inactive Member Role Status Dates Dr. Mily Nogueira MD Primary Care Provider, Attend ing Provider Active Team Status: Active Member Role Status Dates Dr. Mily Nogueira MD Primary Care Provider, Attend ing Provider Active Team Status: Active Member Role Status Dates Dr. Mily Nogueira MD Primary Care Provider Active Dr. Popeye Pagan MD Attending Provider Active Team Status: Active Member Role Status Dates Dr. Mily Nogueira MD Primary Care Pr ovider, Attending Provider, Referring Provider Active Team Status: Inactive Member Role Status Dates Dr. Mily Nogueira MD Primary Care Provider, Referr ing Provider Active Margarette Toth Attending Provider Active Team Status: Inactive Member Role Status Dates Dr. Mily Nogueira MD Primary Care Provider, Referr ing Provider Active Dr. Tacho Moreira MD Attending Provider Active Team Status: Active Member Role Status Dates Dr. Mily Nogueira MD Primary Care Provider Active Dr. Azael Guillaume DO Attending Provider, Referring P rovider Active NYDIA MOSCOSO Active Team Status: Active Member Role Status Dates Dr. Mily Nogueira MD Primary Care Provider, Referr ing Provider Active Dr. Popeye Pagan MD Attending Provider Active Team Status: Inactive Member Role Status Dates Dr. Mily Nogueira MD Primary Care Provider Active Dr. Jori Bennett MD Attending Provider Active Team Status: Inactive Member Role Status Dates Dr. Mliy Nogueira MD Primary Care Provider Active Dr. Azael Guillaume DO Attending Provider, Referring P rovider Active NYDIA MOSCOSO Active Team Status: Inactive Member Role Status Dates Dr. Mily Nogueira MD Primary Care Provider Active Dr. Pacheco Meneses DPM Attending Provider, Referrin g Provider Active Team Status: Inactive Member Role Status Dates Dr. Mily Nogueira MD Primary Care Provider Active Dr. Azael Guillaume DO Attending Provider, Referring P rovider Active Team Status: Active Member Role Status Dates Dr. Mily Nogueira MD Primary Care Provider Active Dr. Pacheco Meneses DPM Attending Provider, Referrin g Provider Active Team Status: Inactive Member Role Status Dates Dr. Mily Nogueira MD Primary Care Provider Active GERA Hale Attending Provider, Referring Provide r Active Team Status: Inactive Member Role Status Dates Dr. Mily Nogueira MD Primary Care Provider Active Dr. Leighton Cruz MD Attending Provider, Referring Provider Active Team Status: Inactive Member Role Status Dates Dr. Mily Nogueira MD Primary Care Provider, Referr ing Provider Active Dr. Christian Payton MD Attending Provider Active Team Status: Active Member Role Status Dates Dr. Mily Nogueira MD Primary Care Provider Active Dr. Christian Payton MD Attending Provider, Referring Provider Active Team Status: Inactive Member Role Status Dates Dr. Mily Nogueira MD Primary Care Provider Active Dr. Christian Payton MD Attending Provider, Referring Provider Active Team Status: Active Member Role Status Dates Dr. Mily Nogueira MD Primary Care Provider Active Dr. Christian Payton MD Referring Provider, Other Pro vider Active Dr. Cachorro Joy MD Attending Provider Active Team Status: Inactive Member Role Status Dates Dr. Mily Nogueira MD Primary Care Provider, Referr ing Provider Active Michelle Ames CHIEF WARDEN, CHIEF WARDEN-C Attending Provider Active Team Status: Inactive Member Role Status Dates Dr. Mily Nogueira MD Primary Care Provider Active Dr. Tacho Moreira MD Attending Provider Active Team Status: Inactive Member Role Status Dates Dr. Mily Nogueira MD Primary Care Provider Active Dr. Abhay Dunlap DO Emergency Provider Active Team Status: Active Member Role Status Dates Dr. Mily Nogueira MD Primary Care Provider Active Dr. Vitaly Ma MD Attending Provider Active Team Status: Inactive Member Role Status Dates Dr. Mily Nogueira MD Primary Care Provider Active Dr. Abhay Dunlap DO Attending Provider, Lilliam ware Active Team Status: Active Member Role Status Dates Dr. Mily Nogueira MD Primary Care Provider, Referr ing Provider Active Dr. Vitaly Ma MD Attending Provider Active Team Status: Inactive Member Role Status Dates Dr. Mily Nogueira MD Primary Care Provider Active Dr. Popeye Adams MD Attending Provider, Referrin g Provider Active Team Status: Active Member Role Status Dates Dr. Mily Nogueira MD Primary Care Provider Active Team Status: Inactive Member Role Status Dates Dr. Mily Nogueira MD Primary Care Provider Active Start: September 10, 2024 End: September 10, 2024 Dr. Christian Payton MD Attending Provider Active Start: September 10, 2024 End: September 10, 2024 Dr. Christian Payton MD Referring Provider Active Start: September 10, 2024 End: September 10, 2024 Team Status: Inactive Member Role Status Dates Dr. Mily Nogueira MD Primary Care Provider Active Start: September 25, 2024 End: September 25, 2024 Dr. Mily Nogueira MD Attending Provider Active Start: September 25, 2024 End: September 25, 2024 Team Status: Inactive Member Role Status Dates Dr. Mily Nogueira MD Primary Care Provider Active Start: September 26, 2024 End: September 26, 2024 Dr. Mily Nogueira MD Attending Provider Active Start: September 26, 2024 End: September 26, 2024 Dr. Mily Nogueira MD Referring Provider Active Start: September 26, 2024 End: September 26, 2024 Team Status: Active Member Role Status Dates Dr. Mily Nogueira MD Primary Care Provider Active Start: September 26, 2024 Dr. Mily Nogueira MD Referring Provider Active Start: September 26, 2024 Dr. Vitaly Ma MD Attending Provider Active S tart: September 26, 2024 Team Status: Inactive Member Role Status Dates Dr. Mily Nogueira MD Primary Care Provider Active Start: October 09, 2024 End: October 09, 2024 Dr. Mily Nogueira MD Attending Provider Active Start: October 09, 2024 End: October 09, 2024 Dr. Mily Nogueira MD Referring Provider Active Start: October 09, 2024 End: October 09, 2024 Team Status: Inactive Member Role Status Dates Dr. Mily Nogueira MD Primary Care Provider Active Start: October 18, 2024 End: October 18, 2024 Dr. Christian Payton MD Attending Provider Active Start: October 18, 2024 End: October 18, 2024 Dr. Christian Payton MD Referring Provider Active Start: October 18, 2024 End: October 18, 2024 Team Status: Inactive Member Role Status Dates Dr. Mily Nogueira MD Primary Care Provider Active Start: October 23, 2024 End: October 23, 2024 Dr. Mily Nogueira MD Attending Provider Active Start: October 23, 2024 End: October 23, 2024 Dr. Mily Nogueira MD Referring Provider Active Start: October 23, 2024 End: October 23, 2024 Team Status: Inactive Member Role Status Dates Dr. Mily Nogueira MD Primary Care Provider Active Start: November 19, 2024 End: November 19, 2024 Dr. Christian Payton MD Attending Provider Active Start: November 19, 2024 End: November 19, 2024 Dr. Christian Payton MD Referring Provider Active Start: November 19, 2024 End: November 19, 2024 Team Status: Inactive Member Role Status Dates Dr. Mily Nogueira MD Primary Care Provider Active Start: November 21, 2024 End: November 21, 2024 Dr. Mily Nogueira MD Attending Provider Active Start: November 21, 2024 End: November 21, 2024 Dr. Mily Nogueira MD Referring Provider Active Start: November 21, 2024 End: November 21, 2024 Team Status: Inactive Member Role Status Dates Dr. Mily Nogueira MD Primary Care Provider Active Start: November 26, 2024 End: November 26, 2024 Dr. Pacheco Meneses DPM Attending Provider Active Start: November 26, 2024 End: November 26, 2024 Dr. Pacheco Meneses DPM Referring Provider Active Start: November 26, 2024 End: November 26, 2024 Team Status: Active Member Role Status Dates Dr. Neo Bean MD Attending Provider Active Start: November 26, 2024 Dr. Pacheco Meneses DPM Referring Provider Active Start: November 26, 2024 Team Status: Inactive Member Role Status Dates Dr. Mily Nogueira MD Primary Care Provider Active Start: December 12, 2024 End: December 12, 2024 Dr. Mily Nogueira MD Referring Provider Active Start: December 12, 2024 End: December 12, 2024 GERA Mcduffie Attending Provider Active Star t: December 12, 2024 End: December 12, 2024 Team Status: Inactive Member Role Status Dates Dr. Mily Nogueira MD Primary Care Provider Active Start: December 27, 2024 End: December 27, 2024 Dr. Mily Nogueira MD Referring Provider Active Start: December 27, 2024 End: December 27, 2024 Dr. Christian Payton MD Attending Provider Active Start: December 27, 2024 End: December 27, 2024 Team Status: Inactive Member Role Status Dates Dr. Mily Nogueira MD Primary Care Provider Active Start: December 28, 2024 End: December 28, 2024 Dr. Christian Payton MD Attending Provider Active Start: December 28, 2024 End: December 28, 2024 Dr. Christian Payton MD Referring Provider Active Start: December 28, 2024 End: December 28, 2024 Team Status: Active Member Role Status Dates Dr. Mily Nogueira MD Primary Care Provider Active Start: January 03, 2025 Dr. Jori Bennett MD Attending Provider Active Start: January 03, 2025 Dr. Jori Bennett MD Referring Provider Active Start: January 03, 2025 Team Status: Active Member Role Status Dates Dr. Mily Nogueira MD Primary Care Provider Active Start: January 04, 2025 GERA Mcduffie Attending Provider Active Star t: January 04, 2025 GERA Mcduffie Referring Provider Active Star t: January 04, 2025 Team Status: Inactive Member Role Status Dates Dr. Mily Nogueira MD Primary Care Provider Active Start: January 04, 2025 End: January 04, 2025 GERA Mcduffie Attending Provider Active Star t: January 04, 2025 End: January 04, 2025 GERA Mcduffie Referring Provider Active Star t: January 04, 2025 End: January 04, 2025 Team Status: Active Member Role Status Dates Dr. Mily Nogueira MD Primary Care Provider Active Start: January 04, 2025 Dr. Vitaly Ma MD Attending Provider Active S tart: January 04, 2025 GERA Mcduffie Referring Provider Active Star t: January 04, 2025 Team Status: Inactive Member Role Status Dates Dr. Mily Nogueira MD Primary Care Provider Active Start: January 10, 2025 End: January 10, 2025 Dr. Mily Nogueira MD Referring Provider Active Start: January 10, 2025 End: January 10, 2025 Dr. Tacho Moreira MD Attending Provider Active S tart: January 10, 2025 End: January 10, 2025 Team Status: Inactive Member Role Status Dates Dr. Mily Nogueira MD Primary Care Provider Active Start: January 03, 2025 End: January 03, 2025 Dr. Jori Bennett MD Attending Provider Active Start: January 03, 2025 End: January 03, 2025 Dr. Jori Bennett MD Referring Provider Active Start: January 03, 2025 End: January 03, 2025 Team Status: Inactive Member Role Status Dates Dr. Mily Nogueira MD Primary Care Provider Active Start: December 27, 2024 End: December 27, 2024 Dr. Christian Payton MD Attending Provider Active Start: December 27, 2024 End: December 27, 2024 Dr. Christian Payton MD Referring Provider Active Start: December 27, 2024 End: December 27, 2024 Team Status: Inactive Member Role Status Dates Dr. Mily Nogueira MD Primary Care Provider Active Start: January 28, 2025 End: January 28, 2025 Dr. Christian Payton MD Attending Provider Active Start: January 28, 2025 End: January 28, 2025 Dr. Christian Payton MD Referring Provider Active Start: January 28, 2025 End: January 28, 2025 Team Status: Inactive Member Role Status Dates Dr. Mily Nogueira MD Referring Provider Active Start: February 28, 2025 End: February 28, 2025 Dr. Christian Payton MD Attending Provider Active Start: February 28, 2025 End: February 28, 2025 Team Status: Active Member Role Status Dates Mily YU MD Primary Care Provider Active Team Status: Inactive Member Role Status Dates Dr. Mily Nogueira MD Referring Provider Active Start: February 28, 2025 End: February 28, 2025 GERA Mcduffie Attending Provider Active Star t: February 28, 2025 End: February 28, 2025 Mily YU MD Primary Care Provider Active Start: February 28, 2025 End: February 28, 2025 FOR RECORDS PERTAINING TO PATIENTS WHO ARE [...] BE BASED ON THE PRIMARY CLINICAL RECORDS. [employer] provides no warranty or guarantee of the accuracy or completeness of information in this document.
[2025-03-21 10:36] LABS: Absolute Lymphocyte Count 1.18 X10^3/uL (0.83-4.51); Basophil# 0.05 X10^3/uL; Eosinophil# 0.19 X10^3/uL; Eosinophils% 3.9 % (0-5); Hematocrit 45.1 % (40-54); Hemoglobin 15.4 g/dL (13.0-16.5); Lymphocyte # 1.18 X10^3/ul (0.83-4.51); Lymphocyte % 24.3 % (19-41); Mean Corp Hgb Conc 34.1 g/dL (32-36); Mean Corpuscular Hgb 29.4 pg (27.0-32.0); Mean Corpuscular Volume 86.1 fL (80-94); Mean Platelet Vol. 11.5 fl (6.2-12.0); Monocyte% 8.2 % (0-10); NRBC Flagged by Analyzer 0 % (0-5); Neutrophil % 61.8 % (47-70); Platelet Count 243 K/mm3 (150-450); RBC Distribution Width CV 12.9 % (11.6-14.6); RBC Distribution Width SD 40.1 fl (35.1-43.9); Red Blood Count 5.24 M/mm3 (4.6-6.2); White Blood Count 4.9 K/mm3 (4.4-11.0)
[2025-03-21 10:45] LABS: Hemoglobin A1c 5.7 % (<=5.6)
[2025-03-21 10:53] LABS: ALB/GLOB Ratio 1.7 RATIO (0.9-2.4); AST(SGOT) 32 U/L (<=37); Alanine Aminotransfer ALT/SGPT 28 U/L (<=46); Albumin, Serum 3.9 g/dL (3.4-4.8); Alkaline Phosphatase 152 U/L (40-129); Anion Gap 11 (5-15); BUN 16 mg/dL (4-19); BUN/Creat Ratio 24.1 RATIO (10-20); Calcium,Total 8.7 mg/dL (7.6-11.0); Carbon Dioxide 23.1 mmol/L (21.0-32.0); Chloride 101 mmol/L (98-108); Cholesterol 187 mg/dL (<=200); Creatinine, Serum 0.66 mg/dL (0.70-1.20); EST Glomerular Filtration Rate 95 (>60); Globulin 2.4 g/dL (2.2-4.2); Glucose 102 mg/dL (70-99); High Density Lipoprotein 86 mg/dL; Low Density Lipoprotein Calc. 86 mg/dL; Potassium 4.3 mmol/L (3.3-5.1); Protein, Total 6.3 g/dL (5.9-8.4); Sodium Level 135 mmol/L (133-145); Total Bilirubin 0.42 mg/dL (0.00-1.30); Triglycerides 76 mg/dL; Very Low Density Lipoprotein 15 mg/dL (5-40); Vitamin D,25 Hydroxy 36.3 ng/mL (30-100); cholesterol:hdl ratio screen 2.17
== END | disposition home or self-care (01) ==
LOC: MTLAB 07:35
PROVIDERS: PCP Family Medicine; Referring Provider Family Medicine; Visit Provider Family Medicine
DX: I10 Essential (primary) hypertension (principal); E55.9 Vitamin D deficiency, unspecified; E78.5 Hyperlipidemia, unspecified; R73.02 Impaired glucose tolerance (oral)
CPT/HCPCS: 80053; 80061; 82306; 83036; 85025

== ENCOUNTER → 2025-07-24 | Outpatient (CLI) | payer MEDICARE, SELFPAY ==
[2025-07-24 10:35] LABS: Mucous, Urine 0 SEEN /hpf (<or=2+); Red Blood Cells-Urine 0 SEEN /hpf (0-5); Squamous Epithelial Cells - UA 0 SEEN /hpf (0-5)
[2025-07-24 12:40] LABS: Hematocrit 48.4 % (40-54); Hemoglobin 16.3 g/dL (13.0-16.5); Immature Granulocytes Count 0.040 X10^3/uL (0.0-0.0); Mean Corp Hgb Conc 33.7 g/dL (32-36); Mean Corpuscular Volume 85.7 fL (80-94); Mean Platelet Vol. 11.5 fl (6.2-12.0); NRBC Flagged by Analyzer 0 % (0-5); Platelet Count 226 K/mm3 (150-450); RBC Distribution Width CV 12.9 % (11.6-14.6); RBC Distribution Width SD 39.8 fl (35.1-43.9); Red Blood Count 5.65 M/mm3 (4.6-6.2); White Blood Count 4.9 K/mm3 (4.4-11.0)
[2025-07-24 14:12] LABS: AST(SGOT) 30 U/L (<=37); Alanine Aminotransfer ALT/SGPT 29 U/L (<=46); Albumin, Serum 4.1 g/dL (3.4-4.8); Alkaline Phosphatase 134 U/L (40-129); Chloride 101 mmol/L (98-108); Potassium 4.5 mmol/L (3.3-5.1)
[2025-07-24 15:46] LABS: Color, Urine Yellow (Yellow); Glucose, Dipstick Normal (Normal); Ketone-Dipstick Negative (Negative); Leukocyte Esterase-Dipstick Negative /ul (Negative); Nitrite-Dipstick Negative (Negative); Occult Blood-Urine Negative /ul (Negative); Protein-Dipstick 15 mg/dl (Negative); Specific Gravity, Urine 1.015 (1.002-1.030); Urine Bilirubin Dipstick Negative (Negative)
[2025-07-24 15:59] LABS: Magnesium 2.1 mg/dL (1.5-2.2); Vitamin D,25 Hydroxy 38.1 ng/mL (30-100)
[2025-07-24 16:13] LABS: Anion Gap 13 (5-15); BUN 13 mg/dL (4-19); BUN/Creat Ratio 19.5 RATIO (10-20); Calcium,Total 9.0 mg/dL (7.6-11.0); Carbon Dioxide 23.4 mmol/L (21.0-32.0); Cholesterol 199 mg/dL (<=200); Globulin 2.5 g/dL (2.2-4.2); Glucose 110 mg/dL (70-99); Low Density Lipoprotein Calc. 92 mg/dL; Triglycerides 76 mg/dL; Very Low Density Lipoprotein 15 mg/dL (5-40); cholesterol:hdl ratio screen 2.16
== END | disposition home or self-care (01) ==
LOC: LAB 10:27
PROVIDERS: PCP Family Medicine; Referring Provider Family Medicine; Visit Provider Family Medicine
DX: E55.9 Vitamin D deficiency, unspecified (principal); E78.5 Hyperlipidemia, unspecified; I10 Essential (primary) hypertension; R73.02 Impaired glucose tolerance (oral)
CPT/HCPCS: 36415; 80053; 80061; 81001; 82306; 83036; 83735; 85025

== ENCOUNTER → 2025-07-25 | Outpatient (CLI) | payer MEDICARE, SELFPAY ==
--- NOTE | 2025-07-25 10:16 | RAD_ITS ---
PROCEDURE: HAND MIN 3 VIEWS 07/25/2025 REASON FOR EXAM: PAIN SINCE SUMMER, 5 DIGIT, PATIENT BOXES TECHNIQUE: Procedure Code: STUART Modality: DX Procedure: HAND MIN 3 VIEWS Laterality: Right COMPARISON: None FINDINGS: Bones: Three views of the right hand demonstrate mild diffuse osteopenia of the osseous structures. There are no fractures or dislocations. Joints: Mild to moderate arthritic changes are seen involving the D IP joint 5th digit. Soft tissues: Soft tissues appear grossly unremarkable. 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 [id number] arthritic changes seen involving the DIP joint 5th digit Reading Location: [id number]
== END | disposition home or self-care (01) ==
LOC: MTRAD 10:16
PROVIDERS: PCP Family Medicine; Referring Provider Family Medicine; Visit Provider Family Medicine
DX: M79.641 Pain in right hand (principal)
CPT/HCPCS: 73130

== ENCOUNTER → 2025-08-09 | Outpatient (CLI) | payer MEDICARE, SELFPAY | END | disposition home or self-care (01) | LOC: CVS 14:51 | PROVIDERS: PCP Family Medicine; Referring Provider Family Medicine; Visit Provider Family Medicine | DX: I65.23 Occlusion and stenosis of bilateral carotid arteries (principal) | CPT/HCPCS: 93880 ==